=== PATIENT | female | born 1955 | race Caucasian/White ===

== ENCOUNTER 2016-09-20 09:33 | Outpatient (CLI) | payer BC ==
[2016-09-20] VITALS (12 sets, daily range): BP systolic 97–124; BP diastolic 57–74
[~2016-09-20] VITALS: Ht 162.6 cm; Wt 57.2 kg
[~2016-09-20 09:33] MED LIST: ALBU2.5V5 NEB; CAPE500T PO; FLUT1DIS3 IH; HYDR-2666 PO; LORA10TA3 PO; OMEP40CA5 PO; PROAIR HFA8.5 GM INH
[2016-09-20] MEDS ORDERED: FLUT1DIS3 IH (09:52)
[2016-09-20] MEDS ORDERED: ALBU2.5V5 NEB (09:55)
[2016-09-20] MEDS ORDERED: PROVENTIL HFA6.7 GM IH (09:55)
[2016-09-20 10:17] LABS: BASO # 0.1 x10^3/uL (0.0-0.2); BASO % 3 % (0-3); EOS % 5 % (0-3); HEMATOCRIT 39.2 % (36.0-47.0); HEMOGLOBIN 13.3 g/dL (12.0-15.5); LYMPH # 1.3 x10^3/uL (1.0-4.8); LYMPH % 24 % (24-48); MEAN CORPUSCULAR HEMOGLOBIN 32 pg (25-35); MEAN CORPUSCULAR HGB CONC 34 g/dL (31-37); MEAN CORPUSCULAR VOLUME 95 fL (79-100); MONO % 8 % (0-9); NEUT % 61 % (31-73); PLATELET COUNT 233 x10^3/uL (140-400); RED BLOOD COUNT 4.14 x10^6/uL (3.50-5.40); RED CELL DISTRIBUTION WIDTH 15.5 % (11.5-14.5); WHITE BLOOD COUNT 5.4 x10^3/uL (4.0-11.0)
[2016-09-20 10:28] LABS: PROTHROMBIN TIME PATIENT 12.7 SEC (11.7-14.0)
[2016-09-20] MEDS ORDERED: NALOXONE 0.4 MG/ML VIAL. ONE (11:04)
[2016-09-20] MEDS ORDERED: FENTANYL PF 100 MCG/2 ML VIAL. ONE (11:04)
[2016-09-20] MEDS ORDERED: FLUMAZENIL 0.5 MG/5 ML VIAL. IV ONE (11:04)
[2016-09-20] MEDS ORDERED: MIDAZOLAM HCL 2 MG/2 ML VIAL. ONE (11:04)
--- NOTE | 2016-09-20 11:26 | PDOC ---
MODERATE SEDATION ASSESSMENT RISKS/ALTERNATIVES Risks/Alternatives Risks and alternatives of this type of sedation and procedure discussed with: RISK/ALTERNATIVES: Patient H & P ON CHART H & P H & P on chart and reviewed for co-morbid conditions and appropriate labs. H&P ON CHART: Yes STATUS PREG STATUS ASSESSED: N/A MEDS/ALLERGIES REVIEWED Meds/Allergies Reviewed Medications and Allergies including time and route of recently administered narcotics and sedatives. MEDS/ALLERGIES REVIEWED: Yes ASA RATING ASA RATING: III AIRWAY ASSESSMENT Airway Assessment Airway patency, oral function limitations, presence of caps, crowns, dentures, partials, and ability to extend neck assessed. AIRWAY ASSESSMENT: Yes MALLAMPATI SCORE MALLAMPATI SCORE: II PRE-SEDATION ASSESSMENT PRE-SEDATION ASSESSMENT: Yes HALEY YEN MD Sep 20, 2016 11:26
--- NOTE | 2016-09-20 11:29 | PDOC1 ---
History and Physical Date of Procedure Date of Admission 09/20/16 Procedure Procedure Image guided Tx paracentesis Indication Indication 60 YO female with peritoneal carcinoma and with recurrent ascites Past Medical History Past Medical History See Nursing Pre Procedure PMH Past Surgical History Past Surgical History See Nursing Pre procedure PSH Current Medications Current Medications Current Medications Naloxone HCl (Narcan) 0.4 mg STK-MED ONCE .ROUTE ; Start 09/20/16 at 11:04; Stop 09/20/16 at 11:05; Status DC Flumazenil (Romazicon) 0.5 mg STK-MED ONCE IV ; Start 09/20/16 at 11:04; Stop at 11:05; Status DC Fentanyl Citrate (Fentanyl 2ml Vial) 100 mcg STK-MED ONCE .ROUTE ; Start at 11:04; Stop 09/20/16 at 11:05; Status DC Midazolam HCl (Versed) 2 mg STK-MED ONCE .ROUTE ; Start 09/20/16 at 11:04; Stop 09/20/16 at 11:05; Status DC Lidocaine/Sodium Bicarbonate (Buffered Lidocaine 1%) 7 ml 1X ONCE IJ ; Start at 11:30; Stop 09/20/16 at 11:31 Midazolam HCl (Versed) 1 mg 1X ONCE IV ; Start 09/20/16 at 11:30; Stop at 11:31 Fentanyl Citrate (Fentanyl 2ml Vial) 50 mcg 1X ONCE IV ; Start 09/20/16 at 11: 30; Stop 09/20/16 at 11:31 Active Scripts Active Reported Albuterol Sulfate Neb Soln (Albuterol Sulfate) 2.5 Mg/3 Ml Vial.neb 0.5 Vial NEB PRN Q4HRS PRN Proventil Hfa Inhaler (Albuterol Sulfate) 6.7 Gm Hfa.aer.ad 1-2 Puff IH PRN Q4HRS PRN Advair 250-50 Diskus (Fluticasone/Salmeterol) 1 Each Disk.w.dev 1 Puff IH BID Xeloda (Capecitabine) 500 Mg Tablet 500 Mg PO BID take it for 1 week then off 1 week. Allergies Allergies: Coded Allergies: meperidine (Verified Adverse Reaction, Intermediate, Nausea and Vomiting, 03/27/16) Physical Exam Vital Signs Vital Signs Date Time Temp Pulse Resp B/P Pulse Ox O2 Delivery O2 Flow Rate FiO2 09/20/16 11:24 83 15 95 Nasal Cannula 2.0 09/20/16 10:33 98.9 100/63 98.9 Lungs: Clear to auscultation Heart: Regular rate Psych/Mental Status: Mental status NL Other Mod abdominal distension Assessment Assessment 60 YO female with peritoneal carcinoma and with recurrent ascites Problems: Plan Plan Image guided Tx paracentesis requested by Oncology. HALEY YEN MD Sep 20, 2016 11:29
[2016-09-20] MEDS ORDERED: LIDOCAINE 1% / SOD BICARB 8.4% 20 ML VIAL. IJ ONE (11:30)
[2016-09-20] MEDS ORDERED: FENTANYL PF 100 MCG/2 ML VIAL. IV ONE (11:30)
[2016-09-20] MEDS ORDERED: MIDAZOLAM HCL 2 MG/2 ML VIAL. IV ONE (11:30)
--- NOTE | 2016-09-20 11:32 | PDOC ---
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 No apparent complication. Disposition Disposition Home from [facility] post recovery, if no problems. F/u with Dr Arvizu. Full report to follow. HALEY YEN MD Sep 20, 2016 11:32
--- NOTE | 2016-09-21 07:09 | RAD ---
CT-guided therapeutic paracentesis Indication: 60-year-old female with peritoneal carcinoma and with recurrent, symptomatic ascites. Image guided paracentesis has been requested by oncology. Anesthesia: 21 minutes moderate sedation was provided utilizing a total of 1 mg Versed and 50 mcg fentanyl, IV. The patient was appropriately monitored by a qualified independent observer throughout the time of moderate sedation. Procedure: Informed consent was obtained from the patient. She was placed supine on the CT scanner. Preliminary noncontrast CT images were obtained through abdomen and pelvis. These images confirmed the presence of a moderately large volume of abdominal and pelvic ascites. A right abdominal skin site suitable for CT-guided paracentesis was selected and marked. The area was prepped and draped in usual sterile fashion. Conscious sedation was provided with IV Versed and fentanyl. Using aseptic technique, local anesthesia, and CT guidance, a micropuncture sheath was successfully introduced into right lateral peritoneal cavity. The sheath was then exchanged over a guidewire for a 6 Frisian drainage catheter. Approximately 2060 cc of straw-clear ascites was then easily removed, and was discarded. Completion CT images revealed near complete resolution of ascites. The drainage catheter was removed and a sterile dressing was applied. Patient tolerated the procedure well without apparent complication. Impression: Successful, uneventful CT-guided therapeutic paracentesis, as described. PQRS compliance statement: One or more of the following individualized dose reduction techniques was utilized for this CT procedure: 1. Automated exposure control. 2. Adjustment of MA and/or KV according to patient size. 3. Iterative reconstruction technique.
== END 2016-09-20 13:00 | disposition home or self-care (01) ==
LOC: INTRAD 09:33
PROVIDERS: ATTEND Internal Medicine Hematology & Oncology
DX: R18.8 Other ascites (principal); J45.909 Unspecified asthma, uncomplicated; Z90.710 Acquired absence of both cervix and uterus; Z90.721 Acquired absence of ovaries, unilateral; Z51.11 Encounter for antineoplastic chemotherapy; D49.3 Neoplasm of unspecified behavior of breast; Z51.0 Encounter for antineoplastic radiation therapy
CPT/HCPCS: 36415; 49083; 85027; 85610; A4215; C1729; C1892; C1894; J2250; J3010

== ENCOUNTER 2016-10-01 07:25 | Observation (INO) | payer BC ==
[~2016-10-01] VITALS: Ht 160 cm; Wt 58.1 kg
[~2016-10-01 07:25] MED LIST changes: +PROVENTIL HFA6.7 GM IH
--- NOTE | 2016-10-01 07:35 | PHYS DOC ---
Past Medical History Past Medical History: Asthma, Cancer Past Surgical History: Hysterectomy, Other Additional Past Surgical Histo: RT MASTECTOMY Alcohol Use: None Drug Use: None Adult General Chief Complaint Chief Complaint: ABDOMINAL PAIN HPI HPI Patient is a 60 year old female who presents with abdominal pain. Patient has a history of ovarian cancer with peritoneal carcinoma and is followed by Dr. Arvizu. She was admitted the hospital recently and on September 20 had 2 L of fluid taken off of her abdomen secondary to ascites. She follow with Dr. Arvizu on and then night started having abdominal pain. She states the pain is gotten worse and is in the suprapubic area around her abdomen. She states this is a pain she had last time she needed fluid taken off. She denies any fevers chills nausea or vomiting. She states she's been taking Tylenol for her discomfort and now is not able to suppress her abdominal pain. Review of Systems Review of Systems Constitutional: Denies fever or chills [] Eyes: Denies change in visual acuity, redness, or eye pain [] HENT: Denies nasal congestion or sore throat [] Respiratory: Denies cough or shortness of breath [] Cardiovascular: No additional information not addressed in HPI [] GI: Denies nausea, vomiting, bloody stools or diarrhea positive for abdominal pain and abdominal swelling [] : Denies dysuria or hematuria [] Musculoskeletal: Denies back pain or joint pain [] Integument: Denies rash or skin lesions [] Neurologic: Denies headache, focal weakness or sensory changes [] Endocrine: Denies polyuria or polydipsia [] Current Medications Current Medications Allergies Allergies Allergies Coded Allergies Type Severity Reaction Last Updated Verified meperidine Adverse Reaction Intermediate Nausea and Vomiting 03/27/16 Yes Physical Exam Physical Exam Constitutional: Well developed, well nourished, no acute distress, non-toxic appearance. [] HENT: Normocephalic, atraumatic, bilateral external ears normal, oropharynx moist, no oral exudates, nose normal. [] Eyes: PERRLA, EOMI, conjunctiva normal, no discharge. [] Neck: Normal range of motion, no tenderness, supple, no stridor. [] Cardiovascular:Heart rate regular rhythm, no murmur [] Lungs & Thorax: Bilateral breath sounds clear to auscultation [] Abdomen: Bowel sounds normal, soft, mild distention with diffuse mild abdominal pain, no masses, no pulsatile masses. [] Skin: Warm, dry, no erythema, no rash. [] Back: No tenderness, no CVA tenderness. [] Extremities: No tenderness, no cyanosis, no clubbing, ROM intact, no edema. [] Neurologic: Alert and oriented X 3, normal motor function, normal sensory function, no focal deficits noted. [] Psychologic: Affect normal, judgement normal, mood normal. [] Current Patient Data Vital Signs Vital Signs Date Time Temp Pulse Resp B/P Pulse Ox O2 Delivery O2 Flow Rate FiO2 10/01/16 07:34 98.1 100 18 119/81 97 Room Air 98.1 Lab Values Laboratory Tests Test 10/01/16 08:17 White Blood Count 6.1x10^3/uL (4.0-11.0) Red Blood Count 4.68x10^6/uL (3.50-5.40) Hemoglobin 15.2g/dL (12.0-15.5) Hematocrit 45.4% (36.0-47.0) Mean Corpuscular Volume 97fL (79-100) Mean Corpuscular Hemoglobin 33pg (25-35) Mean Corpuscular Hemoglobin Concent 34g/dL (31-37) Red Cell Distribution Width 15.3% (11.5-14.5) H Platelet Count 213x10^3/uL (140-400) Neutrophils (%) (Auto) 67% (31-73) Lymphocytes (%) (Auto) 14% (24-48) L Monocytes (%) (Auto) 7% (0-9) Eosinophils (%) (Auto) 12% (0-3) H Basophils (%) (Auto) 1% (0-3) Neutrophils # (Auto) 4.1x10^3uL (1.8-7.7) Lymphocytes # (Auto) 0.8x10^3/uL (1.0-4.8) L Monocytes # (Auto) 0.4x10^3/uL (0.0-1.1) Eosinophils # (Auto) 0.7x10^3/uL (0.0-0.7) Basophils # (Auto) 0.0x10^3/uL (0.0-0.2) Prothrombin Time 12.9SEC (11.7-14.0) Prothrombin Time INR 1.0 (0.8-1.1) PTT 26SEC (24-38) Urine Collection Type Unknown Urine Color Crystal Urine Clarity Clear Urine pH 5.5 Urine Specific [place] >=1.030 Urine Protein Negativemg/dL (NEG-TRACE) Urine Glucose (UA) Negativemg/dL (NEG) Urine Ketones (Stick) Negativemg/dL (NEG) Urine Blood Negative (NEG) Urine Nitrite Negative (NEG) Urine Bilirubin Small (NEG) Urine Urobilinogen Dipstick 1.0mg/dL (0.2 mg/dL) Urine Leukocyte Esterase Negative (NEG) Urine RBC 0/HPF (0-2) Urine WBC 1-4/HPF (0-4) Urine Squamous Epithelial Cells Few/LPF Urine Bacteria Few/HPF (0-FEW) Sodium Level 144mmol/L (136-145) Potassium Level 3.4mmol/L (3.5-5.1) L Chloride Level 105mmol/L (98-107) Carbon Dioxide Level 31mmol/L (21-32) Anion Gap 8 (6-14) Blood Urea Nitrogen 24mg/dL (7-20) H Creatinine 0.6mg/dL (0.6-1.0) Estimated GFR (Cockcroft-Gault) 102.7 BUN/Creatinine Ratio 40 (6-20) H Glucose Level 111mg/dL (70-99) H Calcium Level 8.4mg/dL (8.5-10.1) L Total Bilirubin 0.7mg/dL (0.2-1.0) Aspartate Amino Transferase (AST) 23U/L (15-37) Alanine Aminotransferase (ALT) 22U/L (14-59) Alkaline Phosphatase 65U/L (46-116) Total Protein 6.6g/dL (6.4-8.2) Albumin 3.1g/dL (3.4-5.0) L Albumin/Globulin Ratio 0.9 (1.0-1.7) L Lipase 107U/L (73-393) Laboratory Tests 10/01/16 08:17 Laboratory Tests 10/01/16 08:17 EKG EKG [] Radiology/Procedures Radiology/Procedures [facility] [address] [place] [address] IMAGING REPORT Signed PATIENT: MANDY SANCHEZ ACCOUNT: [id number] : 1955 LOCATION: 5 SOUTH AGE: 60 SEX: F EXAM STATUS: ADM IN ORD. PHYSICIAN: SUKH ESCALANTE MD REASON: abd pain PROCEDURE: ABD PELV W/ IV CONTRAST ONLY CT of the abdomen and pelvis with contrast, 10/01/2016: History: Abdominal pain, recent paracentesis Multidetector CT imaging was performed following an IV bolus injection of iodinated contrast material. No oral contrast material was administered for this exam. Comparison is made to images obtained during a paracentesis on 09/20/2016, as well as an exam from 08/10/2015. There is a large volume of ascites. It has increased since the 09/20/2016 exam. A probable peritoneal tumor implant seen in the left side of the pelvis on the 08/10/2015 study is no longer visible. A tiny well-defined low-density lesion in the left lobe of liver is too small to definitively characterize but is probably a cyst. No other hepatic abnormality is seen. The gallbladder is at the upper limits of normal in size without evidence of radiopaque gallstones. The pancreas is unremarkable. The spleen is of normal size. No renal abnormality is detected. No abdominal or pelvic adenopathy is seen. The bowel loops are not dilated. There appear to be multiple sigmoid diverticula. No free air is evident in the abdomen. There are mild degenerative changes in the spine. There are multiple tiny sclerotic foci in the bones, best delineated in the spine. IMPRESSION: 1. Large volume of ascites which has increased since 09/20/2016. 2. Sigmoid diverticulosis. 3. Tiny scattered sclerotic bony foci suggesting blastic osseous metastatic disease. DICTATED and SIGNED BY: SENTHIL CIFUENTES MD DATE: 10/01/16 1025 CC: SUKH ESCALANTE MD; MARILYN GOMEZ MD ~ Impressions: Abdominal pain Course & Med Decision Making Course & Med Decision Making Pertinent Labs and Imaging studies reviewed. (See chart for details) Abdominal pain is likely secondary due to her ascites. CT abdomen and pelvis is pending at this time. We'll admit to the hospitalist and the patient will likely need IR to do a paracentesis with cell counts to rule out SBP. Patient is in stable condition this time. Late entry: At this time CT scan is back doesn't show any acute other than her ascites. Dragon Disclaimer Dragon Disclaimer This electronic medical record was generated, in whole or in part, using a voice recognition dictation system. Departure Departure Impression: Primary Impression: Abdominal pain Disposition: ADMITTED INPATIENT Admitting Physician: Mitch Green Condition: STABLE Referrals: MARILYN GOMEZ MD (PCP) SUKH ESCALANTE MD Oct 01, 2016 07:35
[2016-10-01 08:32] LABS: BASO % 1 % (0-3); EOS % 12 % (0-3); HEMATOCRIT 45.4 % (36.0-47.0); HEMOGLOBIN 15.2 g/dL (12.0-15.5); LYMPH # 0.8 x10^3/uL (1.0-4.8); LYMPH % 14 % (24-48); MEAN CORPUSCULAR HEMOGLOBIN 33 pg (25-35); MEAN CORPUSCULAR HGB CONC 34 g/dL (31-37); MEAN CORPUSCULAR VOLUME 97 fL (79-100); MONO % 7 % (0-9); NEUT % 67 % (31-73); PLATELET COUNT 213 x10^3/uL (140-400); RED BLOOD COUNT 4.68 x10^6/uL (3.50-5.40); RED CELL DISTRIBUTION WIDTH 15.3 % (11.5-14.5); WHITE BLOOD COUNT 6.1 x10^3/uL (4.0-11.0)
[2016-10-01 08:34] LABS: BILIRUBIN,URINE SMALL (NEG); GLUCOSE,URINE NEGATIVE (NEG); NITRITE,URINE NEGATIVE (NEG); PH,URINE 5.5; PROTEIN,URINE NEGATIVE (NEG-TRACE)
[2016-10-01 08:38] LABS: PROTHROMBIN TIME PATIENT 12.9 SEC (11.7-14.0)
[2016-10-01 08:43] LABS: CALCIUM 8.4 mg/dL (8.5-10.1); CREATININE 0.6 mg/dL (0.6-1.0); GFR 102.7; POTASSIUM 3.4 mmol/L (3.5-5.1)
[2016-10-01 08:44] LABS: ALBUMIN 3.1 g/dL (3.4-5.0); ALBUMIN/GLOBULIN RATIO 0.9 (1.0-1.7); TOTAL BILIRUBIN 0.7 mg/dL (0.2-1.0); TOTAL PROTEIN 6.6 g/dL (6.4-8.2)
[2016-10-01 08:49] LABS: BACTERIA,URINE FEW /HPF (0-FEW); RBC,URINE 0 /HPF (0-2); SQUAMOUS EPITHELIAL CELL,UR FEW /LPF
[2016-10-01] MEDS ORDERED: IOHEXOL 300 MG/ML 75 ML VIAL IV ONE (09:30)
[2016-10-01] MEDS ORDERED: ONDANSETRON PF 4 MG/2 ML VIAL. IV PRN ×2 (10:00→12:45)
--- NOTE | 2016-10-01 10:16 | ACF ---
Admission Forms Criteria ABDOMINAL PAIN Clinical Indications for Admission to Inpatient Care (Place 'X' for any and all applicable criteria): Admission is indicated for ANY ONE of the following(1)(2)(3)(4)(5): [X]I. Inpatient admission required rather than observation care (Also use Abdominal Pain: Observation Care, as appropriate) because of ANY ONE of the following: [X]a) Severe pain requiring acute inpatient management [X]b) Identification of etiology/finding that requires inpatient care (eg, aortic dissection, free air) [ ]c) Absent bowel sounds with complete ileus(6) [ ]d) Suspected toxic megacolon [ ]e) Severe electrolyte abnormalities requiring inpatient care [ ]f) High fever or infection requiring inpatient admission as indicated by ANY ONE of following(7)(8): [ ] i) Appropriate outpatient or observational care antimicrobial treatment unavailable, not effective, or not feasible [ ] ii) Documented bacteremia [ ] iii) Temperature > 104.9 degrees F (oral) [ ] iv) T >103.1 F (oral) or < 96.8 F(rectal) that does not respond to all emergency treatment measures [ ]g) Signs of intestinal obstruction [B] [ ]h) Hemodynamic instability [ ]i) IV fluid to replace significant ongoing losses (greater than 3 L/m2 per day) (12)(13) [ ]j) Percutaneous or open drainage (eg, abscess, biliary tract ) procedures [ ]k) Parenteral nutrition regimen that must be implemented on inpatient basis [ ]l) Other condition,treatment or monitoring requiring inpatient admission. [ ]II. Peritoneal signs present [ ]III. Surgery needed that cannot be performed on an ambulatory basis. [ ]IV. Evaluation requires patient to not eat or drink for extended period ( eg, more than 24 hours). [ ]V. Contraindications and/or Inappropriate clinical situations for Observational Care in patients with abdominal pain, when ANY ONE of the following is required: [ ]a) Thorough evaluation is required to prevent catastrophic events due to delays in diagnosing (e.g.Mesenteric ischemia) 1,3 [ ]b) Patient with severe pathology or with chronic symptoms unlikely to improve in the ED stay (3) [ ]. General contraindications and/or Inappropriate clinical situations for Observational Care in patients with abdominal pain, when ANY ONE of the following is required: [ ]a) Prediction of prolongation of LOS based on ANY ONE of the following may be considered as a contraindication for observational care 2, 3, 4, 5, 6, 7, 8, 9, 10, 11 [ ]i) Age > 65 yrs. [ ]ii) Patient arriving by ambulance [ ]iii) Patient with high acuity [ ]iv) Patient requiring vital sign monitoring [ ]v) Patient on IV medication [ ]b) Systolic blood pressures 180mmHg 3,12 [ ]c) Patient with altered mental status including delirium and other alteration of consciousness, (3) [ ]d) Patient whose discharge disposition will be to a halfway home or rehabilitation home should not be managed in Emergency Department Observation Unit. CMS rule requires 3 days hospital stay before such placement.3,13 [ ]e) Patient with failure to thrive due to broad array of etiologies 3,16,17 [ ]f) Inability to ambulate 3,14 Extended stay beyond goal length of stay may be needed for(2)(3): [ ]a) Persistent abdominal pain with suspected intra-abdominal process [ ]b) Diagnosed condition requiring continued stay (e.g., pancreatitis, complicated diverticulitis) [ ]c) Surgery (e.g., colectomy) The original [email or web address] content created by [employer] has been revised. The portions of the content which have been revised are identified through the use of italic text or in bold, and [facility] has neither reviewed nor approved the modified material.All other unmodified content is copyright [email or web address]. Please see references footnoted in the original [email or web address] edition 2016 Admission Criteria Met?: Yes CLARITA SRIVASTAVA Oct 01, 2016 10:16
[2016-10-01 10:38] VITALS: BP 126/75
--- NOTE | 2016-10-01 10:42 | RAD ---
CT of the abdomen and pelvis with contrast, 10/01/2016: History: Abdominal pain, recent paracentesis Multidetector CT imaging was performed following an IV bolus injection of iodinated contrast material. No oral contrast material was administered for this exam. Comparison is made to images obtained during a paracentesis on 09/20/2016, as well as an exam from 08/10/2015. There is a large volume of ascites. It has increased since the 09/20/2016 exam. A probable peritoneal tumor implant seen in the left side of the pelvis on the 08/10/2015 study is no longer visible. A tiny well-defined low-density lesion in the left lobe of liver is too small to definitively characterize but is probably a cyst. No other hepatic abnormality is seen. The gallbladder is at the upper limits of normal in size without evidence of radiopaque gallstones. The pancreas is unremarkable. The spleen is of normal size. No renal abnormality is detected. No abdominal or pelvic adenopathy is seen. The bowel loops are not dilated. There appear to be multiple sigmoid diverticula. No free air is evident in the abdomen. There are mild degenerative changes in the spine. There are multiple tiny sclerotic foci in the bones, best delineated in the spine. IMPRESSION: 1. Large volume of ascites which has increased since 09/20/2016. 2. Sigmoid diverticulosis. 3. Tiny scattered sclerotic bony foci suggesting blastic osseous metastatic disease.
[2016-10-01] MEDS: MORPHINE SULFATE 2 MG/ML DISP.SYRIN. IV PRN ×2 (11:02→15:48)
[2016-10-01] MEDS ORDERED: HYDROCODONE/APAP 5/325MG TABLET. PO PRN (12:45)
[2016-10-01] MEDS ORDERED: ACETAMINOPHEN 325 MG TABLET. PO PRN (12:45)
[2016-10-01] MEDS ORDERED: hydrALAZINE 20 MG/ML VIAL. IVP PRN (12:45)
[2016-10-01] MEDS ORDERED: ALBUTEROL SULFATE 2.5 MG/3 ML NEBU. NEB PRN (12:45)
--- NOTE | 2016-10-01 15:01 | PDOC1 ---
History and Physical Past Medical History Past Medical History Ovarian and breast cancer Cardiovascular: No pertinent hx Pulmonary: Asthma GI: No pertinent hx Heme/Onc: Cancer Psych: No pertinent hx Rheumatologic: No pertinent hx Past Surgical History Past Surgical History: Hysterectomy Family History Family History: Cancer Social History ALCOHOL: none Drugs: None Current Problem List Problem List Problems Medical Problems: (1) Abdominal pain Status: Acute (2) Ascites Status: Acute Current Medications Current Medications Current Medications Medications (Trade) Dose Ordered Sig/Iggy Start Time Stop Time Status Last Admin Dose Admin Acetaminophen (Tylenol) 325 mg PRN Q6HRS PRN 10/01/16 12:45 Acetaminophen/ Hydrocodone Bitart (Lortab 5/325) 1 tab PRN Q6HRS PRN 10/01/16 12:45 Albuterol Sulfate (Ventolin Neb Soln) 2.5 mg PRN Q4HRS PRN 10/01/16 12:45 10/01/16 12:43 2.5 MG Hydralazine HCl (Apresoline) 10 mg PRN Q4HRS PRN 10/01/16 12:45 Iohexol (Omnipaque 300 Mg/ml) 75 ml 1X ONCE 10/01/16 09:30 10/01/16 09:31 DC 10/01/16 09:43 75 ML Morphine Sulfate 2 mg PRN Q2HR PRN 10/01/16 10:00 10/02/16 09:59 10/01/16 11:02 2 MG Ondansetron HCl (Zofran) 4 mg PRN Q8HRS PRN 10/01/16 12:45 Allergies Allergies Allergies Coded Allergies Type Severity Reaction Last Updated Verified meperidine Adverse Reaction Intermediate Nausea and Vomiting 03/27/16 Yes ROS Review of System CONSTITUTIONAL: No fever or chills EYES: No recent changes SKIN: No rash or itching CARDIOVASCULAR: No chest pain, syncope, palpitations, or edema RESPIRATORY: No SOB or cough GASTROINTESTINAL: No nausea, vomiting or but abdominal pain NEUROLOGICAL: No headaches or weakness ENDOCRINE: No cold or heat intolerance GENITOURINARY: No urgency or frequency of urination MUSCULOSKELETAL: No back pain or joint pain LYMPHATICS: No enlarged lymph nodes PSYCHIATRIC: No anxiety or depression Physical Exam Physical Exam GEN.: No apparent distress. Alert and oriented. HEENT: Head is normocephalic, atraumatic NECK: Supple. no jvd LUNGS: Clear to auscultation.normal airflow HEART: RRR, S1, S2 present. Peripheral pulses intact ABDOMEN: Soft, nontender. Positive bowel sounds. distended. EXTREMITIES: Without any cyanosis. NEUROLOGIC: Normal speech, normal tone PSYCHIATRIC: Normal affect, normal mood. SKIN: No visible ulcerations Vitals Vitals Vital Signs Date Time Temp Pulse Resp B/P Pulse Ox O2 Delivery O2 Flow Rate FiO2 10/01/16 12:17 94 Room Air 10/01/16 10:38 97.6 86 17 126/75 97.6 Labs Labs Laboratory Tests Test 10/01/16 08:17 White Blood Count 6.1x10^3/uL (4.0-11.0) Red Blood Count 4.68x10^6/uL (3.50-5.40) Hemoglobin 15.2g/dL (12.0-15.5) Hematocrit 45.4% (36.0-47.0) Mean Corpuscular Volume 97fL (79-100) Mean Corpuscular Hemoglobin 33pg (25-35) Mean Corpuscular Hemoglobin Concent 34g/dL (31-37) Red Cell Distribution Width 15.3% (11.5-14.5) Platelet Count 213x10^3/uL (140-400) Neutrophils (%) (Auto) 67% (31-73) Lymphocytes (%) (Auto) 14% (24-48) Monocytes (%) (Auto) 7% (0-9) Eosinophils (%) (Auto) 12% (0-3) Basophils (%) (Auto) 1% (0-3) Neutrophils # (Auto) 4.1x10^3uL (1.8-7.7) Lymphocytes # (Auto) 0.8x10^3/uL (1.0-4.8) Monocytes # (Auto) 0.4x10^3/uL (0.0-1.1) Eosinophils # (Auto) 0.7x10^3/uL (0.0-0.7) Basophils # (Auto) 0.0x10^3/uL (0.0-0.2) Prothrombin Time 12.9SEC (11.7-14.0) Prothromb Time International Ratio 1.0 (0.8-1.1) Activated Partial Thromboplast Time 26SEC (24-38) Urine Collection Type Unknown Urine Color Crystal Urine Clarity Clear Urine pH 5.5 Urine Specific [place] >=1.030 Urine Protein Negativemg/dL (NEG-TRACE) Urine Glucose (UA) Negativemg/dL (NEG) Urine Ketones (Stick) Negativemg/dL (NEG) Urine Blood Negative (NEG) Urine Nitrite Negative (NEG) Urine Bilirubin Small (NEG) Urine Urobilinogen Dipstick 1.0mg/dL (0.2 mg/dL) Urine Leukocyte Esterase Negative (NEG) Urine RBC 0/HPF (0-2) Urine WBC 1-4/HPF (0-4) Urine Squamous Epithelial Cells Few/LPF Urine Bacteria Few/HPF (0-FEW) Sodium Level 144mmol/L (136-145) Potassium Level 3.4mmol/L (3.5-5.1) Chloride Level 105mmol/L (98-107) Carbon Dioxide Level 31mmol/L (21-32) Anion Gap 8 (6-14) Blood Urea Nitrogen 24mg/dL (7-20) Creatinine 0.6mg/dL (0.6-1.0) Estimated GFR (Cockcroft-Gault) 102.7 BUN/Creatinine Ratio 40 (6-20) Glucose Level 111mg/dL (70-99) Calcium Level 8.4mg/dL (8.5-10.1) Total Bilirubin 0.7mg/dL (0.2-1.0) Aspartate Amino Transf (AST/SGOT) 23U/L (15-37) Alanine Aminotransferase (ALT/SGPT) 22U/L (14-59) Alkaline Phosphatase 65U/L (46-116) Total Protein 6.6g/dL (6.4-8.2) Albumin 3.1g/dL (3.4-5.0) Albumin/Globulin Ratio 0.9 (1.0-1.7) Lipase 107U/L (73-393) Laboratory Tests Test 10/01/16 08:17 White Blood Count 6.1x10^3/uL (4.0-11.0) Red Blood Count 4.68x10^6/uL (3.50-5.40) Hemoglobin 15.2g/dL (12.0-15.5) Hematocrit 45.4% (36.0-47.0) Mean Corpuscular Volume 97fL (79-100) Mean Corpuscular Hemoglobin 33pg (25-35) Mean Corpuscular Hemoglobin Concent 34g/dL (31-37) Red Cell Distribution Width 15.3% (11.5-14.5) Platelet Count 213x10^3/uL (140-400) Neutrophils (%) (Auto) 67% (31-73) Lymphocytes (%) (Auto) 14% (24-48) Monocytes (%) (Auto) 7% (0-9) Eosinophils (%) (Auto) 12% (0-3) Basophils (%) (Auto) 1% (0-3) Neutrophils # (Auto) 4.1x10^3uL (1.8-7.7) Lymphocytes # (Auto) 0.8x10^3/uL (1.0-4.8) Monocytes # (Auto) 0.4x10^3/uL (0.0-1.1) Eosinophils # (Auto) 0.7x10^3/uL (0.0-0.7) Basophils # (Auto) 0.0x10^3/uL (0.0-0.2) Prothrombin Time 12.9SEC (11.7-14.0) Prothromb Time International Ratio 1.0 (0.8-1.1) Activated Partial Thromboplast Time 26SEC (24-38) Urine Collection Type Unknown Urine Color Crystal Urine Clarity Clear Urine pH 5.5 Urine Specific [place] >=1.030 Urine Protein Negativemg/dL (NEG-TRACE) Urine Glucose (UA) Negativemg/dL (NEG) Urine Ketones (Stick) Negativemg/dL (NEG) Urine Blood Negative (NEG) Urine Nitrite Negative (NEG) Urine Bilirubin Small (NEG) Urine Urobilinogen Dipstick 1.0mg/dL (0.2 mg/dL) Urine Leukocyte Esterase Negative (NEG) Urine RBC 0/HPF (0-2) Urine WBC 1-4/HPF (0-4) Urine Squamous Epithelial Cells Few/LPF Urine Bacteria Few/HPF (0-FEW) Sodium Level 144mmol/L (136-145) Potassium Level 3.4mmol/L (3.5-5.1) Chloride Level 105mmol/L (98-107) Carbon Dioxide Level 31mmol/L (21-32) Anion Gap 8 (6-14) Blood Urea Nitrogen 24mg/dL (7-20) Creatinine 0.6mg/dL (0.6-1.0) Estimated GFR (Cockcroft-Gault) 102.7 BUN/Creatinine Ratio 40 (6-20) Glucose Level 111mg/dL (70-99) Calcium Level 8.4mg/dL (8.5-10.1) Total Bilirubin 0.7mg/dL (0.2-1.0) Aspartate Amino Transf (AST/SGOT) 23U/L (15-37) Alanine Aminotransferase (ALT/SGPT) 22U/L (14-59) Alkaline Phosphatase 65U/L (46-116) Total Protein 6.6g/dL (6.4-8.2) Albumin 3.1g/dL (3.4-5.0) Albumin/Globulin Ratio 0.9 (1.0-1.7) Lipase 107U/L (73-393) VTE Prophylaxis Ordered VTE Prophylaxis Devices: Yes VTE Pharmacological Prophylaxi: Yes NAY ABDI MD Oct 01, 2016 15:01
[2016-10-01 15:13] VITALS: BP 104/74
[2016-10-01] MEDS ORDERED: NON FORMULARY ITEM (Albuterol Sulfate (Proventil Hfa Inhaler) 2 PUFF) IH PRN (15:15)
[2016-10-01] MEDS: HEPARIN PF for SUB-Q USE 5,000 UNIT/0.5 ML VIAL. SQ SCH ×2 (15:54→21:36)
--- NOTE | 2016-10-01 16:07 | HP ---
ADMIT DATE: 10/01/2016 CHIEF COMPLAINT: Abdominal pain. HISTORY OF PRESENT ILLNESS: A 60-year-old female with prior history of ovarian cancer, currently undergoing chemotherapy and about to get a port and following with Dr. Arvizu, presented to the ER with complaints of abdominal distension and pain. She had paracentesis recently, may be 1 or 2 weeks ago. At that time, she had 2 liters of fluid taken off and she has been following with oncologist. However, the pain is intractable in nature. She has suprapubic abdominal pain and also pain all over the abdomen, which is coming and going. She denies any fever, chills, nausea, vomiting, and at this time, she is unable to tolerate diet and the patient needs another paracentesis. PAST MEDICAL HISTORY, REVIEW OF SYSTEMS, AND PHYSICAL EXAMINATION: Please see my electronic H and P. LABORATORY DATA: WBC 6000, hemoglobin is 15.2, MCV is 97, platelets 213. Chemistry: Sodium is 144, potassium 3.4, chloride is 105, anion gap is 8, BUN is 24, creatinine 0.6, albumin is 3.1. Urine is specific gravity more than 1.030, pH is 5.5, bilirubin small, and leuk esterase negative. IMAGING STUDIES: Today, abdomen and pelvis CT showed large volume of ascites, which has increased compared to 09/20/2016, sigmoid diverticulosis. ASSESSMENT: 1. Ascites with intractable abdominal pain, likely due to malignancy related. 2. Ovarian cancer. 3. Breast cancer with metastasis. PLAN: 1. Pain control with IV morphine and oral [place]. Morphine IV 2 mg every 2 hours. 2. IR has been consulted for paracentesis. 3. Home medications reviewed and reconciled. 4. No Oncology consultation at this time. 5. DVT prophylaxis. 6. P.r.n. Zofran. 7. Supportive care. NAY ABDI MD DR: INA/jong JOB#: [id number] / [id number]
[2016-10-01] MEDS: ALBUTEROL SULFATE 2.5 MG/3 ML NEBU. NEB SCH ×2 (16:19→19:57)
[2016-10-01 19:00] VITALS: BP 121/76
[2016-10-01] MEDS: BUDESONIDE 0.5 MG/2 ML NEBU NEB SCH (19:57)
[2016-10-01] MEDS: CAPECITABINE 500 MG PO SCH (21:33)
[2016-10-01 23:09] VITALS: BP 106/75
[2016-10-02] VITALS (13 sets, daily range): BP systolic 104–135; BP diastolic 49–92
[2016-10-02] MEDS: ALBUTEROL SULFATE 2.5 MG/3 ML NEBU. NEB SCH ×4 (01:35→15:51)
[2016-10-02 06:03] LABS: BASO # 0.1 x10^3/uL (0.0-0.2); BASO % 2 % (0-3); EOS % 19 % (0-3); HEMATOCRIT 40.2 % (36.0-47.0); HEMOGLOBIN 13.3 g/dL (12.0-15.5); LYMPH # 1.1 x10^3/uL (1.0-4.8); LYMPH % 20 % (24-48); MEAN CORPUSCULAR HEMOGLOBIN 32 pg (25-35); MEAN CORPUSCULAR HGB CONC 33 g/dL (31-37); MEAN CORPUSCULAR VOLUME 97 fL (79-100); MONO % 8 % (0-9); NEUT % 51 % (31-73); PLATELET COUNT 182 x10^3/uL (140-400); RED BLOOD COUNT 4.16 x10^6/uL (3.50-5.40); RED CELL DISTRIBUTION WIDTH 15.2 % (11.5-14.5); WHITE BLOOD COUNT 5.6 x10^3/uL (4.0-11.0)
[2016-10-02] MEDS: HEPARIN PF for SUB-Q USE 5,000 UNIT/0.5 ML VIAL. SQ SCH (06:19)
[2016-10-02 06:25] LABS: CALCIUM 8.1 mg/dL (8.5-10.1); CREATININE 0.6 mg/dL (0.6-1.0); GFR 102.7; POTASSIUM 3.6 mmol/L (3.5-5.1)
[2016-10-02] MEDS: BUDESONIDE 0.5 MG/2 ML NEBU NEB SCH (06:33)
[2016-10-02 08:13] LABS: % EOS 13 % (0-5); PLT ESTIMATE ADEQUATE (ADEQUATE)
[2016-10-02] MEDS: CAPECITABINE 500 MG PO SCH (09:00)
--- NOTE | 2016-10-02 11:47 | PDOC ---
PROGRESS NOTES Chief Complaint Chief Complaint A/P 1. Ascites with intractable abdominal pain, likely due to malignancy related. 2. Ovarian cancer. 3. Breast cancer with metastasis. 4. Chronic respiratory failure Plan paracentesis today Plan for DC after 1hr after the paracentesis labs reviewed oncology follow up as out pt. Vitals Vitals Vital Signs Date Time Temp Pulse Resp B/P Pulse Ox O2 Delivery O2 Flow Rate FiO2 10/02/16 11:07 Nasal Cannula 3.0 10/02/16 10:36 96.3 92 20 114/71 93 96.3 Physical Exam General: Alert, Oriented X3 Heart: Normal S1, Normal S2 Lungs: Clear Abdomen: Normal bowel sounds, Soft Labs LABS Laboratory Tests Test 10/02/16 05:45 White Blood Count 5.6x10^3/uL (4.0-11.0) Red Blood Count 4.16x10^6/uL (3.50-5.40) Hemoglobin 13.3g/dL (12.0-15.5) Hematocrit 40.2% (36.0-47.0) Mean Corpuscular Volume 97fL (79-100) Mean Corpuscular Hemoglobin 32pg (25-35) Mean Corpuscular Hemoglobin Concent 33g/dL (31-37) Red Cell Distribution Width 15.2% (11.5-14.5) Platelet Count 182x10^3/uL (140-400) Neutrophils (%) (Auto) 51% (31-73) Lymphocytes (%) (Auto) 20% (24-48) Monocytes (%) (Auto) 8% (0-9) Eosinophils (%) (Auto) 19% (0-3) Basophils (%) (Auto) 2% (0-3) Neutrophils # (Auto) 2.8x10^3uL (1.8-7.7) Lymphocytes # (Auto) 1.1x10^3/uL (1.0-4.8) Monocytes # (Auto) 0.5x10^3/uL (0.0-1.1) Eosinophils # (Auto) 1.1x10^3/uL (0.0-0.7) Basophils # (Auto) 0.1x10^3/uL (0.0-0.2) Segmented Neutrophils % 55% (35-66) Band Neutrophils % 3% (0-9) Lymphocytes % 24% (24-48) Monocytes % 5% (0-10) Eosinophils % 13% (0-5) Platelet Estimate Adequate (ADEQUATE) Sodium Level 143mmol/L (136-145) Potassium Level 3.6mmol/L (3.5-5.1) Chloride Level 108mmol/L (98-107) Carbon Dioxide Level 27mmol/L (21-32) Anion Gap 8 (6-14) Blood Urea Nitrogen 21mg/dL (7-20) Creatinine 0.6mg/dL (0.6-1.0) Estimated GFR (Cockcroft-Gault) 102.7 Glucose Level 99mg/dL (70-99) Calcium Level 8.1mg/dL (8.5-10.1) Assessment and Plan Assessmemt and Plan Problems Medical Problems: (1) Abdominal pain Status: Acute (2) Ascites Status: Acute Problems: Comment Review of Relevant I have reviewed the following items nba (where applicable) has been applied. Labs Laboratory Tests Test 10/01/16 08:17 10/02/16 05:45 White Blood Count 6.1x10^3/uL (4.0-11.0) 5.6x10^3/uL (4.0-11.0) Red Blood Count 4.68x10^6/uL (3.50-5.40) 4.16x10^6/uL (3.50-5.40) Hemoglobin 15.2g/dL (12.0-15.5) 13.3g/dL (12.0-15.5) Hematocrit 45.4% (36.0-47.0) 40.2% (36.0-47.0) Mean Corpuscular Volume 97fL (79-100) 97fL (79-100) Mean Corpuscular Hemoglobin 33pg (25-35) 32pg (25-35) Mean Corpuscular Hemoglobin Concent 34g/dL (31-37) 33g/dL (31-37) Red Cell Distribution Width 15.3% (11.5-14.5) 15.2% (11.5-14.5) Platelet Count 213x10^3/uL (140-400) 182x10^3/uL (140-400) Neutrophils (%) (Auto) 67% (31-73) 51% (31-73) Lymphocytes (%) (Auto) 14% (24-48) 20% (24-48) Monocytes (%) (Auto) 7% (0-9) 8% (0-9) Eosinophils (%) (Auto) 12% (0-3) 19% (0-3) Basophils (%) (Auto) 1% (0-3) 2% (0-3) Neutrophils # (Auto) 4.1x10^3uL (1.8-7.7) 2.8x10^3uL (1.8-7.7) Lymphocytes # (Auto) 0.8x10^3/uL (1.0-4.8) 1.1x10^3/uL (1.0-4.8) Monocytes # (Auto) 0.4x10^3/uL (0.0-1.1) 0.5x10^3/uL (0.0-1.1) Eosinophils # (Auto) 0.7x10^3/uL (0.0-0.7) 1.1x10^3/uL (0.0-0.7) Basophils # (Auto) 0.0x10^3/uL (0.0-0.2) 0.1x10^3/uL (0.0-0.2) Prothrombin Time 12.9SEC (11.7-14.0) Prothromb Time International Ratio 1.0 (0.8-1.1) Activated Partial Thromboplast Time 26SEC (24-38) Urine Collection Type Unknown Urine Color Crystal Urine Clarity Clear Urine pH 5.5 Urine Specific [place] >=1.030 Urine Protein Negativemg/dL (NEG-TRACE) Urine Glucose (UA) Negativemg/dL (NEG) Urine Ketones (Stick) Negativemg/dL (NEG) Urine Blood Negative (NEG) Urine Nitrite Negative (NEG) Urine Bilirubin Small (NEG) Urine Urobilinogen Dipstick 1.0mg/dL (0.2 mg/dL) Urine Leukocyte Esterase Negative (NEG) Urine RBC 0/HPF (0-2) Urine WBC 1-4/HPF (0-4) Urine Squamous Epithelial Cells Few/LPF Urine Bacteria Few/HPF (0-FEW) Sodium Level 144mmol/L (136-145) 143mmol/L (136-145) Potassium Level 3.4mmol/L (3.5-5.1) 3.6mmol/L (3.5-5.1) Chloride Level 105mmol/L (98-107) 108mmol/L (98-107) Carbon Dioxide Level 31mmol/L (21-32) 27mmol/L (21-32) Anion Gap 8 (6-14) 8 (6-14) Blood Urea Nitrogen 24mg/dL (7-20) 21mg/dL (7-20) Creatinine 0.6mg/dL (0.6-1.0) 0.6mg/dL (0.6-1.0) Estimated GFR (Cockcroft-Gault) 102.7 102.7 BUN/Creatinine Ratio 40 (6-20) Glucose Level 111mg/dL (70-99) 99mg/dL (70-99) Calcium Level 8.4mg/dL (8.5-10.1) 8.1mg/dL (8.5-10.1) Total Bilirubin 0.7mg/dL (0.2-1.0) Aspartate Amino Transf (AST/SGOT) 23U/L (15-37) Alanine Aminotransferase (ALT/SGPT) 22U/L (14-59) Alkaline Phosphatase 65U/L (46-116) Total Protein 6.6g/dL (6.4-8.2) Albumin 3.1g/dL (3.4-5.0) Albumin/Globulin Ratio 0.9 (1.0-1.7) Lipase 107U/L (73-393) Segmented Neutrophils % 55% (35-66) Band Neutrophils % 3% (0-9) Lymphocytes % 24% (24-48) Monocytes % 5% (0-10) Eosinophils % 13% (0-5) Platelet Estimate Adequate (ADEQUATE) Laboratory Tests Test 10/02/16 05:45 White Blood Count 5.6x10^3/uL (4.0-11.0) Red Blood Count 4.16x10^6/uL (3.50-5.40) Hemoglobin 13.3g/dL (12.0-15.5) Hematocrit 40.2% (36.0-47.0) Mean Corpuscular Volume 97fL (79-100) Mean Corpuscular Hemoglobin 32pg (25-35) Mean Corpuscular Hemoglobin Concent 33g/dL (31-37) Red Cell Distribution Width 15.2% (11.5-14.5) Platelet Count 182x10^3/uL (140-400) Neutrophils (%) (Auto) 51% (31-73) Lymphocytes (%) (Auto) 20% (24-48) Monocytes (%) (Auto) 8% (0-9) Eosinophils (%) (Auto) 19% (0-3) Basophils (%) (Auto) 2% (0-3) Neutrophils # (Auto) 2.8x10^3uL (1.8-7.7) Lymphocytes # (Auto) 1.1x10^3/uL (1.0-4.8) Monocytes # (Auto) 0.5x10^3/uL (0.0-1.1) Eosinophils # (Auto) 1.1x10^3/uL (0.0-0.7) Basophils # (Auto) 0.1x10^3/uL (0.0-0.2) Segmented Neutrophils % 55% (35-66) Band Neutrophils % 3% (0-9) Lymphocytes % 24% (24-48) Monocytes % 5% (0-10) Eosinophils % 13% (0-5) Platelet Estimate Adequate (ADEQUATE) Sodium Level 143mmol/L (136-145) Potassium Level 3.6mmol/L (3.5-5.1) Chloride Level 108mmol/L (98-107) Carbon Dioxide Level 27mmol/L (21-32) Anion Gap 8 (6-14) Blood Urea Nitrogen 21mg/dL (7-20) Creatinine 0.6mg/dL (0.6-1.0) Estimated GFR (Cockcroft-Gault) 102.7 Glucose Level 99mg/dL (70-99) Calcium Level 8.1mg/dL (8.5-10.1) Medications Current Medications Iohexol (Omnipaque 300 Mg/ml) 75 ml 1X ONCE IV Last administered on 10/01/16t 09:43; Start 10/01/16 at 09:30; Stop 10/01/16 at 09:31; Status DC Ondansetron HCl (Zofran) 4 mg PRN Q8HRS PRN IV NAUSEA/VOMITING; Start 10/01/16 at 10:00; Stop 10/01/16 at 15:09; Status DC Morphine Sulfate 2 mg PRN Q2HR PRN IV PAIN Last administered on 10/01/16 15:48 ; Start 10/01/16 at 10:00; Stop 10/02/16 at 09:59; Status DC Acetaminophen (Tylenol) 325 mg PRN Q6HRS PRN PO MILD PAIN / TEMP; Start at 12:45 Acetaminophen/ Hydrocodone Bitart (Lortab 5/325) 1 tab PRN Q6HRS PRN PO MODERATE TO SEVERE PAIN; Start 10/01/16 at 12:45 Hydralazine HCl (Apresoline) 10 mg PRN Q4HRS PRN IVP ELEVATED BP, SEE COMMENTS ; Start 10/01/16 at 12:45 Ondansetron HCl (Zofran) 4 mg PRN Q8HRS PRN IV NAUSEA/VOMITING; Start 10/01/16 at 12:45 Albuterol Sulfate (Ventolin Neb Soln) 2.5 mg PRN Q4HRS PRN NEB SHORTNESS OF BREATH Last administered on 10/01/16 12:43; Start 10/01/16 at 12:45 Heparin Sodium (Porcine) 5,000 unit Q8HRS SQ Last administered on 10/02/16 06: 19; Start 10/01/16 at 16:00 Non-Formulary Medication 2 puff PRN Q4HRS PRN IH SHORTNESS OF BREATH; Start at 15:15; Status UNV Non-Formulary Medication 500 mg BID PO ; Start 10/01/16 at 21:00; Status UNV Albuterol Sulfate (Ventolin Neb Soln) 2.5 mg RTQID NEB Last administered on 11:07; Start 10/01/16 at 16:00 Budesonide (Pulmicort) 0.5 mg RTBID NEB Last administered on 10/02/16 06:33; Start 10/01/16 at 20:00 Active Scripts Active Reported Albuterol Sulfate Neb Soln (Albuterol Sulfate) 2.5 Mg/3 Ml Vial.neb 0.5 Vial NEB PRN Q4HRS PRN Proventil Hfa Inhaler (Albuterol Sulfate) 6.7 Gm Hfa.aer.ad 1-2 Puff IH PRN Q4HRS PRN Advair 250-50 Diskus (Fluticasone/Salmeterol) 1 Each Disk.w.dev 1 Puff IH BID Xeloda (Capecitabine) 500 Mg Tablet 500 Mg PO BID take it for 1 week then off 1 week. Vitals/I & O Vital Sign - Last 24 Hours 10/01/16 10/01/16 10/01/16 10/01/16 12:17 15:13 16:22 19:00 Temp 98.6 98.0 98.6 98.0 Pulse 103 93 Resp 17 20 B/P 104/74 121/76 Pulse Ox 94 91 93 91 O2 Delivery Room Air Room Air Room Air Nasal Cannula O2 Flow Rate 2.0 10/01/16 10/01/16 10/01/16 10/02/16 19:55 20:03 23:09 01:35 Temp 98.0 98.0 Pulse 92 Resp 20 B/P 106/75 Pulse Ox 93 91 O2 Delivery Nasal Cannula Nasal Cannula Nasal Cannula Nasal Cannula O2 Flow Rate 3.0 3.0 1.0 3.0 10/02/16 10/02/16 10/02/16 10/02/16 03:00 06:35 07:00 10:36 Temp 97.8 97.8 96.3 97.8 97.8 96.3 Pulse 97 101 92 Resp 20 18 20 B/P 105/ 104/64 114/71 Pulse Ox 94 94 98 93 O2 Delivery Nasal Cannula Nasal Cannula Room Air Room Air O2 Flow Rate 1.0 3.0 10/02/16 11:07 O2 Delivery Nasal Cannula O2 Flow Rate 3.0 Intake and Output 10/01/16 10/01/16 10/02/16 15:00 23:00 07:00 Intake Total 360 ml 480 ml 390 ml Balance 360 ml 480 ml 390 ml NAY ABDI MD Oct 02, 2016 11:47
[2016-10-02] MEDS ORDERED: FENTANYL PF 100 MCG/2 ML VIAL. ONE (12:56)
[2016-10-02] MEDS ORDERED: MIDAZOLAM HCL 2 MG/2 ML VIAL. ONE (12:56)
[2016-10-02] MEDS ORDERED: LIDOCAINE 1% / SOD BICARB 8.4% 20 ML VIAL. IJ ONE (13:30)
[2016-10-02] MEDS ORDERED: MIDAZOLAM HCL 2 MG/2 ML VIAL. IV ONE (13:30)
[2016-10-02] MEDS ORDERED: FENTANYL PF 100 MCG/2 ML VIAL. IV ONE (13:30)
[2016-10-02] MEDS ORDERED: ALBUMIN HUMAN 25% 100 ML IV ONE ×2 (13:44→13:55)
--- NOTE | 2016-10-02 13:55 | PDOC ---
MODERATE SEDATION ASSESSMENT RISKS/ALTERNATIVES Risks/Alternatives Risks and alternatives of this type of sedation and procedure discussed with: RISK/ALTERNATIVES: Patient H & P ON CHART H & P H & P on chart and reviewed for co-morbid conditions and appropriate labs. H&P ON CHART: Yes STATUS PREG STATUS ASSESSED: N/A MEDS/ALLERGIES REVIEWED Meds/Allergies Reviewed Medications and Allergies including time and route of recently administered narcotics and sedatives. MEDS/ALLERGIES REVIEWED: Yes ASA RATING ASA RATING: III AIRWAY ASSESSMENT Airway Assessment Airway patency, oral function limitations, presence of caps, crowns, dentures, partials, and ability to extend neck assessed. AIRWAY ASSESSMENT: Yes MALLAMPATI SCORE MALLAMPATI SCORE: II PRE-SEDATION ASSESSMENT PRE-SEDATION ASSESSMENT: Yes HALEY YEN MD Oct 02, 2016 13:55
--- NOTE | 2016-10-02 13:59 | PDOC ---
Exam Moving Consultant Moving Consultant Bharat Service Supervisor Service Supervisor B Nora Pre-Procedure Diagnosis Pre-Procedure Diagnosis 60 YO female with beast ca, ovarian ca, and recurrent, presumably malignant large volume ascites. Post-Procedure Diagnosis Post-Procedure Diagnosis Same Procedure Performed Procedure Performed CT guided Tx paracentesis Type of Anesthesia Type of Anesthesia Local + Mod sedation Estimated Blood Loss EBL: Trace Specimens Specimans 3900 cc straw-hazy ascites removed and discarded Condition of Patient Condition of Patient Stable. No apparent complication. Infusion of 25 grams 25% albumin was initiated during the paracentesis procedure. Disposition Disposition From IR./CT return to 567. F/u with [facility] and Dr Arvizu. Full report to follow. HALEY YEN MD Oct 02, 2016 13:59
--- NOTE | 2016-10-03 07:26 | RAD ---
CT-guided therapeutic paracentesis Indication: 60-year-old female with history of ovarian and breast cancer. She has large volume recurrent presumably malignant ascites. Image guided therapeutic paracentesis has been requested. Anesthesia: 25 minutes moderate sedation was provided utilizing a total of 1 mg Versed and 50 mcg fentanyl, IV. The patient was appropriately monitored by a qualified independent observer throughout the time of moderate sedation. Procedure: Informed consent was obtained from the patient. She was placed supine on the CT scanner. Preliminary noncontrast CT images were obtained through abdomen and pelvis. These images confirmed the presence of a large volume of abdominal and pelvic ascites. A right abdominal skin site suitable for CT-guided paracentesis was selected and marked. The area was prepped and draped in usual sterile fashion. Conscious sedation was provided with IV Versed and fentanyl. Using aseptic technique, local anesthesia, and CT guidance, a micropuncture sheath was successfully introduced into right lateral peritoneal cavity. The sheath was then exchanged over a guidewire for a 6 Scottish drainage catheter. Approximately 3900 cc of straw-hazy ascites was then easily removed and was discarded. Completion CT images revealed essentially significant reduction in volume of ascites. The drainage catheter was removed and a sterile dressing was applied. Patient tolerated the procedure well without apparent complication. 25 g 25% albumin was given IV during the paracentesis procedure. Impression: Successful, uneventful CT-guided diagnostic and therapeutic paracentesis, as described. PQRS compliance statement: One or more of the following individualized dose reduction techniques was utilized for this CT procedure: 1. Automated exposure control. 2. Adjustment of MA and/or KV according to patient size. 3. Iterative reconstruction technique.
[2016-10-04] MEDS ORDERED: HYDR-971 PO (14:21)
== END 2016-10-02 17:00 | disposition home or self-care (01) ==
LOC: ER 07:25 → 5 SOUTH 09:05
PROVIDERS: ADMIT Internal Medicine; ATTEND Internal Medicine
DX: R18.8 Other ascites (principal); R10.2 Pelvic and perineal pain; K57.30 Diverticulosis of large intestine without perforation or abscess without bleeding; G95.89 Other specified diseases of spinal cord; C56.9 Malignant neoplasm of unspecified ovary; C50.919 Malignant neoplasm of unspecified site of unspecified female breast
CPT/HCPCS: 36415; 49083; 74177; 80048; 80053; 81001; 83690; 85007; 85027; 85610; 85730; 94250; 94640; 94760; 96365; 96372; 96375; 96376; 99285; A4215; C1729; C1892; C1894; G0378; J2250; J2270; J3010; P9046; Q9967; G0379

== ENCOUNTER → 2016-10-04 | Day surgery (SDC) | payer BC ==
[~2016-10-04] VITALS: Ht 165.1 cm; Wt 54.9 kg
[~2016-10-04] MED LIST changes: +APIX5TAB PO; +BENZ100C2 PO; +BUPIVAC MPF-EPI 0.5%-1:200000 30 ML VIAL. ONE; +CEFAZOLIN 2GM PREMIX 50 ML IV PRN; +HEPARIN S0DIUM 5,000 UNIT in IV NORMAL SALINE 500ML BAG 500 ML IRR ONE; +HEPARIN for IV BOLUS 10,000 UNIT/10 ML VIAL. ONE; +HYDR-971 PO; +HYDROCODONE/APAP 5/325MG TABLET. PO PRN; +HYDROMORPHONE 2 MG/ML VIAL. IV PRN; +IV RINGERS,LACTATED 1000ML 1,000 ML IV SCH; +LEVO500T38 PO; +LIDOCAINE 1% 1 ML SYRINGE. ID PRN; +LIDOCAINE 2% 100 MG/5 ML DISP.SYRIN. ONE; +MIDAZOLAM HCL 2 MG/2 ML VIAL. ONE; +MORPHINE SULFATE 2 MG/ML DISP.SYRIN. IV PRN; +ONDA8TAB9 PO; +ONDANSETRON PF 4 MG/2 ML VIAL. IV PRN; +PRED-220 PO; +PROCHLORPERAZINE 10 MG/2 ML VIAL. IV PRN; +PROPOFOL 20 ML IV ONE
--- NOTE | 2016-10-04 14:22 | PDOC ---
BRIEF OPERATIVE NOTE Pre-Op Diagnosis metastatic breast cancer lJ port a cath placement with u/s and flouro k sangeetha iv sedation/local ebl 5 ivf 200 augusto well to rr stable. ALMAS SOUZA MD Oct 04, 2016 14:22
--- NOTE | 2016-10-04 15:04 | RAD ---
Portable chest, 10/04/2016: History: Follow-up catheter placement Comparison is made to a study from 07/17/2016. A left Port-A-Cath has been inserted extending into the inferior aspect of the superior vena cava. The heart size and pulmonary vascularity are normal. There are minimal unchanged right upper lobe opacities which may be due to scarring. No acute infiltrates are seen. There is no evidence of pleural fluid or pneumothorax. IMPRESSION: 1. Interval insertion of a left Port-A-Cath in satisfactory position. 2. No other significant interval change.
[2016-10-04 15:35] VITALS: BP 110/54
--- NOTE | 2016-10-04 22:56 | OP ---
DATE OF SURGERY: 10/04/2016 PREOPERATIVE DIAGNOSIS: Metastatic breast cancer. POSTOPERATIVE DIAGNOSIS: Metastatic breast cancer. PROCEDURE: 1. Placement of left internal jugular Port-A-Cath. 2. Ultrasound guided venous access. 3. Intraoperative use of fluoroscopy. SURGEON: Dr. Almas Souza. ANESTHESIA: IV sedation with local anesthetic. ESTIMATED BLOOD LOSS: 5 mL. IV FLUIDS: 200 mL. INDICATIONS: The patient is a 60-year-old female with metastatic breast cancer. She is to begin IV chemotherapy and she is here for Port-A-Cath. DESCRIPTION OF PROCEDURE: After informed consent was obtained, the patient was taken to the operating room and placed in supine position. After adequate induction of IV sedation, she was prepped and draped in usual sterile fashion. The patient was placed in Trendelenburg and Sonosite was then used to visualize left internal jugular vein. The overlying skin was then anesthetized with local anesthetic and the right chest and the track from the right chest, the right neck were injected with local anesthetic. Under direct ultrasound-guidance, IJ was accessed on the first attempt. Venous blood aspirated easily into the syringe. The syringe removed and the Guidewire advanced through the Cook needle. Fluoroscopy was then used to confirm that the Guidewire advanced on the right side of the heart. Cook needle was removed and then the Guidewire clamped to the drape with a hemostat. Skin incision was made over the Guidewire and skin incision was made on left chest. Pocket was then created in the subcutaneous space with cautery for the port. The catheter was tunneled from the right neck to the right chest. The catheter was then allowed to lie on sterile blue towel but did not touch the skin. Dilator and sheath were passed over the wire under fluoroscopic vision. Dilator and sheath passed easily and guidewire slid back and forth easily throughout passing the dilator and sheath. The dilator and guidewire were removed leaving the sheath in place. The catheter was inserted into the sheath, the sheath was removed, the catheter was located in the distal SVC. She was taken out of Trendelenburg and the catheter was in adequate position. The catheter was then cut at the chest and the port was attached to the catheter. The collar was then slid down over the port catheter junction. The port was placed in the subcutaneous pocket and then it was sutured to the chest wall with 2-0 Prolene sutures x 2. The port was aspirated with a Gregg needle, venous blood aspirated easily. It was then flushed with 10 units of heparin per mL of saline. There was no extravasation from the port catheter junction. The port was then flushed with a final flush of 1000 units of heparin per mL, total of 2 mL instilled. The wound was then closed with a 3-0 Vicryl for the deep layer. Skin was closed with 4-0 Monocryl in subcuticular fashion. The neck incision was closed with 4-0 Monocryl in subcuticular fashion. Sterile dressings were placed, which consisted of the equivalent of Dermabond followed by Steri-Strips. She tolerated the procedure well. There were no apparent complications. She was transferred in stable to recovery room where a post op chest xray was ordered. ALMAS SOUZA MD DR: DOMINICK/jong JOB#: [id number] / [id number] MINNA Rivas MD, STEPHEN MD MTDD
== END | disposition home or self-care (01) ==
LOC: SURG 11:17
PROVIDERS: ATTEND Surgery
DX: C50.919 Malignant neoplasm of unspecified site of unspecified female breast (principal); J45.909 Unspecified asthma, uncomplicated; Z90.11 Acquired absence of right breast and nipple; Z90.710 Acquired absence of both cervix and uterus
CPT/HCPCS: 36561; 71010; C1769; J0690; J2250; J2704; J3490; J7040; 36556

== ENCOUNTER 2016-10-07 09:04 | Emergency (ER) | payer BC ==
[~2016-10-07] VITALS: Ht 160 cm; Wt 54.4 kg
[~2016-10-07 09:04] MED LIST changes: -APIX5TAB PO; -BENZ100C2 PO; -BUPIVAC MPF-EPI 0.5%-1:200000 30 ML VIAL. ONE; -CEFAZOLIN 2GM PREMIX 50 ML IV PRN; -HEPARIN S0DIUM 5,000 UNIT in IV NORMAL SALINE 500ML BAG 500 ML IRR ONE; -HEPARIN for IV BOLUS 10,000 UNIT/10 ML VIAL. ONE; -HYDROCODONE/APAP 5/325MG TABLET. PO PRN; -HYDROMORPHONE 2 MG/ML VIAL. IV PRN; -IV RINGERS,LACTATED 1000ML 1,000 ML IV SCH; -LEVO500T38 PO; -LIDOCAINE 1% 1 ML SYRINGE. ID PRN; -LIDOCAINE 2% 100 MG/5 ML DISP.SYRIN. ONE; -MIDAZOLAM HCL 2 MG/2 ML VIAL. ONE; -MORPHINE SULFATE 2 MG/ML DISP.SYRIN. IV PRN; -ONDA8TAB9 PO; -ONDANSETRON PF 4 MG/2 ML VIAL. IV PRN; -PRED-220 PO; -PROCHLORPERAZINE 10 MG/2 ML VIAL. IV PRN; -PROPOFOL 20 ML IV ONE
[2016-10-07] MEDS ORDERED: ASPIRIN 81 MG TAB.CHEW PO ONE (09:30)
--- NOTE | 2016-10-07 09:42 | RAD ---
EXAM: Chest, single view. HISTORY: Chest pain. COMPARISON: 10/04/2016. FINDINGS: A frontal view of the chest is obtained. There is no infiltrate, effusion or pneumothorax. There is biapical pleural parenchymal scarring. There is a right upper lobe calcified granuloma. The heart is normal in size. There is a left chest wall port catheter with the tip in the superior vena cava. IMPRESSION: No acute pulmonary finding.
[2016-10-07] MEDS ORDERED: PREDNISONE 20 MG TABLET PO ONE (09:45)
[2016-10-07] MEDS ORDERED: IPRATRPIUM/ALBUTEROL 0.5/2.5MG 3 ML NEBU. NEB ONE (09:45)
--- NOTE | 2016-10-07 10:00 | PHYS DOC ---
Past Medical History Past Medical History: Asthma, Cancer Past Surgical History: Hysterectomy, Other Additional Past Surgical Histo: RT MASTECTOMY, PARACENTESIS, Port L chest Alcohol Use: None Drug Use: None Adult General Chief Complaint Chief Complaint: ASTHMA HPI HPI 60-year-old female presenting the emergency Department wheezing and worsening shortness of breath for the past 12-14 hours. She is been trying her breathing treatments at home with mild relief. She complains of chest pressure that has been present for greater than 6 hours. She denies fevers chills. She has a history of asthma. She denies a cough. Review of Systems Review of Systems ROS negative for fevers chills nausea vomiting. All other review of systems is negative unless otherwise noted in history of present illness. Current Medications Current Medications Current Medications Medications (Trade) Dose Ordered Sig/Iggy Start Time Stop Time Status Last Admin Dose Admin Albuterol/ Ipratropium (Duoneb) 3 ml 1X ONCE 10/07/16 09:45 10/07/16 09:46 DC 10/07/16 09:32 3 ML Aspirin (Children'S Aspirin) 324 mg 1X ONCE 10/07/16 09:30 10/07/16 09:31 DC 10/07/16 09:55 324 MG Info (Do NOT chart on this entry -- for MONITORING) 1 each PRN DAILY PRN 10/07/16 12:00 10/09/16 11:59 Iohexol (Omnipaque 300 Mg/ml) 75 ml 1X ONCE 10/07/16 12:00 10/07/16 12:01 DC 10/07/16 12:06 75 ML Prednisone (Prednisone) 50 mg 1X ONCE 10/07/16 09:45 10/07/16 09:46 DC 10/07/16 09:54 50 MG Allergies Allergies Allergies Coded Allergies Type Severity Reaction Last Updated Verified meperidine Adverse Reaction Intermediate Nausea and Vomiting 10/04/16 Yes Physical Exam Physical Exam Constitutional: Well developed, well nourished, no acute distress, non-toxic appearance. HENT: Normocephalic, atraumatic, bilateral external ears normal, oropharynx moist, no oral exudates, nose normal. [] Eyes: PERRLA, EOMI, conjunctiva normal, no discharge. [] Neck: Normal range of motion, no tenderness, supple, no stridor. Cardiovascular:Heart rate regular rhythm, no murmur [] Lungs & Thorax: She has diffuse wheezing bilaterally with inspiration and expiration. Prolonged expiratory phase present. Abdomen: Bowel sounds normal, soft, no tenderness, no masses, no pulsatile masses. Skin: Warm, dry, no erythema, no rash. [] Back: No tenderness, no CVA tenderness. Extremities: No tenderness, no cyanosis, no clubbing, ROM intact, no edema. [] Neurologic: Alert and oriented X 3, normal motor function, normal sensory function, no focal deficits noted. Psychologic: Affect normal, judgement normal, mood normal. [] Current Patient Data Vital Signs Vital Signs Date Time Temp Pulse Resp B/P Pulse Ox O2 Delivery O2 Flow Rate FiO2 10/07/16 09:53 108 24 124/78 94 Room Air 10/07/16 09:20 98.0 98.0 Lab Values Laboratory Tests Test 10/07/16 09:55 10/07/16 10:25 White Blood Count 3.4x10^3/uL (4.0-11.0) L Red Blood Count 4.55x10^6/uL (3.50-5.40) Hemoglobin 14.5g/dL (12.0-15.5) Hematocrit 42.8% (36.0-47.0) Mean Corpuscular Volume 94fL (79-100) Mean Corpuscular Hemoglobin 32pg (25-35) Mean Corpuscular Hemoglobin Concent 34g/dL (31-37) Red Cell Distribution Width 14.5% (11.5-14.5) Platelet Count 139x10^3/uL (140-400) L Neutrophils (%) (Auto) 55% (31-73) Lymphocytes (%) (Auto) 22% (24-48) L Monocytes (%) (Auto) 7% (0-9) Eosinophils (%) (Auto) 15% (0-3) H Basophils (%) (Auto) 1% (0-3) Neutrophils # (Auto) 1.9x10^3uL (1.8-7.7) Lymphocytes # (Auto) 0.8x10^3/uL (1.0-4.8) L Monocytes # (Auto) 0.2x10^3/uL (0.0-1.1) Eosinophils # (Auto) 0.5x10^3/uL (0.0-0.7) Basophils # (Auto) 0.0x10^3/uL (0.0-0.2) Sodium Level 144mmol/L (136-145) Potassium Level 3.6mmol/L (3.5-5.1) Chloride Level 109mmol/L (98-107) H Carbon Dioxide Level 24mmol/L (21-32) Anion Gap 11 (6-14) Blood Urea Nitrogen 15mg/dL (7-20) Creatinine 0.6mg/dL (0.6-1.0) Estimated GFR (Cockcroft-Gault) 102.7 Glucose Level 112mg/dL (70-99) H Calcium Level 8.5mg/dL (8.5-10.1) Total Bilirubin 0.6mg/dL (0.2-1.0) Direct Bilirubin 0.1mg/dL (0.0-0.2) Aspartate Amino Transferase (AST) 35U/L (15-37) Alanine Aminotransferase (ALT) 31U/L (14-59) Alkaline Phosphatase 77U/L (46-116) Troponin I Quantitative < 0.017ng/mL (0.000-0.055) PU-Flb-E-Type Natriuretic Peptide 88pg/mL (0-124) Total Protein 6.0g/dL (6.4-8.2) L Albumin 2.9g/dL (3.4-5.0) L Lipase 97U/L (73-393) D-Dimer (Isabel) 2.03ug/mlFEU (0.00-0.50) H Laboratory Tests 10/07/16 09:55 Laboratory Tests 10/07/16 09:55 EKG EKG EKG shows sinus rhythm with a tachycardic rate. [place] is normal. Intervals within normal limits. ST segments congruent. [] Radiology/Procedures Radiology/Procedures Chest x-ray negative. [] Course & Med Decision Making Course & Med Decision Making Pertinent Labs and Imaging studies reviewed. (See chart for details) [] 52-year-old female presenting the emergency department with worsening wheezing and tightness of the chest. Vital signs showed tachycardia with mild increased respiratory rate. Physical exam showed wheezing in the lungs bilaterally consistent with asthma. EKG showed sinus tachycardia. Chest x-ray unremarkable. Blood work obtained which was neg. CTA of the chest negative for pulmonary embolism. On reevaluation her breathing had improved significantly. She was then subsequent discharged home with albuterol and prednisone to follow- up with PCP over the next 2-3 days. Dragon Disclaimer Dragon Disclaimer This electronic medical record was generated, in whole or in part, using a voice recognition dictation system. Departure Departure Impression: Primary Impression: Wheezing Additional Impression: Chest pain Disposition: HOME, SELF-CARE Condition: STABLE Referrals: MARILYN GOMEZ MD (PCP) Patient Instructions: Asthma, Adult, [id number], Chest Pain (Nonspecific) Additional Instructions: Thank you for allowing us to participate in your care today. Followup with your primary care physician in 3 days if your symptoms do not improve. If you do not have a primary care provider you can ask for a list of our primary care providers. Return to the emergency department you have any new or concerning findings. This should be evaluated by the primary care physician and any necessary consulting services for continued management within a few days after discharge. Return to emergency room if you have any new or concerning symptoms including but not limited to fever, chills, nausea, vomiting, intractable pain, any new rashes, chest pain, shortness of air, uncontrolled bleeding, difficulty breathing, and/or vision loss. Scripts Albuterol Sulfate (Proair Hfa Inhaler)8.5 Gm Hfa.aer.ad1 Puff INH PRN Q6HRS PRN SHORTNESS OF BREATH #1 INHALER Prov:JOHN HOOD MD 10/07/16 Problem Qualifiers JOHN HOOD MD Oct 07, 2016 10:00
[2016-10-07 10:22] LABS: BASO % 1 % (0-3); EOS % 15 % (0-3); HEMATOCRIT 42.8 % (36.0-47.0); HEMOGLOBIN 14.5 g/dL (12.0-15.5); LYMPH # 0.8 x10^3/uL (1.0-4.8); LYMPH % 22 % (24-48); MEAN CORPUSCULAR HEMOGLOBIN 32 pg (25-35); MEAN CORPUSCULAR HGB CONC 34 g/dL (31-37); MEAN CORPUSCULAR VOLUME 94 fL (79-100); MONO % 7 % (0-9); NEUT % 55 % (31-73); PLATELET COUNT 139 x10^3/uL (140-400); RED BLOOD COUNT 4.55 x10^6/uL (3.50-5.40); RED CELL DISTRIBUTION WIDTH 14.5 % (11.5-14.5); WHITE BLOOD COUNT 3.4 x10^3/uL (4.0-11.0)
[2016-10-07 10:31] LABS: CALCIUM 8.5 mg/dL (8.5-10.1); CREATININE 0.6 mg/dL (0.6-1.0); GFR 102.7; POTASSIUM 3.6 mmol/L (3.5-5.1)
[2016-10-07 10:45] LABS: ALBUMIN 2.9 g/dL (3.4-5.0); DIRECT BILIRUBIN 0.1 mg/dL (0.0-0.2); TOTAL BILIRUBIN 0.6 mg/dL (0.2-1.0)
[2016-10-07] MEDS ORDERED: CONTRAST GIVEN MC PRN (12:00)
[2016-10-07] MEDS ORDERED: IOHEXOL 300 MG/ML 75 ML VIAL IV ONE (12:00)
--- NOTE | 2016-10-07 12:26 | RAD ---
EXAM: CT angiogram of the chest with intravenous contrast. HISTORY: Elevated d-dimer. Shortness of breath. TECHNIQUE: Computed tomographic images of the chest were obtained following the administration of 75 cc Omnipaque 300 intravenous contrast. Three-dimensional maximum intensity projection images were obtained. COMPARISON: 08/11/2015. FINDINGS: There is no evidence of pulmonary embolism. There is central predominant lateral bronchial wall thickening likely due to chronic bronchitis. There is stable groundglass opacity with septal line thickening within the right lung apex with scattered nodular opacities within the right upper and middle lobes, similar compared to the prior study and likely postinfectious in etiology. There is no effusion or pneumothorax. There is right greater than left hilar lymphadenopathy. There is a left chest wall port catheter with the tip in expected position. The heart is normal in size. There are findings consistent with right mastectomy. There is no aortic aneurysm or dissection. There is a tiny hiatal hernia. There is a calcified granuloma within the right upper lobe. There is a moderate amount of abdominal ascites, partially included on the [id number]. There are diffuse sclerotic osseous metastases. IMPRESSION: 1. No evidence of pulmonary embolism. 2. Stable to minimally increased groundglass and nodular opacities within the right upper and middle lobes, possibly post infectious or post inflammatory. The possibility of neoplasm is not excluded. 3. Bilateral bronchial wall thickening likely due to bronchitis, new compared to the prior study. 4. Bilateral hilar lymphadenopathy, increased compared to the prior study and possibly reactive or neoplastic in etiology. 5. Diffuse osseous metastatic disease, increased compared to the prior study. 6. Moderate abdominal ascites. One or more of the following individualized dose reduction techniques were utilized for this examination: 1. Automated exposure control. 2. Adjustment of the mA and/or kV according to patient size. 3. Use of iterative reconstruction technique.
[2016-10-07] MEDS ORDERED: PROAIR HFA8.5 GM INH (12:46)
[2016-10-07 13:18] VITALS: BP 123/73
--- NOTE | 2016-10-08 08:18 | EKG ---
[facility] [address] [place] [address] Test Date: 2016-10-07 Test Time: 09:18:34 Pat Name: MANDY SANCHEZ Department: Room: Gender: F Principal Mechanical Engineer: : 1955 Requested By: JOHN HOOD Order Number: [id number] Reading MD: Sarthak Jeffries Measurements Intervals [place] Rate: P: FL: QRS: QRSD: T: QT: QTc: Interpretive Statements SR POSSIBLE SEPTAL INFARCT - OLD Electronically Signed On 10-08-2016 10:40:00 DISABILITY AIDE by Sarthak Jeffries
== END 2016-10-07 13:20 | disposition home or self-care (01) ==
LOC: ER 09:04
DX: R06.2 Wheezing (principal); R07.89 Other chest pain; J45.909 Unspecified asthma, uncomplicated; Z90.710 Acquired absence of both cervix and uterus; Z88.6 Allergy status to analgesic agent
CPT/HCPCS: 36415; 71010; 71275; 80048; 80076; 83690; 83880; 84484; 85027; 85379; 93005; 94250; 94640; 99285; J7512; J7620; Q9967

== ENCOUNTER 2016-10-15 19:45 | Inpatient (IN) | payer BC ==
[~2016-10-15] VITALS: Ht 160 cm; Wt 54.9 kg
[2016-10-15 21:36] LABS: BASO # 0.1 x10^3/uL (0.0-0.2); BASO % 2 % (0-3); EOS % 5 % (0-3); HEMATOCRIT 40.3 % (36.0-47.0); HEMOGLOBIN 13.6 g/dL (12.0-15.5); LYMPH # 0.5 x10^3/uL (1.0-4.8); LYMPH % 8 % (24-48); MEAN CORPUSCULAR HEMOGLOBIN 32 pg (25-35); MEAN CORPUSCULAR HGB CONC 34 g/dL (31-37); MEAN CORPUSCULAR VOLUME 95 fL (79-100); MONO % 2 % (0-9); NEUT % 83 % (31-73); PLATELET COUNT 294 x10^3/uL (140-400); RED BLOOD COUNT 4.25 x10^6/uL (3.50-5.40); RED CELL DISTRIBUTION WIDTH 14.5 % (11.5-14.5); WHITE BLOOD COUNT 6.2 x10^3/uL (4.0-11.0)
[2016-10-15 21:44] LABS: CALCIUM 9.3 mg/dL (8.5-10.1); CREATININE 0.5 mg/dL (0.6-1.0); GFR 126.7; POTASSIUM 3.5 mmol/L (3.5-5.1)
--- NOTE | 2016-10-15 21:46 | PHYS DOC ---
Past Medical History Past Medical History: Asthma, Cancer Additional Past Medical Histor: stage 4 breast ca Past Surgical History: Hysterectomy, Other Additional Past Surgical Histo: RT MASTECTOMY, PARACENTESIS, Port L chest Alcohol Use: None Drug Use: None Adult General Chief Complaint Chief Complaint: SHORTNESS OF BREATH HPI HPI Patient is a 60 year old female who presents with shortness of breath and cough. Patient reports since Saturday morning she has had a cough. Last night she started becoming short of breath. She denies any chest pain. No fever. She has tried breathing treatments at home with insufficient relief. Review of Systems Review of Systems Constitutional: Denies fever or chills Eyes: Denies change in visual acuity or eye pain HENT: Denies nasal congestion or sore throat Respiratory: Cough, shortness of breath, wheezing Cardiovascular: Denies chest pain GI: Denies abdominal pain, nausea, vomiting, bloody stools or diarrhea : Denies dysuria or hematuria Musculoskeletal: Denies back pain or joint pain Integument: Denies rash or skin lesions Neurologic: Denies headache, focal weakness or sensory changes Current Medications Current Medications Current Medications Medications (Trade) Dose Ordered Sig/Iggy Start Time Stop Time Status Last Admin Dose Admin Albuterol/ Ipratropium (Duoneb) 6 ml 1X ONCE 10/15/16 22:00 10/15/16 22:01 DC 10/15/16 22:30 6 ML Prednisone (Prednisone) 60 mg 1X ONCE 10/15/16 22:00 10/15/16 22:01 DC 10/15/16 21:50 60 MG Sodium Chloride (Iv Sodium Chloride 0.9% 1000ml Bag) 1,000 ml @ 1,000 mls/hr Q1H 10/15/16 22:00 10/15/16 22:59 DC 10/15/16 21:50 1,000 MLS/HR Allergies Allergies Allergies Coded Allergies Type Severity Reaction Last Updated Verified meperidine Adverse Reaction Intermediate Nausea and Vomiting 10/04/16 Yes Physical Exam Physical Exam Constitutional: Well developed, well nourished, no acute distress, non-toxic appearance HENT: Normocephalic, atraumatic, bilateral external ears normal Eyes: EOMI, conjunctiva normal, no discharge Neck: Normal range of motion, no stridor Cardiovascular: Tachycardic, regular rhythm, no murmur Lungs & Thorax: Coarse breath sounds b/l, diffuse wheezing Abdomen: Bowel sounds normal, soft, non-distended, no TTP Skin: Warm, dry, no erythema, no rash Extremities: No obvious deformity, no edema Neurologic: Alert and oriented X 3, no gross deficits noted Current Patient Data Vital Signs Vital Signs Date Time Temp Pulse Resp B/P Pulse Ox O2 Delivery O2 Flow Rate FiO2 10/15/16 22:33 96 Nasal Cannula 2.0 10/15/16 21:57 104 22 173/99 10/15/16 19:52 97.8 97.8 Lab Values Laboratory Tests Test 10/15/16 21:05 10/15/16 22:10 White Blood Count 6.2x10^3/uL (4.0-11.0) Red Blood Count 4.25x10^6/uL (3.50-5.40) Hemoglobin 13.6g/dL (12.0-15.5) Hematocrit 40.3% (36.0-47.0) Mean Corpuscular Volume 95fL (79-100) Mean Corpuscular Hemoglobin 32pg (25-35) Mean Corpuscular Hemoglobin Concent 34g/dL (31-37) Red Cell Distribution Width 14.5% (11.5-14.5) Platelet Count 294x10^3/uL (140-400) # Neutrophils (%) (Auto) 83% (31-73) H Lymphocytes (%) (Auto) 8% (24-48) L Monocytes (%) (Auto) 2% (0-9) Eosinophils (%) (Auto) 5% (0-3) H Basophils (%) (Auto) 2% (0-3) Neutrophils # (Auto) 5.2x10^3uL (1.8-7.7) Lymphocytes # (Auto) 0.5x10^3/uL (1.0-4.8) L Monocytes # (Auto) 0.1x10^3/uL (0.0-1.1) Eosinophils # (Auto) 0.3x10^3/uL (0.0-0.7) Basophils # (Auto) 0.1x10^3/uL (0.0-0.2) Sodium Level 146mmol/L (136-145) H Potassium Level 3.5mmol/L (3.5-5.1) Chloride Level 108mmol/L (98-107) H Carbon Dioxide Level 27mmol/L (21-32) Anion Gap 11 (6-14) Blood Urea Nitrogen 14mg/dL (7-20) Creatinine 0.5mg/dL (0.6-1.0) L Estimated GFR (Cockcroft-Gault) 126.7 Glucose Level 123mg/dL (70-99) H Calcium Level 9.3mg/dL (8.5-10.1) Troponin I Quantitative < 0.017ng/mL (0.000-0.055) Influenza Type A Antigen Negative (NEGATIVE) Influenza Type B Antigen Negative (NEGATIVE) Laboratory Tests 10/15/16 21:05 Laboratory Tests 10/15/16 21:05 EKG EKG EKG (my read): sinus rhythm, rate 101, normal axis, intervals wnl, no acute ischemic changes Radiology/Procedures Radiology/Procedures CTA chest: IMPRESSION 1. Basilar right lower lobe pulmonary emboli. 2. Upper abdominal ascites is stable. 3. Sclerotic bone lesions presumably osteoblastic metastases are stable. 4. Opacities and nodules with volume loss of the right upper lobe stable to the prior exam given right mastectomy could be sequela of radiation pneumonitis and evolving fibrosis. New 1 centimeter ground-glass nodule left upper lobe. Continued follow-up will be of benefit as an infectious process or neoplastic process cannot be excluded. CXR (my read): No significant change from prior Course & Med Decision Making Course & Med Decision Making Pertinent Labs and Imaging studies reviewed. (See chart for details) Patient is 60-year-old female who presents with shortness of breath and cough. Apparent asthma exacerbation. Also concern for possibility of PE given hypoxia, tachycardia, and history cancer. Breathing treatment and steroids ordered. Given IV fluid bolus. Labs largely unremarkable. Imaging results as above. Dose of Lovenox ordered. Discussed results with patient and visitors. Discussed with Dr. Hernandez, will admit under his care for further evaluation and treatment. Dragon Disclaimer Dragon Disclaimer This electronic medical record was generated, in whole or in part, using a voice recognition dictation system. Departure Departure Impression: Primary Impression: Asthma exacerbation Additional Impressions: Hypoxia Pulmonary emboli Disposition: ADMITTED INPATIENT Admitting Physician: Ana M Hernandez Condition: GUARDED Referrals: MARILYN GOMEZ MD (PCP) Problem Qualifiers RASHAWN BAKER MD Oct 15, 2016 21:46
[2016-10-15] MEDS ORDERED: PREDNISONE 20 MG TABLET PO ONE (22:00)
[2016-10-15] MEDS ORDERED: IV NORMAL SALINE 1000ML BAG 1,000 ML IV SCH (22:00)
[2016-10-15] MEDS ORDERED: IPRATRPIUM/ALBUTEROL 0.5/2.5MG 3 ML NEBU. NEB ONE (22:00)
[2016-10-15 22:36] LABS: OBC FLU VALID
[2016-10-15] MEDS ORDERED: CONTRAST GIVEN MC PRN (23:00)
[2016-10-15] MEDS ORDERED: MORPHINE SULFATE 4 MG/ML DISP.SYRIN. IV PRN (23:00)
[2016-10-15] MEDS ORDERED: ONDANSETRON PF 4 MG/2 ML VIAL. IV PRN (23:00)
[2016-10-15] MEDS ORDERED: ACETAMINOPHEN 325 MG TABLET. PO PRN (23:00)
[2016-10-15] MEDS ORDERED: IOHEXOL 300 MG/ML 75 ML VIAL IV ONE (23:15)
--- NOTE | 2016-10-15 23:26 | RAD ---
PROCEDURE CT angiography chest with contrast HISTORY Shortness of breath and cough for 1 week, history of right breast cancer TECHNIQUE Exposure: One or more of the following individualized dose reduction techniques were utilized for this exam: 1. Automated exposure control. 2. Adjustment of the mA and/or kV according to patient size. 3. Use of iterative reconstruction technique. Helical CT imaging of the chest with multiplanar 3D MIP reconstructions of the pulmonary arteries to assess for emboli with 75 milliliters Omnipaque [address] chest October 07, 2016 FINDINGS There are right lower lobe posterior basilar segmental pulmonary artery emboli. No large central pulmonary artery emboli. Upper abdominal fluid again demonstrated. Thoracic aorta unremarkable. Heart size normal. No adenopathy in the chest. Right mastectomy. Numerous sclerotic bone lesions throughout the thorax presumably osteoblastic metastatic disease. Right upper lobe volume loss with nodular opacity at the apex is stable. There are separate areas of subpleural nodularity and a posterior segment 15 millimeter nodule right upper lobe which are also stable. No pleural effusions. Areas of mucous plugging at the basilar left lower lobe. 1 centimeter ground-glass nodule left upper lobe anterior segment is new. IMPRESSION 1. Basilar right lower lobe pulmonary emboli. 2. Upper abdominal ascites is stable. 3. Sclerotic bone lesions presumably osteoblastic metastases are stable. 4. Opacities and nodules with volume loss of the right upper lobe stable to the prior exam given right mastectomy could be sequela of radiation pneumonitis and evolving fibrosis. New 1 centimeter ground-glass nodule left upper lobe. Continued follow-up will be of benefit as an infectious process or neoplastic process cannot be excluded. 5. Critical results called to Dr. Leone 11:24 p.m. October 15, 2016. Electronically signed by: Kwasi Wu MD (Oct 15, 2016 23:25:26)
[2016-10-16] VITALS (7 sets, daily range): BP systolic 102–131; BP diastolic 57–82
[2016-10-16] MEDS ORDERED: ENOXAPARIN ** NOTE DOSE ** SYRINGE SQ ONE ×2
[2016-10-16] MEDS ORDERED: ONDA8TAB9 PO (01:54)
[2016-10-16] MEDS ORDERED: BENZ100C2 PO (01:54)
[2016-10-16] MEDS ORDERED: LEVO500T38 PO (01:54)
[2016-10-16] MEDS ORDERED: PNEUMOCOCCAL VAX SCREEN BY RX. MC PRN (02:30)
--- NOTE | 2016-10-16 06:43 | EKG ---
[facility] [address] [place] [address] Test Date: 2016-10-15 Test Time: 21:45:44 Pat Name: MANDY SANCHEZ Department: Room: 442 1 Gender: F Chemical Operator: : 1955 Requested By: RASHAWN BAKER Order Number: [id number] Reading MD: Mali Hartmann Measurements Intervals [place] Rate: 101 P: 22 TX: 138 QRS: 72 QRSD: 76 T: 56 QT: 340 QTc: 442 Interpretive Statements SINUS TACHYCARDIA OTHERWISE NORMAL ECG Electronically Signed On 10-21-2016 14:31:57 METAL FRAMER by Mali Hartmann
[2016-10-16] MEDS ORDERED: IPRATRPIUM/ALBUTEROL 0.5/2.5MG 3 ML NEBU. NEB ONE (07:00)
[2016-10-16] MEDS: IPRATRPIUM/ALBUTEROL 0.5/2.5MG 3 ML NEBU. NEB SCH ×4 (07:10→19:11)
--- NOTE | 2016-10-16 08:16 | RAD ---
Indication shortness of breath. PA and lateral views of the chest were obtained and are compared to an examination October 07, 2016. The heart and pulmonary vessels appear normal. The lungs are clear of acute infiltrates. Mild pectus deformity is seen. Left Port-A-Cath is noted. There is a calcified nodule in the right upper lobe. IMPRESSION: No acute finding apparent in the chest.
[2016-10-16 08:43] LABS: BASO % 1 % (0-3); EOS % 0 % (0-3); HEMATOCRIT 40.2 % (36.0-47.0); HEMOGLOBIN 13.1 g/dL (12.0-15.5); LYMPH # 0.8 x10^3/uL (1.0-4.8); LYMPH % 20 % (24-48); MEAN CORPUSCULAR HEMOGLOBIN 31 pg (25-35); MEAN CORPUSCULAR HGB CONC 33 g/dL (31-37); MEAN CORPUSCULAR VOLUME 95 fL (79-100); MONO % 2 % (0-9); NEUT % 77 % (31-73); PLATELET COUNT 306 x10^3/uL (140-400); RED BLOOD COUNT 4.22 x10^6/uL (3.50-5.40); RED CELL DISTRIBUTION WIDTH 14.8 % (11.5-14.5); WHITE BLOOD COUNT 3.9 x10^3/uL (4.0-11.0)
[2016-10-16 08:54] LABS: CALCIUM 8.6 mg/dL (8.5-10.1); CREATININE 0.5 mg/dL (0.6-1.0); GFR 126.7; POTASSIUM 3.7 mmol/L (3.5-5.1)
[2016-10-16] MEDS ORDERED: HYDROCODONE/APAP 5/325MG TABLET. PO PRN (09:00)
[2016-10-16] MEDS ORDERED: ALBUTEROL SULFATE 2.5 MG/3 ML NEBU. NEB PRN (09:00)
[2016-10-16] MEDS ORDERED: NON FORMULARY ITEM (Albuterol Sulfate (Proair Hfa Inhaler) 1 PUFF) INH PRN (09:00)
[2016-10-16] MEDS ORDERED: NON FORMULARY ITEM (Fluticasone/Salmeterol (Advair 250-50 Diskus) 1 PUFF) IH SCH (09:00)
--- NOTE | 2016-10-16 09:00 | PDOC1 ---
History and Physical Date of Admission Date of Admission DATE: 10/16/16 TIME: 08:54 Identification/Chief Complaint Chief Complaint cough, dyspnea, wheeze Source Source: Chart review, Patient History of Present Illness History of Present Illness cough and dyspnea and productive of clear sputum for over 4 days. She had worse dyspnea and was taking neb breathing treatments at home every hour, with minimal benefit. She feels much better since treatmetns started in ER< in breathing easier She works in a school as a head school custodian, has been exposed to sick kids only, no travel, no tobacco use follows asthma with Dr. Mcdaniel wearing 02 Nc now, usually only wears at night Past Medical History Cardiovascular: No pertinent hx Pulmonary: Asthma GI: No pertinent hx Heme/Onc: Cancer Psych: No pertinent hx Musculoskeletal: low back pain Rheumatologic: No pertinent hx Past Surgical History Past Surgical History: Hysterectomy Family History Family History: Cancer Social History Smoke: No ALCOHOL: none Drugs: None Current Problem List Problem List Problems Medical Problems: (1) Asthma exacerbation Status: Acute (2) Hypoxia Status: Acute (3) Pulmonary emboli Status: Acute Problems: Current Medications Current Medications Current Medications Sodium Chloride (Iv Sodium Chloride 0.9% 1000ml Bag) 1,000 ml @ 1,000 mls/hr Q1H IV Last administered on 10/15/16 21:50; Start 10/15/16 at 22:00; Stop at 22:59; Status DC Albuterol/ Ipratropium (Duoneb) 6 ml 1X ONCE NEB Last administered on 22:30; Start 10/15/16 at 22:00; Stop 10/15/16 at 22:01; Status DC Prednisone (Prednisone) 60 mg 1X ONCE PO Last administered on 10/15/16 21:50; Start 10/15/16 at 22:00; Stop 10/15/16 at 22:01; Status DC Iohexol (Omnipaque 300 Mg/ml) 75 ml 1X ONCE IV Last administered on 10/15/16 22:58; Start 10/15/16 at 23:15; Stop 10/15/16 at 23:16; Status DC Ondansetron HCl (Zofran) 4 mg PRN Q8HRS PRN IV NAUSEA/VOMITING; Start 10/15/16 at 23:00; Stop 10/16/16 at 22:59 Morphine Sulfate 4 mg PRN Q2HR PRN IV SEVERE PAIN; Start 10/15/16 at 23:00; Stop 10/16/16 at 22:59 Acetaminophen (Tylenol) 650 mg PRN Q4HRS PRN PO FEVER; Start 10/15/16 at 23:00; Stop 10/16/16 at 22:59 Albuterol/ Ipratropium (Duoneb) 3 ml RTQID NEB Last administered on 10/16/16 07 :10; Start 10/16/16 at 08:00; Stop 10/17/16 at 07:59 Info (Do NOT chart on this entry -- for MONITORING) 1 each PRN DAILY PRN MC SEE COMMENTS; Start 10/15/16 at 23:00; Stop 10/17/16 at 22:59 Enoxaparin Sodium (Lovenox 60mg Syringe) 55 mg 1X ONCE SQ ; Start 10/16/16 at 00 :00; Stop 10/16/16 at 00:00; Status DC Enoxaparin Sodium (Lovenox 60mg Syringe) 60 mg 1X ONCE SQ Last administered on 10/16/16 01:27; Start 10/16/16 at 00:00; Stop 10/16/16 at 00:01; Status DC Pneumococcal Polyvalent Vaccine (Do NOT chart on this placeholder) 1 each PRN DAILY PRN MC VERIFY STATUS; Start 10/16/16 at 02:30 Albuterol/ Ipratropium (Duoneb) 3 ml 1X ONCE NEB Last administered on 07:10; Start 10/16/16 at 07:00; Stop 10/16/16 at 07:01; Status DC Active Scripts Active Proair Hfa Inhaler (Albuterol Sulfate) 8.5 Gm Hfa.aer.ad 1 Puff INH PRN Q6HRS PRN [place] 5-325 Tablet (Acetaminophen/Hydrocodone Bitart) 1 Each Tablet 1-2 Tab PO Q4-6HRS Reported Zofran (Ondansetron Hcl) 8 Mg Tablet 8 Mg PO Q6HRS PRN Benzonatate 100 Mg Capsule 100 Mg PO Q8HRS PRN Levaquin (Levofloxacin) 500 Mg Tablet 1 Tab PO DAILY Albuterol Sulfate Neb Soln (Albuterol Sulfate) 2.5 Mg/3 Ml Vial.neb 0.5 Vial NEB PRN Q4HRS PRN Proventil Hfa Inhaler (Albuterol Sulfate) 6.7 Gm Hfa.aer.ad 1-2 Puff IH PRN Q4HRS PRN Advair 250-50 Diskus (Fluticasone/Salmeterol) 1 Each Disk.w.dev 1 Puff IH BID Allergies Allergies: Coded Allergies: meperidine (Verified Adverse Reaction, Intermediate, Nausea and Vomiting, 10/04/16) ROS General: YES: Fatigue, No: Appetite, Chills, Malaise, Night Sweats, Other PSYCHOLOGICAL ROS: No: Anxiety, Behavioral Disorder, Concentration difficultie , Decreased libido, Depression, Disorientation, Hallucinations, Hostility, Irritablity, Memory difficulties, Mood Swings, Obsessive thoughts, Other, Physical abuse, Sexual abuse, Sleep disturbances, Suicidal ideation Eyes: No Blurry vision, No Decreased vision, No Double vision, No Dry eyes, No Excessive tearing, No Eye Pain, No Itchy Eyes, No Loss of vision, No Other, No Photophobia, No Scotomata, No Uses contacts, No Uses glasses HEENT: YES: Heacaches, No: Epistaxis, Hearing change, Nasal congestion, Nasal discharge, Oral lesions, Other, Sinus pain, Sneezing, Snoring, Sore Throat, Tinnitus, Vertigo, Visual Changes, Vocal changes Respiratory: YES: Cough, SOB with excertion, Sputum Changes, No: Hemoptysis, Orthopnea, Other, Pleuritic Pain, Shortness of breath, Stridor, Tachypnea, Wheezing Cardiovascular: No Chest Pain, No Edema, No Lt Headedness, No Orthopnea, No Other, No Palpitations, No Paroxysmal Noc. Dyspnea Gastrointestinal: No Abdominal Pain, No Constipation, No Diarrhea, No Hematochezia, No Melena, No Nausea, No Other, No Vomiting Genitourinary: No , No , No , No , No , No , No , No Discharge, No Dysuria, No Flank Pain, No Frequency, No Hematuria, No Incontinence, No Other, No Pain, No Retention, No Urgency Musculoskeletal: No Gait Disturbance, No Joint Pain, No Joint Stiffness, No Joint Swelling, No Muscle Pain, No Muscular Weakness, No Other, No Pain In:, No Swelling In: Neurological: No Behavorial Changes, No Bowel/Bladder ControlChng, No Confusion , No Dizziness, No Gait Disturbance, No Headaches, No Impaired Coord/balance, No Memory Loss, No Numbness/Tingling, No Other, No Seizures, No Speech Problems , No Tremors, No Visual Changes, No Weakness Skin: Yes Dry Skin, No Acne, No Eczema, No Hair Changes, No Lumps, No Mole Changes, No Mottling, No Nail Changes, No Other, No Pruritus, No Rash, No Skin Lesion Changes Physical Exam General: Alert, Oriented X3, Cooperative, mild distress HEENT: Atraumatic, PERRLA, EOMI Lungs: Clear to auscultation, Normal air movement Abdomen: Normal bowel sounds, Soft Rectal Exam: not examined Extremities: No clubbing, No cyanosis, No edema, Normal pulses Neuro: Normal speech, Sensation intact, Cranial nerves 3-12 NL Psych/Mental Status: Mood NL Vitals Vitals Vital Signs Date Time Temp Pulse Resp B/P Pulse Ox O2 Delivery O2 Flow Rate FiO2 10/16/16 07:00 98.1 113 16 131/75 93 Nasal Cannula 3.0 98.1 Labs Labs Laboratory Tests Test 10/15/16 21:05 10/15/16 22:10 10/16/16 08:10 White Blood Count 6.2x10^3/uL (4.0-11.0) 3.9x10^3/uL (4.0-11.0) Red Blood Count 4.25x10^6/uL (3.50-5.40) 4.22x10^6/uL (3.50-5.40) Hemoglobin 13.6g/dL (12.0-15.5) 13.1g/dL (12.0-15.5) Hematocrit 40.3% (36.0-47.0) 40.2% (36.0-47.0) Mean Corpuscular Volume 95fL (79-100) 95fL (79-100) Mean Corpuscular Hemoglobin 32pg (25-35) 31pg (25-35) Mean Corpuscular Hemoglobin Concent 34g/dL (31-37) 33g/dL (31-37) Red Cell Distribution Width 14.5% (11.5-14.5) 14.8% (11.5-14.5) Platelet Count 294x10^3/uL (140-400) 306x10^3/uL (140-400) Neutrophils (%) (Auto) 83% (31-73) 77% (31-73) Lymphocytes (%) (Auto) 8% (24-48) 20% (24-48) Monocytes (%) (Auto) 2% (0-9) 2% (0-9) Eosinophils (%) (Auto) 5% (0-3) 0% (0-3) Basophils (%) (Auto) 2% (0-3) 1% (0-3) Neutrophils # (Auto) 5.2x10^3uL (1.8-7.7) 3.0x10^3uL (1.8-7.7) Lymphocytes # (Auto) 0.5x10^3/uL (1.0-4.8) 0.8x10^3/uL (1.0-4.8) Monocytes # (Auto) 0.1x10^3/uL (0.0-1.1) 0.1x10^3/uL (0.0-1.1) Eosinophils # (Auto) 0.3x10^3/uL (0.0-0.7) 0.0x10^3/uL (0.0-0.7) Basophils # (Auto) 0.1x10^3/uL (0.0-0.2) 0.0x10^3/uL (0.0-0.2) Sodium Level 146mmol/L (136-145) Potassium Level 3.5mmol/L (3.5-5.1) Chloride Level 108mmol/L (98-107) Carbon Dioxide Level 27mmol/L (21-32) Anion Gap 11 (6-14) Blood Urea Nitrogen 14mg/dL (7-20) Creatinine 0.5mg/dL (0.6-1.0) Estimated GFR (Cockcroft-Gault) 126.7 Glucose Level 123mg/dL (70-99) Calcium Level 9.3mg/dL (8.5-10.1) Troponin I Quantitative < 0.017ng/mL (0.000-0.055) Influenza Type A Antigen Negative (NEGATIVE) Influenza Type B Antigen Negative (NEGATIVE) Laboratory Tests Test 10/15/16 21:05 10/15/16 22:10 10/16/16 08:10 White Blood Count 6.2x10^3/uL (4.0-11.0) 3.9x10^3/uL (4.0-11.0) Red Blood Count 4.25x10^6/uL (3.50-5.40) 4.22x10^6/uL (3.50-5.40) Hemoglobin 13.6g/dL (12.0-15.5) 13.1g/dL (12.0-15.5) Hematocrit 40.3% (36.0-47.0) 40.2% (36.0-47.0) Mean Corpuscular Volume 95fL (79-100) 95fL (79-100) Mean Corpuscular Hemoglobin 32pg (25-35) 31pg (25-35) Mean Corpuscular Hemoglobin Concent 34g/dL (31-37) 33g/dL (31-37) Red Cell Distribution Width 14.5% (11.5-14.5) 14.8% (11.5-14.5) Platelet Count 294x10^3/uL (140-400) 306x10^3/uL (140-400) Neutrophils (%) (Auto) 83% (31-73) 77% (31-73) Lymphocytes (%) (Auto) 8% (24-48) 20% (24-48) Monocytes (%) (Auto) 2% (0-9) 2% (0-9) Eosinophils (%) (Auto) 5% (0-3) 0% (0-3) Basophils (%) (Auto) 2% (0-3) 1% (0-3) Neutrophils # (Auto) 5.2x10^3uL (1.8-7.7) 3.0x10^3uL (1.8-7.7) Lymphocytes # (Auto) 0.5x10^3/uL (1.0-4.8) 0.8x10^3/uL (1.0-4.8) Monocytes # (Auto) 0.1x10^3/uL (0.0-1.1) 0.1x10^3/uL (0.0-1.1) Eosinophils # (Auto) 0.3x10^3/uL (0.0-0.7) 0.0x10^3/uL (0.0-0.7) Basophils # (Auto) 0.1x10^3/uL (0.0-0.2) 0.0x10^3/uL (0.0-0.2) Sodium Level 146mmol/L (136-145) Potassium Level 3.5mmol/L (3.5-5.1) Chloride Level 108mmol/L (98-107) Carbon Dioxide Level 27mmol/L (21-32) Anion Gap 11 (6-14) Blood Urea Nitrogen 14mg/dL (7-20) Creatinine 0.5mg/dL (0.6-1.0) Estimated GFR (Cockcroft-Gault) 126.7 Glucose Level 123mg/dL (70-99) Calcium Level 9.3mg/dL (8.5-10.1) Troponin I Quantitative < 0.017ng/mL (0.000-0.055) Influenza Type A Antigen Negative (NEGATIVE) Influenza Type B Antigen Negative (NEGATIVE) VTE Prophylaxis Ordered VTE Prophylaxis Devices: Yes VTE Pharmacological Prophylaxi: Yes Assessment/Plan Assessment/Plan Tachycardia and tachypnnea, acute asthma exacerbation, w./ respiratory distress, no hypoxia documented SIRS flu negative PULM consult, admit KARINE MENDOZA MD Oct 16, 2016 09:00
[2016-10-16] MEDS ORDERED: ONDANSETRON ODT 4 MG TAB.RAPDIS PO PRN (09:30)
--- NOTE | 2016-10-16 13:16 | PDOC ---
Provider Note Provider Note dictated small PE lovenox Elliquis if approved by Ins KEENAN Marx MD Oct 16, 2016 13:16
[2016-10-16] MEDS ORDERED: PNEUMOC CONJ VACC 23-VALENT 0.5 ML VIAL. VAX IM ONE (15:00)
--- NOTE | 2016-10-16 15:25 | CONS ---
DATE OF CONSULTATION: 10/16/2016 ATTENDING PHYSICIAN: Dr. Hernandez. REASON FOR CONSULTATION: Dyspnea, abnormal CT chest. HISTORY OF PRESENT ILLNESS: The patient is a 60-year-old female with history of stage IV breast cancer with bone metastasis. The patient is currently on chemo. She has no significant history of tobacco use. She sees my partner, Dr. Mcdaniel, for asthma. She was brought into the hospital with complaint of shortness of breath and wheezing. She did not have any significant chest pain. No cough, no fever, no chills. She underwent CT angiogram which was reviewed by me and compared with the previous one. There was a small right lower lobe pulmonary emboli. There was upper abdominal ascites. There were bony lesions on metastatic bases. There were some opacities and nodules and volume loss in the right upper lobe which is stable compared to prior CT. There was a 1-cm ground glass nodule in the left upper lobe which was a new finding. Consultation requested for further evaluation and management. PAST MEDICAL HISTORY: History of stage IV breast cancer with bony metastases, status post right mastectomy. No significant history of tobacco use. She has history of acute onset asthma. PAST SURGICAL HISTORY: Right mastectomy and hysterectomy. ALLERGIES: MEPERIDINE. MEDICATIONS: Reviewed as listed in the MRAD including DuoNebs and budesonide inhaler. REVIEW OF SYSTEMS: A 12-point system obtained. Pertinent positives discussed in history of present illness, otherwise noncontributory. All systems that were negative were reviewed as well. FAMILY HISTORY: Noncontributory . No hypercoagulable state. PHYSICAL EXAMINATION: VITAL SIGNS: Blood pressure is 115/68, pulse ox 95% on 3 liters, afebrile. HEENT: Sclerae nonicteric. NECK: Supple. LUNGS: Bilateral expiratory wheezes posteriorly. CARDIOVASCULAR: Regular rate and rhythm. ABDOMEN: Soft. EXTREMITIES: With no pitting edema. LABORATORY DATA: Reviewed. White cell count was 3.9, hemoglobin 13.1 and platelets are 306. Influenza screen is negative. IMPRESSION: 1. Dyspnea secondary to acute exacerbation of asthma. 2. Small right lower lobe pulmonary emboli. I doubt that this has contributed to the patient's symptoms, but since she has history of stage IV breast cancer, she would need to be treated lifelong due to hypercoagulable state. 3. History of breast cancer status post mastectomy. She has bony metastasis. Currently, on chemo. 4. New left upper lobe ground glass 1-cm nodule. This needs to be followed up. RECOMMENDATIONS: 1. Discussed with Dr. Arvizu, will need lifelong anticoagulation. We will prefer Eliquis if it is approved by her insurance. In the meantime, I will initiate Lovenox. 2. Continue with DuoNeb. 3. Continue with Pulmicort. 4. If bronchospasm does not resolve, then we will add IV steroids. 5. We will follow along with you. KEENAN NOLAN MD DR: CLOTILDE/jong JOB#: [id number] / [id number]
--- NOTE | 2016-10-16 17:17 | PDOC ---
Provider Note Provider Note Med-Onc consult See dictation [id number] A/P 1. 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 2. Bone mets - Bone scan 08/17/15 is negative for mets, but CT reveals bone mets. 3. Ascites, status post paracentesis. s/p repeat therapeutic paracentesis , 1800 ml removed at [facility]. f/u paracentesis on 09/20/16 for recurrence, 2060 cc removed. 4.PE - agree with lifelong anticoagulation. MINNA THORPE MD Oct 16, 2016 17:17
[2016-10-16] MEDS: BUDESONIDE 0.5 MG/2 ML NEBU NEB SCH (19:11)
[2016-10-16] MEDS: ENOXAPARIN ** NOTE DOSE ** SYRINGE SQ SCH (22:03)
--- NOTE | 2016-10-16 23:30 | ACF ---
Admission Forms Criteria ASTHMA Clinical Indications for Admission to Inpatient Care (Place 'X' for any and all applicable criteria): Admission is indicated for ANY ONE of the following (1)(2)(3)(4)(5): [ ]I. Absent or markedly diminished breath sounds (silent chest) [ ]II. Oxygen saturation < 92% [ ]III. PaCO2 = / > 42 mm Hg (5.6 kPa) [ ]IV. Peak expiratory flow rate < 40% of predicted or personal best after treatment. [ ]V. Peak expiratory flow rate < 33% of predicted or personal before after treatment [ ]. Change in mental status [ ]VII. Ventilatory support required [ ]VIII. PaO2 < 60 mm Hg (8.0 kPa) [ ]IX. Cyanosis [X]X. Cardiac dysrhythmia (e.g., bradycardia) [ ]XI. Hemodynamic instability [ ]XII. Radiographic evidence of complication requiring inpatient treatment (e.g., pneumonia, pneumothorax) [ ]XIII. Inpatient admission required rather than observation care (also use Asthma: Observation Care guideline as appropriate) because of ANY ONE of the following: [ ]a) Respiratory finding that is severe or persistent (eg, dyspnea, tachypnea, accessory muscle use) [ ]b) Airflow measurements less than 60% of predicted or personal best that persist (e.g., over 24 hours) or worsen despite treatments [ ]c) Supplemental oxygen or respiratory treatments for over 24 hours that are performable only in acute inpatient setting [ ]d) Other condition, treatment or monitoring requiring inpatient admission. Extended stay beyond goal length of stay may be needed for (26)(27)(28): [ ]a) Severe respiratory failure (23) (29) (30) [ ]b) Secondary causes and complications (25) [ ]c) Status asthmaticus [ ]d) Chronic obstructive asthma [ ]e) Older patients (29) [ ]f) Slow resolution [ ]g) Clinically significant exacerbation of comorbidities (eg, art. heart failure, atrial fibrillation) The original [place] content created by [employer], has been revised. The portions of the content which have been revised are identified through the use of italic text or in bold, and [facility] [employer], has neither reviewed nor approved the modified material. All other unmodified content is copyright [facility] Please see references footnoted in the original [facility] edition 2016 Admission Criteria Met?: Yes MARVEL SELLERS Oct 16, 2016 23:30
[2016-10-17 03:00] VITALS: BP 105/71
[2016-10-17 07:00] VITALS: BP 108/77
[2016-10-17] MEDS: BUDESONIDE 0.5 MG/2 ML NEBU NEB SCH ×2 (07:40→20:31)
[2016-10-17] MEDS: IPRATRPIUM/ALBUTEROL 0.5/2.5MG 3 ML NEBU. NEB SCH ×4 (07:40→23:21)
--- NOTE | 2016-10-17 08:47 | RAD ---
Right leg venous Doppler study: Clinical indications: Right leg swelling and pain. Pulmonary embolism. Findings: Duplex sonography (including agrawal scale evaluation and color flow and waveform spectral analysis) of the proximal aspect of the greater saphenous vein and proximal aspect of the profunda femoral vein and the entire length of the common femoral and superficial femoral and popliteal veins and the tibioperoneal trunk and the proximal aspect of the posterior tibial and peroneal veins of the right leg was performed. Normal compressibility, augmentation of color Doppler flow after calf compression, and respiratory variation of Doppler flow is seen. Thus, there are no sonographic findings of deep venous thrombosis within these veins. Impression: There are no sonographic findings of deep venous thrombosis within the veins discussed above of the right lower extremity. Left leg venous Doppler study: Clinical indications: Left leg swelling and pain. Pulmonary embolism. Findings: Duplex sonography (including agrawal scale evaluation and color flow and waveform spectral analysis) of the proximal aspect of the greater saphenous vein and the proximal aspect of the profunda femoral vein and the entire length of the common femoral and superficial femoral and popliteal veins and the tibioperoneal trunk and the proximal aspect of the posterior tibial and peroneal veins of the left leg was performed. Normal compressibility, augmentation of color Doppler flow after calf compression, and respiratory variation of Doppler flow is seen. Thus, there are no sonographic findings of deep venous thrombosis within these veins. Impression: There are no sonographic findings of deep venous thrombosis within the veins discussed above of the left lower extremity.
[2016-10-17] MEDS: ENOXAPARIN ** NOTE DOSE ** SYRINGE SQ SCH ×2 (08:48→21:48)
[2016-10-17 10:40] VITALS: BP 108/70
[2016-10-17] MEDS ORDERED: IPRATRPIUM/ALBUTEROL 0.5/2.5MG 3 ML NEBU. NEB SCH (12:00)
[2016-10-17] MEDS ORDERED: ALBUTEROL SULFATE 2.5 MG/3 ML NEBU. NEB PRN (13:00)
--- NOTE | 2016-10-17 13:01 | PDOC ---
PULMONARY PROGRESS NOTES Subjective still wheezing Vitals Vital Signs Date Time Temp Pulse Resp B/P Pulse Ox O2 Delivery O2 Flow Rate FiO2 10/17/16 11:35 94 Nasal Cannula 2.0 10/17/16 10:40 97.9 96 18 108/70 97.9 General: Alert, No acute distress Lungs: Wheezing (bilateral) Cardiovascular: S1 Abdomen: Soft Neuro Exam: Alert Extremities: No Edema Skin: Warm Labs Laboratory Tests Test 10/15/16 21:05 10/15/16 22:10 10/16/16 08:10 White Blood Count 6.2x10^3/uL (4.0-11.0) 3.9x10^3/uL (4.0-11.0) Red Blood Count 4.25x10^6/uL (3.50-5.40) 4.22x10^6/uL (3.50-5.40) Hemoglobin 13.6g/dL (12.0-15.5) 13.1g/dL (12.0-15.5) Hematocrit 40.3% (36.0-47.0) 40.2% (36.0-47.0) Mean Corpuscular Volume 95fL (79-100) 95fL (79-100) Mean Corpuscular Hemoglobin 32pg (25-35) 31pg (25-35) Mean Corpuscular Hemoglobin Concent 34g/dL (31-37) 33g/dL (31-37) Red Cell Distribution Width 14.5% (11.5-14.5) 14.8% (11.5-14.5) Platelet Count 294x10^3/uL (140-400) 306x10^3/uL (140-400) Neutrophils (%) (Auto) 83% (31-73) 77% (31-73) Lymphocytes (%) (Auto) 8% (24-48) 20% (24-48) Monocytes (%) (Auto) 2% (0-9) 2% (0-9) Eosinophils (%) (Auto) 5% (0-3) 0% (0-3) Basophils (%) (Auto) 2% (0-3) 1% (0-3) Neutrophils # (Auto) 5.2x10^3uL (1.8-7.7) 3.0x10^3uL (1.8-7.7) Lymphocytes # (Auto) 0.5x10^3/uL (1.0-4.8) 0.8x10^3/uL (1.0-4.8) Monocytes # (Auto) 0.1x10^3/uL (0.0-1.1) 0.1x10^3/uL (0.0-1.1) Eosinophils # (Auto) 0.3x10^3/uL (0.0-0.7) 0.0x10^3/uL (0.0-0.7) Basophils # (Auto) 0.1x10^3/uL (0.0-0.2) 0.0x10^3/uL (0.0-0.2) Sodium Level 146mmol/L (136-145) 143mmol/L (136-145) Potassium Level 3.5mmol/L (3.5-5.1) 3.7mmol/L (3.5-5.1) Chloride Level 108mmol/L (98-107) 109mmol/L (98-107) Carbon Dioxide Level 27mmol/L (21-32) 25mmol/L (21-32) Anion Gap 11 (6-14) 9 (6-14) Blood Urea Nitrogen 14mg/dL (7-20) 10mg/dL (7-20) Creatinine 0.5mg/dL (0.6-1.0) 0.5mg/dL (0.6-1.0) Estimated GFR (Cockcroft-Gault) 126.7 126.7 Glucose Level 123mg/dL (70-99) 182mg/dL (70-99) Calcium Level 9.3mg/dL (8.5-10.1) 8.6mg/dL (8.5-10.1) Troponin I Quantitative < 0.017ng/mL (0.000-0.055) Influenza Type A Antigen Negative (NEGATIVE) Influenza Type B Antigen Negative (NEGATIVE) Medications Active Scripts Medications Dose Route/Sig Days Date Category Zofran (Ondansetron Hcl) 8 Mg Tablet 8 Mg PO Q6HRS PRN 10/16/16 Reported Benzonatate 100 Mg Capsule 100 Mg PO Q8HRS PRN 10/16/16 Reported Levaquin (Levofloxacin) 500 Mg Tablet 1 Tab PO DAILY 10/16/16 Reported Proair Hfa Inhaler (Albuterol Sulfate) 8.5 Gm Hfa.aer.ad 1 Puff INH PRN Q6HRS PRN 10/07/16 Rx [place] 5-325 Tablet (Acetaminophen/Hydrocodone Bitart) 1 Each Tablet 1-2 Tab PO Q4-6HRS 10/04/16 Rx Albuterol Sulfate Neb Soln (Albuterol Sulfate) 2.5 Mg/3 Ml Vial.neb 0.5 Vial NEB PRN Q4HRS PRN 09/20/16 Reported Proventil Hfa Inhaler (Albuterol Sulfate) 6.7 Gm Hfa.aer.ad 1-2 Puff IH PRN Q4HRS PRN 09/20/16 Reported Advair 250-50 Diskus (Fluticasone/Salmeterol) 1 Each Disk.w.dev 1 Puff IH BID 09/20/16 Reported Impression . 1. Dyspnea secondary to acute exacerbation of asthma. 2. Small right lower lobe pulmonary emboli. I doubt that this has contributed to the patient's symptoms, but since she has history of stage IV breast cancer, she would need to be treated lifelong due to hypercoagulable state. 3. History of breast cancer status post mastectomy. She has bony metastasis. Currently, on chemo. 4. New left upper lobe ground glass 1-cm nodule. This needs to be followed up. Plan . 1. Discussed with Dr. Arvizu, will need lifelong anticoagulation. We will prefer Eliquis if it is approved by her insurance. In the meantime, I will continue Lovenox. 2. Continue with DuoNeb. increase q 4 hr 3. Continue with Pulmicort. 4. add IV steroids. 5. May have to hold chemo until wheezing resolved. KEENAN NOLAN MD Oct 17, 2016 13:00
[2016-10-17] MEDS: methylPREDNISolone SOD SUCC PF 125 MG/2 ML VIAL. IV SCH ×2 (14:11→21:49)
[2016-10-17] MEDS: BENZONATATE 100 MG CAPSULE. PO PRN (14:16)
[2016-10-17 15:38] VITALS: BP 104/63
--- NOTE | 2016-10-17 18:06 | CONS ---
DATE OF CONSULTATION: 10/16/2016 CONSULTATION REQUESTED BY: Dr. Daniel Valdes REASON FOR CONSULTATION: Breast cancer, on chemotherapy, now admitted for pulmonary embolism. HISTORY OF PRESENT ILLNESS: The patient is a 60-year-old female who has a history of breast cancer diagnosed in 2004, status post right mastectomy stage 2B, ER positive, HER-2/lakeisha negative. She received adjuvant chemotherapy followed by Arimidex. In 2014, she had evidence of ascites and paracentesis was performed on 08/10/2015. CT scan at that time revealed ascites and small peritoneal soft tissue density in the pelvis raising the possibility of peritoneal implant. She underwent diagnostic laparoscopy on 08/31/2015 that revealed metastatic mammary carcinoma involving the fallopian tube and ovary. She was started on Xeloda chemotherapy on 10/06/2015. She developed worsening paracentesis on 09/20/2016 and hence Xeloda was discontinued. She underwent paracentesis and Abraxane was initiated on 10/05/2016. She is tolerating it well. She has had persistent cough for several days and wheezing. She was given antibiotics with no response. She was admitted to [facility] on 10/15/2016 for exacerbation of bronchial asthma. She underwent a CT scan of the chest on 10/15/2016, which revealed bibasilar right lower lobe pulmonary emboli and evidence of sclerotic bone lesions. She was evaluated by Dr. Daniel Valdes and Eliquis was recommended. She is currently on Lovenox and she will start the Eliquis as outpatient if it is approved. PAST MEDICAL HISTORY: Breast cancer, bone mets, spine bifida, bronchial asthma, history of mild cerebral palsy. PAST SURGICAL HISTORY: Hysterectomy, right oophorectomy, 2 sections, right modified radical mastectomy. She has also had left salpingo-oophorectomy in 2014. SOCIAL HISTORY: Never smoker. FAMILY HISTORY: Both parents had lung cancer. REVIEW OF SYSTEMS: A 14-point review of systems was performed. Pertinent positives are mentioned in the history of present illness. Rest of the system review is negative. PHYSICAL EXAMINATION: GENERAL APPEARANCE: The patient is a 60-year-old female who is in no acute cardiorespiratory distress. VITAL SIGNS: Blood pressure 102/57, temperature 98.5. HEENT: Atraumatic, normocephalic. Eyes: No icterus. NECK: Supple. CHEST: Bilaterally symmetrical. HEART: S1, S2 normal. ABDOMEN: Soft, nontender. No hepatosplenomegaly. CENTRAL NERVOUS SYSTEM: No focal deficits. LYMPHATICS: No lymphadenopathy. SKIN: No rashes. PSYCHOLOGIC: Mood and affect are appropriate. MUSCULOSKELETAL: No joint effusions. LABORATORY DATA: WBC 3.9, hemoglobin 13.1, platelet count 306, creatinine 0.5. IMPRESSION AND PLAN: 1. 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 She was started on second line chemotherapy with Abraxane on 10/05/2016. I will continue to monitor for toxicities. I have advised her to return for followup upon discharge to resume chemotherapy. 2. Pulmonary embolism, new, diagnosed on 10/15/2016. I discussed with Dr. Daneil Valdes. The patient has been started on Lovenox. If the insurance approves, then she would be switched to Eliquis. In view of stage 4 malignancy, she would need lifelong anticoagulation. 3. Bone metastasis. I will continue to follow up as outpatient. 4. Ascites, improved after paracentesis on 09/20/2016 and initiation of chemotherapy. Continue to monitor. MINNA THORPE MD DR: ROXIE/jong JOB#: [id number] / [id number] DIANE
[2016-10-17 19:27] VITALS: BP 121/70
--- NOTE | 2016-10-17 21:26 | PDOC ---
PROGRESS NOTES Chief Complaint Chief Complaint Tachycardia and tachypnnea, acute asthma exacerbation, w./ respiratory distress, SIRS Small right lower lobe pulmonary emboli. stage IV breast cancer, hypercoagulable state.. History of Present Illness History of Present Illness still wheezing some resp distress, but improved Vitals Vitals Vital Signs Date Time Temp Pulse Resp B/P Pulse Ox O2 Delivery O2 Flow Rate FiO2 10/17/16 20:32 96 Nasal Cannula 2.0 10/17/16 19:27 97.8 93 18 121/70 97.8 Physical Exam General: Alert, Oriented X3, Cooperative, mild distress Lungs: Wheezing (bilateral) Abdomen: Normal bowel sounds, Soft Extremities: No clubbing, No cyanosis, No edema, Normal pulses Review of Systems Review of Systems no n.v.d Assessment and Plan Assessmemt and Plan cont pulm therapy Onc following chemo planned for late this week Problems Medical Problems: (1) Asthma exacerbation Status: Acute (2) Hypoxia Status: Acute (3) Pulmonary emboli Status: Acute Problems: Comment Review of Relevant I have reviewed the following items nba (where applicable) has been applied. Labs Laboratory Tests Test 10/15/16 22:10 10/16/16 08:10 Influenza Type A Antigen Negative (NEGATIVE) Influenza Type B Antigen Negative (NEGATIVE) White Blood Count 3.9x10^3/uL (4.0-11.0) Red Blood Count 4.22x10^6/uL (3.50-5.40) Hemoglobin 13.1g/dL (12.0-15.5) Hematocrit 40.2% (36.0-47.0) Mean Corpuscular Volume 95fL (79-100) Mean Corpuscular Hemoglobin 31pg (25-35) Mean Corpuscular Hemoglobin Concent 33g/dL (31-37) Red Cell Distribution Width 14.8% (11.5-14.5) Platelet Count 306x10^3/uL (140-400) Neutrophils (%) (Auto) 77% (31-73) Lymphocytes (%) (Auto) 20% (24-48) Monocytes (%) (Auto) 2% (0-9) Eosinophils (%) (Auto) 0% (0-3) Basophils (%) (Auto) 1% (0-3) Neutrophils # (Auto) 3.0x10^3uL (1.8-7.7) Lymphocytes # (Auto) 0.8x10^3/uL (1.0-4.8) Monocytes # (Auto) 0.1x10^3/uL (0.0-1.1) Eosinophils # (Auto) 0.0x10^3/uL (0.0-0.7) Basophils # (Auto) 0.0x10^3/uL (0.0-0.2) Sodium Level 143mmol/L (136-145) Potassium Level 3.7mmol/L (3.5-5.1) Chloride Level 109mmol/L (98-107) Carbon Dioxide Level 25mmol/L (21-32) Anion Gap 9 (6-14) Blood Urea Nitrogen 10mg/dL (7-20) Creatinine 0.5mg/dL (0.6-1.0) Estimated GFR (Cockcroft-Gault) 126.7 Glucose Level 182mg/dL (70-99) Calcium Level 8.6mg/dL (8.5-10.1) Medications Current Medications Sodium Chloride (Iv Sodium Chloride 0.9% 1000ml Bag) 1,000 ml @ 1,000 mls/hr Q1H IV Last administered on 10/15/16 21:50; Start 10/15/16 at 22:00; Stop at 22:59; Status DC Albuterol/ Ipratropium (Duoneb) 6 ml 1X ONCE NEB Last administered on 22:30; Start 10/15/16 at 22:00; Stop 10/15/16 at 22:01; Status DC Prednisone (Prednisone) 60 mg 1X ONCE PO Last administered on 10/15/16 21:50; Start 10/15/16 at 22:00; Stop 10/15/16 at 22:01; Status DC Iohexol (Omnipaque 300 Mg/ml) 75 ml 1X ONCE IV Last administered on 10/15/16 22:58; Start 10/15/16 at 23:15; Stop 10/15/16 at 23:16; Status DC Ondansetron HCl (Zofran) 4 mg PRN Q8HRS PRN IV NAUSEA/VOMITING; Start 10/15/16 at 23:00; Stop 10/16/16 at 22:59; Status DC Morphine Sulfate 4 mg PRN Q2HR PRN IV SEVERE PAIN; Start 10/15/16 at 23:00; Stop 10/16/16 at 22:59; Status DC Acetaminophen (Tylenol) 650 mg PRN Q4HRS PRN PO FEVER; Start 10/15/16 at 23:00; Stop 10/16/16 at 22:59; Status DC Albuterol/ Ipratropium (Duoneb) 3 ml RTQID NEB Last administered on 10/16/16 11 :30; Start 10/16/16 at 08:00; Stop 10/17/16 at 07:59; Status DC Info (Do NOT chart on this entry -- for MONITORING) 1 each PRN DAILY PRN MC SEE COMMENTS; Start 10/15/16 at 23:00; Stop 10/17/16 at 22:59 Enoxaparin Sodium (Lovenox 60mg Syringe) 55 mg 1X ONCE SQ ; Start 10/16/16 at 00 :00; Stop 10/16/16 at 00:00; Status DC Enoxaparin Sodium (Lovenox 60mg Syringe) 60 mg 1X ONCE SQ Last administered on 10/16/16 01:27; Start 10/16/16 at 00:00; Stop 10/16/16 at 00:01; Status DC Pneumococcal Polyvalent Vaccine (Do NOT chart on this placeholder) 1 each PRN DAILY PRN MC VERIFY STATUS; Start 10/16/16 at 02:30; Status Cancel Albuterol/ Ipratropium (Duoneb) 3 ml 1X ONCE NEB Last administered on 07:10; Start 10/16/16 at 07:00; Stop 10/16/16 at 07:01; Status DC Albuterol Sulfate (Ventolin Neb Soln) 2.5 mg PRN Q4HRS PRN NEB SHORTNESS OF BREATH Last administered on 10/16/16 23:05; Start 10/16/16 at 09:00; Stop at 12:56; Status DC Benzonatate (Tessalon Perle) 100 mg PRN Q8HRS PRN PO COUGH Last administered on 10/17/16 14:16; Start 10/16/16 at 09:00 Acetaminophen/ Hydrocodone Bitart (Lortab 5/325) 1 tab PRN Q4HRS PRN PO pain; Start 10/16/16 at 09:00 Non-Formulary Medication 1 puff PRN Q6HRS PRN INH SHORTNESS OF BREATH; Start at 09:00; Status UNV Non-Formulary Medication 1 puff BID IH ; Start 10/16/16 at 09:00; Stop 10/16/16 at 09:00; Status DC Ondansetron HCl (Zofran Odt) 8 mg PRN Q6HRS PRN PO NAUSEA/VOMITING; Start at 09:30 Budesonide (Pulmicort) 0.5 mg RTBID NEB Last administered on 10/17/16 20:31; Start 10/16/16 at 20:00 Enoxaparin Sodium (Lovenox Per Pharmacy Treatment Dosing) 1 each PRN DAILY PRN MC SEE COMMENTS; Start 10/16/16 at 13:15 Enoxaparin Sodium (Lovenox 60mg Syringe) 50 mg Q12HR SQ Last administered on 08:48; Start 10/16/16 at 21:00 Pneumococcal Polyvalent Vaccine (Pneumovax 23) 0.5 ml ONCE ONCE VAX IM ; Start 10/16/16 at 15:00; Stop 10/16/16 at 15:01; Status DC Albuterol/ Ipratropium (Duoneb) 3 ml RTQID NEB Last administered on 10/17/16 11 :35; Start 10/17/16 at 12:00; Stop 10/17/16 at 12:56; Status DC Albuterol Sulfate (Ventolin Neb Soln) 2.5 mg PRN Q2HRS PRN NEB DYSPNEA; Start 10/17/16 at 13:00 Albuterol/ Ipratropium (Duoneb) 3 ml Q4HRS NEB Last administered on 10/17/16 20 :31; Start 10/17/16 at 16:00 Methylprednisolone Sodium Succinate (Solu-Medrol 125mg Vial) 80 mg Q8HRS IV Last administered on 10/17/16 14:11; Start 10/17/16 at 14:00 Active Scripts Active Proair Hfa Inhaler (Albuterol Sulfate) 8.5 Gm Hfa.aer.ad 1 Puff INH PRN Q6HRS PRN [place] 5-325 Tablet (Acetaminophen/Hydrocodone Bitart) 1 Each Tablet 1-2 Tab PO Q4-6HRS Reported Zofran (Ondansetron Hcl) 8 Mg Tablet 8 Mg PO Q6HRS PRN Benzonatate 100 Mg Capsule 100 Mg PO Q8HRS PRN Levaquin (Levofloxacin) 500 Mg Tablet 1 Tab PO DAILY Albuterol Sulfate Neb Soln (Albuterol Sulfate) 2.5 Mg/3 Ml Vial.neb 0.5 Vial NEB PRN Q4HRS PRN Proventil Hfa Inhaler (Albuterol Sulfate) 6.7 Gm Hfa.aer.ad 1-2 Puff IH PRN Q4HRS PRN Advair 250-50 Diskus (Fluticasone/Salmeterol) 1 Each Disk.w.dev 1 Puff IH BID Vitals/I & O Vital Sign - Last 24 Hours 10/16/16 10/16/16 10/17/16 10/17/16 23:00 23:05 03:00 07:00 Temp 97.7 97.5 97.5 97.7 97.5 97.5 Pulse 103 83 97 Resp 16 16 20 B/P 128/74 105/71 108/77 Pulse Ox 93 96 97 94 O2 Delivery Room Air Nasal Cannula Room Air Nasal Cannula O2 Flow Rate 3.0 2.0 3.0 2.0 10/17/16 10/17/16 10/17/16 10/17/16 07:42 07:50 10:40 11:35 Temp 97.9 97.9 Pulse 96 Resp 18 B/P 108/70 Pulse Ox 98 95 94 O2 Delivery Nasal Cannula Nasal Cannula Nasal Cannula Nasal Cannula O2 Flow Rate 2.0 2.0 2.0 2.0 10/17/16 10/17/16 10/17/16 10/17/16 15:29 15:38 19:27 20:32 Temp 98.0 97.8 98.0 97.8 Pulse 95 93 Resp 20 18 B/P 104/63 121/70 Pulse Ox 96 93 96 O2 Delivery Nasal Cannula Nasal Cannula Nasal Cannula Nasal Cannula O2 Flow Rate 2.0 2.0 2.0 2.0 Intake and Output 10/16/16 10/16/16 10/17/16 15:00 23:00 07:00 Intake Total 0 ml 1300 ml Balance 0 ml 1300 ml KARINE MENDOZA MD Oct 17, 2016 21:26
[2016-10-17 23:30] VITALS: BP 122/70
[2016-10-18 03:25] VITALS: BP 114/74
[2016-10-18] MEDS: IPRATRPIUM/ALBUTEROL 0.5/2.5MG 3 ML NEBU. NEB SCH ×6 (03:38→23:19)
[2016-10-18] MEDS: methylPREDNISolone SOD SUCC PF 125 MG/2 ML VIAL. IV SCH ×3 (05:47→20:48)
[2016-10-18] MEDS: BUDESONIDE 0.5 MG/2 ML NEBU NEB SCH ×2 (06:01→19:51)
[2016-10-18 07:00] VITALS: BP 114/63
[2016-10-18] MEDS: ENOXAPARIN ** NOTE DOSE ** SYRINGE SQ SCH ×2 (09:00→20:49)
--- NOTE | 2016-10-18 09:19 | PDOC ---
Provider Note Provider Note DATE OF f/u: 10/18/2016 c/c: Breast cancer, on chemotherapy, now admitted for pulmonary embolism. HISTORY OF PRESENT ILLNESS: The patient is a 60-year-old female who has a history of breast cancer diagnosed in 2004, status post right mastectomy stage 2B, ER positive, HER-2/lakeisha negative. She received adjuvant chemotherapy followed by Arimidex. In 2014, she had evidence of ascites and paracentesis was performed on 08/10/2015. CT scan at that time revealed ascites and small peritoneal soft tissue density in the pelvis raising the possibility of peritoneal implant. She underwent diagnostic laparoscopy on 08/31/2015 that revealed metastatic mammary carcinoma involving the fallopian tube and ovary. She was started on Xeloda chemotherapy on 10/06/2015. She developed worsening paracentesis on 09/20/2016 and hence Xeloda was discontinued. She underwent paracentesis and Abraxane was initiated on 10/05/2016. She is tolerating it well. She has had persistent cough for several days and wheezing. She was given antibiotics with no response. She was admitted to [facility] on 10/15/2016 for exacerbation of bronchial asthma. She underwent a CT scan of the chest on 10/15/2016, which revealed bibasilar right lower lobe pulmonary emboli and evidence of sclerotic bone lesions. She was evaluated by Dr. Daniel Valdes and Eliquis was recommended. She is currently on Lovenox and she will start the Eliquis as outpatient if it is approved. PAST MEDICAL HISTORY: Breast cancer, bone mets, spine bifida, bronchial asthma, history of mild cerebral palsy. REVIEW OF SYSTEMS: dyspnea better PHYSICAL EXAMINATION: GENERAL APPEARANCE: The patient is a 60-year-old female who is in no acute cardiorespiratory distress. CHEST: Bilaterally symmetrical. HEART: S1, S2 normal. ABDOMEN: Soft, nontender. No hepatosplenomegaly. CENTRAL NERVOUS SYSTEM: No focal deficits. IMPRESSION AND PLAN: 1. 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 She was started on second line chemotherapy with Abraxane on 10/05/2016. I will continue to monitor for toxicities. I have advised her to return for followup upon discharge to resume chemotherapy. Defer chemo by 1 week. 2. Pulmonary embolism, new, diagnosed on 10/15/2016. I discussed with Dr. Daniel Valdes. The patient has been started on Lovenox. If the insurance approves, then she would be switched to Eliquis. In view of stage 4 malignancy, she would need lifelong anticoagulation. 3. Bone metastasis. I will continue to follow up as outpatient. 4. Ascites, improved after paracentesis on 09/20/2016 and initiation of chemotherapy. Continue to monitor. 5. Asthma exacerbation. MINNA THORPE MD Oct 18, 2016 09:19
[2016-10-18 11:07] VITALS: BP 102/57
--- NOTE | 2016-10-18 12:46 | PDOC ---
PULMONARY PROGRESS NOTES Subjective IMPROVING wheezing Vitals Vital Signs Date Time Temp Pulse Resp B/P Pulse Ox O2 Delivery O2 Flow Rate FiO2 10/18/16 11:58 96 Nasal Cannula 2.0 10/18/16 11:07 98.1 112 16 102/57 98.1 General: Alert, No acute distress Lungs: Wheezing (improving) Cardiovascular: S1 Abdomen: Soft Neuro Exam: Alert Extremities: No Edema Skin: Warm Medications Active Scripts Medications Dose Route/Sig Days Date Category Zofran (Ondansetron Hcl) 8 Mg Tablet 8 Mg PO Q6HRS PRN 10/16/16 Reported Benzonatate 100 Mg Capsule 100 Mg PO Q8HRS PRN 10/16/16 Reported Levaquin (Levofloxacin) 500 Mg Tablet 1 Tab PO DAILY 10/16/16 Reported Proair Hfa Inhaler (Albuterol Sulfate) 8.5 Gm Hfa.aer.ad 1 Puff INH PRN Q6HRS PRN 10/07/16 Rx [place] 5-325 Tablet (Acetaminophen/Hydrocodone Bitart) 1 Each Tablet 1-2 Tab PO Q4-6HRS 10/04/16 Rx Albuterol Sulfate Neb Soln (Albuterol Sulfate) 2.5 Mg/3 Ml Vial.neb 0.5 Vial NEB PRN Q4HRS PRN 09/20/16 Reported Proventil Hfa Inhaler (Albuterol Sulfate) 6.7 Gm Hfa.aer.ad 1-2 Puff IH PRN Q4HRS PRN 09/20/16 Reported Advair 250-50 Diskus (Fluticasone/Salmeterol) 1 Each Disk.w.dev 1 Puff IH BID 09/20/16 Reported Impression . 1. Dyspnea secondary to acute exacerbation of asthma. 2. Small right lower lobe pulmonary emboli. I doubt that this has contributed to the patient's symptoms, but since she has history of stage IV breast cancer, she would need to be treated lifelong due to hypercoagulable state. 3. History of breast cancer status post mastectomy. She has bony metastasis. Currently, on chemo. 4. New left upper lobe ground glass 1-cm nodule. This needs to be followed up. Plan . 1. Discussed with Dr. Arvizu, will need lifelong anticoagulation. We will prefer Eliquis if it is approved by her insurance. In the meantime, I will continue Lovenox. 2. Continue with DuoNeb. q 4 hr 3. Continue with Pulmicort. 4. IV steroids. 5. May have to hold chemo until wheezing resolved. KEENAN NOLAN MD Oct 18, 2016 12:45
--- NOTE | 2016-10-18 13:35 | PDOC ---
PROGRESS NOTES Chief Complaint Chief Complaint Tachycardia and tachypnnea, acute asthma exacerbation, w./ respiratory distress, SIRS Small right lower lobe pulmonary emboli. stage IV breast cancer, hypercoagulable state.. History of Present Illness History of Present Illness still wheezing - but much improved, better airflow some resp distress, but improved Vitals Vitals Vital Signs Date Time Temp Pulse Resp B/P Pulse Ox O2 Delivery O2 Flow Rate FiO2 10/18/16 11:58 96 Nasal Cannula 2.0 10/18/16 11:07 98.1 112 16 102/57 98.1 Physical Exam General: Alert, Oriented X3, Cooperative, No acute distress Heart: Regular rate, No murmurs Lungs: Wheezing (improving), Other (better vol) Abdomen: Normal bowel sounds, Soft Extremities: No clubbing, No cyanosis, No edema, Normal pulses Skin: No rashes, No breakdown Review of Systems Review of Systems no n.v.d + weakness Assessment and Plan Assessmemt and Plan Pt and OT eval todahy consider home health or outpatient PT if needed Eliquis planned for DC, cont lovenox now may DC tomorrow Problems Medical Problems: (1) Asthma exacerbation Status: Acute (2) Hypoxia Status: Acute (3) Pulmonary emboli Status: Acute Problems: Comment Review of Relevant I have reviewed the following items nba (where applicable) has been applied. Medications Current Medications Sodium Chloride (Iv Sodium Chloride 0.9% 1000ml Bag) 1,000 ml @ 1,000 mls/hr Q1H IV Last administered on 10/15/16 21:50; Start 10/15/16 at 22:00; Stop at 22:59; Status DC Albuterol/ Ipratropium (Duoneb) 6 ml 1X ONCE NEB Last administered on 22:30; Start 10/15/16 at 22:00; Stop 10/15/16 at 22:01; Status DC Prednisone (Prednisone) 60 mg 1X ONCE PO Last administered on 10/15/16 21:50; Start 10/15/16 at 22:00; Stop 10/15/16 at 22:01; Status DC Iohexol (Omnipaque 300 Mg/ml) 75 ml 1X ONCE IV Last administered on 10/15/16 22:58; Start 10/15/16 at 23:15; Stop 10/15/16 at 23:16; Status DC Ondansetron HCl (Zofran) 4 mg PRN Q8HRS PRN IV NAUSEA/VOMITING; Start 10/15/16 at 23:00; Stop 10/16/16 at 22:59; Status DC Morphine Sulfate 4 mg PRN Q2HR PRN IV SEVERE PAIN; Start 10/15/16 at 23:00; Stop 10/16/16 at 22:59; Status DC Acetaminophen (Tylenol) 650 mg PRN Q4HRS PRN PO FEVER; Start 10/15/16 at 23:00; Stop 10/16/16 at 22:59; Status DC Albuterol/ Ipratropium (Duoneb) 3 ml RTQID NEB Last administered on 10/16/16 11 :30; Start 10/16/16 at 08:00; Stop 10/17/16 at 07:59; Status DC Info (Do NOT chart on this entry -- for MONITORING) 1 each PRN DAILY PRN MC SEE COMMENTS; Start 10/15/16 at 23:00; Stop 10/17/16 at 22:59; Status DC Enoxaparin Sodium (Lovenox 60mg Syringe) 55 mg 1X ONCE SQ ; Start 10/16/16 at 00 :00; Stop 10/16/16 at 00:00; Status DC Enoxaparin Sodium (Lovenox 60mg Syringe) 60 mg 1X ONCE SQ Last administered on 10/16/16 01:27; Start 10/16/16 at 00:00; Stop 10/16/16 at 00:01; Status DC Pneumococcal Polyvalent Vaccine (Do NOT chart on this placeholder) 1 each PRN DAILY PRN MC VERIFY STATUS; Start 10/16/16 at 02:30; Status Cancel Albuterol/ Ipratropium (Duoneb) 3 ml 1X ONCE NEB Last administered on 07:10; Start 10/16/16 at 07:00; Stop 10/16/16 at 07:01; Status DC Albuterol Sulfate (Ventolin Neb Soln) 2.5 mg PRN Q4HRS PRN NEB SHORTNESS OF BREATH Last administered on 10/16/16 23:05; Start 10/16/16 at 09:00; Stop at 12:56; Status DC Benzonatate (Tessalon Perle) 100 mg PRN Q8HRS PRN PO COUGH Last administered on 10/17/16 14:16; Start 10/16/16 at 09:00 Acetaminophen/ Hydrocodone Bitart (Lortab 5/325) 1 tab PRN Q4HRS PRN PO pain; Start 10/16/16 at 09:00 Non-Formulary Medication 1 puff PRN Q6HRS PRN INH SHORTNESS OF BREATH; Start at 09:00; Status UNV Non-Formulary Medication 1 puff BID IH ; Start 10/16/16 at 09:00; Stop 10/16/16 at 09:00; Status DC Ondansetron HCl (Zofran Odt) 8 mg PRN Q6HRS PRN PO NAUSEA/VOMITING; Start at 09:30 Budesonide (Pulmicort) 0.5 mg RTBID NEB Last administered on 10/18/16 06:01; Start 10/16/16 at 20:00 Enoxaparin Sodium (Lovenox Per Pharmacy Treatment Dosing) 1 each PRN DAILY PRN MC SEE COMMENTS; Start 10/16/16 at 13:15 Enoxaparin Sodium (Lovenox 60mg Syringe) 50 mg Q12HR SQ Last administered on 09:00; Start 10/16/16 at 21:00 Pneumococcal Polyvalent Vaccine (Pneumovax 23) 0.5 ml ONCE ONCE VAX IM Last administered on 10/18/16 10:20; Start 10/16/16 at 15:00; Stop 10/16/16 at 15:01; Status DC Albuterol/ Ipratropium (Duoneb) 3 ml RTQID NEB Last administered on 10/17/16 11 :35; Start 10/17/16 at 12:00; Stop 10/17/16 at 12:56; Status DC Albuterol Sulfate (Ventolin Neb Soln) 2.5 mg PRN Q2HRS PRN NEB DYSPNEA; Start 10/17/16 at 13:00 Albuterol/ Ipratropium (Duoneb) 3 ml Q4HRS NEB Last administered on 10/18/16 11 :58; Start 10/17/16 at 16:00 Methylprednisolone Sodium Succinate (Solu-Medrol 125mg Vial) 80 mg Q8HRS IV Last administered on 10/18/16t 05:47; Start 10/17/16 at 14:00 Active Scripts Active Proair Hfa Inhaler (Albuterol Sulfate) 8.5 Gm Hfa.aer.ad 1 Puff INH PRN Q6HRS PRN [place] 5-325 Tablet (Acetaminophen/Hydrocodone Bitart) 1 Each Tablet 1-2 Tab PO Q4-6HRS Reported Zofran (Ondansetron Hcl) 8 Mg Tablet 8 Mg PO Q6HRS PRN Benzonatate 100 Mg Capsule 100 Mg PO Q8HRS PRN Levaquin (Levofloxacin) 500 Mg Tablet 1 Tab PO DAILY Albuterol Sulfate Neb Soln (Albuterol Sulfate) 2.5 Mg/3 Ml Vial.neb 0.5 Vial NEB PRN Q4HRS PRN Proventil Hfa Inhaler (Albuterol Sulfate) 6.7 Gm Hfa.aer.ad 1-2 Puff IH PRN Q4HRS PRN Advair 250-50 Diskus (Fluticasone/Salmeterol) 1 Each Disk.w.dev 1 Puff IH BID Vitals/I & O Vital Sign - Last 24 Hours 10/17/16 10/17/16 10/17/16 10/17/16 15:29 15:38 19:27 20:00 Temp 98.0 97.8 98.0 97.8 Pulse 95 93 Resp 20 18 B/P 104/63 121/70 Pulse Ox 96 93 O2 Delivery Nasal Cannula Nasal Cannula Nasal Cannula Nasal Cannula O2 Flow Rate 2.0 2.0 2.0 2.0 10/17/16 10/17/16 10/17/16 10/18/16 20:32 23:21 23:30 03:25 Temp 97.9 98.0 97.9 98.0 Pulse 101 98 Resp 18 18 B/P 122/70 114/74 Pulse Ox 96 94 94 O2 Delivery Nasal Cannula Nasal Cannula Room Air Room Air O2 Flow Rate 2.0 2.0 10/18/16 10/18/16 10/18/16 10/18/16 03:39 06:02 06:03 07:00 Temp 97.8 97.8 Pulse 116 Resp 16 B/P 114/63 Pulse Ox 95 95 95 96 O2 Delivery Nasal Cannula Nasal Cannula Nasal Cannula Nasal Cannula O2 Flow Rate 2.0 2.0 2.0 2.0 10/18/16 10/18/16 11:07 11:58 Temp 98.1 98.1 Pulse 112 Resp 16 B/P 102/57 Pulse Ox 95 96 O2 Delivery Nasal Cannula Nasal Cannula O2 Flow Rate 2.0 2.0 Intake and Output 10/17/16 10/17/16 10/18/16 15:00 23:00 07:00 Intake Total 120 ml 200 ml Balance 120 ml 200 ml KARINE MENDOZA MD Oct 18, 2016 13:35
[2016-10-18 15:04] VITALS: BP 113/62
[2016-10-18 19:38] VITALS: BP 117/55
[2016-10-18 23:18] VITALS: BP 127/70
[2016-10-19] MEDS: BENZONATATE 100 MG CAPSULE. PO PRN ×2 (02:07→10:17)
[2016-10-19] MEDS: IPRATRPIUM/ALBUTEROL 0.5/2.5MG 3 ML NEBU. NEB SCH ×3 (03:02→12:15)
[2016-10-19 03:19] VITALS: BP 133/73
[2016-10-19] MEDS: methylPREDNISolone SOD SUCC PF 125 MG/2 ML VIAL. IV SCH ×2 (06:22→13:39)
[2016-10-19 07:00] VITALS: BP 129/72
[2016-10-19] MEDS: BUDESONIDE 0.5 MG/2 ML NEBU NEB SCH (07:00)
[2016-10-19] MEDS: ENOXAPARIN ** NOTE DOSE ** SYRINGE SQ SCH (08:51)
--- NOTE | 2016-10-19 08:59 | PDOC ---
Provider Note Provider Note DATE OF f/u: 10/19/2016 c/c: Breast cancer, on chemotherapy, now admitted for pulmonary embolism. HISTORY OF PRESENT ILLNESS: The patient is a 60-year-old female who has a history of breast cancer diagnosed in 2004, status post right mastectomy stage 2B, ER positive, HER-2/lakeisha negative. She received adjuvant chemotherapy followed by Arimidex. In 2014, she had evidence of ascites and paracentesis was performed on 08/10/2015. CT scan at that time revealed ascites and small peritoneal soft tissue density in the pelvis raising the possibility of peritoneal implant. She underwent diagnostic laparoscopy on 08/31/2015 that revealed metastatic mammary carcinoma involving the fallopian tube and ovary. She was started on Xeloda chemotherapy on 10/06/2015. She developed worsening paracentesis on 09/20/2016 and hence Xeloda was discontinued. She underwent paracentesis and Abraxane was initiated on 10/05/2016. She is tolerating it well. She has had persistent cough for several days and wheezing. She was given antibiotics with no response. She was admitted to [facility] on 10/15/2016 for exacerbation of bronchial asthma. She underwent a CT scan of the chest on 10/15/2016, which revealed bibasilar right lower lobe pulmonary emboli and evidence of sclerotic bone lesions. She was evaluated by Dr. Daniel Valdes and Eliquis was recommended. She is currently on Lovenox and she will start the Eliquis as outpatient if it is approved. PAST MEDICAL HISTORY: Breast cancer, bone mets, spine bifida, bronchial asthma, history of mild cerebral palsy. REVIEW OF SYSTEMS: had wheezing last night. dyspnea better, no CP, no fever PHYSICAL EXAMINATION: GENERAL APPEARANCE: The patient is a 60-year-old female who is in no acute cardiorespiratory distress. CHEST: Bilaterally symmetrical. HEART: S1, S2 normal. ABDOMEN: Soft, nontender. No hepatosplenomegaly. CENTRAL NERVOUS SYSTEM: No focal deficits. IMPRESSION AND PLAN: 1. 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 She was started on second line chemotherapy with Abraxane on 10/05/2016. I will continue to monitor for toxicities. I have advised her to return for followup upon discharge to resume chemotherapy. Defer chemo by 1 week. f/u with me next week for chemo. 2. Pulmonary embolism, new, diagnosed on 10/15/2016. I discussed with Dr. Daniel Valdes. The patient has been started on Lovenox. If the insurance approves, then she would be switched to Eliquis. In view of stage 4 malignancy, she would need lifelong anticoagulation. 3. Bone metastasis. I will continue to follow up as outpatient. 4. Ascites, improved after paracentesis on 09/20/2016 and initiation of chemotherapy. Continue to monitor. 5. Asthma exacerbation. MINNA THORPE MD Oct 19, 2016 08:59
[2016-10-19 11:00] VITALS: BP 137/75
--- NOTE | 2016-10-19 11:35 | PDOC ---
PULMONARY PROGRESS NOTES Subjective resolved wheezing Vitals Vital Signs Date Time Temp Pulse Resp B/P Pulse Ox O2 Delivery O2 Flow Rate FiO2 10/19/16 11:00 97.8 104 18 137/75 96 Room Air 97.8 10/19/16 08:10 2.0 General: Alert, No acute distress Lungs: Wheezing (resolved), Other (better vol) Cardiovascular: S1 Abdomen: Soft Neuro Exam: Alert Extremities: No Edema Skin: Warm Medications Active Scripts Medications Dose Route/Sig Days Date Category Zofran (Ondansetron Hcl) 8 Mg Tablet 8 Mg PO Q6HRS PRN 10/16/16 Reported Benzonatate 100 Mg Capsule 100 Mg PO Q8HRS PRN 10/16/16 Reported Levaquin (Levofloxacin) 500 Mg Tablet 1 Tab PO DAILY 10/16/16 Reported Proair Hfa Inhaler (Albuterol Sulfate) 8.5 Gm Hfa.aer.ad 1 Puff INH PRN Q6HRS PRN 10/07/16 Rx [place] 5-325 Tablet (Acetaminophen/Hydrocodone Bitart) 1 Each Tablet 1-2 Tab PO Q4-6HRS 10/04/16 Rx Albuterol Sulfate Neb Soln (Albuterol Sulfate) 2.5 Mg/3 Ml Vial.neb 0.5 Vial NEB PRN Q4HRS PRN 09/20/16 Reported Proventil Hfa Inhaler (Albuterol Sulfate) 6.7 Gm Hfa.aer.ad 1-2 Puff IH PRN Q4HRS PRN 09/20/16 Reported Advair 250-50 Diskus (Fluticasone/Salmeterol) 1 Each Disk.w.dev 1 Puff IH BID 09/20/16 Reported Impression . 1. Dyspnea secondary to acute exacerbation of asthma. 2. Small right lower lobe pulmonary emboli. I doubt that this has contributed to the patient's symptoms, but since she has history of stage IV breast cancer, she would need to be treated lifelong due to hypercoagulable state. 3. History of breast cancer status post mastectomy. She has bony metastasis. Currently, on chemo. 4. New left upper lobe ground glass 1-cm nodule. This needs to be followed up. Plan . 1. Discussed with Dr. Arvizu, will need lifelong anticoagulation. We will prefer Eliquis if it is approved by her insurance. In the meantime, I will continue Lovenox. 2. Continue with DuoNeb. 3. Continue with Pulmicort. 4. change to PO steroids 5. can go home today on Po STEROID/ po Eliquis f/u in one month with me KEENAN NOLAN MD Oct 19, 2016 11:35
[2016-10-19] MEDS ORDERED: PRED-220 PO (12:36)
[2016-10-19] MEDS ORDERED: APIX5TAB PO (12:37)
== END 2016-10-19 14:30 | disposition home or self-care (01) | DRG 176 ==
LOC: ER 19:45 → 4 NORTH 22:44
PROVIDERS: ADMIT Internal Medicine; ATTEND Internal Medicine
DX: I26.99 Other pulmonary embolism without acute cor pulmonale (principal); J45.901 Unspecified asthma with (acute) exacerbation; R65.10 Systemic inflammatory response syndrome (SIRS) of non-infectious origin without acute organ dysfunction; C79.51 Secondary malignant neoplasm of bone; C78.6 Secondary malignant neoplasm of retroperitoneum and peritoneum; R18.0 Malignant ascites; R18.8 Other ascites; D68.59 Other primary thrombophilia; C50.919 Malignant neoplasm of unspecified site of unspecified female breast; Z85.3 Personal history of malignant neoplasm of breast; Z90.11 Acquired absence of right breast and nipple; Z79.01 Long term (current) use of anticoagulants; Z80.1 Family history of malignant neoplasm of trachea, bronchus and lung; C57.00 Malignant neoplasm of unspecified fallopian tube; Z90.710 Acquired absence of both cervix and uterus; Z88.8 Allergy status to other drugs, medicaments and biological substances; Z90.721 Acquired absence of ovaries, unilateral; Z79.899 Other long term (current) drug therapy; R09.02 Hypoxemia
CPT/HCPCS: 36415; 71020; 71275; 80048; 84484; 85027; 87804; 90732; 93005; 93970; 94250; 94640; 94760; J1650; J2930; J7030; J7512; J7620; Q9967; 99285-25

== ENCOUNTER → 2016-11-08 | Outpatient (CLI) | payer BC ==
[2016-10-19 11:00] VITALS: BP 137/75
[~2016-11-08] MED LIST changes: +APIX5TAB PO; +BENZ100C2 PO; +LEVO500T38 PO; +ONDA8TAB9 PO; +PRED-220 PO
--- NOTE | 2016-11-08 10:35 | RAD ---
Bilateral lower extremity venous ultrasound, 11/08/2016: History: Leg swelling, previous pulmonary emboli Duplex evaluation of the deep veins in the lower extremities was performed including grayscale, color-flow and spectral Doppler analysis. The femoral and popliteal veins demonstrate normal compressibility and normal responses to distal augmentation maneuvers. Color imaging of those vessels shows no evidence of intraluminal clot. The visualized deep veins in both calves are patent. IMPRESSION: There is no sonographic evidence of deep vein thrombosis in either lower extremity.
== END | disposition home or self-care (01) ==
LOC: US 09:17
PROVIDERS: ATTEND Internal Medicine Critical Care Medicine
DX: M79.89 Other specified soft tissue disorders (principal); Z86.718 Personal history of other venous thrombosis and embolism
CPT/HCPCS: 93970

== ENCOUNTER 2017-01-10 06:53 | Day surgery (SDC) | payer BC ==
[~2017-01-10] VITALS: Ht 160 cm; Wt 62.6 kg
[~2017-01-10 06:53] MED LIST changes: +HEPARIN SODIUM 5,000 UNIT in IV NORMAL SALINE 500ML BAG 500 ML IRR ONE
[2017-01-10] MEDS ORDERED: LIDOCAINE 1% 1 ML SYRINGE. ID PRN (07:00)
[2017-01-10] MEDS ORDERED: PROCHLORPERAZINE 10 MG/2 ML VIAL. IV PRN (07:00)
[2017-01-10] MEDS ORDERED: ONDANSETRON PF 4 MG/2 ML VIAL. IV PRN (07:00)
[2017-01-10] MEDS ORDERED: HYDROmorphone 2 MG/ML VIAL IV PRN (07:00)
[2017-01-10] MEDS ORDERED: IV RINGERS,LACTATED 1000ML 1,000 ML IV SCH (07:00)
[2017-01-10] MEDS ORDERED: MORPHINE SULFATE 2 MG/ML DISP.SYRIN. IV PRN (07:00)
[2017-01-10] MEDS ORDERED: HEPARIN for IV BOLUS 10,000 UNIT/10 ML VIAL. ONE (07:05)
[2017-01-10] MEDS ORDERED: BUPIVAC MPF-EPI 0.5%-1:200000 30 ML VIAL. ONE (07:05)
[2017-01-10] MEDS ORDERED: NEOSTIGMINE METHYLSULFATE 5 MG/5 ML SYRINGE. ONE (08:09)
[2017-01-10] MEDS ORDERED: fentaNYL PF VIAL 100 MCG/2 ML VIAL ONE (08:09)
[2017-01-10] MEDS ORDERED: DESFLURANE 61 TO 120 MINUTES IH ONE (08:09)
[2017-01-10] MEDS ORDERED: MIDAZOLAM HCL/PF 2 MG/2 ML VIAL. ONE (08:09)
[2017-01-10] MEDS ORDERED: GLYCOPYRROLATE 1 MG/5 ML VIAL. ONE (08:09)
[2017-01-10] MEDS ORDERED: ROCURONIUM 100 MG/10 ML VIAL. ONE (08:09)
[2017-01-10] MEDS ORDERED: ONDANSETRON PF 4 MG/2 ML VIAL. ONE (08:10)
[2017-01-10] MEDS ORDERED: LIDOCAINE 2% 100 MG/5 ML SYRINGE. ONE (08:10)
[2017-01-10] MEDS ORDERED: PROPOFOL 20 ML IV ONE (08:10)
[2017-01-10] MEDS ORDERED: DEXAMETHASONE SOD PHOS 20 MG/5 ML VIAL. ONE (08:10)
[2017-01-10] MEDS ORDERED: HYDR-971 PO (10:49)
[2017-01-10] MEDS ORDERED: HYDROcodone/APAP 5/325MG 1 TAB TABLET PO PRN (11:00)
[2017-01-10 11:30] VITALS: BP 118/70
--- NOTE | 2017-01-10 12:52 | PDOC ---
BRIEF OPERATIVE NOTE Pre-Op Diagnosis malfunctioning port cath replacement of port k sangeetha holliday ebl <5 ivf 1000 augusto well to rr stable. ALMAS SOUZA MD January 10, 2017 12:52
--- NOTE | 2017-01-10 19:20 | OP ---
DATE OF SURGERY: 01/10/2017 PREOPERATIVE DIAGNOSIS: Malfunctioning Port-A-Cath. POSTOPERATIVE DIAGNOSIS: Malfunctioning Port-A-Cath. PROCEDURES: 1. Replacement of Port-A-Cath. 2. Intraoperative use of fluoroscopy. SURGEON: Dr. Almas Souza. ANESTHESIA: General. ESTIMATED BLOOD LOSS: Less than 5 mL. IV FLUIDS: 1000 mL. INDICATIONS: The patient is a 61-year-old female who was being treated for metastatic breast cancer. At the completion of her last chemotherapy, there was noted to be some fluid leaking out of her puncture site from her accessed Port-A-Cath, and there was some concern that the port may have a defect or maybe leakage. She was sent to my office for evaluation, and at that time it was noted that the port was very superficial and beginning to erode through the skin. The skin was intact, and so the port was not exposed to the surface of the skin and was not locally infected, but given how thin the skin was, then we made the decision to recommend replacement of this port. She is here today for that procedure. FINDINGS: The port was replaced by using a separate incision cephalad to the initial incision and creating a new pocket for new port. It was attached to the existing catheter tubing. Then after that incision was closed, her original port was removed and then this was tested, and there was no leakage from the port catheter junction or from the membrane on the port itself. I could not demonstrate any defect or leaking on the original port. PROCEDURE IN DETAIL: After informed consent was obtained, the patient was taken to the operating room and placed in supine position. After adequate induction of general anesthesia, she was prepped and draped in usual sterile fashion. The skin on the left chest between the clavicle and her original incision was injected with local anesthetic. Skin incision was made, and the cautery was used to dissect through the subcutaneous tissue. The catheter in the subcutaneous tissue was identified, and the capsule overlying the catheter was scored with cautery and then dissected sharply. This was done in an area near enough to her original port at this part of the catheter that was being free would be removed. At this portion of the catheter that had not been subjected to direct dissection was chosen, and this area was cut. A new port was then attached to the existing catheter and then the connecting device was slid over the port catheter junction. A pocket had been created with cautery for placement of the port. The port was placed on a dry sterile blue towel. The port was accessed, venous blood aspirated easily, was then flushed with dilute heparinized saline. There was no extravasation from the port catheter junction, and when the Gregg needle was removed, the membrane of the port was intact as well. The port was then placed in a new pocket that had been created on the chest wall. She is a thin lady and knowing that her original port had begun to erode through the skin, I did create this pocket directly on the pectoralis muscle. So there will be a maximal amount of subcutaneous fat between the port and the skin. The port was then sutured to the chest wall with 2-0 Prolene sutures x2. The fluoroscopy was then used to confirm that the port was in the appropriate position as was the catheter. The deep fatty layer overlying the port was approximated with 3-0 Vicryl in a running fashion. Skin was then closed with 4-0 Monocryl in running subcuticular fashion. Dermabond followed by Steri-Strips were placed as the dressing. At this point after having fully closed this incision, her original incision was injected with local anesthetic. The previous incision was opened sharply to expose the capsule of the port. This was opened with cautery. The port itself was able to be removed by cutting the 2 Prolene sutures holding it to the chest. At this point, the part of the Port-A-Cath that was removed was the original port and then the very beginning part of the catheter. This part of the catheter was clamped with a hemostat and placed on a drape, and the original port was accessed with the Gregg needle and flushed. There was no extravasation from the port catheter junction and no extravasation from the membrane. We could not demonstrate any defect in the original Port-A-Cath. The area was hemostatic, was then closed with a 3-0 Vicryl in a running fashion followed by 4-0 Monocryl in subcuticular fashion. Sterile dressings were placed. She tolerated the procedure well. There were no apparent complications. She was transferred in stable condition to the recovery room. ALMAS SOUZA MD DR: DOMINICK/jong JOB#: [id number] / [id number] MINNA Rivas MD, STEPHEN MD
--- NOTE | 2017-01-11 18:10 | PATHOLOGY ---
PATHOLOGY REPORT * * * * * * * * FINAL DIAGNOSIS: Port (Gross only): REPORT ELECTRONICALLY SIGNED BY: Allen Dunn M.D. DATE/TIME: 01/11/2017 18:09 * * * * * * * * GROSS PATHOLOGY: The specimen is received fresh, labeled "monica Morales". Received is a triangular purple metallic port measuring 2.8 x 2.4 x 1.5 cm in greatest dimension. The back of the port is labelled "BARD", "CT", and "[id number]". A gross photograph is taken. (CAA; 01/11/2017) INITIAL CPT CODE(S): A; 38253 Professional services performed by [email or web address] [address] Technical services performed by [email or web address] at [address] [place] [address], [facility] [address] [place] [address]. SPECIMEN(S) RECEIVED: A.Port CLINICAL HISTORY: Breast ca/port replacement PATIENT: MANDY SANCHEZ /AGE: 3 1955 (Age: 61) PATIENT #: [id number] ALT CASE #: SPECIMEN COLLECTION DATE: 01/10/2017 SPECIMEN RECEIVED DATE: 01/10/2017 [facility] - [address] [place] [address] - PHONE: [phone] * * * END OF REPORT * * *
== END 2017-01-10 11:39 | disposition home or self-care (01) ==
LOC: SURG 06:53
PROVIDERS: ATTEND Surgery
DX: T82.598A Other mechanical complication of other cardiac and vascular devices and implants, initial encounter (principal); Y83.8 Other surgical procedures as the cause of abnormal reaction of the patient, or of later complication, without mention of misadventure at the time of the procedure; J45.909 Unspecified asthma, uncomplicated; Z90.710 Acquired absence of both cervix and uterus
CPT/HCPCS: 36582; 88300; C1769; J0690; J1100; J2250; J2405; J2704; J3010; J3490; J7040; 36556; J2710

== ENCOUNTER → 2017-04-02 | Outpatient (CLI) | payer BC ==
[~2017-04-02] MED LIST changes: +BENZ100C15 PO; -BENZ100C2 PO; -HEPARIN SODIUM 5,000 UNIT in IV NORMAL SALINE 500ML BAG 500 ML IRR ONE; -HYDR-2666 PO; +HYDR-2758 PO; -LEVO500T38 PO; +LEVO500T59 PO
--- NOTE | 2017-04-02 14:27 | RAD ---
Right upper extremity venous Doppler ultrasound History: USVENURT/SWELLING R UPPER EXT POSS DVT Comparison: None. Procedure: Color flow, spectral Doppler analysis, and 2D images are obtained with and without compression in the right jugular vein, subclavian vein, axillary vein, brachial vein, radial vein, ulnar vein, and basilic and cephalic veins as well as the left subclavian vein. Findings: There is normal color flow and compressibility of all visualized vein segments. No evidence of deep venous thrombus is present. Spectral waveform analysis is normal, all vein segments augment normally. IMPRESSION: No evidence of right upper extremity deep venous thrombosis.
== END | disposition home or self-care (01) ==
LOC: US 08:59
PROVIDERS: ATTEND Internal Medicine Hematology & Oncology
DX: M79.89 Other specified soft tissue disorders (principal)
CPT/HCPCS: 93971

== ENCOUNTER → 2017-06-06 | Outpatient (CLI) | payer BC ==
--- NOTE | 2017-06-06 12:51 | RAD ---
EXAM: Chest 2 views. HISTORY: Shortness of breath, breast cancer. COMPARISON: 10/15/2016. FINDINGS: Frontal and lateral views of the chest are obtained. A left-sided port catheter has its tip in the superior cavoatrial junction. A nodular opacity projects over the right anterior 2nd rib and is not clearly changed. A calcified granuloma is also noted in the right upper lobe. Hyperinflation is consistent with chronic obstructive pulmonary disease. There is no pneumothorax or pleural effusion. The heart is not enlarged. IMPRESSION: 1. A nodular opacity in the right upper lobe is not clearly changed. Refer to prior CT for more detail. 2. Chronic obstructive pulmonary disease.
== END | disposition home or self-care (01) ==
LOC: RAD 12:15
PROVIDERS: ATTEND Internal Medicine Pulmonary Disease
DX: C50.919 Malignant neoplasm of unspecified site of unspecified female breast (principal); J44.9 Chronic obstructive pulmonary disease, unspecified
CPT/HCPCS: 71020

== ENCOUNTER → 2017-07-12 | Day surgery (SDC) | payer BC ==
[~2017-07-12] MED LIST changes: +ALBUTEROL SULFATE 2.5 MG/3 ML NEBU. NEB ONE; +HYDROmorphone 2 MG/ML VIAL IV PRN; +IPRATRPIUM/ALBUTEROL 0.5/2.5MG 3 ML NEBU. NEB ONE; +IPRATRPIUM/ALBUTEROL 0.5/2.5MG 3 ML NEBU. ONE; +IV RINGERS,LACTATED 1000ML 1,000 ML IV SCH; +LIDOCAINE 1% PF 2 ML VIAL. ID PRN; +MORPHINE SULFATE 2 MG/ML DISP.SYRIN. IV PRN; +ONDANSETRON PF 4 MG/2 ML VIAL. IV PRN; +PROCHLORPERAZINE 10 MG/2 ML VIAL. IV PRN; +PROPOFOL 20 ML IV ONE
[2017-07-12 12:55] LABS: BASO # 0.1 x10^3/uL (0.0-0.2); BASO % 3 % (0-3); EOS % 9 % (0-3); HEMATOCRIT 39.3 % (36.0-47.0); HEMOGLOBIN 12.9 g/dL (12.0-15.5); LYMPH # 0.9 x10^3/uL (1.0-4.8); LYMPH % 22 % (24-48); MEAN CORPUSCULAR HEMOGLOBIN 30 pg (25-35); MEAN CORPUSCULAR HGB CONC 33 g/dL (31-37); MEAN CORPUSCULAR VOLUME 90 fL (79-100); MONO % 4 % (0-9); NEUT % 62 % (31-73); PLATELET COUNT 188 x10^3/uL (140-400); RED BLOOD COUNT 4.35 x10^6/uL (3.50-5.40); RED CELL DISTRIBUTION WIDTH 15.4 % (11.5-14.5); WHITE BLOOD COUNT 4.2 x10^3/uL (4.0-11.0)
[2017-07-12 13:08] LABS: PROTHROMBIN TIME PATIENT 12.5 SEC (11.7-14.0)
[2017-07-12 14:15] VITALS: BP 141/60
--- NOTE | 2017-07-12 16:07 | OP ---
DATE OF SURGERY: 07/12/2017 DATE OF SERVICE: 07/12/2017 PROCEDURE: Bronchoscopy. INDICATIONS: Persistent cough, on chemo and lung infiltrates. DESCRIPTION OF PROCEDURE: Informed consent was obtained from the patient. All risks, and benefits were explained and she agreed to proceed with the procedure. Sedation was accomplished with propofol by anesthesia. Bronch was introduced with the oral route as the nostrils were tight. Bronch was passed through the upper airway and vocal cords were reached. They moved equally with respiration. The trachea was entered. No tracheal lesions seen and no secretions seen. Norma was sharp. Right lung was examined. All subsegments of right upper, right middle and right lower lobe were examined. There were no significant secretions and no endobronchial lesions seen. Bronchoalveolar lavage performed from right upper lobe and right lower lobe. Bronch was introduced into the left lung. All subsegments of left upper lobe, lingula and left lower lobe were examined. No mucosal abnormality seen. No purulent secretions seen and no endobronchial lesions seen. The patient tolerated the procedure well. IMPRESSION: 1. No endobronchial lesions seen. 2. No purulent secretions seen. 3. Normal appearing mucosa. 4. Bronchoalveolar lavage performed from right upper lobe and right lower lobe and sent for appropriate studies. 5. The patient to follow with Dr. Mcdaniel and discuss results of the bronch cultures. KEENAN NOLAN MD DR: CLOTILDE/jong JOB#: [id number] / [id number] DIANE
--- NOTE | 2017-07-16 17:06 | PATHOLOGY ---
CYTOPATHOLOGY REPORT CLINICAL HISTORY: Mucous plug/ Hilar mass SPECIMEN(S) RECEIVED: A.Bronchoalveolar lavage, RUL B.Bronchoalveolar lavage, RLL FINAL DIAGNOSIS: A. Right upper lobe bronchoalveolar lavage, Thinprep: - No malignant cells identified. - Focally reactive bronchial epithelial cells and few squamous epithelial cells and pulmonary macrophages identified. B. Right lower lobe bronchoalveolar lavage, ThinPrep: - No malignant cells identified. - Focally reactive bronchial epithelial cells and few squamous epithelial cells and pulmonary macrophages identified. (JPM:mgr; 07/16/2017) PATHOLOGIST: Allen Dunn M.D. REPORT ELECTRONICALLY SIGNED BY: Allen Dunn M.D. DATE/TIME: 07/16/2017 17:05 GROSS PATHOLOGY: A. Bronchoalveolar lavage, RUL: The specimen is submitted unfixed, labeled "Mandy Sanchez". Received by the Cytology Department is five mL of clear colorless fluid. One ThinPrep slide was prepared. B. Bronchoalveolar lavage, RLL: The specimen is submitted unfixed, labeled "Filemon Mandy". Received by the Cytology Department is three mL of clear colorless fluid. One ThinPrep slide was prepared. (mm 07.15.2017) CLINICAL TRIALS SPECIALIST(S): TRU Dugan([facility]) INITIAL CPT CODE(S): A; 44671 B; 01840 Professional services performed [place] [facility] [place] [address] Technical services performed by [facility] at [address] [place] [address], [address], [place] [address]. PATIENT: MANDY SANCHEZ /AGE: 3 1955 (Age: 61) SEX: F PATIENT #: [id number] ALT CASE #: SPECIMEN COLLECTION DATE: 07/12/2017 SPECIMEN RECEIVED DATE: 07/15/[address] [facility] [address] [place] [address], [address] [place] [address] PHONE: [phone] DIRECTOR: Alexandre Kaiser M.D. * * * END OF REPORT * * *
== END | disposition home or self-care (01) ==
LOC: SURG 12:17
PROVIDERS: ATTEND Internal Medicine Critical Care Medicine
DX: T17.890A Other foreign object in other parts of respiratory tract causing asphyxiation, initial encounter (principal); X58.XXXA Exposure to other specified factors, initial encounter; Y93.89 Activity, other specified; Y92.89 Other specified places as the place of occurrence of the external cause; Y99.8 Other external cause status; K21.9 Gastro-esophageal reflux disease without esophagitis; J45.909 Unspecified asthma, uncomplicated; Z90.710 Acquired absence of both cervix and uterus; Z98.890 Other specified postprocedural states; Z88.8 Allergy status to other drugs, medicaments and biological substances
CPT/HCPCS: 31624; 36415; 85025; 85610; 87070; 87102; 87116; 87205; 88112; J2704; J7613; J7620

== ENCOUNTER 2017-07-19 13:47 | Emergency (ER) | payer BC ==
[~2017-07-19] VITALS: Ht 160 cm; Wt 59.4 kg
[~2017-07-19 13:47] MED LIST changes: -ALBUTEROL SULFATE 2.5 MG/3 ML NEBU. NEB ONE; -HYDROmorphone 2 MG/ML VIAL IV PRN; -IPRATRPIUM/ALBUTEROL 0.5/2.5MG 3 ML NEBU. NEB ONE; -IPRATRPIUM/ALBUTEROL 0.5/2.5MG 3 ML NEBU. ONE; -IV RINGERS,LACTATED 1000ML 1,000 ML IV SCH; -LIDOCAINE 1% PF 2 ML VIAL. ID PRN; -MORPHINE SULFATE 2 MG/ML DISP.SYRIN. IV PRN; -ONDANSETRON PF 4 MG/2 ML VIAL. IV PRN; -PROCHLORPERAZINE 10 MG/2 ML VIAL. IV PRN; -PROPOFOL 20 ML IV ONE
[2017-07-19 13:54] VITALS: BP 163/76
--- NOTE | 2017-07-19 14:04 | PHYS DOC ---
Past Medical History Past Medical History: Asthma, Cancer Additional Past Medical Histor: stage 4 breast ca Past Surgical History: Hysterectomy, Other Additional Past Surgical Histo: RT MASTECTOMY, PARACENTESIS, Port L chest Alcohol Use: None Drug Use: None Adult General Chief Complaint Chief Complaint: FOOT INJURY PAIN [facility] HPI Patient is a 61 year old female presents the ED complaining of left foot pain times one day. Patient can't remember injuring her foot. Patient states she is on chemotherapy currently for her breast cancer. Denies any symptoms related to her cancer. States she feels well. Went to her doctor yesterday but they did not do an Xray. Denies chest pain, calf pain, shortness of breath, fever, nausea /vomiting, abdominal pain, dizziness, weakness or syncope. Review of Systems Review of Systems Constitutional: Denies fever or chills [] Eyes: Denies change in visual acuity, redness, or eye pain [] HENT: Denies nasal congestion or sore throat [] Respiratory: Denies cough or shortness of breath [] Cardiovascular: No additional information not addressed in HPI [] GI: Denies abdominal pain, nausea, vomiting, bloody stools or diarrhea [] : Denies dysuria or hematuria [] Musculoskeletal: Denies back pain. Complains of foot pain. [] Integument: Denies rash or skin lesions [] Neurologic: Denies headache, focal weakness or sensory changes [] Endocrine: Denies polyuria or polydipsia [] All other systems were reviewed and found to be within normal limits, except as documented in this note. Allergies Allergies Allergies Coded Allergies Type Severity Reaction Last Updated Verified meperidine Adverse Reaction Intermediate Nausea and Vomiting 07/12/17 Yes Physical Exam Physical Exam Constitutional: Well developed, well nourished, no acute distress, non-toxic appearance. [] HENT: Normocephalic, atraumatic, bilateral external ears normal, oropharynx moist, no oral exudates, nose normal. [] Eyes: PERRLA, EOMI, conjunctiva normal, no discharge. [] Neck: Normal range of motion, no tenderness, supple, no stridor. [] Cardiovascular:Heart rate regular rhythm, no murmur [] Lungs & Thorax: Bilateral breath sounds clear to auscultation [] Abdomen: Bowel sounds normal, soft, no tenderness, no masses, no pulsatile masses. [] Skin: Warm, dry, no erythema, no rash. [] Back: No tenderness, no CVA tenderness. [] Extremities: MILD LEFT DORSAL FOOT TENDERNESS. NO SWELLING, LACERATION OR SKIN CHANGES. no cyanosis, no clubbing, ROM intact, no edema.NEGATIVE HOMANS. [] Neurologic: Alert and oriented X 3, normal motor function, normal sensory function, no focal deficits noted. [] Psychologic: Affect normal, judgement normal, mood normal. [] Current Patient Data Vital Signs Vital Signs Date Time Temp Pulse Resp B/P (MAP) Pulse Ox O2 Delivery O2 Flow Rate FiO2 07/19/17 13:54 98.2 94 18 98 Room Air 98.2 EKG EKG [] Radiology/Procedures Radiology/Procedures PROCEDURE: FOOT LEFT 3V Three-view left foot study History: Nontraumatic left foot pain for 3 days. Bump at the base of the first metatarsal. Findings: No acute fracture or dislocation is seen. Small plantar spur of the calcaneus is seen. Small bunion of the distal first metatarsal bone is seen. IMPRESSION: No acute fracture. [] Course & Med Decision Making Course & Med Decision Making Pertinent Labs and Imaging studies reviewed. (See chart for details) [XR negative for acute injury. Patient's pain improved. Ortho shoe placed. NV intact post placement. Patient able to ambulate without pain and has a steady gait. No systemic symptoms or recent travel. Patient requesting analgesics. States she has taken norco in the past without complications. Lives next to her son. Discussed follow-up with orthopedics if pain continues. Discussed reasons to return to the ED. Patient understands and agrees with plan. Dragon Disclaimer Dragon Disclaimer This electronic medical record was generated, in whole or in part, using a voice recognition dictation system. Departure Departure Impression: Primary Impression: Foot sprain Disposition: 01 HOME, SELF-CARE Condition: STABLE Referrals: MARILYN GOMEZ MD (PCP) JULIET PATTERSON II, MD Patient Instructions: Foot Sprain Scripts Hydrocodone/Apap 5-325 (NORCO 5-325 TABLET) 1 Each Tablet 1 TAB PO TID, #8 TAB Prov: VANNA CABALLERO 07/19/17 VANNA CABALLERO Jul 19, 2017 14:04
--- NOTE | 2017-07-19 14:46 | RAD ---
Three-view left foot study History: Nontraumatic left foot pain for 3 days. Bump at the base of the first metatarsal. Findings: No acute fracture or dislocation is seen. Small plantar spur of the calcaneus is seen. Small bunion of the distal first metatarsal bone is seen. IMPRESSION: No acute fracture.
[2017-07-19] MEDS ORDERED: HYDR-971 PO (14:53)
== END 2017-07-19 14:58 | disposition home or self-care (01) ==
LOC: ER 13:47
DX: S93.602A Unspecified sprain of left foot, initial encounter (principal); J45.909 Unspecified asthma, uncomplicated; Z90.11 Acquired absence of right breast and nipple; Z85.3 Personal history of malignant neoplasm of breast; X58.XXXA Exposure to other specified factors, initial encounter; Y93.89 Activity, other specified; Y92.89 Other specified places as the place of occurrence of the external cause; Y99.8 Other external cause status
CPT/HCPCS: 73630; 99284

== ENCOUNTER 2017-08-09 18:55 | Inpatient (IN) | payer BC ==
[~2017-08-09] VITALS: Ht 160 cm; Wt 60.1 kg
[~2017-08-09 18:55] MED LIST changes: +BENZ-8 PO; -BENZ100C15 PO
--- NOTE | 2017-08-09 19:05 | PHYS DOC ---
Past Medical History Past Medical History: Asthma, Cancer Additional Past Medical Histor: stage 4 breast ca Past Surgical History: Hysterectomy, Other Additional Past Surgical Histo: RT MASTECTOMY, PARACENTESIS, Port L chest Alcohol Use: None Drug Use: None Adult General Chief Complaint Chief Complaint: CHEST PAIN HPI HPI Patient is a 61 year old female who presents with was of breath. She states she has a history of breast cancer with radiation to her chest wall, she also states she has COPD/asthma, in addition to a PE who is currently on eliquist since 2016. 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 She states her O2 sat which usually 94-95% is 92% now. She did a breathing treatment and didn't feel any relief. She comes in with the same exact symptoms as stated above. Review of Systems Review of Systems Constitutional: Denies fever or chills [] Eyes: Denies change in visual acuity, redness, or eye pain [] HENT: Denies nasal congestion or sore throat [] Respiratory: Denies cough, positive for shortness of breath [] Cardiovascular: No additional information not addressed in HPI [] GI: Denies abdominal pain, nausea, vomiting, bloody stools or diarrhea [] : Denies dysuria or hematuria [] Musculoskeletal: Denies back pain or joint pain [] Integument: Denies rash or skin lesions [] Neurologic: Denies headache, focal weakness or sensory changes [] Endocrine: Denies polyuria or polydipsia [] All other systems were reviewed and found to be within normal limits, except as documented in this note. Current Medications Current Medications Current Medications Medications (Trade) Dose Ordered Sig/Iggy Start Time Stop Time Status Last Admin Dose Admin Albuterol Sulfate (Ventolin Neb Soln) 2.5 mg PRN Q4HRS PRN 08/09/17 21:30 Albuterol/ Ipratropium (Duoneb) 3 ml 1X ONCE 08/09/17 19:30 08/09/17 19:32 DC 08/09/17 19:51 3 ML Azithromycin 250 ml @ 250 mls/hr 1X ONCE 08/09/17 21:30 08/09/17 22:29 08/09/17 21:43 250 MLS/HR Methylprednisolone Sodium Succinate (SOLU-Medrol 125MG VIAL) 125 mg 1X ONCE 08/09/17 21:30 08/09/17 21:32 DC 08/09/17 21:38 125 MG Ondansetron HCl (Zofran) 4 mg PRN Q8HRS PRN 08/09/17 21:30 08/10/17 21:29 Allergies Allergies Allergies Coded Allergies Type Severity Reaction Last Updated Verified meperidine Adverse Reaction Intermediate Nausea and Vomiting 07/12/17 Yes Physical Exam Physical Exam Constitutional: Well developed, well nourished, no acute distress, non-toxic appearance. [] HENT: Normocephalic, atraumatic, bilateral external ears normal, oropharynx moist, no oral exudates, nose normal. [] Eyes: PERRLA, EOMI, conjunctiva normal, no discharge. [] Neck: Normal range of motion, no tenderness, supple, no stridor. [] Cardiovascular:Heart rate regular rhythm, no murmur [] Lungs & Thorax: Bilateral breath sounds clear to auscultation [] Abdomen: Bowel sounds normal, soft, no tenderness, no masses, no pulsatile masses. [] Skin: Warm, dry, no erythema, no rash. [] Back: No tenderness, no CVA tenderness. [] Extremities: No tenderness, no cyanosis, no clubbing, ROM intact, no edema. [] Neurologic: Alert and oriented X 3, normal motor function, normal sensory function, no focal deficits noted. [] Psychologic: Affect normal, judgement normal, mood normal. [] Current Patient Data Vital Signs Vital Signs Date Time Temp Pulse Resp B/P (MAP) Pulse Ox O2 Delivery O2 Flow Rate FiO2 08/09/17 21:30 104 25 120/81 (94) 99 Nasal Cannula 2.0 08/09/17 19:00 98.4 98.4 Lab Values Laboratory Tests Test 08/09/17 19:30 08/09/17 19:45 White Blood Count 10.0 x10^3/uL (4.0-11.0) Red Blood Count 4.85 x10^6/uL (3.50-5.40) Hemoglobin 14.2 g/dL (12.0-15.5) Hematocrit 43.1 % (36.0-47.0) Mean Corpuscular Volume 89 fL (79-100) Mean Corpuscular Hemoglobin 29 pg (25-35) Mean Corpuscular Hemoglobin Concent 33 g/dL (31-37) Red Cell Distribution Width 15.3 % (11.5-14.5) H Platelet Count 204 x10^3/uL (140-400) Neutrophils (%) (Auto) 78 % (31-73) H Lymphocytes (%) (Auto) 10 % (24-48) L Monocytes (%) (Auto) 4 % (0-9) Eosinophils (%) (Auto) 9 % (0-3) H Basophils (%) (Auto) 0 % (0-3) Neutrophils # (Auto) 7.7 x10^3uL (1.8-7.7) Lymphocytes # (Auto) 1.0 x10^3/uL (1.0-4.8) Monocytes # (Auto) 0.4 x10^3/uL (0.0-1.1) Eosinophils # (Auto) 0.9 x10^3/uL (0.0-0.7) H Basophils # (Auto) 0.0 x10^3/uL (0.0-0.2) Prothrombin Time 13.3 SEC (11.7-14.0) Prothrombin Time INR 1.1 (0.8-1.1) D-Dimer (Isabel) < 0.27 ug/mlFEU Sodium Level 143 mmol/L (136-145) Potassium Level 3.6 mmol/L (3.5-5.1) Chloride Level 105 mmol/L (98-107) Carbon Dioxide Level 29 mmol/L (21-32) Anion Gap 9 (6-14) Blood Urea Nitrogen 22 mg/dL (7-20) H Creatinine 0.6 mg/dL (0.6-1.0) Estimated GFR (Cockcroft-Gault) 102.3 Glucose Level 116 mg/dL (70-99) H Calcium Level 9.4 mg/dL (8.5-10.1) Magnesium Level 1.8 mg/dL (1.8-2.4) Total Bilirubin 0.5 mg/dL (0.2-1.0) Direct Bilirubin 0.1 mg/dL (0.0-0.2) Aspartate Amino Transferase (AST) 22 U/L (15-37) Alanine Aminotransferase (ALT) 26 U/L (14-59) Alkaline Phosphatase 54 U/L (46-116) Creatine Kinase 77 U/L (26-192) Creatine Kinase MB (Mass) 1.7 ng/mL (0.0-3.6) Creatine Kinase MB Relative Index 2.2 % (0-4) Troponin I Quantitative < 0.017 ng/mL (0.000-0.055) NY-Oml-Y-Type Natriuretic Peptide 140 pg/mL (0-124) H Total Protein 6.8 g/dL (6.4-8.2) Albumin 3.8 g/dL (3.4-5.0) Lipase 98 U/L (73-393) Thyroid Stimulating Hormone (TSH) 0.603 uIU/mL (0.358-3.74) Urine Opiates Screen Neg (NEG) Urine Methadone Screen Neg (NEG) Urine Barbiturates Neg (NEG) Urine Phencyclidine Screen Neg (NEG) Urine Amphetamine/Methamphetamine Neg (NEG) Urine Benzodiazepines Screen Neg (NEG) Urine Cocaine Screen Neg (NEG) Urine Cannabinoids Screen Neg (NEG) Urine Ethyl Alcohol Neg (NEG) Laboratory Tests 08/09/17 19:30 Laboratory Tests 08/09/17 19:30 EKG EKG EKG shows sinus tachycardia with rate of 111 beats minute without any ST elevations or concerning T-wave inversions, normal axis, QTC 425 ms, as interpreted by me. Radiology/Procedures Radiology/Procedures View chest x-ray did not show any focal salt elevations, bony abnormality's, pneumothorax, as interpreted by me. Impressions: Tachycardia COPD exacerbation Metastatic breast cancer Course & Med Decision Making Course & Med Decision Making Pertinent Labs and Imaging studies reviewed. (See chart for details) Received a DuoNeb, segmental, azithromycin and her heart rate now in the 80s and she is resting comfortably. She's being admitted for COPD exacerbation. Her d-dimer is negative and she is on a blood thinner already. Spoke with Dr. Valdes regarding consultation and the hospitalist. Dragon Disclaimer Dragon Disclaimer This electronic medical record was generated, in whole or in part, using a voice recognition dictation system. Departure Departure Impression: Primary Impression: COPD exacerbation Disposition: ADMITTED INPATIENT Admitting Physician: Other Condition: STABLE Referrals: MARILYN GOMEZ MD (PCP) SUKH ESCALANTE MD Aug 09, 2017 19:05
[2017-08-09] MEDS ORDERED: IPRATRPIUM/ALBUTEROL 0.5/2.5MG 3 ML NEBU. NEB ONE (19:30)
[2017-08-09 19:40] LABS: BASO % 0 % (0-3); EOS % 9 % (0-3); HEMATOCRIT 43.1 % (36.0-47.0); HEMOGLOBIN 14.2 g/dL (12.0-15.5); LYMPH % 10 % (24-48); MEAN CORPUSCULAR HEMOGLOBIN 29 pg (25-35); MEAN CORPUSCULAR HGB CONC 33 g/dL (31-37); MEAN CORPUSCULAR VOLUME 89 fL (79-100); MONO % 4 % (0-9); NEUT % 78 % (31-73); PLATELET COUNT 204 x10^3/uL (140-400); RED BLOOD COUNT 4.85 x10^6/uL (3.50-5.40); RED CELL DISTRIBUTION WIDTH 15.3 % (11.5-14.5)
[2017-08-09 19:50] LABS: INR 1.1 (0.8-1.1); PROTHROMBIN TIME PATIENT 13.3 SEC (11.7-14.0)
[2017-08-09 19:57] LABS: CALCIUM 9.4 mg/dL (8.5-10.1); CREATININE 0.6 mg/dL (0.6-1.0); GFR 102.3; POTASSIUM 3.6 mmol/L (3.5-5.1)
[2017-08-09 19:57] LABS: BARBITURATES NEG (NEG); BENZODIAZEPINES NEG (NEG); CANNABINOIDS NEG (NEG); COCAINE NEG (NEG); METHADONE NEG (NEG); OPIATES NEG (NEG); PHENCYCLIDINE NEG (NEG)
[2017-08-09 20:04] LABS: ALBUMIN 3.8 g/dL (3.4-5.0); DIRECT BILIRUBIN 0.1 mg/dL (0.0-0.2); MAGNESIUM 1.8 mg/dL (1.8-2.4); TOTAL BILIRUBIN 0.5 mg/dL (0.2-1.0); TOTAL PROTEIN 6.8 g/dL (6.4-8.2)
[2017-08-09 20:13] LABS: CKMB MASS 1.7 ng/mL (0.0-3.6)
[2017-08-09] MEDS ORDERED: methylPREDNISolone SOD SUCC PF 125 MG/2 ML VIAL. IV ONE (21:30)
[2017-08-09] MEDS ORDERED: ONDANSETRON PF 4 MG/2 ML VIAL. IV PRN (21:30)
[2017-08-09] MEDS ORDERED: AZITHRMYCN 500MG IVPB FOR OMNI 250 ML IV ONE (21:30)
[2017-08-09] MEDS ORDERED: ALBUTEROL SULFATE 2.5 MG/3 ML NEBU. NEB PRN (21:30)
[2017-08-09] MEDS ORDERED: APIX5TAB PO (22:53)
[2017-08-09 23:07] VITALS: BP 112/73
[2017-08-10 03:20] VITALS: BP 120/72
[2017-08-10 05:19] LABS: BASO % 1 % (0-3); EOS % 0 % (0-3); HEMATOCRIT 41.1 % (36.0-47.0); HEMOGLOBIN 13.8 g/dL (12.0-15.5); LYMPH # 0.2 x10^3/uL (1.0-4.8); LYMPH % 4 % (24-48); MEAN CORPUSCULAR HEMOGLOBIN 30 pg (25-35); MEAN CORPUSCULAR HGB CONC 34 g/dL (31-37); MEAN CORPUSCULAR VOLUME 89 fL (79-100); MONO % 1 % (0-9); NEUT % 94 % (31-73); PLATELET COUNT 194 x10^3/uL (140-400); RED BLOOD COUNT 4.62 x10^6/uL (3.50-5.40); RED CELL DISTRIBUTION WIDTH 15.2 % (11.5-14.5); WHITE BLOOD COUNT 5.7 x10^3/uL (4.0-11.0)
[2017-08-10 06:21] LABS: CALCIUM 9.1 mg/dL (8.5-10.1); CREATININE 0.6 mg/dL (0.6-1.0); GFR 102.3; POTASSIUM 4.4 mmol/L (3.5-5.1)
[2017-08-10 07:00] VITALS: BP 116/70
[2017-08-10] MEDS ORDERED: ANTI-COAG MONITOR BY PHARMACY. MC PRN (08:30)
[2017-08-10] MEDS ORDERED: BENZONATATE 100 MG CAPSULE. PO PRN (08:30)
[2017-08-10] MEDS ORDERED: DEXTROSE 50% 25 GM / 50ML DISP.SYRIN. IV PRN (08:30)
[2017-08-10] MEDS ORDERED: ALBUTEROL SULFATE 2.5 MG/3 ML NEBU. NEB PRN (08:30)
--- NOTE | 2017-08-10 08:32 | PDOC1 ---
History and Physical Date of Admission Date of Admission DATE: 08/10/17 TIME: 08:26 History of Present Illness History of Present Illness Ms. Colbert, is a 61 year old female admit with acute dyspnea and weakness. Chronic cough, but much worse yesterday " I was hugging the wall at work" She states she has a history of breast cancer with radiation to her chest wall, 2006 Longstanding asthma, now COPD dx, but usually stable, on home 02, but last night, weak, dyspneic, worse cough, but not productive, larger 02 req. she has PRN 02 at home no chest pain, no weight change, Past Medical History Cardiovascular: No pertinent hx Pulmonary: Asthma GI: No pertinent hx Heme/Onc: Cancer Psych: No pertinent hx Musculoskeletal: low back pain Rheumatologic: No pertinent hx Past Surgical History Past Surgical History: Hysterectomy Family History Family History: Cancer Social History Smoke: No (Never) ALCOHOL: none Drugs: None Current Problem List Problem List Problems Medical Problems: (1) COPD exacerbation Status: Acute Problems: Current Medications Current Medications Current Medications Albuterol/ Ipratropium (Duoneb) 3 ml 1X ONCE NEB Last administered on 19:51; Start 08/09/17 at 19:30; Stop 08/09/17 at 19:32; Status DC Methylprednisolone Sodium Succinate (SOLU-Medrol 125MG VIAL) 125 mg 1X ONCE IV Last administered on 08/09/17 21:38; Start 08/09/17 at 21:30; Stop 08/09/17 at 21:32; Status DC Azithromycin 250 ml @ 250 mls/hr 1X ONCE IV Last administered on 08/09/17 21 :43; Start 08/09/17 at 21:30; Stop 08/09/17 at 22:29; Status DC Ondansetron HCl (Zofran) 4 mg PRN Q8HRS PRN IV NAUSEA/VOMITING; Start 08/09/17 at 21:30; Stop 08/10/17 at 21:29 Albuterol Sulfate (Ventolin Neb Soln) 2.5 mg PRN Q4HRS PRN NEB SOA WHILE AWAKE ; Start 08/09/17 at 21:30 Albuterol/ Ipratropium (Duoneb) 3 ml Q4HRS W/A NEB ; Start 08/10/17 at 09:00 Budesonide (Pulmicort) 0.5 mg RTBID NEB ; Start 08/10/17 at 09:00 Azithromycin (Zithromax) 250 mg DAILY PO ; Start 08/10/17 at 09:00 Prednisone (Prednisone) 40 mg DAILY PO ; Start 08/10/17 at 09:00 Insulin Aspart (NovoLOG) 0-5 UNITS TIDWMEALS SQ ; Start 08/10/17 at 09:00 Dextrose (Dextrose 50%-Water Syringe) 12.5 gm PRN Q15MIN PRN IV SEE COMMENTS; Start 08/10/17 at 08:30 Albuterol Sulfate (Ventolin Neb Soln) 2.5 mg PRN Q4HRS PRN NEB SHORTNESS OF BREATH; Start 08/10/17 at 08:30 Apixaban (Eliquis) 5 mg BID PO ; Start 08/10/17 at 09:00 Benzonatate (Tessalon Perle) 100 mg PRN Q8HRS PRN PO COUGH; Start 08/10/17 at 08:30 Pantoprazole Sodium (Protonix) 40 mg DAILYAC PO ; Start 08/10/17 at 09:00 Info (Anti-Coagulation Monitoring By Pharmacy) 1 each PRN DAILY PRN MC SEE COMMENTS; Start 08/10/17 at 08:30 Active Scripts Active Proair Hfa Inhaler (Albuterol Sulfate) 8.5 Gm Hfa.aer.ad 1 Puff INH PRN Q6HRS PRN Reported Eliquis (Apixaban) 5 Mg Tablet 5 Mg PO DAILY Omeprazole 40 Mg Capsule.dr 1 Cap PO DAILY Benzonatate 100 Mg Capsule 100 Mg PO Q8HRS PRN Albuterol Sulfate Neb Soln (Albuterol Sulfate) 2.5 Mg/3 Ml Vial.neb 0.5 Vial NEB PRN Q4HRS PRN Proventil Hfa Inhaler (Albuterol Sulfate) 6.7 Gm Hfa.aer.ad 1-2 Puff IH PRN Q4HRS PRN Advair 250-50 Diskus (Fluticasone/Salmeterol) 1 Each Disk.w.dev 1 Puff IH BID Allergies Allergies: Coded Allergies: No Known Medication Allergies (Verified Allergy, Unknown, 08/10/17) meperidine (Verified Adverse Reaction, Intermediate, Nausea and Vomiting, 07/12/17) ROS General: YES: Fatigue, Malaise, No: Chills, Night Sweats, Appetite, Other PSYCHOLOGICAL ROS: YES: Sleep disturbances, No: Anxiety, Behavioral Disorder, Concentration difficultie, Decreased libido , Depression, Disorientation, Hallucinations, Hostility, Irritablity, Memory difficulties, Mood Swings, Obsessive thoughts, Other Eyes: No Blurry vision, No Decreased vision, No Double vision, No Dry eyes, No Excessive tearing, No Eye Pain, No Itchy Eyes, No Loss of vision, No Photophobia , No Scotomata, No Uses contacts, No Uses glasses, No Other HEENT: No: Heacaches, Visual Changes, Hearing change, Nasal congestion, Nasal discharge, Oral lesions, Sinus pain, Sore Throat, Epistaxis, Sneezing, Snoring, Tinnitus, Vertigo, Vocal changes, Other Respiratory: YES: Cough, Shortness of breath, SOB with excertion, Tachypnea, Wheezing, No: Hemoptysis, Orthopnea, Pleuritic Pain, Stridor, Other Cardiovascular: No Chest Pain, No Palpitations, No Orthopnea, No Paroxysmal Noc. Dyspnea, No Edema, No Lt Headedness, No Other Gastrointestinal: No Nausea, No Vomiting, No Abdominal Pain, No Diarrhea, No Constipation, No Melena, No Hematochezia, No Other Genitourinary: No Dysuria, No Frequency, No Incontinence, No Hematuria, No Retention, No Discharge, No Urgency, No Pain, No Flank Pain, No Other, No , No , No , No , No , No , No Musculoskeletal: Yes Joint Stiffness, No Gait Disturbance, No Joint Pain, No Joint Swelling, No Muscle Pain, No Muscular Weakness, No Pain In:, No Swelling In:, No Other Neurological: No Behavorial Changes, No Bowel/Bladder ControlChng, No Confusion , No Dizziness, No Gait Disturbance, No Headaches, No Impaired Coord/balance, No Memory Loss, No Numbness/Tingling, No Seizures, No Speech Problems, No Tremors, No Visual Changes, No Weakness, No Other Skin: No Dry Skin, No Eczema, No Hair Changes, No Lumps, No Mole Changes, No Mottling, No Nail Changes, No Pruritus, No Rash, No Skin Lesion Changes, No Other, No Acne Physical Exam General: Oriented X3, No acute distress HEENT: Atraumatic, PERRLA, EOMI Lungs: Clear to auscultation, Normal air movement Heart: RRR, no murmurs Abdomen: Normal bowel sounds, Soft Extremities: No cyanosis, No edema Skin: No breakdown, No significant lesion, Other (about 10 petechiae to right forearm) Neuro: Normal gait, Normal tone Psych/Mental Status: Mental status NL, Mood NL Vitals Vitals Vital Signs Date Time Temp Pulse Resp B/P (MAP) Pulse Ox O2 Delivery O2 Flow Rate FiO2 08/10/17 03:20 97.5 90 18 120/72 (88) 95 Nasal Cannula 2.0 97.5 Labs Labs Laboratory Tests Test 08/09/17 19:30 08/09/17 19:45 08/10/17 03:35 White Blood Count 10.0 x10^3/uL (4.0-11.0) 5.7 x10^3/uL (4.0-11.0) Red Blood Count 4.85 x10^6/uL (3.50-5.40) 4.62 x10^6/uL (3.50-5.40) Hemoglobin 14.2 g/dL (12.0-15.5) 13.8 g/dL (12.0-15.5) Hematocrit 43.1 % (36.0-47.0) 41.1 % (36.0-47.0) Mean Corpuscular Volume 89 fL (79-100) 89 fL (79-100) Mean Corpuscular Hemoglobin 29 pg (25-35) 30 pg (25-35) Mean Corpuscular Hemoglobin Concent 33 g/dL (31-37) 34 g/dL (31-37) Red Cell Distribution Width 15.3 % (11.5-14.5) 15.2 % (11.5-14.5) Platelet Count 204 x10^3/uL (140-400) 194 x10^3/uL (140-400) Neutrophils (%) (Auto) 78 % (31-73) 94 % (31-73) Lymphocytes (%) (Auto) 10 % (24-48) 4 % (24-48) Monocytes (%) (Auto) 4 % (0-9) 1 % (0-9) Eosinophils (%) (Auto) 9 % (0-3) 0 % (0-3) Basophils (%) (Auto) 0 % (0-3) 1 % (0-3) Neutrophils # (Auto) 7.7 x10^3uL (1.8-7.7) 5.4 x10^3uL (1.8-7.7) Lymphocytes # (Auto) 1.0 x10^3/uL (1.0-4.8) 0.2 x10^3/uL (1.0-4.8) Monocytes # (Auto) 0.4 x10^3/uL (0.0-1.1) 0.0 x10^3/uL (0.0-1.1) Eosinophils # (Auto) 0.9 x10^3/uL (0.0-0.7) 0.0 x10^3/uL (0.0-0.7) Basophils # (Auto) 0.0 x10^3/uL (0.0-0.2) 0.0 x10^3/uL (0.0-0.2) Prothrombin Time 13.3 SEC (11.7-14.0) Prothromb Time International Ratio 1.1 (0.8-1.1) D-Dimer (Isabel) < 0.27 ug/mlFEU Sodium Level 143 mmol/L (136-145) 143 mmol/L (136-145) Potassium Level 3.6 mmol/L (3.5-5.1) 4.4 mmol/L (3.5-5.1) Chloride Level 105 mmol/L (98-107) 107 mmol/L (98-107) Carbon Dioxide Level 29 mmol/L (21-32) 27 mmol/L (21-32) Anion Gap 9 (6-14) 9 (6-14) Blood Urea Nitrogen 22 mg/dL (7-20) 19 mg/dL (7-20) Creatinine 0.6 mg/dL (0.6-1.0) 0.6 mg/dL (0.6-1.0) Estimated GFR (Cockcroft-Gault) 102.3 102.3 Glucose Level 116 mg/dL (70-99) 181 mg/dL (70-99) Calcium Level 9.4 mg/dL (8.5-10.1) 9.1 mg/dL (8.5-10.1) Magnesium Level 1.8 mg/dL (1.8-2.4) Total Bilirubin 0.5 mg/dL (0.2-1.0) Direct Bilirubin 0.1 mg/dL (0.0-0.2) Aspartate Amino Transf (AST/SGOT) 22 U/L (15-37) Alanine Aminotransferase (ALT/SGPT) 26 U/L (14-59) Alkaline Phosphatase 54 U/L (46-116) Creatine Kinase 77 U/L (26-192) Creatine Kinase MB (Mass) 1.7 ng/mL (0.0-3.6) Creatine Kinase MB Relative Index 2.2 % (0-4) Troponin I Quantitative < 0.017 ng/mL (0.000-0.055) < 0.017 ng/mL (0.000-0.055) EH-Ipo-I-Type Natriuretic Peptide 140 pg/mL (0-124) Total Protein 6.8 g/dL (6.4-8.2) Albumin 3.8 g/dL (3.4-5.0) Lipase 98 U/L (73-393) Thyroid Stimulating Hormone (TSH) 0.603 uIU/mL (0.358-3.74) Urine Opiates Screen Neg (NEG) Urine Methadone Screen Neg (NEG) Urine Barbiturates Neg (NEG) Urine Phencyclidine Screen Neg (NEG) Urine Amphetamine/Methamphetamine Neg (NEG) Urine Benzodiazepines Screen Neg (NEG) Urine Cocaine Screen Neg (NEG) Urine Cannabinoids Screen Neg (NEG) Urine Ethyl Alcohol Neg (NEG) Laboratory Tests Test 08/09/17 19:30 08/09/17 19:45 08/10/17 03:35 White Blood Count 10.0 x10^3/uL (4.0-11.0) 5.7 x10^3/uL (4.0-11.0) Red Blood Count 4.85 x10^6/uL (3.50-5.40) 4.62 x10^6/uL (3.50-5.40) Hemoglobin 14.2 g/dL (12.0-15.5) 13.8 g/dL (12.0-15.5) Hematocrit 43.1 % (36.0-47.0) 41.1 % (36.0-47.0) Mean Corpuscular Volume 89 fL (79-100) 89 fL (79-100) Mean Corpuscular Hemoglobin 29 pg (25-35) 30 pg (25-35) Mean Corpuscular Hemoglobin Concent 33 g/dL (31-37) 34 g/dL (31-37) Red Cell Distribution Width 15.3 % (11.5-14.5) 15.2 % (11.5-14.5) Platelet Count 204 x10^3/uL (140-400) 194 x10^3/uL (140-400) Neutrophils (%) (Auto) 78 % (31-73) 94 % (31-73) Lymphocytes (%) (Auto) 10 % (24-48) 4 % (24-48) Monocytes (%) (Auto) 4 % (0-9) 1 % (0-9) Eosinophils (%) (Auto) 9 % (0-3) 0 % (0-3) Basophils (%) (Auto) 0 % (0-3) 1 % (0-3) Neutrophils # (Auto) 7.7 x10^3uL (1.8-7.7) 5.4 x10^3uL (1.8-7.7) Lymphocytes # (Auto) 1.0 x10^3/uL (1.0-4.8) 0.2 x10^3/uL (1.0-4.8) Monocytes # (Auto) 0.4 x10^3/uL (0.0-1.1) 0.0 x10^3/uL (0.0-1.1) Eosinophils # (Auto) 0.9 x10^3/uL (0.0-0.7) 0.0 x10^3/uL (0.0-0.7) Basophils # (Auto) 0.0 x10^3/uL (0.0-0.2) 0.0 x10^3/uL (0.0-0.2) Prothrombin Time 13.3 SEC (11.7-14.0) Prothromb Time International Ratio 1.1 (0.8-1.1) D-Dimer (Isabel) < 0.27 ug/mlFEU Sodium Level 143 mmol/L (136-145) 143 mmol/L (136-145) Potassium Level 3.6 mmol/L (3.5-5.1) 4.4 mmol/L (3.5-5.1) Chloride Level 105 mmol/L (98-107) 107 mmol/L (98-107) Carbon Dioxide Level 29 mmol/L (21-32) 27 mmol/L (21-32) Anion Gap 9 (6-14) 9 (6-14) Blood Urea Nitrogen 22 mg/dL (7-20) 19 mg/dL (7-20) Creatinine 0.6 mg/dL (0.6-1.0) 0.6 mg/dL (0.6-1.0) Estimated GFR (Cockcroft-Gault) 102.3 102.3 Glucose Level 116 mg/dL (70-99) 181 mg/dL (70-99) Calcium Level 9.4 mg/dL (8.5-10.1) 9.1 mg/dL (8.5-10.1) Magnesium Level 1.8 mg/dL (1.8-2.4) Total Bilirubin 0.5 mg/dL (0.2-1.0) Direct Bilirubin 0.1 mg/dL (0.0-0.2) Aspartate Amino Transf (AST/SGOT) 22 U/L (15-37) Alanine Aminotransferase (ALT/SGPT) 26 U/L (14-59) Alkaline Phosphatase 54 U/L (46-116) Creatine Kinase 77 U/L (26-192) Creatine Kinase MB (Mass) 1.7 ng/mL (0.0-3.6) Creatine Kinase MB Relative Index 2.2 % (0-4) Troponin I Quantitative < 0.017 ng/mL (0.000-0.055) < 0.017 ng/mL (0.000-0.055) ZR-Bjp-F-Type Natriuretic Peptide 140 pg/mL (0-124) Total Protein 6.8 g/dL (6.4-8.2) Albumin 3.8 g/dL (3.4-5.0) Lipase 98 U/L (73-393) Thyroid Stimulating Hormone (TSH) 0.603 uIU/mL (0.358-3.74) Urine Opiates Screen Neg (NEG) Urine Methadone Screen Neg (NEG) Urine Barbiturates Neg (NEG) Urine Phencyclidine Screen Neg (NEG) Urine Amphetamine/Methamphetamine Neg (NEG) Urine Benzodiazepines Screen Neg (NEG) Urine Cocaine Screen Neg (NEG) Urine Cannabinoids Screen Neg (NEG) Urine Ethyl Alcohol Neg (NEG) VTE Prophylaxis Ordered VTE Prophylaxis Devices: No VTE Pharmacological Prophylaxi: Yes Assessment/Plan Assessment/Plan ACute on chronic hypoxic respiratory failure Asthma with acute exacerbation, COPD AE, never smoker, chronic change from asthma Azitrho given, will continue, nebs, and steroids, Breast cancer, metastatic, on chronic maintainence chemo for the past 11 mos. Chest radiation was 11 years ago, limited change of pneumonitis Hx of DVT, on eliquis, has been compliant, consutl pulm and Onc weakness, debility, PT KARINE Nam MD Aug 10, 2017 08:32
--- NOTE | 2017-08-10 08:33 | RAD ---
PORTABLE CHEST 1V Clinical Indication: Cough and shortness of breath for 4 hours, history of asthma. Comparison: June 06, 2017 Technique: Portable upright AP view of the chest is obtained. Findings: No focal consolidation, pleural effusion or pneumothorax is seen. Probable pulmonary nodule in the right upper lobe appears similar to previous exam. A subcentimeter nodular opacity is seen overlying the left lower lung, not seen on the previous exam. Cardiomediastinal silhouette remains within normal limits of size. Visualized osseous structures and overlying soft tissues demonstrate no acute interval change. IMPRESSION: 1. No focal consolidation or acute radiographic finding. 2. A subcentimeter nodular opacity overlies the left lower lung, may represent an intraparenchymal finding such as a nodule versus overlying artifact. Recommend follow-up radiograph to determine stability.
[2017-08-10] MEDS: INSULIN ASPART 300 UNITS/3 ML INSULN.PEN SQ SCH ×3 (09:00→17:00)
[2017-08-10] MEDS: BUDESONIDE 0.5 MG/2 ML NEBU. NEB SCH ×2 (09:00→19:32)
[2017-08-10] MEDS: IPRATRPIUM/ALBUTEROL 0.5/2.5MG 3 ML NEBU. NEB SCH ×4 (09:03→19:32)
--- NOTE | 2017-08-10 09:09 | EKG ---
[facility] [address] [place] [address] Test Date: 2017-08-09 Test Time: 19:05:04 Pat Name: MANDY SANCHEZ Department: Room: 514 1 Gender: F [employer] Agent: : 1955 Requested By: SUKH ESCALANTE Order Number: [id number] Reading MD: Sarthak Jeffries MD Measurements Intervals Baker Rate: 111 P: 58 IL: 120 QRS: 44 QRSD: 86 T: 34 QT: 310 QTc: 425 Interpretive Statements SINUS TACHYCARDIA NON-SPECIFIC ST/T CHANGES Electronically Signed On 08-14-2017 16:47:40 [employer] by Sarthak Jeffries MD
[2017-08-10 09:22] LABS: PLT ESTIMATE ADEQUATE (ADEQUATE)
[2017-08-10] MEDS ORDERED: CONTRAST GIVEN MC PRN (09:30)
[2017-08-10] MEDS ORDERED: IOHEXOL 300 MG/ML 100ML VIAL. IV ONE (09:30)
--- NOTE | 2017-08-10 09:31 | CONS ---
DATE OF CONSULTATION: ATTENDING PHYSICIAN: Dr. Sanchez. REASON FOR CONSULTATION: Dyspnea, chest tightness. HISTORY OF PRESENT ILLNESS: The patient is a 61-year-old female who has history of stage IV breast cancer with bony metastasis, status post right mastectomy. She is on chemo/hormonal treatment. She also has history of small pulmonary embolism back in October of 2016 involving the right lower lobe and has been on Eliquis since then. She also had a left upper lobe ground glass nodule [address] at that time. The patient presented to the hospital after she was doing some vacuuming and started to have some tightness in her chest. She started to have shortness of breath and the breathing treatment did not help. She was seen in the ER and a chest x-ray was reviewed and it shows no focal consolidation. There was a faint nodular opacity in the left lower lung. The patient is still wheezing diffusely. She has a mild dry cough, no fever, no chills, no syncopal episode, no lower extremity swelling. No focal weakness. PAST MEDICAL HISTORY: Significant for history of stage IV breast cancer with bony metastasis, status post right mastectomy. No history of tobacco use, but does have history of asthma. She does have history of small PE in the right lower lobe. Has been on lifelong Eliquis. PAST SURGICAL HISTORY: Right mastectomy and hysterectomy. ALLERGIES: MEPERIDINE. CURRENT MEDICATIONS: Reviewed as listed in the MRAD including antibiotics, oral prednisone and Eliquis. REVIEW OF SYSTEMS: Twelve-point system obtained. Pertinent positives discussed in my history of present illness, otherwise noncontributory. All systems that were negative were reviewed as well. SOCIAL HISTORY: Nonsmoker. PHYSICAL EXAMINATION: VITAL SIGNS: Reviewed, afebrile, pulse ox 94% on 2 liters. NECK: Supple. LUNGS: Diffuse inspiratory and expiratory wheezes. CARDIOVASCULAR: Regular rate and rhythm. ABDOMEN: Soft, nontender. EXTREMITIES: With no pitting edema. LABORATORY DATA: Reviewed. White cell count 10.0 on admission, platelets are 204. BUN and creatinine normal. Urine drug screen normal. INR 1.1. D-dimer is less than 0.27. IMPRESSION: 1. Dyspnea with chest tightness secondary to acute exacerbation of asthma. 2. No significant history of tobacco use. 3. History of pulmonary embolism in right lower lobe which was small in October of 2016, has been on lifelong anticoagulation. Clinically, I do not think that she has any recurrent thromboembolic episode as her D-dimer is normal. However, I would follow up CT angiogram to make sure the previously seen emboli have resolved and the previously seen nodule is no longer showing any increase in size. 4. History of stage IV breast cancer with bony metastasis. RECOMMENDATIONS: 1. Continue with present oxygen. She normally does not use oxygen at home. 2. Continue with Eliquis. 3. Continue DuoNeb q.4 hours. 4. Add Pulmicort nebulizer. 5. Continue empiric antibiotic. Clinical suspicion for any infection is low. 6. Continue oral prednisone. 7. Further recommendations to follow. KEENAN NOLAN MD DR: CLOTILDE/jong JOB#: [id number] / [id number] DIANE
[2017-08-10 10:57] VITALS: BP 109/72
--- NOTE | 2017-08-10 11:31 | RAD ---
CT CHEST WITH CONTRAST, PULMONARY ANGIOGRAM History: H/O PE AND LUNG NODULE Comparison: October 15, 2016 Technique: Helical CT of the chest was performed after the administration of 75 cc of Omnipaque 300 intravenous contrast according to PE protocol. 3-D MIP coronal reconstruction was performed to better evaluate the pulmonary arteries. One or more of the following individualized dose reduction techniques were utilized for this examination: 1. Automated exposure control 2. Adjustment of the mA and/or kV according to patient size 3. Use of iterative reconstruction technique Findings: Pulmonary arteries are adequately opacified. There is no evidence of pulmonary embolism. Previously seen right basilar pulmonary embolus has resolved. Thoracic aorta remains normal in caliber. Heart is normal in size without pericardial effusion. No significant mediastinal or hilar lymphadenopathy is seen. There is similar appearing right upper lobe volume loss with associated non mass-like opacification, appearing similar to the previous exam from earlier this year. Nodular opacities are redemonstrated within the right upper lobe, also grossly similar to the previous exam. Areas of subpleural opacity and nodularity are redemonstrated within the right upper lobe. Previously seen groundglass nodule within the left upper lobe anteriorly has since resolved. No definite new pulmonary nodules are seen. No interval consolidation, pleural effusion or pneumothorax is present. Mucous plugging within the lower lobes is redemonstrated. Overlying soft tissues redemonstrate prior right mastectomy. A left chest [id number] remains present, with distal tip appearing to terminate in the distal SVC. Visualized osseous structures demonstrate no acute interval change. Numerous sclerotic foci are redemonstrated throughout the spine, similar to the previous exam. IMPRESSION: 1. No CT evidence of pulmonary embolus or other acute cardiopulmonary process. 2. Similar appearing opacification and volume loss within the right upper lobe, may be related to radiation changes given overlying right mastectomy. Interval resolution of previously seen left upper lobe nodule.
[2017-08-10] MEDS: APIXABAN 5 MG TABLET. PO SCH ×2 (13:08→20:35)
[2017-08-10] MEDS: predniSONE 20 MG TABLET PO SCH (13:08)
[2017-08-10] MEDS: AZITHROMYCIN 250 MG TABLET. PO SCH (13:08)
[2017-08-10] MEDS: PANTOPRAZOLE 40 MG TABLET.DR. PO SCH (13:08)
[2017-08-10 15:10] VITALS: BP 97/60
--- NOTE | 2017-08-10 16:14 | PDOC2 ---
CONSULT Date of Consult Date of Consult DATE: 08/10/17 TIME: 16:08 Past Medical History Cardiovascular: No pertinent hx Pulmonary: Asthma GI: No pertinent hx Heme/Onc: Cancer Psych: No pertinent hx Musculoskeletal: low back pain Rheumatologic: No pertinent hx Past Surgical History Past Surgical History: Hysterectomy Family History Family History: Cancer Social History No (Never) ALCOHOL: none Drugs: None Lives: with Family Current Problem List Problem List Problems Medical Problems: (1) COPD exacerbation Status: Acute Current Medications Current Medications Current Medications Albuterol/ Ipratropium (Duoneb) 3 ml 1X ONCE NEB Last administered on 19:51; Start 08/09/17 at 19:30; Stop 08/09/17 at 19:32; Status DC Methylprednisolone Sodium Succinate (SOLU-Medrol 125MG VIAL) 125 mg 1X ONCE IV Last administered on 08/09/17 21:38; Start 08/09/17 at 21:30; Stop 08/09/17 at 21:32; Status DC Azithromycin 250 ml @ 250 mls/hr 1X ONCE IV Last administered on 08/09/17 21 :43; Start 08/09/17 at 21:30; Stop 08/09/17 at 22:29; Status DC Ondansetron HCl (Zofran) 4 mg PRN Q8HRS PRN IV NAUSEA/VOMITING; Start 08/09/17 at 21:30; Stop 08/10/17 at 21:29 Albuterol Sulfate (Ventolin Neb Soln) 2.5 mg PRN Q4HRS PRN NEB SOA WHILE AWAKE ; Start 08/09/17 at 21:30 Albuterol/ Ipratropium (Duoneb) 3 ml Q4HRS W/A NEB Last administered on 09:03; Start 08/10/17 at 09:00 Budesonide (Pulmicort) 0.5 mg RTBID NEB ; Start 08/10/17 at 09:00 Azithromycin (Zithromax) 250 mg DAILY PO Last administered on 08/10/17 13:08; Start 08/10/17 at 09:00 Prednisone (Prednisone) 40 mg DAILY PO Last administered on 08/10/17 13:08; Start 08/10/17 at 09:00 Insulin Aspart (NovoLOG) 0-5 UNITS TIDWMEALS SQ ; Start 08/10/17 at 09:00 Dextrose (Dextrose 50%-Water Syringe) 12.5 gm PRN Q15MIN PRN IV SEE COMMENTS; Start 08/10/17 at 08:30 Albuterol Sulfate (Ventolin Neb Soln) 2.5 mg PRN Q4HRS PRN NEB SHORTNESS OF BREATH; Start 08/10/17 at 08:30 Apixaban (Eliquis) 5 mg BID PO Last administered on 08/10/17 13:08; Start 08/10/17 at 09:00 Benzonatate (Tessalon Perle) 100 mg PRN Q8HRS PRN PO COUGH; Start 08/10/17 at 08:30 Pantoprazole Sodium (Protonix) 40 mg DAILYAC PO Last administered on 08/10/17 13:08; Start 08/10/17 at 09:00 Info (Anti-Coagulation Monitoring By Pharmacy) 1 each PRN DAILY PRN MC SEE COMMENTS; Start 08/10/17 at 08:30 Iohexol (Omnipaque 300 Mg/ml) 75 ml 1X ONCE IV Last administered on 08/10/17 10:18; Start 08/10/17 at 09:30; Stop 08/10/17 at 09:31; Status DC Info (Do NOT chart on this entry -- for MONITORING) 1 each PRN DAILY PRN MC SEE COMMENTS; Start 08/10/17 at 09:30; Stop 08/12/17 at 09:29 Lactobacillus Rhamnosus (Culturelle) 1 cap BID PO ; Start 08/10/17 at 21:00 Active Scripts Active Proair Hfa Inhaler (Albuterol Sulfate) 8.5 Gm Hfa.aer.ad 1 Puff INH PRN Q6HRS PRN Reported Eliquis (Apixaban) 5 Mg Tablet 5 Mg PO DAILY Omeprazole 40 Mg Capsule.dr 1 Cap PO DAILY Benzonatate 100 Mg Capsule 100 Mg PO Q8HRS PRN Albuterol Sulfate Neb Soln (Albuterol Sulfate) 2.5 Mg/3 Ml Vial.neb 0.5 Vial NEB PRN Q4HRS PRN Proventil Hfa Inhaler (Albuterol Sulfate) 6.7 Gm Hfa.aer.ad 1-2 Puff IH PRN Q4HRS PRN Advair 250-50 Diskus (Fluticasone/Salmeterol) 1 Each Disk.w.dev 1 Puff IH BID Allergies Allergies: Coded Allergies: No Known Medication Allergies (Verified Allergy, Unknown, 08/10/17) meperidine (Verified Adverse Reaction, Intermediate, Nausea and Vomiting, 07/12/17) Vitals VITALS Vital Signs Date Time Temp Pulse Resp B/P (MAP) Pulse Ox O2 Delivery O2 Flow Rate FiO2 08/10/17 15:10 97.9 93 18 97/60 (72) 94 Nasal Cannula 2.0 97.9 Labs Labs Laboratory Tests Test 08/09/17 19:30 08/09/17 19:45 08/10/17 03:35 08/10/17 09:15 White Blood Count 10.0 x10^3/uL (4.0-11.0) 5.7 x10^3/uL (4.0-11.0) Red Blood Count 4.85 x10^6/uL (3.50-5.40) 4.62 x10^6/uL (3.50-5.40) Hemoglobin 14.2 g/dL (12.0-15.5) 13.8 g/dL (12.0-15.5) Hematocrit 43.1 % (36.0-47.0) 41.1 % (36.0-47.0) Mean Corpuscular Volume 89 fL (79-100) 89 fL (79-100) Mean Corpuscular Hemoglobin 29 pg (25-35) 30 pg (25-35) Mean Corpuscular Hemoglobin Concent 33 g/dL (31-37) 34 g/dL (31-37) Red Cell Distribution Width 15.3 % (11.5-14.5) 15.2 % (11.5-14.5) Platelet Count 204 x10^3/uL (140-400) 194 x10^3/uL (140-400) Neutrophils (%) (Auto) 78 % (31-73) 94 % (31-73) Lymphocytes (%) (Auto) 10 % (24-48) 4 % (24-48) Monocytes (%) (Auto) 4 % (0-9) 1 % (0-9) Eosinophils (%) (Auto) 9 % (0-3) 0 % (0-3) Basophils (%) (Auto) 0 % (0-3) 1 % (0-3) Neutrophils # (Auto) 7.7 x10^3uL (1.8-7.7) 5.4 x10^3uL (1.8-7.7) Lymphocytes # (Auto) 1.0 x10^3/uL (1.0-4.8) 0.2 x10^3/uL (1.0-4.8) Monocytes # (Auto) 0.4 x10^3/uL (0.0-1.1) 0.0 x10^3/uL (0.0-1.1) Eosinophils # (Auto) 0.9 x10^3/uL (0.0-0.7) 0.0 x10^3/uL (0.0-0.7) Basophils # (Auto) 0.0 x10^3/uL (0.0-0.2) 0.0 x10^3/uL (0.0-0.2) Prothrombin Time 13.3 SEC (11.7-14.0) Prothromb Time International Ratio 1.1 (0.8-1.1) D-Dimer (Isabel) < 0.27 ug/mlFEU Sodium Level 143 mmol/L (136-145) 143 mmol/L (136-145) Potassium Level 3.6 mmol/L (3.5-5.1) 4.4 mmol/L (3.5-5.1) Chloride Level 105 mmol/L (98-107) 107 mmol/L (98-107) Carbon Dioxide Level 29 mmol/L (21-32) 27 mmol/L (21-32) Anion Gap 9 (6-14) 9 (6-14) Blood Urea Nitrogen 22 mg/dL (7-20) 19 mg/dL (7-20) Creatinine 0.6 mg/dL (0.6-1.0) 0.6 mg/dL (0.6-1.0) Estimated GFR (Cockcroft-Gault) 102.3 102.3 Glucose Level 116 mg/dL (70-99) 181 mg/dL (70-99) Calcium Level 9.4 mg/dL (8.5-10.1) 9.1 mg/dL (8.5-10.1) Magnesium Level 1.8 mg/dL (1.8-2.4) Total Bilirubin 0.5 mg/dL (0.2-1.0) Direct Bilirubin 0.1 mg/dL (0.0-0.2) Aspartate Amino Transf (AST/SGOT) 22 U/L (15-37) Alanine Aminotransferase (ALT/SGPT) 26 U/L (14-59) Alkaline Phosphatase 54 U/L (46-116) Creatine Kinase 77 U/L (26-192) Creatine Kinase MB (Mass) 1.7 ng/mL (0.0-3.6) Creatine Kinase MB Relative Index 2.2 % (0-4) Troponin I Quantitative < 0.017 ng/mL (0.000-0.055) < 0.017 ng/mL (0.000-0.055) < 0.017 ng/mL (0.000-0.055) IP-Zoh-K-Type Natriuretic Peptide 140 pg/mL (0-124) Total Protein 6.8 g/dL (6.4-8.2) Albumin 3.8 g/dL (3.4-5.0) Lipase 98 U/L (73-393) Thyroid Stimulating Hormone (TSH) 0.603 uIU/mL (0.358-3.74) Urine Opiates Screen Neg (NEG) Urine Methadone Screen Neg (NEG) Urine Barbiturates Neg (NEG) Urine Phencyclidine Screen Neg (NEG) Urine Amphetamine/Methamphetamine Neg (NEG) Urine Benzodiazepines Screen Neg (NEG) Urine Cocaine Screen Neg (NEG) Urine Cannabinoids Screen Neg (NEG) Urine Ethyl Alcohol Neg (NEG) Segmented Neutrophils % 93 % (35-66) Lymphocytes % 5 % (24-48) Monocytes % 2 % (0-10) Platelet Estimate Adequate (ADEQUATE) Test 08/10/17 11:29 Glucose (Fingerstick) 141 mg/dL (70-99) Laboratory Tests Test 08/09/17 19:30 08/09/17 19:45 08/10/17 03:35 08/10/17 09:15 White Blood Count 10.0 x10^3/uL (4.0-11.0) 5.7 x10^3/uL (4.0-11.0) Red Blood Count 4.85 x10^6/uL (3.50-5.40) 4.62 x10^6/uL (3.50-5.40) Hemoglobin 14.2 g/dL (12.0-15.5) 13.8 g/dL (12.0-15.5) Hematocrit 43.1 % (36.0-47.0) 41.1 % (36.0-47.0) Mean Corpuscular Volume 89 fL (79-100) 89 fL (79-100) Mean Corpuscular Hemoglobin 29 pg (25-35) 30 pg (25-35) Mean Corpuscular Hemoglobin Concent 33 g/dL (31-37) 34 g/dL (31-37) Red Cell Distribution Width 15.3 % (11.5-14.5) 15.2 % (11.5-14.5) Platelet Count 204 x10^3/uL (140-400) 194 x10^3/uL (140-400) Neutrophils (%) (Auto) 78 % (31-73) 94 % (31-73) Lymphocytes (%) (Auto) 10 % (24-48) 4 % (24-48) Monocytes (%) (Auto) 4 % (0-9) 1 % (0-9) Eosinophils (%) (Auto) 9 % (0-3) 0 % (0-3) Basophils (%) (Auto) 0 % (0-3) 1 % (0-3) Neutrophils # (Auto) 7.7 x10^3uL (1.8-7.7) 5.4 x10^3uL (1.8-7.7) Lymphocytes # (Auto) 1.0 x10^3/uL (1.0-4.8) 0.2 x10^3/uL (1.0-4.8) Monocytes # (Auto) 0.4 x10^3/uL (0.0-1.1) 0.0 x10^3/uL (0.0-1.1) Eosinophils # (Auto) 0.9 x10^3/uL (0.0-0.7) 0.0 x10^3/uL (0.0-0.7) Basophils # (Auto) 0.0 x10^3/uL (0.0-0.2) 0.0 x10^3/uL (0.0-0.2) Prothrombin Time 13.3 SEC (11.7-14.0) Prothromb Time International Ratio 1.1 (0.8-1.1) D-Dimer (Isabel) < 0.27 ug/mlFEU Sodium Level 143 mmol/L (136-145) 143 mmol/L (136-145) Potassium Level 3.6 mmol/L (3.5-5.1) 4.4 mmol/L (3.5-5.1) Chloride Level 105 mmol/L (98-107) 107 mmol/L (98-107) Carbon Dioxide Level 29 mmol/L (21-32) 27 mmol/L (21-32) Anion Gap 9 (6-14) 9 (6-14) Blood Urea Nitrogen 22 mg/dL (7-20) 19 mg/dL (7-20) Creatinine 0.6 mg/dL (0.6-1.0) 0.6 mg/dL (0.6-1.0) Estimated GFR (Cockcroft-Gault) 102.3 102.3 Glucose Level 116 mg/dL (70-99) 181 mg/dL (70-99) Calcium Level 9.4 mg/dL (8.5-10.1) 9.1 mg/dL (8.5-10.1) Magnesium Level 1.8 mg/dL (1.8-2.4) Total Bilirubin 0.5 mg/dL (0.2-1.0) Direct Bilirubin 0.1 mg/dL (0.0-0.2) Aspartate Amino Transf (AST/SGOT) 22 U/L (15-37) Alanine Aminotransferase (ALT/SGPT) 26 U/L (14-59) Alkaline Phosphatase 54 U/L (46-116) Creatine Kinase 77 U/L (26-192) Creatine Kinase MB (Mass) 1.7 ng/mL (0.0-3.6) Creatine Kinase MB Relative Index 2.2 % (0-4) Troponin I Quantitative < 0.017 ng/mL (0.000-0.055) < 0.017 ng/mL (0.000-0.055) < 0.017 ng/mL (0.000-0.055) MO-Cbh-R-Type Natriuretic Peptide 140 pg/mL (0-124) Total Protein 6.8 g/dL (6.4-8.2) Albumin 3.8 g/dL (3.4-5.0) Lipase 98 U/L (73-393) Thyroid Stimulating Hormone (TSH) 0.603 uIU/mL (0.358-3.74) Urine Opiates Screen Neg (NEG) Urine Methadone Screen Neg (NEG) Urine Barbiturates Neg (NEG) Urine Phencyclidine Screen Neg (NEG) Urine Amphetamine/Methamphetamine Neg (NEG) Urine Benzodiazepines Screen Neg (NEG) Urine Cocaine Screen Neg (NEG) Urine Cannabinoids Screen Neg (NEG) Urine Ethyl Alcohol Neg (NEG) Segmented Neutrophils % 93 % (35-66) Lymphocytes % 5 % (24-48) Monocytes % 2 % (0-10) Platelet Estimate Adequate (ADEQUATE) Test 08/10/17 11:29 Glucose (Fingerstick) 141 mg/dL (70-99) Assessment/Plan Assessment/Plan DATE OF CONSULTATION: 08/10/2017 CONSULTATION REQUESTED BY: Dr. Sanchez REASON FOR CONSULTATION: Breast cancer, on chemotherapy, now admitted for acute exacerbation of asthma. HISTORY OF PRESENT ILLNESS: The patient is a 61-year-old female who has a history of breast cancer diagnosed in 2004, status post right mastectomy stage 2B, ER positive, HER-2/lakeisha negative. She received adjuvant chemotherapy followed by Arimidex. In 2014, she had evidence of ascites and paracentesis was performed on 08/10/2015. CT scan at that time revealed ascites and small peritoneal soft tissue density in the pelvis raising the possibility of peritoneal implant. She underwent diagnostic laparoscopy on 08/31/2015 that revealed metastatic mammary carcinoma involving the fallopian tube and ovary. She was started on Xeloda chemotherapy on 10/06/2015. She developed worsening paracentesis on 09/20/2016 and hence Xeloda was discontinued. She underwent paracentesis and Abraxane was initiated on 10/05/2016. She is tolerating it well and responding well. The patient presented to the hospital 08/09/17 after she was doing some vacuuming and started to have tightness in her chest. She started to have shortness of breath and the breathing treatment did not help. She was seen in the ER and a chest x-ray was reviewed and it shows no focal consolidation. There was a faint nodular opacity in the left lower lung. She has a mild dry cough, no fever, no chills, no syncopal episode, no lower extremity swelling. No focal weakness. She was admitted 08/09/17 for acute exacerbation of asthma. PAST MEDICAL HISTORY: Breast cancer, bone mets, spine bifida, bronchial asthma, history of mild cerebral palsy. PAST SURGICAL HISTORY: Hysterectomy, right oophorectomy, 2 sections, right modified radical mastectomy. She has also had left salpingo-oophorectomy in 2015. SOCIAL HISTORY: Never smoker. FAMILY HISTORY: Both parents had lung cancer. REVIEW OF SYSTEMS: A 14-point review of systems was performed. Pertinent positives are mentioned in the history of present illness. Rest of the system review is negative. PHYSICAL EXAMINATION: GENERAL APPEARANCE: The patient is a 60-year-old female who is in no acute cardiorespiratory distress. VITAL SIGNS: reviewed HEENT: Atraumatic, normocephalic. Eyes: No icterus. NECK: Supple. CHEST: Bilaterally symmetrical. HEART: S1, S2 normal. ABDOMEN: Soft, nontender. No hepatosplenomegaly. CENTRAL NERVOUS SYSTEM: No focal deficits. LYMPHATICS: No lymphadenopathy. SKIN: No rashes. PSYCHOLOGIC: Mood and affect are appropriate. MUSCULOSKELETAL: No joint effusions. LABORATORY DATA: WBC 5.7, hemoglobin 13.8, platelet count 194. IMPRESSION AND PLAN: 1. 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 She was started on second line chemotherapy with Abraxane on 10/05/2016. I will continue to monitor for toxicities. She is responding well. I have advised her to return for followup upon discharge to resume chemotherapy. 2. Pulmonary embolism, diagnosed on 10/15/2016. CTA 08/10/17 reveals resolution of PE. Continue Eliquis. In view of stage 4 malignancy, she would need lifelong anticoagulation. 3. Bone metastasis. I will continue to follow up as outpatient. 4. Dyspnea with chest tightness secondary to acute exacerbation of asthma. Appreciate pulm management. MINNA THORPE MD Aug 10, 2017 16:14
[2017-08-10 19:00] VITALS: BP 120/63
[2017-08-10] MEDS: LACTOBACILLUS RHAMNOSUS GG 1 CAPSULE. PO SCH (20:35)
[2017-08-10 23:00] VITALS: BP 103/54
[2017-08-11 03:00] VITALS: BP 100/68
[2017-08-11] MEDS: IPRATRPIUM/ALBUTEROL 0.5/2.5MG 3 ML NEBU. NEB SCH ×5 (06:00→19:20)
[2017-08-11 07:00] VITALS: BP 105/68
[2017-08-11] MEDS: BUDESONIDE 0.5 MG/2 ML NEBU. NEB SCH ×2 (07:26→19:20)
[2017-08-11] MEDS: INSULIN ASPART 300 UNITS/3 ML INSULN.PEN SQ SCH ×3 (08:00→18:09)
[2017-08-11] MEDS: LACTOBACILLUS RHAMNOSUS GG 1 CAPSULE. PO SCH ×2 (08:01→20:18)
[2017-08-11] MEDS: APIXABAN 5 MG TABLET. PO SCH ×2 (08:01→20:18)
[2017-08-11] MEDS: PANTOPRAZOLE 40 MG TABLET.DR. PO SCH (08:01)
[2017-08-11] MEDS: AZITHROMYCIN 250 MG TABLET. PO SCH (08:01)
[2017-08-11] MEDS: predniSONE 20 MG TABLET PO SCH (08:02)
[2017-08-11 11:02] VITALS: BP 111/67
--- NOTE | 2017-08-11 12:38 | PDOC ---
PROGRESS NOTES Chief Complaint Chief Complaint Acute on chronic hypoxic respiratory failure ASSESSMENT AND PLAN: 1. Asthma/COPD exacerbation: steroids, nebs, suppl O2, azithro 2. Breast CA with perit carcinomatosis: on weekly abraxane. : 3. Hx DVT: on eliquis 4. Debility: OT/PT eval History of Present Illness History of Present Illness feels better today. no CP, no signif sputum prod. Vitals Vitals Vital Signs Date Time Temp Pulse Resp B/P (MAP) Pulse Ox O2 Delivery O2 Flow Rate FiO2 08/11/17 11:37 Nasal Cannula 2.0 08/11/17 11:02 97.5 98 18 111/67 (82) 94 97.5 Physical Exam General: Alert, Oriented X3, Cooperative, No acute distress Heart: Regular rate Lungs: Clear, Other (poor air movement) Abdomen: Normal bowel sounds, Soft Extremities: No cyanosis, No edema Skin: Other (about 10 petechiae to right forearm) Labs LABS Laboratory Tests Test 08/10/17 16:15 08/10/17 20:46 08/11/17 07:30 08/11/17 10:37 Glucose (Fingerstick) 134 mg/dL (70-99) 179 mg/dL (70-99) 97 mg/dL (70-99) 140 mg/dL (70-99) SHARLA COLBERT MD Aug 11, 2017 12:38
--- NOTE | 2017-08-11 13:04 | PDOC ---
PULMONARY PROGRESS NOTES Subjective feels better Vitals Vital Signs Date Time Temp Pulse Resp B/P (MAP) Pulse Ox O2 Delivery O2 Flow Rate FiO2 08/11/17 11:37 Nasal Cannula 2.0 08/11/17 11:02 97.5 98 18 111/67 (82) 94 97.5 General: Alert, No acute distress Lungs: Clear Cardiovascular: S1 Abdomen: Soft Neuro Exam: Alert Extremities: No Edema Skin: Warm Labs Laboratory Tests Test 08/09/17 19:30 08/09/17 19:45 08/10/17 03:35 08/10/17 09:15 White Blood Count 10.0 x10^3/uL (4.0-11.0) 5.7 x10^3/uL (4.0-11.0) Red Blood Count 4.85 x10^6/uL (3.50-5.40) 4.62 x10^6/uL (3.50-5.40) Hemoglobin 14.2 g/dL (12.0-15.5) 13.8 g/dL (12.0-15.5) Hematocrit 43.1 % (36.0-47.0) 41.1 % (36.0-47.0) Mean Corpuscular Volume 89 fL (79-100) 89 fL (79-100) Mean Corpuscular Hemoglobin 29 pg (25-35) 30 pg (25-35) Mean Corpuscular Hemoglobin Concent 33 g/dL (31-37) 34 g/dL (31-37) Red Cell Distribution Width 15.3 % (11.5-14.5) 15.2 % (11.5-14.5) Platelet Count 204 x10^3/uL (140-400) 194 x10^3/uL (140-400) Neutrophils (%) (Auto) 78 % (31-73) 94 % (31-73) Lymphocytes (%) (Auto) 10 % (24-48) 4 % (24-48) Monocytes (%) (Auto) 4 % (0-9) 1 % (0-9) Eosinophils (%) (Auto) 9 % (0-3) 0 % (0-3) Basophils (%) (Auto) 0 % (0-3) 1 % (0-3) Neutrophils # (Auto) 7.7 x10^3uL (1.8-7.7) 5.4 x10^3uL (1.8-7.7) Lymphocytes # (Auto) 1.0 x10^3/uL (1.0-4.8) 0.2 x10^3/uL (1.0-4.8) Monocytes # (Auto) 0.4 x10^3/uL (0.0-1.1) 0.0 x10^3/uL (0.0-1.1) Eosinophils # (Auto) 0.9 x10^3/uL (0.0-0.7) 0.0 x10^3/uL (0.0-0.7) Basophils # (Auto) 0.0 x10^3/uL (0.0-0.2) 0.0 x10^3/uL (0.0-0.2) Prothrombin Time 13.3 SEC (11.7-14.0) Prothromb Time International Ratio 1.1 (0.8-1.1) D-Dimer (Isabel) < 0.27 ug/mlFEU Sodium Level 143 mmol/L (136-145) 143 mmol/L (136-145) Potassium Level 3.6 mmol/L (3.5-5.1) 4.4 mmol/L (3.5-5.1) Chloride Level 105 mmol/L (98-107) 107 mmol/L (98-107) Carbon Dioxide Level 29 mmol/L (21-32) 27 mmol/L (21-32) Anion Gap 9 (6-14) 9 (6-14) Blood Urea Nitrogen 22 mg/dL (7-20) 19 mg/dL (7-20) Creatinine 0.6 mg/dL (0.6-1.0) 0.6 mg/dL (0.6-1.0) Estimated GFR (Cockcroft-Gault) 102.3 102.3 Glucose Level 116 mg/dL (70-99) 181 mg/dL (70-99) Calcium Level 9.4 mg/dL (8.5-10.1) 9.1 mg/dL (8.5-10.1) Magnesium Level 1.8 mg/dL (1.8-2.4) Total Bilirubin 0.5 mg/dL (0.2-1.0) Direct Bilirubin 0.1 mg/dL (0.0-0.2) Aspartate Amino Transf (AST/SGOT) 22 U/L (15-37) Alanine Aminotransferase (ALT/SGPT) 26 U/L (14-59) Alkaline Phosphatase 54 U/L (46-116) Creatine Kinase 77 U/L (26-192) Creatine Kinase MB (Mass) 1.7 ng/mL (0.0-3.6) Creatine Kinase MB Relative Index 2.2 % (0-4) Troponin I Quantitative < 0.017 ng/mL (0.000-0.055) < 0.017 ng/mL (0.000-0.055) < 0.017 ng/mL (0.000-0.055) VP-Ats-Z-Type Natriuretic Peptide 140 pg/mL (0-124) Total Protein 6.8 g/dL (6.4-8.2) Albumin 3.8 g/dL (3.4-5.0) Lipase 98 U/L (73-393) Thyroid Stimulating Hormone (TSH) 0.603 uIU/mL (0.358-3.74) Urine Opiates Screen Neg (NEG) Urine Methadone Screen Neg (NEG) Urine Barbiturates Neg (NEG) Urine Phencyclidine Screen Neg (NEG) Urine Amphetamine/Methamphetamine Neg (NEG) Urine Benzodiazepines Screen Neg (NEG) Urine Cocaine Screen Neg (NEG) Urine Cannabinoids Screen Neg (NEG) Urine Ethyl Alcohol Neg (NEG) Segmented Neutrophils % 93 % (35-66) Lymphocytes % 5 % (24-48) Monocytes % 2 % (0-10) Platelet Estimate Adequate (ADEQUATE) Test 08/10/17 11:29 08/10/17 16:15 08/10/17 20:46 08/11/17 07:30 Glucose (Fingerstick) 141 mg/dL (70-99) 134 mg/dL (70-99) 179 mg/dL (70-99) 97 mg/dL (70-99) Test 08/11/17 10:37 Glucose (Fingerstick) 140 mg/dL (70-99) Laboratory Tests Test 08/10/17 16:15 08/10/17 20:46 08/11/17 07:30 08/11/17 10:37 Glucose (Fingerstick) 134 mg/dL (70-99) 179 mg/dL (70-99) 97 mg/dL (70-99) 140 mg/dL (70-99) Medications Active Scripts Medications Dose Route/Sig Max Daily Dose Days Date Category Eliquis (Apixaban) 5 Mg Tablet 5 Mg PO DAILY 08/09/17 Reported Omeprazole 40 Mg Capsule.dr 1 Cap PO DAILY 07/12/17 Reported Benzonatate 100 Mg Capsule 100 Mg PO Q8HRS PRN 10/16/16 Reported Proair Hfa Inhaler (Albuterol Sulfate) 8.5 Gm Hfa.aer.ad 1 Puff INH PRN Q6HRS PRN 10/07/16 Rx Albuterol Sulfate Neb Soln (Albuterol Sulfate) 2.5 Mg/3 Ml Vial.neb 0.5 Vial NEB PRN Q4HRS PRN 09/20/16 Reported Proventil Hfa Inhaler (Albuterol Sulfate) 6.7 Gm Hfa.aer.ad 1-2 Puff IH PRN Q4HRS PRN 09/20/16 Reported Advair 250-50 Diskus (Fluticasone/Salmeterol) 1 Each Disk.w.dev 1 Puff IH BID 09/20/16 Reported Impression . 1. Dyspnea with chest tightness secondary to acute exacerbation of asthma. 2. No significant history of tobacco use. 3. History of pulmonary embolism in right lower lobe which was small in October of 2016, has been on lifelong anticoagulation. Clinically, I do not think that she has any recurrent thromboembolic episode as her D-dimer is normal. repeat CT angiogram with resolved PE and previously seen nodule is no longer there. 4. History of stage IV breast cancer with bony metastasis. Plan . 1. Continue with present oxygen. 2. Continue with Eliquis. 3. Continue DuoNeb 4. Pulmicort nebulizer. 5. Continue empiric antibiotic. Clinical suspicion for any infection is low. 6. Continue oral prednisone. 7. PE and nodule resolved KEENAN NOLAN MD Aug 11, 2017 13:04
--- NOTE | 2017-08-11 14:52 | PDOC ---
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 She was started on second line chemotherapy with Abraxane on 10/05/2016. I will continue to monitor for toxicities. She is responding well. I have advised her to return for followup upon discharge to resume chemotherapy. 2. Pulmonary embolism, diagnosed on 10/15/2016. CTA 08/10/17 reveals resolution of PE. Continue Eliquis. In view of stage 4 malignancy, she would need lifelong anticoagulation. 3. Bone metastasis. I will continue to follow up as outpatient. 4. Dyspnea with chest tightness secondary to acute exacerbation of asthma. Appreciate pulm management. Improving. I d/w Dr Fuentes Comment Review of Relevant I have reviewed the following items nba (where applicable) has been applied. Labs Laboratory Tests Test 08/09/17 19:30 08/09/17 19:45 08/10/17 03:35 08/10/17 09:15 White Blood Count 10.0 x10^3/uL (4.0-11.0) 5.7 x10^3/uL (4.0-11.0) Red Blood Count 4.85 x10^6/uL (3.50-5.40) 4.62 x10^6/uL (3.50-5.40) Hemoglobin 14.2 g/dL (12.0-15.5) 13.8 g/dL (12.0-15.5) Hematocrit 43.1 % (36.0-47.0) 41.1 % (36.0-47.0) Mean Corpuscular Volume 89 fL (79-100) 89 fL (79-100) Mean Corpuscular Hemoglobin 29 pg (25-35) 30 pg (25-35) Mean Corpuscular Hemoglobin Concent 33 g/dL (31-37) 34 g/dL (31-37) Red Cell Distribution Width 15.3 % (11.5-14.5) 15.2 % (11.5-14.5) Platelet Count 204 x10^3/uL (140-400) 194 x10^3/uL (140-400) Neutrophils (%) (Auto) 78 % (31-73) 94 % (31-73) Lymphocytes (%) (Auto) 10 % (24-48) 4 % (24-48) Monocytes (%) (Auto) 4 % (0-9) 1 % (0-9) Eosinophils (%) (Auto) 9 % (0-3) 0 % (0-3) Basophils (%) (Auto) 0 % (0-3) 1 % (0-3) Neutrophils # (Auto) 7.7 x10^3uL (1.8-7.7) 5.4 x10^3uL (1.8-7.7) Lymphocytes # (Auto) 1.0 x10^3/uL (1.0-4.8) 0.2 x10^3/uL (1.0-4.8) Monocytes # (Auto) 0.4 x10^3/uL (0.0-1.1) 0.0 x10^3/uL (0.0-1.1) Eosinophils # (Auto) 0.9 x10^3/uL (0.0-0.7) 0.0 x10^3/uL (0.0-0.7) Basophils # (Auto) 0.0 x10^3/uL (0.0-0.2) 0.0 x10^3/uL (0.0-0.2) Prothrombin Time 13.3 SEC (11.7-14.0) Prothromb Time International Ratio 1.1 (0.8-1.1) D-Dimer (Isabel) < 0.27 ug/mlFEU Sodium Level 143 mmol/L (136-145) 143 mmol/L (136-145) Potassium Level 3.6 mmol/L (3.5-5.1) 4.4 mmol/L (3.5-5.1) Chloride Level 105 mmol/L (98-107) 107 mmol/L (98-107) Carbon Dioxide Level 29 mmol/L (21-32) 27 mmol/L (21-32) Anion Gap 9 (6-14) 9 (6-14) Blood Urea Nitrogen 22 mg/dL (7-20) 19 mg/dL (7-20) Creatinine 0.6 mg/dL (0.6-1.0) 0.6 mg/dL (0.6-1.0) Estimated GFR (Cockcroft-Gault) 102.3 102.3 Glucose Level 116 mg/dL (70-99) 181 mg/dL (70-99) Calcium Level 9.4 mg/dL (8.5-10.1) 9.1 mg/dL (8.5-10.1) Magnesium Level 1.8 mg/dL (1.8-2.4) Total Bilirubin 0.5 mg/dL (0.2-1.0) Direct Bilirubin 0.1 mg/dL (0.0-0.2) Aspartate Amino Transf (AST/SGOT) 22 U/L (15-37) Alanine Aminotransferase (ALT/SGPT) 26 U/L (14-59) Alkaline Phosphatase 54 U/L (46-116) Creatine Kinase 77 U/L (26-192) Creatine Kinase MB (Mass) 1.7 ng/mL (0.0-3.6) Creatine Kinase MB Relative Index 2.2 % (0-4) Troponin I Quantitative < 0.017 ng/mL (0.000-0.055) < 0.017 ng/mL (0.000-0.055) < 0.017 ng/mL (0.000-0.055) CN-Egq-W-Type Natriuretic Peptide 140 pg/mL (0-124) Total Protein 6.8 g/dL (6.4-8.2) Albumin 3.8 g/dL (3.4-5.0) Lipase 98 U/L (73-393) Thyroid Stimulating Hormone (TSH) 0.603 uIU/mL (0.358-3.74) Urine Opiates Screen Neg (NEG) Urine Methadone Screen Neg (NEG) Urine Barbiturates Neg (NEG) Urine Phencyclidine Screen Neg (NEG) Urine Amphetamine/Methamphetamine Neg (NEG) Urine Benzodiazepines Screen Neg (NEG) Urine Cocaine Screen Neg (NEG) Urine Cannabinoids Screen Neg (NEG) Urine Ethyl Alcohol Neg (NEG) Segmented Neutrophils % 93 % (35-66) Lymphocytes % 5 % (24-48) Monocytes % 2 % (0-10) Platelet Estimate Adequate (ADEQUATE) Test 08/10/17 11:29 08/10/17 16:15 08/10/17 20:46 08/11/17 07:30 Glucose (Fingerstick) 141 mg/dL (70-99) 134 mg/dL (70-99) 179 mg/dL (70-99) 97 mg/dL (70-99) Test 08/11/17 10:37 Glucose (Fingerstick) 140 mg/dL (70-99) Laboratory Tests Test 08/10/17 16:15 08/10/17 20:46 08/11/17 07:30 08/11/17 10:37 Glucose (Fingerstick) 134 mg/dL (70-99) 179 mg/dL (70-99) 97 mg/dL (70-99) 140 mg/dL (70-99) Medications Current Medications Albuterol/ Ipratropium (Duoneb) 3 ml 1X ONCE NEB Last administered on 19:51; Start 08/09/17 at 19:30; Stop 08/09/17 at 19:32; Status DC Methylprednisolone Sodium Succinate (SOLU-Medrol 125MG VIAL) 125 mg 1X ONCE IV Last administered on 08/09/17 21:38; Start 08/09/17 at 21:30; Stop 08/09/17 at 21:32; Status DC Azithromycin 250 ml @ 250 mls/hr 1X ONCE IV Last administered on 08/09/17 21 :43; Start 08/09/17 at 21:30; Stop 08/09/17 at 22:29; Status DC Ondansetron HCl (Zofran) 4 mg PRN Q8HRS PRN IV NAUSEA/VOMITING; Start 08/09/17 at 21:30; Stop 08/10/17 at 21:29; Status DC Albuterol Sulfate (Ventolin Neb Soln) 2.5 mg PRN Q4HRS PRN NEB SOA WHILE AWAKE Last administered on 08/11/17 03:35; Start 08/09/17 at 21:30 Albuterol/ Ipratropium (Duoneb) 3 ml Q4HRS W/A NEB Last administered on 11:37; Start 08/10/17 at 09:00 Budesonide (Pulmicort) 0.5 mg RTBID NEB Last administered on 08/11/17 07:26; Start 08/10/17 at 09:00 Azithromycin (Zithromax) 250 mg DAILY PO Last administered on 08/11/17 08:01; Start 08/10/17 at 09:00 Prednisone (Prednisone) 40 mg DAILY PO Last administered on 08/11/17 08:02; Start 08/10/17 at 09:00 Insulin Aspart (NovoLOG) 0-5 UNITS TIDWMEALS SQ ; Start 08/10/17 at 09:00 Dextrose (Dextrose 50%-Water Syringe) 12.5 gm PRN Q15MIN PRN IV SEE COMMENTS; Start 08/10/17 at 08:30 Albuterol Sulfate (Ventolin Neb Soln) 2.5 mg PRN Q4HRS PRN NEB SHORTNESS OF BREATH; Start 08/10/17 at 08:30 Apixaban (Eliquis) 5 mg BID PO Last administered on 08/11/17 08:01; Start 08/10/17 at 09:00 Benzonatate (Tessalon Perle) 100 mg PRN Q8HRS PRN PO COUGH; Start 08/10/17 at 08:30 Pantoprazole Sodium (Protonix) 40 mg DAILYAC PO Last administered on 08/11/17 08:01; Start 08/10/17 at 09:00 Info (Anti-Coagulation Monitoring By Pharmacy) 1 each PRN DAILY PRN MC SEE COMMENTS; Start 08/10/17 at 08:30 Iohexol (Omnipaque 300 Mg/ml) 75 ml 1X ONCE IV Last administered on 08/10/17 10:18; Start 08/10/17 at 09:30; Stop 08/10/17 at 09:31; Status DC Info (Do NOT chart on this entry -- for MONITORING) 1 each PRN DAILY PRN MC SEE COMMENTS; Start 08/10/17 at 09:30; Stop 08/12/17 at 09:29 Lactobacillus Rhamnosus (Culturelle) 1 cap BID PO Last administered on t 08:01; Start 08/10/17 at 21:00 Active Scripts Active Proair Hfa Inhaler (Albuterol Sulfate) 8.5 Gm Hfa.aer.ad 1 Puff INH PRN Q6HRS PRN Reported Eliquis (Apixaban) 5 Mg Tablet 5 Mg PO DAILY Omeprazole 40 Mg Capsule.dr 1 Cap PO DAILY Benzonatate 100 Mg Capsule 100 Mg PO Q8HRS PRN Albuterol Sulfate Neb Soln (Albuterol Sulfate) 2.5 Mg/3 Ml Vial.neb 0.5 Vial NEB PRN Q4HRS PRN Proventil Hfa Inhaler (Albuterol Sulfate) 6.7 Gm Hfa.aer.ad 1-2 Puff IH PRN Q4HRS PRN Advair 250-50 Diskus (Fluticasone/Salmeterol) 1 Each Disk.w.dev 1 Puff IH BID Vitals/I & O Vital Sign - Last 24 Hours 08/10/17 08/10/17 08/10/17 08/10/17 15:10 16:43 19:00 19:35 Temp 97.9 98.1 97.9 98.1 Pulse 93 99 Resp 18 18 B/P (MAP) 97/60 (72) 120/63 (82) Pulse Ox 94 93 91 O2 Delivery Nasal Cannula Nasal Cannula Nasal Cannula Room Air O2 Flow Rate 2.0 2.0 2.0 08/10/17 08/10/17 08/10/17 08/11/17 19:38 19:49 23:00 03:00 Temp 97.5 97.7 97.5 97.7 Pulse 93 98 Resp 18 18 B/P (MAP) 103/54 (70) 100/68 (79) Pulse Ox 91 95 95 O2 Delivery Room Air Nasal Cannula Nasal Cannula Nasal Cannula O2 Flow Rate 2.0 2.0 2.0 08/11/17 08/11/17 08/11/17 08/11/17 03:36 07:00 07:28 07:31 Temp 97.5 97.5 Pulse 87 Resp 18 B/P (MAP) 105/68 (80) Pulse Ox 100 95 95 O2 Delivery Nasal Cannula Nasal Cannula Nasal Cannula Nasal Cannula O2 Flow Rate 2.0 2.0 2.0 2.0 08/11/17 08/11/17 08/11/17 08:00 11:02 11:37 Temp 97.5 97.5 Pulse 98 Resp 18 B/P (MAP) 111/67 (82) Pulse Ox 94 O2 Delivery Room Air Nasal Cannula Nasal Cannula O2 Flow Rate 2.0 2.0 Intake and Output 08/10/17 08/10/17 08/11/17 15:00 23:00 07:00 Intake Total 340 ml 120 ml Balance 340 ml 120 ml MINNA THORPE MD Aug 11, 2017 14:52
[2017-08-11 15:16] VITALS: BP 104/61
[2017-08-11 19:00] VITALS: BP 97/56
[2017-08-11 22:49] VITALS: BP 106/61
[2017-08-12 03:00] VITALS: BP 105/59
[2017-08-12] MEDS: IPRATRPIUM/ALBUTEROL 0.5/2.5MG 3 ML NEBU. NEB SCH ×3 (06:00→11:29)
[2017-08-12 07:00] VITALS: BP 120/79
[2017-08-12] MEDS: BUDESONIDE 0.5 MG/2 ML NEBU. NEB SCH (07:42)
[2017-08-12] MEDS: INSULIN ASPART 300 UNITS/3 ML INSULN.PEN SQ SCH ×2 (08:00→12:00)
[2017-08-12] MEDS: APIXABAN 5 MG TABLET. PO SCH (08:47)
[2017-08-12] MEDS: predniSONE 20 MG TABLET PO SCH (08:47)
[2017-08-12] MEDS: AZITHROMYCIN 250 MG TABLET. PO SCH (08:47)
[2017-08-12] MEDS: PANTOPRAZOLE 40 MG TABLET.DR. PO SCH (08:47)
[2017-08-12] MEDS: LACTOBACILLUS RHAMNOSUS GG 1 CAPSULE. PO SCH (08:47)
--- NOTE | 2017-08-12 08:56 | PDOC ---
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 ROS - She had an episode of acute dyspnea this am. Objective Objective Vital Signs Date Time Temp Pulse Resp B/P (MAP) Pulse Ox O2 Delivery O2 Flow Rate FiO2 08/12/17 07:44 97 Nasal Cannula 2.0 08/12/17 07:00 97.7 111 18 120/79 (93) 97.7 Intake and Output 08/12/17 07:00 Intake Total 1120 ml Balance 1120 ml Intake Oral 1120 ml # Voids 3 Physical Exam Heart: Normal S1, Normal S2 General: Alert, Oriented X3 Lungs: Normal air movement Neck: Supple Neuro: Normal speech Psych/Mental Status: Mental status NL Assessment Assessment Problems Medical Problems: (1) COPD exacerbation Status: Acute IMPRESSION AND PLAN: 1. 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 She was started on second line chemotherapy with Abraxane on 10/05/2016. I will continue to monitor for toxicities. She is responding well. I have advised her to return for followup upon discharge to resume chemotherapy. 2. Pulmonary embolism, diagnosed on 10/15/2016. CTA 08/10/17 reveals resolution of PE. Continue Eliquis. In view of stage 4 malignancy, she would need lifelong anticoagulation. 3. Bone metastasis. I will continue to follow up as outpatient. 4. Dyspnea with chest tightness secondary to acute exacerbation of asthma. Appreciate pulm management. She had an episode of acute dyspnea this am. f/u per pulm. Comment Review of Relevant I have reviewed the following items nba (where applicable) has been applied. Labs Laboratory Tests Test 08/10/17 09:15 08/10/17 11:29 08/10/17 16:15 08/10/17 20:46 Troponin I Quantitative < 0.017 ng/mL (0.000-0.055) Glucose (Fingerstick) 141 mg/dL (70-99) 134 mg/dL (70-99) 179 mg/dL (70-99) Test 08/11/17 07:30 08/11/17 10:37 08/11/17 16:24 08/11/17 20:32 Glucose (Fingerstick) 97 mg/dL (70-99) 140 mg/dL (70-99) 191 mg/dL (70-99) 223 mg/dL (70-99) Test 08/12/17 08:07 Glucose (Fingerstick) 103 mg/dL (70-99) Laboratory Tests Test 08/11/17 10:37 08/11/17 16:24 08/11/17 20:32 08/12/17 08:07 Glucose (Fingerstick) 140 mg/dL (70-99) 191 mg/dL (70-99) 223 mg/dL (70-99) 103 mg/dL (70-99) Medications Current Medications Albuterol/ Ipratropium (Duoneb) 3 ml 1X ONCE NEB Last administered on 19:51; Start 08/09/17 at 19:30; Stop 08/09/17 at 19:32; Status DC Methylprednisolone Sodium Succinate (SOLU-Medrol 125MG VIAL) 125 mg 1X ONCE IV Last administered on 08/09/17 21:38; Start 08/09/17 at 21:30; Stop 08/09/17 at 21:32; Status DC Azithromycin 250 ml @ 250 mls/hr 1X ONCE IV Last administered on 08/09/17 21 :43; Start 08/09/17 at 21:30; Stop 08/09/17 at 22:29; Status DC Ondansetron HCl (Zofran) 4 mg PRN Q8HRS PRN IV NAUSEA/VOMITING; Start 08/09/17 at 21:30; Stop 08/10/17 at 21:29; Status DC Albuterol Sulfate (Ventolin Neb Soln) 2.5 mg PRN Q4HRS PRN NEB SOA WHILE AWAKE Last administered on 08/11/17 03:35; Start 08/09/17 at 21:30; Stop 08/11/17 at 16:14; Status DC Albuterol/ Ipratropium (Duoneb) 3 ml Q4HRS W/A NEB Last administered on 07:42; Start 08/10/17 at 09:00 Budesonide (Pulmicort) 0.5 mg RTBID NEB Last administered on 08/12/17 07:42; Start 08/10/17 at 09:00 Azithromycin (Zithromax) 250 mg DAILY PO Last administered on 08/12/17 08:47; Start 08/10/17 at 09:00 Prednisone (Prednisone) 40 mg DAILY PO Last administered on 08/12/17 08:47; Start 08/10/17 at 09:00 Insulin Aspart (NovoLOG) 0-5 UNITS TIDWMEALS SQ Last administered on 08/11/17 18:09; Start 08/10/17 at 09:00 Dextrose (Dextrose 50%-Water Syringe) 12.5 gm PRN Q15MIN PRN IV SEE COMMENTS; Start 08/10/17 at 08:30 Albuterol Sulfate (Ventolin Neb Soln) 2.5 mg PRN Q4HRS PRN NEB SHORTNESS OF BREATH; Start 08/10/17 at 08:30 Apixaban (Eliquis) 5 mg BID PO Last administered on 08/12/17 08:47; Start 08/10/17 at 09:00 Benzonatate (Tessalon Perle) 100 mg PRN Q8HRS PRN PO COUGH; Start 08/10/17 at 08:30 Pantoprazole Sodium (Protonix) 40 mg DAILYAC PO Last administered on 08/12/17 08:47; Start 08/10/17 at 09:00 Info (Anti-Coagulation Monitoring By Pharmacy) 1 each PRN DAILY PRN MC SEE COMMENTS; Start 08/10/17 at 08:30 Iohexol (Omnipaque 300 Mg/ml) 75 ml 1X ONCE IV Last administered on 08/10/17 10:18; Start 08/10/17 at 09:30; Stop 08/10/17 at 09:31; Status DC Info (Do NOT chart on this entry -- for MONITORING) 1 each PRN DAILY PRN MC SEE COMMENTS; Start 08/10/17 at 09:30; Stop 08/12/17 at 09:29 Lactobacillus Rhamnosus (Culturelle) 1 cap BID PO Last administered on 08:47; Start 08/10/17 at 21:00 Active Scripts Active Proair Hfa Inhaler (Albuterol Sulfate) 8.5 Gm Hfa.aer.ad 1 Puff INH PRN Q6HRS PRN Reported Eliquis (Apixaban) 5 Mg Tablet 5 Mg PO DAILY Omeprazole 40 Mg Capsule.dr 1 Cap PO DAILY Benzonatate 100 Mg Capsule 100 Mg PO Q8HRS PRN Albuterol Sulfate Neb Soln (Albuterol Sulfate) 2.5 Mg/3 Ml Vial.neb 0.5 Vial NEB PRN Q4HRS PRN Proventil Hfa Inhaler (Albuterol Sulfate) 6.7 Gm Hfa.aer.ad 1-2 Puff IH PRN Q4HRS PRN Advair 250-50 Diskus (Fluticasone/Salmeterol) 1 Each Disk.w.dev 1 Puff IH BID Vitals/I & O Vital Sign - Last 24 Hours 08/11/17 08/11/17 08/11/17 08/11/17 11:02 11:37 15:16 15:35 Temp 97.5 98.1 97.5 98.1 Pulse 98 85 Resp 18 18 B/P (MAP) 111/67 (82) 104/61 (75) Pulse Ox 94 95 O2 Delivery Nasal Cannula Nasal Cannula Nasal Cannula Nasal Cannula O2 Flow Rate 2.0 2.0 2.0 2.0 08/11/17 08/11/17 08/11/17 08/11/17 19:00 19:21 19:22 19:33 Temp 97.7 97.7 Pulse 90 Resp 18 B/P (MAP) 97/56 (70) Pulse Ox 94 O2 Delivery Nasal Cannula Nasal Cannula Nasal Cannula Nasal Cannula O2 Flow Rate 2.0 2.0 2.0 2.0 08/11/17 08/12/17 08/12/17 08/12/17 22:49 03:00 07:00 07:42 Temp 96.8 97.7 97.7 96.8 97.7 97.7 Pulse 88 83 111 Resp 18 18 18 B/P (MAP) 106/61 (76) 105/59 (74) 120/79 (93) Pulse Ox 96 96 94 97 O2 Delivery Nasal Cannula Nasal Cannula Nasal Cannula Nasal Cannula O2 Flow Rate 2.0 2.0 2.0 08/12/17 07:44 Pulse Ox 97 O2 Delivery Nasal Cannula O2 Flow Rate 2.0 Intake and Output 08/11/17 08/11/17 08/12/17 15:00 23:00 07:00 Intake Total 480 ml 400 ml 240 ml Balance 480 ml 400 ml 240 ml MINNA THORPE MD Aug 12, 2017 08:56
[2017-08-12] MEDS ORDERED: AZIT250T6 PO (10:46)
--- NOTE | 2017-08-12 10:49 | PDOC3 ---
Discharge Summary Visit Information Date of Admission: Aug 09, 2017 Date of Discharge: Aug 12, 2017 Admitting Diagnosis Comment: 1. Asthma/COPD exacerbation: steroids, nebs, suppl O2, azithro 2. Breast CA with perit carcinomatosis: on weekly abraxane. : 3. Hx DVT: on eliquis 4. Debility: OT/PT eval Final Diagnosis Problems Medical Problems: (1) COPD exacerbation Status: Acute Brief Hospital Course Allergies Allergies Coded Allergies Type Severity Reaction Last Updated Verified No Known Medication Allergies Allergy Unknown 08/10/17 Yes meperidine Adverse Reaction Intermediate Nausea and Vomiting 07/12/17 Yes Vital Signs Vital Signs Date Time Temp Pulse Resp B/P (MAP) Pulse Ox O2 Delivery O2 Flow Rate FiO2 08/12/17 08:00 Nasal Cannula 2.0 08/12/17 07:44 97 08/12/17 07:00 97.7 111 18 120/79 (93) 97.7 Lab Results Laboratory Tests Test 08/10/17 11:29 08/10/17 16:15 08/10/17 20:46 08/11/17 07:30 Glucose (Fingerstick) 141 mg/dL (70-99) 134 mg/dL (70-99) 179 mg/dL (70-99) 97 mg/dL (70-99) Test 08/11/17 10:37 08/11/17 16:24 08/11/17 20:32 08/12/17 08:07 Glucose (Fingerstick) 140 mg/dL (70-99) 191 mg/dL (70-99) 223 mg/dL (70-99) 103 mg/dL (70-99) Laboratory Tests Test 08/11/17 16:24 08/11/17 20:32 08/12/17 08:07 Glucose (Fingerstick) 191 mg/dL (70-99) 223 mg/dL (70-99) 103 mg/dL (70-99) Brief Hospital Course Ms. Colbert is a 61 old [sex] who presented with [ ]fevers, treated for URI symptoms with azithromycin. Also with by mouth steroids. Comanage with hematology oncology. Vertically better. Ready for home. No PT needs. Seen and examined I will Rx is advised for 2 more days has gotten 3 doses here. We'll also Rx some by mouth prednisone tapering. Is on 40 by mouth has gotten 3 doses here. Rx transmitted to her pharmacy. Time 31 minutes. Follow-up instructions follow-up with Dr. Arvizu for continuation of outpatient chemotherapy. Discharge Information Condition at Discharge: Improved, Stable Follow Up: Weeks (Luh for cont opf chemo) Disposition/Orders: D/C to Home Scheduled Apixaban (Eliquis), 5 MG PO DAILY, (Reported) Fluticasone/Salmeterol (Advair 250-50 Diskus), 1 PUFF IH BID, (Reported) Omeprazole (Omeprazole), 1 CAP PO DAILY, (Reported) Scheduled PRN Albuterol Sulfate (Proventil Hfa Inhaler), 1-2 PUFF IH PRN Q4HRS PRN for SHORTNESS OF BREATH, (Reported) Albuterol Sulfate (Albuterol Sulfate Neb Soln), 0.5 VIAL NEB PRN Q4HRS PRN for SHORTNESS OF BREATH, (Reported) Albuterol Sulfate (Proair Hfa Inhaler), 1 PUFF INH PRN Q6HRS PRN for SHORTNESS OF BREATH Benzonatate (Benzonatate), 100 MG PO Q8HRS PRN for COUGH, (Reported) LACI KEARNEY MD Aug 12, 2017 10:49
[2017-08-12 11:00] VITALS: BP 106/60
--- NOTE | 2017-08-12 15:20 | PDOC ---
PULMONARY PROGRESS NOTES Subjective feels better Vitals Vital Signs Date Time Temp Pulse Resp B/P (MAP) Pulse Ox O2 Delivery O2 Flow Rate FiO2 08/12/17 11:29 93 Nasal Cannula 2.0 08/12/17 11:00 97.9 84 19 106/60 (75) 97.9 General: Alert, No acute distress Lungs: Clear, Other Cardiovascular: S1 Abdomen: Soft Neuro Exam: Alert Extremities: No Edema Skin: Warm Labs Laboratory Tests Test 08/10/17 16:15 08/10/17 20:46 08/11/17 07:30 08/11/17 10:37 Glucose (Fingerstick) 134 mg/dL (70-99) 179 mg/dL (70-99) 97 mg/dL (70-99) 140 mg/dL (70-99) Test 08/11/17 16:24 08/11/17 20:32 08/12/17 08:07 08/12/17 11:46 Glucose (Fingerstick) 191 mg/dL (70-99) 223 mg/dL (70-99) 103 mg/dL (70-99) 118 mg/dL (70-99) Laboratory Tests Test 08/11/17 16:24 08/11/17 20:32 08/12/17 08:07 08/12/17 11:46 Glucose (Fingerstick) 191 mg/dL (70-99) 223 mg/dL (70-99) 103 mg/dL (70-99) 118 mg/dL (70-99) Medications Active Scripts Medications Dose Route/Sig Max Daily Dose Days Date Category Eliquis (Apixaban) 5 Mg Tablet 5 Mg PO DAILY 08/09/17 Reported Omeprazole 40 Mg Capsule.dr 1 Cap PO DAILY 07/12/17 Reported Benzonatate 100 Mg Capsule 100 Mg PO Q8HRS PRN 10/16/16 Reported Proair Hfa Inhaler (Albuterol Sulfate) 8.5 Gm Hfa.aer.ad 1 Puff INH PRN Q6HRS PRN 10/07/16 Rx Albuterol Sulfate Neb Soln (Albuterol Sulfate) 2.5 Mg/3 Ml Vial.neb 0.5 Vial NEB PRN Q4HRS PRN 09/20/16 Reported Proventil Hfa Inhaler (Albuterol Sulfate) 6.7 Gm Hfa.aer.ad 1-2 Puff IH PRN Q4HRS PRN 09/20/16 Reported Advair 250-50 Diskus (Fluticasone/Salmeterol) 1 Each Disk.w.dev 1 Puff IH BID 09/20/16 Reported Impression . 1. Dyspnea with chest tightness secondary to acute exacerbation of asthma. 2. No significant history of tobacco use. 3. History of pulmonary embolism in right lower lobe which was small in October of 2016, has been on lifelong anticoagulation. Clinically, I do not think that she has any recurrent thromboembolic episode as her D-dimer is normal. repeat CT angiogram with resolved PE and previously seen nodule is no longer there. 4. History of stage IV breast cancer with bony metastasis. Plan . OK TO D/C HOME FOLLOW UP IN OFFICE 1. Continue with present oxygen. 2. Continue with Eliquis. 3. Continue DuoNeb 4. Pulmicort nebulizer. 5. ORAL ANTIBX 6. Continue oral prednisone. 7. PE and nodule resolved MIGUEL GUZMAN MD Aug 12, 2017 15:20
== END 2017-08-12 14:10 | disposition home or self-care (01) | DRG 189 ==
LOC: ER 18:55 → 5 NORTH 21:20
PROVIDERS: ADMIT Internal Medicine Hematology & Oncology; ATTEND Internal Medicine Hematology & Oncology
DX: J96.21 Acute and chronic respiratory failure with hypoxia (principal); C78.6 Secondary malignant neoplasm of retroperitoneum and peritoneum; C79.51 Secondary malignant neoplasm of bone; R18.8 Other ascites; C50.919 Malignant neoplasm of unspecified site of unspecified female breast; J44.0 Chronic obstructive pulmonary disease with (acute) lower respiratory infection; J45.901 Unspecified asthma with (acute) exacerbation; J44.1 Chronic obstructive pulmonary disease with (acute) exacerbation; G80.9 Cerebral palsy, unspecified; Z79.01 Long term (current) use of anticoagulants; Z80.1 Family history of malignant neoplasm of trachea, bronchus and lung; Z86.711 Personal history of pulmonary embolism; Z86.718 Personal history of other venous thrombosis and embolism; Z90.11 Acquired absence of right breast and nipple; Z90.710 Acquired absence of both cervix and uterus; Z88.8 Allergy status to other drugs, medicaments and biological substances; R53.81 Other malaise
CPT/HCPCS: 36415; 71010; 71275; 80048; 80076; 80307; 82553; 82962; 83690; 83735; 83880; 84443; 84484; 85007; 85025; 85379; 85610; 93005; 94250; 94640; 94760; J0456; J1815; J2930; J7512; J7613; J7620; J7626; Q0144; Q9967; G0479

== ENCOUNTER → 2017-09-30 | Outpatient (CLI) | payer BC ==
[~2017-09-30] MED LIST changes: -ALBU2.5V5 NEB; -APIX5TAB PO; -BENZ-8 PO; -CAPE500T PO; +CONTRAST GIVEN MC; -FLUT1DIS3 IH; -HYDR-2758 PO; -HYDR-971 PO; -LEVO500T59 PO; -LORA10TA3 PO; -OMEP40CA5 PO; -ONDA8TAB9 PO; -PRED-220 PO; -PROAIR HFA8.5 GM INH; -PROVENTIL HFA6.7 GM IH
[2017-09-30] MEDS: IOHEXOL 300 MG/ML 100ML VIAL. IV (08:40)
[2017-09-30] MEDS: IOHEXOL 240 MG/ML 50ML VIAL. PO (08:40)
[2017-09-30] MEDS: HEPARIN PF 500 UNIT/5 ML DISP.SYRIN. IV (08:47)
== END | disposition home or self-care (01) ==
LOC: CT 06:40
DX: C50.919 Malignant neoplasm of unspecified site of unspecified female breast (principal); C79.51 Secondary malignant neoplasm of bone; C80.1 Malignant (primary) neoplasm, unspecified; E04.1 Nontoxic single thyroid nodule; R18.8 Other ascites; J44.9 Chronic obstructive pulmonary disease, unspecified; Z17.0 Estrogen receptor positive status [ER+]; Z87.891 Personal history of nicotine dependence
CPT/HCPCS: 71260; 74177; Q9966; Q9967

== ENCOUNTER 2018-04-22 11:21 | Inpatient (IN) | payer BC ==
[~2018-04-22] VITALS: Ht 162.6 cm; Wt 62.2 kg
[~2018-04-22 11:21] MED LIST changes: +ALBU2.5V5 NEB; +APIX5TAB PO; +AZIT250T6 PO; +BENZ-8 PO; +CAPE500T PO; -CONTRAST GIVEN MC; +FLUT1DIS3 IH; +GABA300C8 PO; +HYDR-2758 PO; +HYDR-971 PO; +LEVO500T59 PO; +LIDO30CR; +LORA10TA3 PO; +OMEP40CA5 PO; +ONDA8TAB9 PO; +PANTOPRAZOLE; +PRED-220 PO; +PROAIR HFA8.5 GM INH; +PROVENTIL HFA6.7 GM IH; +TIOT4MIS2
[2018-04-22] MEDS ORDERED: IPRATRPIUM/ALBUTEROL 0.5/2.5MG 3 ML NEBU. NEB ONE (12:00)
--- NOTE | 2018-04-22 12:00 | EKG ---
[facility] [address] [place] [id number] Test Date: 2018-04-22 Test Time: 11:52:58 Pat Name: MANDY SANCHEZ Department: Room: Gender: F Hook Loader: : 1955 Requested By: VINCE CARTAGENA Order Number: [id number] Reading MD: Sarthak Jeffries MD Measurements Intervals [place] Rate: 94 P: 60 MI: 138 QRS: 68 QRSD: 72 T: 41 QT: 330 QTc: 417 Interpretive Statements SINUS RHYTHM Electronically Signed On 04-24-2018 15:19:50 CDT by Sarthak Jeffries MD
--- NOTE | 2018-04-22 12:00 | PHYS DOC ---
Past Medical History Past Medical History: Asthma, Cancer, COPD Additional Past Medical Histor: stage 4 breast ca Past Surgical History: Hysterectomy, Other Additional Past Surgical Histo: RT MASTECTOMY, PARACENTESIS, Port L chest Alcohol Use: None Drug Use: None Adult General Chief Complaint Chief Complaint: OTHER COMPLAINTS HPI HPI Patient is a 62-year-old female who presents to the emergency department for evaluation. She has a history of stage IV breast cancer with carcinomatosis. She states over the past 24 hours she developed some bloating in her abdomen, and called her oncologist office this morning and was sent to the emergency department for paracentesis. She states that she has had a paracentesis about a year ago, but does not get them regularly. She has been having normal bowel movements and has not had any vomiting, or fevers. She denies any definite abdominal pain per se, other than the fullness in her abdomen. She has not had any chest pain. She has had some shortness of breath and wheezing, and has a history of asthma. She also has a history of pulmonary embolism and takes Eliquis, including this morning. There are no alleviating or exacerbating factors to the patient's symptoms. Review of Systems Review of Systems Constitutional: Denies fever or chills [] Eyes: Denies change in visual acuity, redness, or eye pain [] HENT: Denies nasal congestion or sore throat [] Respiratory: Denies cough. Patient admits to wheezing and mild shortness of breath [] Cardiovascular: The patient denies any chest pain, palpitations, or orthopnea[] GI: Denies nausea, vomiting, bloody stools or diarrhea [] : Denies dysuria or hematuria [] Musculoskeletal: Denies back pain or joint pain [] Integument: Denies rash or skin lesions [] Neurologic: Denies headache, focal weakness or sensory changes [] Endocrine: Denies polyuria or polydipsia [] All other systems were reviewed and found to be within normal limits, except as documented in this note. Current Medications Current Medications Current Medications Medications (Trade) Dose Ordered Sig/Iggy Start Time Stop Time Status Last Admin Dose Admin Albuterol/ Ipratropium (Duoneb) 3 ml 1X ONCE 04/22/18 12:00 04/22/18 12:01 DC 04/22/18 11:57 3 ML Info (CONTRAST GIVEN -- Rx MONITORING) 1 each PRN DAILY PRN 04/22/18 12:45 04/24/18 12:44 Iohexol (Omnipaque 300 Mg/ml) 75 ml 1X ONCE 04/22/18 12:45 04/22/18 12:46 DC 04/22/18 13:19 75 ML Allergies Allergies Allergies Coded Allergies Type Severity Reaction Last Updated Verified meperidine Adverse Reaction Intermediate Nausea and Vomiting 07/12/17 Yes Physical Exam Physical Exam PHYSICAL EXAM: CONSTITUTIONAL: Well developed, well nourished HEAD: normocephalic, atraumatic EENT: PERRL, EOMI. Conjunctivae normal color, sclerae non-icteric; moist mucous membranes. NECK: Supple, non-tender; no meningismus. LUNGS: There are diffuse wheezes in all lung lau,breathing even and unlabored. Normal air movement. HEART: Regular rate and rhythm, no murmur CHEST: No deformity; non-tender ABDOMEN:Normal bowel sounds are present. There is questionable mild abdominal distention, with some diffuse firmness to the abdomen, without definite focal tenderness, rebound, or guarding. no masses or bruits. EXTREM: Normal ROM; no deformity, no calf tenderness. Normal pulses palpable in all extremities. There is no pedal edema. SKIN: No rash; no diaphoresis NEURO: Alert; normal speech and cognition; CN's grossly intact; strength grossly intact without focal deficit. BACK: No CVA TTP. Current Patient Data Vital Signs Vital Signs Date Time Temp Pulse Resp B/P (MAP) Pulse Ox O2 Delivery O2 Flow Rate FiO2 04/22/18 14:32 97 16 104/54 (71) 97 Room Air 04/22/18 11:40 98.2 98.2 Lab Values Laboratory Tests Test 04/22/18 12:25 04/22/18 13:20 White Blood Count 4.7 x10^3/uL (4.0-11.0) Red Blood Count 4.25 x10^6/uL (3.50-5.40) Hemoglobin 12.7 g/dL (12.0-15.5) Hematocrit 38.0 % (36.0-47.0) Mean Corpuscular Volume 90 fL (79-100) Mean Corpuscular Hemoglobin 30 pg (25-35) Mean Corpuscular Hemoglobin Concent 33 g/dL (31-37) Red Cell Distribution Width 15.0 % (11.5-14.5) H Platelet Count 134 x10^3/uL (140-400) L Neutrophils (%) (Auto) 67 % (31-73) Lymphocytes (%) (Auto) 25 % (24-48) Monocytes (%) (Auto) 4 % (0-9) Eosinophils (%) (Auto) 4 % (0-3) H Basophils (%) (Auto) 0 % (0-3) Neutrophils # (Auto) 3.1 x10^3uL (1.8-7.7) Lymphocytes # (Auto) 1.1 x10^3/uL (1.0-4.8) Monocytes # (Auto) 0.2 x10^3/uL (0.0-1.1) Eosinophils # (Auto) 0.2 x10^3/uL (0.0-0.7) Basophils # (Auto) 0.0 x10^3/uL (0.0-0.2) Prothrombin Time 14.7 SEC (11.7-14.0) H Prothrombin Time INR 1.2 (0.8-1.1) H PTT 37 SEC (24-38) Sodium Level 143 mmol/L (136-145) Potassium Level 4.1 mmol/L (3.5-5.1) Chloride Level 108 mmol/L (98-107) H Carbon Dioxide Level 28 mmol/L (21-32) Anion Gap 7 (6-14) Blood Urea Nitrogen 24 mg/dL (7-20) H Creatinine 0.6 mg/dL (0.6-1.0) Estimated GFR (Cockcroft-Gault) 102.0 BUN/Creatinine Ratio 40 (6-20) H Glucose Level 129 mg/dL (70-99) H Calcium Level 8.7 mg/dL (8.5-10.1) Magnesium Level 1.9 mg/dL (1.8-2.4) Total Bilirubin 0.7 mg/dL (0.2-1.0) Aspartate Amino Transferase (AST) 27 U/L (15-37) Alanine Aminotransferase (ALT) 40 U/L (14-59) Alkaline Phosphatase 78 U/L (46-116) Troponin I Quantitative < 0.017 ng/mL (0.000-0.055) YO-Pqm-H-Type Natriuretic Peptide 80 pg/mL (0-124) Total Protein 5.8 g/dL (6.4-8.2) L Albumin 3.4 g/dL (3.4-5.0) Albumin/Globulin Ratio 1.4 (1.0-1.7) Lipase 171 U/L (73-393) Urine Collection Type Unknown Urine Color Yellow Urine Clarity Cloudy Urine pH 6.0 Urine Specific Lewis 1.010 Urine Protein Negative mg/dL (NEG-TRACE) Urine Glucose (UA) Negative mg/dL (NEG) Urine Ketones (Stick) Negative mg/dL (NEG) Urine Blood Negative (NEG) Urine Nitrite Negative (NEG) Urine Bilirubin Negative (NEG) Urine Urobilinogen Dipstick 1.0 mg/dL (0.2 mg/dL) Urine Leukocyte Esterase Small (NEG) Urine RBC 0 /HPF (0-2) Urine WBC Occ /HPF (0-4) Urine Squamous Epithelial Cells Occ /LPF Urine Bacteria 0 /HPF (0-FEW) Laboratory Tests 04/22/18 12:25 Laboratory Tests 04/22/18 12:25 EKG EKG [Normal sinus rhythm a rate of 95 beats for minute, normal axis, normal intervals, there are no acute ischemic ST/T changes.] Radiology/Procedures Radiology/Procedures [PROCEDURE: CHEST AP ONLY EXAM: CHEST 1 VIEW History: Shortness of breath COMPARISON: 08/09/2017 TECHNIQUE: Single portable radiograph of the chest FINDINGS: The cardiac silhouette is unremarkable. Left sided Port-A-Cath. The costophrenic sulci are clear and well demarcated. Small calcified granuloma identified in the right upper lobe infiltrate IMPRESSION: No radiographic evidence of an acute cardiopulmonary process. ] PROCEDURE: CT ABD PELV W/ IV CONTRST ONLY CLINICAL HISTORY: abdominal fullness, h/o carcinomatosis. no previous
IV OMNI 300 75 MLS COMPARISON: 11/14/2017, 09/30/2017, 10/01/2016 TECHNIQUE: CT of the abdomen and pelvis following the administration of oral and 75 mL of Omnipaque 300 intravenous contrast material. Axial, coronal and sagittal reformatted images were generated. FINDINGS: Lung bases are clear. Small hiatal hernia. Hypodense left hepatic lobe lesion is too small to characterize. Small volume ascites is seen about the right hepatic lobe. Gallbladder is unremarkable. No intra or extrahepatic biliary ductal dilatation. Spleen and pancreas are unremarkable. Adrenal glands are normal. Symmetric nephrograms. No focal renal lesion. No hydronephrosis. No abnormal small or large bowel dilatation to suggest bowel obstruction. Moderate colonic stool content. The appendix is mildly thickened, peripherally enhancing with associated fascial thickening although the degree of fat infiltration about the appendix has decreased. No there is been a hysterectomy. Pelvic ascites. No definite mesenteric retroperitoneal or upper abdominal lymphadenopathy. No definite mesenteric or omental mass is convincingly identified. Bladder is unremarkable. No definite pelvic ascites. Diffusely decreased bone mineral density. Leftward curvature of the lumbar spine apex L2. Diffuse punctate calcification within the osseous structures may represent osteopoikilosis or treatment response to metastatic disease. However this is unchanged to at least 10/01/2016. IMPRESSION: 1. No abdominal or pelvic lymphadenopathy. 2. Trace ascites about the liver. 3. No evidence for bowel obstruction. 4. Thickening of the appendix is stable to 11/14/2017 although degree of associated inflammatory change has decreased. Course & Med Decision Making Course & Med Decision Making Pertinent Labs and Imaging studies reviewed. (See chart for details) [3:00 PM: I spoke with the patient's oncologist, Dr. Arvizu, who would like the patient admitted for further evaluation of her abdominal discomfort and the patient is agreeable.The patient's condition remains stable. I spoke with the hospitalist, who accepted the patient to the hospital for further evaluation and treatment.] It should be noted the patient was admitted to the hospital earlier this year for evaluation of possible appendicitis, but it appears that the surgeons did not feel the patient had appendicitis, and did not do surgery. The patient's CT scan from today should be interpreted in this context, prior notes from the last hospital stay have been reviewed. Dragon Disclaimer Dragon Disclaimer This electronic medical record was generated, in whole or in part, using a voice recognition dictation system. Departure Departure Impression: Primary Impression: Abdominal pain Additional Impression: Carcinomatosis Disposition: ADMITTED INPATIENT Admitting Physician: Ilia De Leon Condition: STABLE Referrals: MARILYN GOMEZ MD (PCP) Problem Qualifiers VINCE CARTAGENA MD Apr 22, 2018 12:00
--- NOTE | 2018-04-22 12:13 | RAD ---
EXAM: CHEST 1 VIEW History: Shortness of breath COMPARISON: 08/09/2017 TECHNIQUE: Single portable radiograph of the chest FINDINGS: The cardiac silhouette is unremarkable. Left sided Port-A-Cath. The costophrenic sulci are clear and well demarcated. Small calcified granuloma identified in the right upper lobe infiltrate IMPRESSION: No radiographic evidence of an acute cardiopulmonary process. Electronically signed by: Kennedy Kim MD (04/22/2018 12:09 PM) [id number]
[2018-04-22 12:37] LABS: BASO % 0 % (0-3); EOS # 0.2 x10^3/uL (0.0-0.7); EOS % 4 % (0-3); HEMOGLOBIN 12.7 g/dL (12.0-15.5); LYMPH # 1.1 x10^3/uL (1.0-4.8); LYMPH % 25 % (24-48); MEAN CORPUSCULAR HEMOGLOBIN 30 pg (25-35); MEAN CORPUSCULAR HGB CONC 33 g/dL (31-37); MEAN CORPUSCULAR VOLUME 90 fL (79-100); MONO # 0.2 x10^3/uL (0.0-1.1); MONO % 4 % (0-9); NEUT # 3.1 x10^3uL (1.8-7.7); NEUT % 67 % (31-73); PLATELET COUNT 134 x10^3/uL (140-400); RED BLOOD COUNT 4.25 x10^6/uL (3.50-5.40); WHITE BLOOD COUNT 4.7 x10^3/uL (4.0-11.0)
[2018-04-22] MEDS ORDERED: CONTRAST GIVEN. MC PRN (12:45)
[2018-04-22] MEDS ORDERED: IOHEXOL 300 MG/ML 100ML VIAL. IV ONE (12:45)
[2018-04-22 12:47] LABS: CALCIUM 8.7 mg/dL (8.5-10.1); CREATININE 0.6 mg/dL (0.6-1.0); POTASSIUM 4.1 mmol/L (3.5-5.1)
[2018-04-22 12:48] LABS: PROTHROMBIN TIME PATIENT 14.7 SEC (11.7-14.0)
[2018-04-22 12:53] LABS: ALBUMIN 3.4 g/dL (3.4-5.0); ALBUMIN/GLOBULIN RATIO 1.4 (1.0-1.7); MAGNESIUM 1.9 mg/dL (1.8-2.4); TOTAL BILIRUBIN 0.7 mg/dL (0.2-1.0); TOTAL PROTEIN 5.8 g/dL (6.4-8.2)
[2018-04-22 13:41] LABS: BILIRUBIN,URINE NEGATIVE (NEG); CLARITY,URINE CLOUDY; COLOR,URINE YELLOW; NITRITE,URINE NEGATIVE (NEG); PROTEIN,URINE NEGATIVE (NEG-TRACE)
[2018-04-22 13:46] LABS: BACTERIA,URINE 0 /HPF (0-FEW); RBC,URINE 0 /HPF (0-2); SQUAMOUS EPITHELIAL CELL,UR OCC /LPF; WBC,URINE OCC /HPF (0-4)
--- NOTE | 2018-04-22 15:04 | RAD ---
CLINICAL HISTORY: abdominal fullness, h/o carcinomatosis. no previous
IV OMNI 300 75 MLS COMPARISON: 11/14/2017, 09/30/2017, 10/01/2016 TECHNIQUE: CT of the abdomen and pelvis following the administration of oral and 75 mL of Omnipaque 300 intravenous contrast material. Axial, coronal and sagittal reformatted images were generated. FINDINGS: Lung bases are clear. Small hiatal hernia. Hypodense left hepatic lobe lesion is too small to characterize. Small volume ascites is seen about the right hepatic lobe. Gallbladder is unremarkable. No intra or extrahepatic biliary ductal dilatation. Spleen and pancreas are unremarkable. Adrenal glands are normal. Symmetric nephrograms. No focal renal lesion. No hydronephrosis. No abnormal small or large bowel dilatation to suggest bowel obstruction. Moderate colonic stool content. The appendix is mildly thickened, peripherally enhancing with associated fascial thickening although the degree of fat infiltration about the appendix has decreased. No there is been a hysterectomy. Pelvic ascites. No definite mesenteric retroperitoneal or upper abdominal lymphadenopathy. No definite mesenteric or omental mass is convincingly identified. Bladder is unremarkable. No definite pelvic ascites. Diffusely decreased bone mineral density. Leftward curvature of the lumbar spine apex L2. Diffuse punctate calcification within the osseous structures may represent osteopoikilosis or treatment response to metastatic disease. However this is unchanged to at least 10/01/2016. IMPRESSION: 1. No abdominal or pelvic lymphadenopathy. 2. Trace ascites about the liver. 3. No evidence for bowel obstruction. 4. Thickening of the appendix is stable to 11/14/2017 although degree of associated inflammatory change has decreased. Electronically signed by: Hector Garcia MD (04/22/2018 3:00 PM) [facility]
[2018-04-22] MEDS ORDERED: ONDANSETRON PF 4 MG/2 ML VIAL. IV PRN (15:15)
[2018-04-22 16:30] VITALS: BP 113/55
--- NOTE | 2018-04-22 17:16 | PDOC1 ---
History and Physical Date of Admission Date of Admission DATE: 04/22/18 TIME: 17:14 Identification/Chief Complaint Chief Complaint presentED to the emergency department for evaluation. history of stage IV breast cancer with carcinomatosis. over the past 24 hours she developed some bloating in her abdomen, and called her oncologist office this morning and was sent to the emergency department for paracentesis. Past Medical History Past Medical History Past Medical History Past Medical History: Asthma, Cancer, COPD Additional Past Medical Histor: stage 4 breast ca Past Surgical History: Hysterectomy, Other Additional Past Surgical Histo: RT MASTECTOMY, PARACENTESIS, Port L chest Alcohol Use: None Drug Use: None FAMILY HX COPD Cardiovascular: No pertinent hx Pulmonary: Asthma GI: No pertinent hx Heme/Onc: Cancer Psych: No pertinent hx Musculoskeletal: low back pain Rheumatologic: No pertinent hx ENT: No pertinent hx Renal/: No pertinent hx Endocrine: No pertinent hx Past Surgical History Past Surgical History: Mastectomy, Hysterectomy Family History Family History: Cancer Family History: Parent Social History Smoke: No ALCOHOL: none Drugs: None, Other Current Problem List Problem List Problems Medical Problems: (1) Abdominal pain Status: Acute (2) Carcinomatosis Status: Acute Current Medications Current Medications Current Medications Albuterol/ Ipratropium (Duoneb) 3 ml 1X ONCE NEB Last administered on at 11:57; Start 04/22/18 at 12:00; Stop 04/22/18 at 12:01; Status DC Iohexol (Omnipaque 300 Mg/ml) 75 ml 1X ONCE IV Last administered on 04/22/18at 13:19; Start 04/22/18 at 12:45; Stop 04/22/18 at 12:46; Status DC Info (CONTRAST GIVEN -- Rx MONITORING) 1 each PRN DAILY PRN MC SEE COMMENTS; Start 04/22/18 at 12:45; Stop 04/24/18 at 12:44 Ondansetron HCl (Zofran) 4 mg PRN Q8HRS PRN IV NAUSEA/VOMITING; Start 04/22/18 at 15:15; Stop 04/23/18 at 15:14 Active Scripts Active Reported Lidocaine-Prilocaine Cream (Lidocaine/Prilocaine) 30 Gm Cream..g. Gabapentin 300 Mg Capsule 300 Mg PO PRN DAILY PRN Prednisone (Prednisone) 10 Mg Tablet 10 Mg PO PRN DAILY PRN Eliquis (Apixaban) 5 Mg Tablet 5 Mg PO DAILY Omeprazole 40 Mg Capsule.dr 1 Cap PO DAILY Albuterol Sulfate Neb Soln (Albuterol Sulfate) 2.5 Mg/3 Ml Vial.neb 0.5 Vial NEB PRN Q4HRS PRN Proventil Hfa Inhaler (Albuterol Sulfate) 6.7 Gm Hfa.aer.ad 1-2 Puff IH PRN Q4HRS PRN Advair 250-50 Diskus (Fluticasone/Salmeterol) 1 Each Disk.w.dev 1 Puff IH BID Allergies Allergies: Coded Allergies: meperidine (Verified Adverse Reaction, Intermediate, Nausea and Vomiting, 07/12/17) ROS Review of System Review of Systems Review of Systems Constitutional: Denies fever or chills [] Eyes: Denies change in visual acuity, redness, or eye pain [] HENT: Denies nasal congestion or sore throat [] Respiratory: Denies cough. Patient admits to wheezing and mild shortness of breath [] Cardiovascular: The patient denies any chest pain, palpitations, or orthopnea[] GI: Denies nausea, vomiting, bloody stools or diarrhea [] : Denies dysuria or hematuria [] Musculoskeletal: Denies back pain or joint pain [] Integument: Denies rash or skin lesions [] Neurologic: Denies headache, focal weakness or sensory changes [] Endocrine: Denies polyuria or polydipsia [] 14 PT systems were reviewed and found to be within normal limits, except as documented . ALLERGY AND IMMUNOLOGY: No: Hives, Insect Bite Sensitivity, Itchy/Watery Eyes, Nasal Congestion, Post Nasal Drip, Seasonal Allergies, Other Gastrointestinal: Yes Abdominal Pain Physical Exam Physical Exam Physical Exam Physical Exam PHYSICAL EXAM: CONSTITUTIONAL: Well developed, well nourished HEAD: normocephalic, atraumatic EENT: PERRL, EOMI. Conjunctivae normal color, sclerae non-icteric; moist mucous membranes. NECK: Supple, non-tender; no meningismus. LUNGS: There are diffuse wheezes in all lung lau,breathing even and unlabored. Normal air movement. HEART: Regular rate and rhythm, no murmur CHEST: No deformity; non-tender ABDOMEN:Normal bowel sounds are present. There is questionable mild abdominal distention, with some diffuse firmness to the abdomen, without definite focal tenderness, rebound, or guarding. no masses or bruits. EXTREM: Normal ROM; no deformity, no calf tenderness. Normal pulses palpable in all extremities. There is no pedal edema. SKIN: No rash; no diaphoresis NEURO: Alert; normal speech and cognition; CN's grossly intact; strength grossly intact without focal deficit. BACK: No CVA TTP. Lungs: Normal air movement Heart: S1S2 Rectal Exam: not examined Neuro: Normal speech, Cranial nerves 3-12 NL Vitals Vitals Vital Signs Date Time Temp Pulse Resp B/P (MAP) Pulse Ox O2 Delivery O2 Flow Rate FiO2 04/22/18 14:32 97 16 104/54 (71) 97 Room Air 04/22/18 11:40 98.2 98.2 Labs Labs Laboratory Tests Test 04/22/18 12:25 04/22/18 13:20 White Blood Count 4.7 x10^3/uL (4.0-11.0) Red Blood Count 4.25 x10^6/uL (3.50-5.40) Hemoglobin 12.7 g/dL (12.0-15.5) Hematocrit 38.0 % (36.0-47.0) Mean Corpuscular Volume 90 fL (79-100) Mean Corpuscular Hemoglobin 30 pg (25-35) Mean Corpuscular Hemoglobin Concent 33 g/dL (31-37) Red Cell Distribution Width 15.0 % (11.5-14.5) Platelet Count 134 x10^3/uL (140-400) Neutrophils (%) (Auto) 67 % (31-73) Lymphocytes (%) (Auto) 25 % (24-48) Monocytes (%) (Auto) 4 % (0-9) Eosinophils (%) (Auto) 4 % (0-3) Basophils (%) (Auto) 0 % (0-3) Neutrophils # (Auto) 3.1 x10^3uL (1.8-7.7) Lymphocytes # (Auto) 1.1 x10^3/uL (1.0-4.8) Monocytes # (Auto) 0.2 x10^3/uL (0.0-1.1) Eosinophils # (Auto) 0.2 x10^3/uL (0.0-0.7) Basophils # (Auto) 0.0 x10^3/uL (0.0-0.2) Prothrombin Time 14.7 SEC (11.7-14.0) Prothromb Time International Ratio 1.2 (0.8-1.1) Activated Partial Thromboplast Time 37 SEC (24-38) Sodium Level 143 mmol/L (136-145) Potassium Level 4.1 mmol/L (3.5-5.1) Chloride Level 108 mmol/L (98-107) Carbon Dioxide Level 28 mmol/L (21-32) Anion Gap 7 (6-14) Blood Urea Nitrogen 24 mg/dL (7-20) Creatinine 0.6 mg/dL (0.6-1.0) Estimated GFR (Cockcroft-Gault) 102.0 BUN/Creatinine Ratio 40 (6-20) Glucose Level 129 mg/dL (70-99) Calcium Level 8.7 mg/dL (8.5-10.1) Magnesium Level 1.9 mg/dL (1.8-2.4) Total Bilirubin 0.7 mg/dL (0.2-1.0) Aspartate Amino Transf (AST/SGOT) 27 U/L (15-37) Alanine Aminotransferase (ALT/SGPT) 40 U/L (14-59) Alkaline Phosphatase 78 U/L (46-116) Troponin I Quantitative < 0.017 ng/mL (0.000-0.055) VP-Hth-S-Type Natriuretic Peptide 80 pg/mL (0-124) Total Protein 5.8 g/dL (6.4-8.2) Albumin 3.4 g/dL (3.4-5.0) Albumin/Globulin Ratio 1.4 (1.0-1.7) Lipase 171 U/L (73-393) Urine Collection Type Unknown Urine Color Yellow Urine Clarity Cloudy Urine pH 6.0 Urine Specific [place] 1.010 Urine Protein Negative mg/dL (NEG-TRACE) Urine Glucose (UA) Negative mg/dL (NEG) Urine Ketones (Stick) Negative mg/dL (NEG) Urine Blood Negative (NEG) Urine Nitrite Negative (NEG) Urine Bilirubin Negative (NEG) Urine Urobilinogen Dipstick 1.0 mg/dL (0.2 mg/dL) Urine Leukocyte Esterase Small (NEG) Urine RBC 0 /HPF (0-2) Urine WBC Occ /HPF (0-4) Urine Squamous Epithelial Cells Occ /LPF Urine Bacteria 0 /HPF (0-FEW) Laboratory Tests Test 04/22/18 12:25 04/22/18 13:20 White Blood Count 4.7 x10^3/uL (4.0-11.0) Red Blood Count 4.25 x10^6/uL (3.50-5.40) Hemoglobin 12.7 g/dL (12.0-15.5) Hematocrit 38.0 % (36.0-47.0) Mean Corpuscular Volume 90 fL (79-100) Mean Corpuscular Hemoglobin 30 pg (25-35) Mean Corpuscular Hemoglobin Concent 33 g/dL (31-37) Red Cell Distribution Width 15.0 % (11.5-14.5) Platelet Count 134 x10^3/uL (140-400) Neutrophils (%) (Auto) 67 % (31-73) Lymphocytes (%) (Auto) 25 % (24-48) Monocytes (%) (Auto) 4 % (0-9) Eosinophils (%) (Auto) 4 % (0-3) Basophils (%) (Auto) 0 % (0-3) Neutrophils # (Auto) 3.1 x10^3uL (1.8-7.7) Lymphocytes # (Auto) 1.1 x10^3/uL (1.0-4.8) Monocytes # (Auto) 0.2 x10^3/uL (0.0-1.1) Eosinophils # (Auto) 0.2 x10^3/uL (0.0-0.7) Basophils # (Auto) 0.0 x10^3/uL (0.0-0.2) Prothrombin Time 14.7 SEC (11.7-14.0) Prothromb Time International Ratio 1.2 (0.8-1.1) Activated Partial Thromboplast Time 37 SEC (24-38) Sodium Level 143 mmol/L (136-145) Potassium Level 4.1 mmol/L (3.5-5.1) Chloride Level 108 mmol/L (98-107) Carbon Dioxide Level 28 mmol/L (21-32) Anion Gap 7 (6-14) Blood Urea Nitrogen 24 mg/dL (7-20) Creatinine 0.6 mg/dL (0.6-1.0) Estimated GFR (Cockcroft-Gault) 102.0 BUN/Creatinine Ratio 40 (6-20) Glucose Level 129 mg/dL (70-99) Calcium Level 8.7 mg/dL (8.5-10.1) Magnesium Level 1.9 mg/dL (1.8-2.4) Total Bilirubin 0.7 mg/dL (0.2-1.0) Aspartate Amino Transf (AST/SGOT) 27 U/L (15-37) Alanine Aminotransferase (ALT/SGPT) 40 U/L (14-59) Alkaline Phosphatase 78 U/L (46-116) Troponin I Quantitative < 0.017 ng/mL (0.000-0.055) CU-Img-L-Type Natriuretic Peptide 80 pg/mL (0-124) Total Protein 5.8 g/dL (6.4-8.2) Albumin 3.4 g/dL (3.4-5.0) Albumin/Globulin Ratio 1.4 (1.0-1.7) Lipase 171 U/L (73-393) Urine Collection Type Unknown Urine Color Yellow Urine Clarity Cloudy Urine pH 6.0 Urine Specific [place] 1.010 Urine Protein Negative mg/dL (NEG-TRACE) Urine Glucose (UA) Negative mg/dL (NEG) Urine Ketones (Stick) Negative mg/dL (NEG) Urine Blood Negative (NEG) Urine Nitrite Negative (NEG) Urine Bilirubin Negative (NEG) Urine Urobilinogen Dipstick 1.0 mg/dL (0.2 mg/dL) Urine Leukocyte Esterase Small (NEG) Urine RBC 0 /HPF (0-2) Urine WBC Occ /HPF (0-4) Urine Squamous Epithelial Cells Occ /LPF Urine Bacteria 0 /HPF (0-FEW) Images Images CLINICAL HISTORY: abdominal fullness, h/o carcinomatosis. no previous
IV OMNI 300 75 MLS COMPARISON: 11/14/2017, 09/30/2017, 10/01/2016 TECHNIQUE: CT of the abdomen and pelvis following the administration of oral and 75 mL of Omnipaque 300 intravenous contrast material. Axial, coronal and sagittal reformatted images were generated. FINDINGS: Lung bases are clear. Small hiatal hernia. Hypodense left hepatic lobe lesion is too small to characterize. Small volume ascites is seen about the right hepatic lobe. Gallbladder is unremarkable. No intra or extrahepatic biliary ductal dilatation. Spleen and pancreas are unremarkable. Adrenal glands are normal. Symmetric nephrograms. No focal renal lesion. No hydronephrosis. No abnormal small or large bowel dilatation to suggest bowel obstruction. Moderate colonic stool content. The appendix is mildly thickened, peripherally enhancing with associated fascial thickening although the degree of fat infiltration about the appendix has decreased. No there is been a hysterectomy. Pelvic ascites. No definite mesenteric retroperitoneal or upper abdominal lymphadenopathy. No definite mesenteric or omental mass is convincingly identified. Bladder is unremarkable. No definite pelvic ascites. Diffusely decreased bone mineral density. Leftward curvature of the lumbar spine apex L2. Diffuse punctate calcification within the osseous structures may represent osteopoikilosis or treatment response to metastatic disease. However this is unchanged to at least 10/01/2016. IMPRESSION: 1. No abdominal or pelvic lymphadenopathy. 2. Trace ascites about the liver. 3. No evidence for bowel obstruction. 4. Thickening of the appendix is stable to 11/14/2017 although degree of associated inflammatory change has decreased. 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 . Abdominal pain. CONSULT GEN SURGERY . Bone metastasis. PLAN ADMITTED ONCOLOGY CONSULT SURG CONSULT SAPNA MARR MD Apr 22, 2018 17:15
[2018-04-22] MEDS ORDERED: predniSONE 10 MG TABLET PO PRN (17:30)
[2018-04-22] MEDS ORDERED: LIDOCAINE/PRILOCAINE TOPICAL CREAM 5GM TUBE. TP PRN (17:30)
[2018-04-22] MEDS ORDERED: ALBUTEROL SULFATE 2.5 MG/3 ML NEBU. NEB PRN (17:30)
[2018-04-22] MEDS ORDERED: ALBUTEROL SULFATE IH PRN (17:30)
[2018-04-22] MEDS: ALBUTEROL SULFATE 2.5 MG/3 ML NEBU. NEB SCH (17:59)
[2018-04-22] MEDS: BUDESONIDE 0.5 MG/2 ML NEBU. NEB SCH (17:59)
[2018-04-22 19:00] VITALS: BP 112/62
[2018-04-22] MEDS: APIXABAN 5 MG TABLET. PO SCH (20:48)
[2018-04-22] MEDS ORDERED: NON FORMULARY ITEM (Fluticasone/Salmeterol (Advair 250-50 Diskus) 1 PUFF) IH SCH (21:00)
[2018-04-22] MEDS ORDERED: GABAPENTIN 300 MG CAPSULE. PO PRN (21:00)
[2018-04-22 23:00] VITALS: BP 98/61
[2018-04-23 03:00] VITALS: BP 120/68
--- NOTE | 2018-04-23 04:58 | CONS ---
DATE OF CONSULTATION: 04/22/2018 MEDICAL ONCOLOGY CONSULTATION REQUESTING PHYSICIAN: Dr. Ilia Sue. REASON FOR CONSULTATION: Breast cancer, on chemotherapy, now admitted with abdominal pain. HISTORY OF PRESENT ILLNESS: The patient is a 62-year-old female who has a history of breast cancer diagnosed in 2004 when she underwent right mastectomy. It was staged as T2N1M0, stage IIB breast cancer that was ER positive, HER2/lakeisha negative. She received adjuvant chemotherapy with Adriamycin and Cytoxan followed by Taxol followed by Arimidex for 5 years. She noticed sudden onset of abdominal discomfort and abdominal distention on 08/07/2015. She underwent paracentesis on 08/10/2015 that revealed 5 liters of yellow fluid. CT scan on 08/10/2015 revealed large volume ascites and small peritoneal soft tissue density in the pelvis measuring 2.4 cm. She underwent diagnostic laparoscopy, salpingo-oophorectomy on the left side and cystoscopy on 08/31/2015, and the pathology revealed metastatic mammary carcinoma involving the fallopian tube and the ovary. Further staining that was done was consistent with invasive lobular carcinoma. She was initially treated with chemotherapy with Xeloda. She then developed worsening ascites and hence, Abraxane was initiated on 10/05/2016. She has responded well. Her most recent chemotherapy was on 04/17/2018. She was admitted to [facility] on 11/14/[address] scan revealed inflammatory changes in the appendiceal area; however, this was not thought to be due to appendicitis, but rather from peritoneal metastatic disease and hence, surgery was not recommended. The patient called on 04/21/2018 complaining of abdominal pain and abdominal distention. She did not have any nausea or vomiting. No fever or chills. She was sent to the Emergency Room on 04/22/[address] scan of the abdomen and pelvis was performed with oral and IV contrast. There was trace ascites above the liver. No bowel obstruction. Degree of inflammatory change around the appendix was stable when compared to the exam from 11/14/2017 and the inflammatory change has decreased. I was asked to see the patient for further management of breast cancer. PAST MEDICAL HISTORY: Back pain, breast cancer, bone metastasis, spina bifida, mild cerebral palsy. PAST SURGICAL HISTORY: Hysterectomy with right oophorectomy. SOCIAL HISTORY: Never smoker. FAMILY HISTORY: Both parents had lung cancer. REVIEW OF SYSTEMS: A 12-point review of system was performed. Pertinent positives are mentioned in the history of present illness. Rest of the system review is negative. PHYSICAL EXAMINATION: GENERAL APPEARANCE: The patient is a 62-year-old female who is in no acute cardiorespiratory distress. VITAL SIGNS: Blood pressure 104/54, temperature 98.2. HEENT: Head atraumatic, normocephalic. Eyes: No icterus. NECK: Supple. CHEST: Bilaterally symmetrical. HEART: S1, S2 normal. ABDOMEN: Soft, mild tenderness to deep palpation in the right upper quadrant and right lower quadrant. CENTRAL NERVOUS SYSTEM: No focal deficits. LYMPHATICS: No lymphadenopathy. SKIN: No rashes. PSYCHOLOGIC: Mood and affect are appropriate. MUSCULOSKELETAL: No joint effusions. LABORATORY DATA: WBC 4.7, hemoglobin 12.7, platelet count 134. Creatinine 0.6, calcium 8.7. IMPRESSION AND PLAN: 1. 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 She was diagnosed with stage IV malignancy on 08/31/2015. ER positive 100%, TN negative, HER2/lakeisha negative. She was previously treated with Xeloda from 10/06/2015 and subsequently changed to Abraxane on 10/05/2016 in view of disease progression. She is tolerating the Abraxane quite well and she has had a good response to treatment. Her most recent chemotherapy was on 04/17/2018. CT scan of the abdomen and pelvis on 04/22/2018 does not reveal any evidence of disease progression. Hence, I have advised her to return for followup next week for continuation of chemotherapy. I will cancel chemotherapy for this week in view of her current hospitalization and abdominal discomfort. 2. Bone metastasis. She is on Xgeva once a month. 3. Abdominal pain. No clear etiology noted per CT scan of the abdomen and pelvis on 04/22/2018. I will consult Gastroenterology for an opinion. 4. Ascites. She does not have any significant ascites at this time. She has trace ascites around the liver. She has responded well to chemotherapy. MINNA THORPE MD DR: ROXIE/jong JOB#: [id number] / [id number] MTDD
[2018-04-23] MEDS: BUDESONIDE 0.5 MG/2 ML NEBU. NEB SCH ×2 (06:21→20:10)
[2018-04-23] MEDS: ALBUTEROL SULFATE 2.5 MG/3 ML NEBU. NEB SCH ×4 (06:21→20:10)
[2018-04-23 07:00] VITALS: BP 109/71
[2018-04-23] MEDS: PANTOPRAZOLE 40 MG TABLET.DR. PO SCH (07:30)
[2018-04-23] MEDS ORDERED: ONDANSETRON PF 4 MG/2 ML VIAL. IV PRN (09:00)
[2018-04-23] MEDS ORDERED: oxyCODONE/APAP 5/325 1 TAB TABLET PO PRN (09:00)
[2018-04-23] MEDS: APIXABAN 5 MG TABLET. PO SCH ×2 (09:00→20:55)
[2018-04-23] MEDS ORDERED: SIMETHICONE 80 MG TAB.CHEW PO PRN (09:00)
[2018-04-23] MEDS ORDERED: MORPHINE SULFATE 2 MG/ML VIAL. IV PRN (09:00)
--- NOTE | 2018-04-23 09:29 | PDOC2 ---
GI CONSULT Reason For Consult: Abd pain HPI: HPI: 62 y/o female, unfortunately w/ stage IV breast cancer w/ peritoneal carcinomatosis, ascites, and bone mets on chemo (next treatment planned for tomorrow). In the past has had some LQ/pelvic pain thought to possibly related to peritoneal disease. On this occasion, has felt bloated w/ some RLQ discomfort since Saturday. Denies n/v, reflux/heartburn, dysphagia, constipation , diarrhea, hematochezia, melena, or change in appetite. Last BM was normal on Saturday. On Eliquis and prednisone, also omeprazole QD. Says normal colonoscopy ~10 years ago. Question on appendicitis in 11/2017 but ultimately thought related to peritoneal metastatic disease, no surgery recommended. PMH: PMH: , hysterectomy, BSO, right mastectomy, laparoscopy, paracentesis, bronchoscopy, Port-A-Cath FH: Family History: Cancer (breast, ovarian) Social History: Smoke: No ALCOHOL: none Drugs: None ROS: GEN: Denies fevers, chills, sweats HEENT: Denies blurred vision, sore throat CV: Denies chest pain RESP: +asthma GI: Per HPI : Denies hematuria, dysuria ENDO: +weight loss NEURO: Denies confusion, dizziness MSK: Denies weakness, joint pain/swelling SKIN: Denies jaundice, pruritus Vitals: Vitals: Vital Signs Date Time Temp Pulse Resp B/P (MAP) Pulse Ox O2 Delivery O2 Flow Rate FiO2 04/23/18 07:00 98.4 92 18 109/71 (84) 95 Room Air 98.4 Labs: Labs: Laboratory Tests Test 04/22/18 12:25 04/22/18 13:20 White Blood Count 4.7 x10^3/uL (4.0-11.0) Red Blood Count 4.25 x10^6/uL (3.50-5.40) Hemoglobin 12.7 g/dL (12.0-15.5) Hematocrit 38.0 % (36.0-47.0) Mean Corpuscular Volume 90 fL (79-100) Mean Corpuscular Hemoglobin 30 pg (25-35) Mean Corpuscular Hemoglobin Concent 33 g/dL (31-37) Red Cell Distribution Width 15.0 % (11.5-14.5) Platelet Count 134 x10^3/uL (140-400) Neutrophils (%) (Auto) 67 % (31-73) Lymphocytes (%) (Auto) 25 % (24-48) Monocytes (%) (Auto) 4 % (0-9) Eosinophils (%) (Auto) 4 % (0-3) Basophils (%) (Auto) 0 % (0-3) Neutrophils # (Auto) 3.1 x10^3uL (1.8-7.7) Lymphocytes # (Auto) 1.1 x10^3/uL (1.0-4.8) Monocytes # (Auto) 0.2 x10^3/uL (0.0-1.1) Eosinophils # (Auto) 0.2 x10^3/uL (0.0-0.7) Basophils # (Auto) 0.0 x10^3/uL (0.0-0.2) Prothrombin Time 14.7 SEC (11.7-14.0) Prothromb Time International Ratio 1.2 (0.8-1.1) Activated Partial Thromboplast Time 37 SEC (24-38) Sodium Level 143 mmol/L (136-145) Potassium Level 4.1 mmol/L (3.5-5.1) Chloride Level 108 mmol/L (98-107) Carbon Dioxide Level 28 mmol/L (21-32) Anion Gap 7 (6-14) Blood Urea Nitrogen 24 mg/dL (7-20) Creatinine 0.6 mg/dL (0.6-1.0) Estimated GFR (Cockcroft-Gault) 102.0 BUN/Creatinine Ratio 40 (6-20) Glucose Level 129 mg/dL (70-99) Calcium Level 8.7 mg/dL (8.5-10.1) Magnesium Level 1.9 mg/dL (1.8-2.4) Total Bilirubin 0.7 mg/dL (0.2-1.0) Aspartate Amino Transf (AST/SGOT) 27 U/L (15-37) Alanine Aminotransferase (ALT/SGPT) 40 U/L (14-59) Alkaline Phosphatase 78 U/L (46-116) Troponin I Quantitative < 0.017 ng/mL (0.000-0.055) NL-Ulm-C-Type Natriuretic Peptide 80 pg/mL (0-124) Total Protein 5.8 g/dL (6.4-8.2) Albumin 3.4 g/dL (3.4-5.0) Albumin/Globulin Ratio 1.4 (1.0-1.7) Lipase 171 U/L (73-393) Urine Collection Type Unknown Urine Color Yellow Urine Clarity Cloudy Urine pH 6.0 Urine Specific [place] 1.010 Urine Protein Negative mg/dL (NEG-TRACE) Urine Glucose (UA) Negative mg/dL (NEG) Urine Ketones (Stick) Negative mg/dL (NEG) Urine Blood Negative (NEG) Urine Nitrite Negative (NEG) Urine Bilirubin Negative (NEG) Urine Urobilinogen Dipstick 1.0 mg/dL (0.2 mg/dL) Urine Leukocyte Esterase Small (NEG) Urine RBC 0 /HPF (0-2) Urine WBC Occ /HPF (0-4) Urine Squamous Epithelial Cells Occ /LPF Urine Bacteria 0 /HPF (0-FEW) Allergies: Coded Allergies: meperidine (Verified Adverse Reaction, Intermediate, Nausea and Vomiting, 07/12/17) Medications: Current Medications Medications (Trade) Dose Ordered Sig/Iggy Route PRN Reason Start Time Stop Time Status Last Admin Dose Admin Albuterol/ Ipratropium (Duoneb) 3 ml 1X ONCE NEB 04/22/18 12:00 04/22/18 12:01 DC 04/22/18 11:57 Iohexol (Omnipaque 300 Mg/ml) 75 ml 1X ONCE IV 04/22/18 12:45 04/22/18 12:46 DC 04/22/18 13:19 Apixaban (Eliquis) 5 mg BID PO 04/22/18 21:00 04/22/18 20:48 Budesonide (Pulmicort) 0.5 mg RTBID NEB 04/22/18 20:00 04/23/18 06:21 Albuterol Sulfate (Ventolin Neb Soln) 2.5 mg RTQID NEB 04/22/18 20:00 04/23/18 06:21 Imaging: Imaging: CT A/P IMPRESSION: 1. No abdominal or pelvic lymphadenopathy. 2. Trace ascites about the liver. 3. No evidence for bowel obstruction. 4. Thickening of the appendix is stable to 11/14/2017 although degree of associated inflammatory change has decreased. CXR IMPRESSION: No radiographic evidence of an acute cardiopulmonary process. PE: GEN: NAD HEENT: Atraumatic, PERRL LUNGS: CTAB anteriorly - just had breathing treatment HEART: RRR, left port ABD: BS+, some distention, RLQ discomfort EXTREMITY: No edema SKIN: No rashes, no jaundice NEURO/PSYCH: A & O 3 A/P: A/P: Stage IV breast cancer w/ peritoneal carcinomatosis, ascites, bone mets - on chemo Abd bloating/distention, RLQ discomfort Abnormal CT - stable thickening of appendix, decreased inflammation CRC screen - normal ~10 years ago -- Bloating/discomfort likely related to peritoneal disease, no further GI evaluation planned. Supportive care, continue per oncology. Would she benefit from palliative care discussion? RAYSA GALVAN Apr 23, 2018 09:28
--- NOTE | 2018-04-23 10:40 | PDOC ---
PROGRESS NOTES Chief Complaint Chief Complaint 1. 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 She was diagnosed with stage IV malignancy on 08/31/2015. ER positive 100%, [place] negative, HER2/lakeisha negative. . CT scan of the abdomen and pelvis on 04/22/2018 does not reveal any evidence of disease progression. 2. Bone metastasis. She is on Xgeva once a month. 3. Abdominal pain. No clear etiology 4. Ascites. She does not have any significant ascites at this time. History of Present Illness History of Present Illness Comfortable, abdomen soft, no emesis, bowels are moving Very thorough and informative note of heme onc reviewed Has consulted GI So far etiology of abdominal pain is unclear currently Plan: Await GI Rounds Supportive meds Home meds have been reconciled Full code on chart AMbulate ad stephan with fall prec Vitals Vitals Vital Signs Date Time Temp Pulse Resp B/P (MAP) Pulse Ox O2 Delivery O2 Flow Rate FiO2 04/23/18 07:00 98.4 92 18 109/71 (84) 95 Room Air 98.4 Physical Exam General: Alert, Oriented X3, Cooperative, No acute distress Heart: Regular rate, No murmurs Lungs: Clear, Other Abdomen: Normal bowel sounds, Soft, No tenderness Extremities: No clubbing, No cyanosis, No edema, No tenderness/swelling Skin: No rashes, No breakdown, No significant lesion Labs LABS Laboratory Tests Test 04/22/18 12:25 04/22/18 13:20 White Blood Count 4.7 x10^3/uL (4.0-11.0) Red Blood Count 4.25 x10^6/uL (3.50-5.40) Hemoglobin 12.7 g/dL (12.0-15.5) Hematocrit 38.0 % (36.0-47.0) Mean Corpuscular Volume 90 fL (79-100) Mean Corpuscular Hemoglobin 30 pg (25-35) Mean Corpuscular Hemoglobin Concent 33 g/dL (31-37) Red Cell Distribution Width 15.0 % (11.5-14.5) Platelet Count 134 x10^3/uL (140-400) Neutrophils (%) (Auto) 67 % (31-73) Lymphocytes (%) (Auto) 25 % (24-48) Monocytes (%) (Auto) 4 % (0-9) Eosinophils (%) (Auto) 4 % (0-3) Basophils (%) (Auto) 0 % (0-3) Neutrophils # (Auto) 3.1 x10^3uL (1.8-7.7) Lymphocytes # (Auto) 1.1 x10^3/uL (1.0-4.8) Monocytes # (Auto) 0.2 x10^3/uL (0.0-1.1) Eosinophils # (Auto) 0.2 x10^3/uL (0.0-0.7) Basophils # (Auto) 0.0 x10^3/uL (0.0-0.2) Prothrombin Time 14.7 SEC (11.7-14.0) Prothromb Time International Ratio 1.2 (0.8-1.1) Activated Partial Thromboplast Time 37 SEC (24-38) Sodium Level 143 mmol/L (136-145) Potassium Level 4.1 mmol/L (3.5-5.1) Chloride Level 108 mmol/L (98-107) Carbon Dioxide Level 28 mmol/L (21-32) Anion Gap 7 (6-14) Blood Urea Nitrogen 24 mg/dL (7-20) Creatinine 0.6 mg/dL (0.6-1.0) Estimated GFR (Cockcroft-Gault) 102.0 BUN/Creatinine Ratio 40 (6-20) Glucose Level 129 mg/dL (70-99) Calcium Level 8.7 mg/dL (8.5-10.1) Magnesium Level 1.9 mg/dL (1.8-2.4) Total Bilirubin 0.7 mg/dL (0.2-1.0) Aspartate Amino Transf (AST/SGOT) 27 U/L (15-37) Alanine Aminotransferase (ALT/SGPT) 40 U/L (14-59) Alkaline Phosphatase 78 U/L (46-116) Troponin I Quantitative < 0.017 ng/mL (0.000-0.055) HO-Kae-R-Type Natriuretic Peptide 80 pg/mL (0-124) Total Protein 5.8 g/dL (6.4-8.2) Albumin 3.4 g/dL (3.4-5.0) Albumin/Globulin Ratio 1.4 (1.0-1.7) Lipase 171 U/L (73-393) Urine Collection Type Unknown Urine Color Yellow Urine Clarity Cloudy Urine pH 6.0 Urine Specific [place] 1.010 Urine Protein Negative mg/dL (NEG-TRACE) Urine Glucose (UA) Negative mg/dL (NEG) Urine Ketones (Stick) Negative mg/dL (NEG) Urine Blood Negative (NEG) Urine Nitrite Negative (NEG) Urine Bilirubin Negative (NEG) Urine Urobilinogen Dipstick 1.0 mg/dL (0.2 mg/dL) Urine Leukocyte Esterase Small (NEG) Urine RBC 0 /HPF (0-2) Urine WBC Occ /HPF (0-4) Urine Squamous Epithelial Cells Occ /LPF Urine Bacteria 0 /HPF (0-FEW) Review of Systems Review of Systems A 14 point ROS was completed with the following noted as positive: Other systems reviewed and negative. \CONSTITUTIONAL: No fever or chills EYES: No recent changes SKIN: No rash or itching CARDIOVASCULAR: No chest pain, syncope, palpitations, or edema RESPIRATORY: No SOB or cough GASTROINTESTINAL: No nausea, vomiting or abdominal pain NEUROLOGICAL: No headaches or weakness ENDOCRINE: No cold or heat intolerance GENITOURINARY: No urgency or frequency of urination MUSCULOSKELETAL: No back pain or joint pain LYMPHATICS: No enlarged lymph nodes PSYCHIATRIC: No anxiety or depression Assessment and Plan Assessmemt and Plan Problems Medical Problems: (1) Abdominal pain Status: Acute (2) Carcinomatosis Status: Acute Comment Review of Relevant I have reviewed the following items nba (where applicable) has been applied. Labs Laboratory Tests Test 04/22/18 12:25 04/22/18 13:20 White Blood Count 4.7 x10^3/uL (4.0-11.0) Red Blood Count 4.25 x10^6/uL (3.50-5.40) Hemoglobin 12.7 g/dL (12.0-15.5) Hematocrit 38.0 % (36.0-47.0) Mean Corpuscular Volume 90 fL (79-100) Mean Corpuscular Hemoglobin 30 pg (25-35) Mean Corpuscular Hemoglobin Concent 33 g/dL (31-37) Red Cell Distribution Width 15.0 % (11.5-14.5) Platelet Count 134 x10^3/uL (140-400) Neutrophils (%) (Auto) 67 % (31-73) Lymphocytes (%) (Auto) 25 % (24-48) Monocytes (%) (Auto) 4 % (0-9) Eosinophils (%) (Auto) 4 % (0-3) Basophils (%) (Auto) 0 % (0-3) Neutrophils # (Auto) 3.1 x10^3uL (1.8-7.7) Lymphocytes # (Auto) 1.1 x10^3/uL (1.0-4.8) Monocytes # (Auto) 0.2 x10^3/uL (0.0-1.1) Eosinophils # (Auto) 0.2 x10^3/uL (0.0-0.7) Basophils # (Auto) 0.0 x10^3/uL (0.0-0.2) Prothrombin Time 14.7 SEC (11.7-14.0) Prothromb Time International Ratio 1.2 (0.8-1.1) Activated Partial Thromboplast Time 37 SEC (24-38) Sodium Level 143 mmol/L (136-145) Potassium Level 4.1 mmol/L (3.5-5.1) Chloride Level 108 mmol/L (98-107) Carbon Dioxide Level 28 mmol/L (21-32) Anion Gap 7 (6-14) Blood Urea Nitrogen 24 mg/dL (7-20) Creatinine 0.6 mg/dL (0.6-1.0) Estimated GFR (Cockcroft-Gault) 102.0 BUN/Creatinine Ratio 40 (6-20) Glucose Level 129 mg/dL (70-99) Calcium Level 8.7 mg/dL (8.5-10.1) Magnesium Level 1.9 mg/dL (1.8-2.4) Total Bilirubin 0.7 mg/dL (0.2-1.0) Aspartate Amino Transf (AST/SGOT) 27 U/L (15-37) Alanine Aminotransferase (ALT/SGPT) 40 U/L (14-59) Alkaline Phosphatase 78 U/L (46-116) Troponin I Quantitative < 0.017 ng/mL (0.000-0.055) GP-Dmf-R-Type Natriuretic Peptide 80 pg/mL (0-124) Total Protein 5.8 g/dL (6.4-8.2) Albumin 3.4 g/dL (3.4-5.0) Albumin/Globulin Ratio 1.4 (1.0-1.7) Lipase 171 U/L (73-393) Urine Collection Type Unknown Urine Color Yellow Urine Clarity Cloudy Urine pH 6.0 Urine Specific [place] 1.010 Urine Protein Negative mg/dL (NEG-TRACE) Urine Glucose (UA) Negative mg/dL (NEG) Urine Ketones (Stick) Negative mg/dL (NEG) Urine Blood Negative (NEG) Urine Nitrite Negative (NEG) Urine Bilirubin Negative (NEG) Urine Urobilinogen Dipstick 1.0 mg/dL (0.2 mg/dL) Urine Leukocyte Esterase Small (NEG) Urine RBC 0 /HPF (0-2) Urine WBC Occ /HPF (0-4) Urine Squamous Epithelial Cells Occ /LPF Urine Bacteria 0 /HPF (0-FEW) Laboratory Tests Test 04/22/18 12:25 04/22/18 13:20 White Blood Count 4.7 x10^3/uL (4.0-11.0) Red Blood Count 4.25 x10^6/uL (3.50-5.40) Hemoglobin 12.7 g/dL (12.0-15.5) Hematocrit 38.0 % (36.0-47.0) Mean Corpuscular Volume 90 fL (79-100) Mean Corpuscular Hemoglobin 30 pg (25-35) Mean Corpuscular Hemoglobin Concent 33 g/dL (31-37) Red Cell Distribution Width 15.0 % (11.5-14.5) Platelet Count 134 x10^3/uL (140-400) Neutrophils (%) (Auto) 67 % (31-73) Lymphocytes (%) (Auto) 25 % (24-48) Monocytes (%) (Auto) 4 % (0-9) Eosinophils (%) (Auto) 4 % (0-3) Basophils (%) (Auto) 0 % (0-3) Neutrophils # (Auto) 3.1 x10^3uL (1.8-7.7) Lymphocytes # (Auto) 1.1 x10^3/uL (1.0-4.8) Monocytes # (Auto) 0.2 x10^3/uL (0.0-1.1) Eosinophils # (Auto) 0.2 x10^3/uL (0.0-0.7) Basophils # (Auto) 0.0 x10^3/uL (0.0-0.2) Prothrombin Time 14.7 SEC (11.7-14.0) Prothromb Time International Ratio 1.2 (0.8-1.1) Activated Partial Thromboplast Time 37 SEC (24-38) Sodium Level 143 mmol/L (136-145) Potassium Level 4.1 mmol/L (3.5-5.1) Chloride Level 108 mmol/L (98-107) Carbon Dioxide Level 28 mmol/L (21-32) Anion Gap 7 (6-14) Blood Urea Nitrogen 24 mg/dL (7-20) Creatinine 0.6 mg/dL (0.6-1.0) Estimated GFR (Cockcroft-Gault) 102.0 BUN/Creatinine Ratio 40 (6-20) Glucose Level 129 mg/dL (70-99) Calcium Level 8.7 mg/dL (8.5-10.1) Magnesium Level 1.9 mg/dL (1.8-2.4) Total Bilirubin 0.7 mg/dL (0.2-1.0) Aspartate Amino Transf (AST/SGOT) 27 U/L (15-37) Alanine Aminotransferase (ALT/SGPT) 40 U/L (14-59) Alkaline Phosphatase 78 U/L (46-116) Troponin I Quantitative < 0.017 ng/mL (0.000-0.055) TF-Ilf-N-Type Natriuretic Peptide 80 pg/mL (0-124) Total Protein 5.8 g/dL (6.4-8.2) Albumin 3.4 g/dL (3.4-5.0) Albumin/Globulin Ratio 1.4 (1.0-1.7) Lipase 171 U/L (73-393) Urine Collection Type Unknown Urine Color Yellow Urine Clarity Cloudy Urine pH 6.0 Urine Specific [place] 1.010 Urine Protein Negative mg/dL (NEG-TRACE) Urine Glucose (UA) Negative mg/dL (NEG) Urine Ketones (Stick) Negative mg/dL (NEG) Urine Blood Negative (NEG) Urine Nitrite Negative (NEG) Urine Bilirubin Negative (NEG) Urine Urobilinogen Dipstick 1.0 mg/dL (0.2 mg/dL) Urine Leukocyte Esterase Small (NEG) Urine RBC 0 /HPF (0-2) Urine WBC Occ /HPF (0-4) Urine Squamous Epithelial Cells Occ /LPF Urine Bacteria 0 /HPF (0-FEW) Medications Current Medications Albuterol/ Ipratropium (Duoneb) 3 ml 1X ONCE NEB Last administered on at 11:57; Start 04/22/18 at 12:00; Stop 04/22/18 at 12:01; Status DC Iohexol (Omnipaque 300 Mg/ml) 75 ml 1X ONCE IV Last administered on 04/22/18at 13:19; Start 04/22/18 at 12:45; Stop 04/22/18 at 12:46; Status DC Info (CONTRAST GIVEN -- Rx MONITORING) 1 each PRN DAILY PRN MC SEE COMMENTS; Start 04/22/18 at 12:45; Stop 04/24/18 at 12:44 Ondansetron HCl (Zofran) 4 mg PRN Q8HRS PRN IV NAUSEA/VOMITING; Start 04/22/18 at 15:15; Stop 04/23/18 at 08:59; Status DC Albuterol Sulfate (Ventolin Neb Soln) 2.5 mg PRN Q4HRS PRN NEB SHORTNESS OF BREATH; Start 04/22/18 at 17:30 Apixaban (Eliquis) 5 mg BID PO Last administered on 04/22/18at 20:48; Start at 21:00 Lidocaine/ Prilocaine (Emla) 1 taz PRN Q3HRS PRN TP PAIN; Start 04/22/18 at 17: 30 Prednisone (Prednisone) 10 mg PRN DAILY PRN PO wheezing; Start 04/22/18 at 17: 30 Non-Formulary Medication (Albuterol Sulfate (Proventil Hfa Inhaler)) 2 PUFFS Q 4 HRS PRN SOB PRN Q4HRS PRN IH SHORTNESS OF BREATH; Start 04/22/18 at 17:30; Status UNV Non-Formulary Medication (Fluticasone/ Salmeterol (Advair 250-50 Diskus)) 1 puff BID IH ; Start 04/22/18 at 21:00; Status UNV Gabapentin (Neurontin) 300 mg PRN DAILY PRN PO NEUROPATHY; Start 04/22/18 at 21 :00 Pantoprazole Sodium (Protonix) 40 mg DAILYAC PO ; Start 04/23/18 at 07:30 Budesonide (Pulmicort) 0.5 mg RTBID NEB Last administered on 04/23/18at 06:21; Start 04/22/18 at 20:00 Albuterol Sulfate (Ventolin Neb Soln) 2.5 mg RTQID NEB Last administered on at 06:21; Start 04/22/18 at 20:00 Info (Anti-Coagulation Monitoring By Pharmacy) 1 each PRN DAILY PRN MC SEE COMMENTS; Start 04/22/18 at 17:45 Ondansetron HCl (Zofran) 4 mg PRN Q6HRS PRN IV NAUSEA/VOMITING; Start 04/23/18 at 09:00 Oxycodone/ Acetaminophen (Percocet 5/325) 1 tab PRN Q4HRS PRN PO PAIN; Start at 09:00 Simethicone (Gas-X) 80 mg PRN AFTMEALHC PRN PO GAS / BLOATING; Start 04/23/18 at 09:00 Morphine Sulfate (Morphine Sulfate) 2 mg PRN Q2HR PRN IV PAIN; Start 04/23/18 at 09:00 Active Scripts Active Reported Lidocaine-Prilocaine Cream (Lidocaine/Prilocaine) 30 Gm Cream..g. Gabapentin 300 Mg Capsule 300 Mg PO PRN DAILY PRN Prednisone (Prednisone) 10 Mg Tablet 10 Mg PO PRN DAILY PRN Eliquis (Apixaban) 5 Mg Tablet 5 Mg PO DAILY Omeprazole 40 Mg Capsule.dr 1 Cap PO DAILY Albuterol Sulfate Neb Soln (Albuterol Sulfate) 2.5 Mg/3 Ml Vial.neb 0.5 Vial NEB PRN Q4HRS PRN Proventil Hfa Inhaler (Albuterol Sulfate) 6.7 Gm Hfa.aer.ad 1-2 Puff IH PRN Q4HRS PRN Advair 250-50 Diskus (Fluticasone/Salmeterol) 1 Each Disk.w.dev 1 Puff IH BID Vitals/I & O Vital Sign - Last 24 Hours 04/22/18 04/22/18 04/22/18 04/22/18 11:32 11:40 11:58 12:32 Temp 98.2 98.2 Pulse 99 97 96 Resp 18 24 20 B/P (MAP) 143/73 (96) 143/73 (96) 116/55 (75) Pulse Ox 100 96 95 O2 Delivery Room Air Room Air Room Air Room Air 04/22/18 04/22/18 04/22/18 04/22/18 13:32 14:32 16:00 16:30 Temp 98.4 98.4 Pulse 89 97 82 Resp 17 16 18 B/P (MAP) 121/59 (79) 104/54 (71) 113/55 (74) Pulse Ox 95 97 95 O2 Delivery Room Air Room Air Room Air Room Air 04/22/18 04/22/18 04/22/18 04/22/18 18:02 19:00 20:40 23:00 Temp 98.2 98.3 98.2 98.3 Pulse 86 81 Resp 18 18 B/P (MAP) 112/62 (79) 98/61 (73) Pulse Ox 95 98 94 O2 Delivery Room Air Room Air Room Air Room Air 04/23/18 04/23/18 04/23/18 03:00 06:21 07:00 Temp 98.3 98.4 98.3 98.4 Pulse 82 92 Resp 18 18 B/P (MAP) 120/68 (85) 109/71 (84) Pulse Ox 97 93 95 O2 Delivery Room Air Room Air Room Air Intake and Output 04/22/18 04/22/18 04/23/18 15:00 23:00 07:00 Intake Total 300 ml Balance 300 ml LACI KEARNEY MD Apr 23, 2018 10:40
[2018-04-23 11:00] VITALS: BP 102/67
--- NOTE | 2018-04-23 11:47 | PDOC2 ---
CONSULT Date of Consult Date of Consult DATE: 04/23/18 TIME: 11:43 Reason for Consult Reason for Consult: Abdominal pain Referring Physician Referring Physician: Suly Identification/Chief Complaint Chief Complaint Abdominal pain Source Source: Patient History of Present Illness Reason for Visit: 62-year-old female with stage IV metastatic breast cancer to the abdomen with carcinomatosis. She developed abdominal pain last couple days is becoming more severe denies any nausea vomiting fevers or chills. She does state that she is actually hungry and would like to eat. CT scan of the abdomen showed no evidence of bowel obstruction with free fluid or ascites present. Past Medical History Cardiovascular: No pertinent hx Pulmonary: Asthma GI: No pertinent hx Heme/Onc: Cancer Psych: No pertinent hx Musculoskeletal: low back pain Rheumatologic: No pertinent hx ENT: No pertinent hx Renal/: No pertinent hx Endocrine: No pertinent hx Past Surgical History Past Surgical History: Mastectomy, Hysterectomy Family History Family History: Cancer Social History Social History: Parent No ALCOHOL: none Drugs: None Lives: with Family Current Problem List Problem List Problems Medical Problems: (1) Abdominal pain Status: Acute (2) Carcinomatosis Status: Acute Current Medications Current Medications Current Medications Albuterol/ Ipratropium (Duoneb) 3 ml 1X ONCE NEB Last administered on at 11:57; Start 04/22/18 at 12:00; Stop 04/22/18 at 12:01; Status DC Iohexol (Omnipaque 300 Mg/ml) 75 ml 1X ONCE IV Last administered on 04/22/18at 13:19; Start 04/22/18 at 12:45; Stop 04/22/18 at 12:46; Status DC Info (CONTRAST GIVEN -- Rx MONITORING) 1 each PRN DAILY PRN MC SEE COMMENTS; Start 04/22/18 at 12:45; Stop 04/24/18 at 12:44 Ondansetron HCl (Zofran) 4 mg PRN Q8HRS PRN IV NAUSEA/VOMITING; Start 04/22/18 at 15:15; Stop 04/23/18 at 08:59; Status DC Albuterol Sulfate (Ventolin Neb Soln) 2.5 mg PRN Q4HRS PRN NEB SHORTNESS OF BREATH; Start 04/22/18 at 17:30 Apixaban (Eliquis) 5 mg BID PO Last administered on 04/23/18at 09:00; Start at 21:00 Lidocaine/ Prilocaine (Emla) 1 taz PRN Q3HRS PRN TP PAIN; Start 04/22/18 at 17: 30 Prednisone (Prednisone) 10 mg PRN DAILY PRN PO wheezing; Start 04/22/18 at 17: 30 Non-Formulary Medication (Albuterol Sulfate (Proventil Hfa Inhaler)) 2 PUFFS Q 4 HRS PRN SOB PRN Q4HRS PRN IH SHORTNESS OF BREATH; Start 04/22/18 at 17:30; Status UNV Non-Formulary Medication (Fluticasone/ Salmeterol (Advair 250-50 Diskus)) 1 puff BID IH ; Start 04/22/18 at 21:00; Status UNV Gabapentin (Neurontin) 300 mg PRN DAILY PRN PO NEUROPATHY; Start 04/22/18 at 21 :00 Pantoprazole Sodium (Protonix) 40 mg DAILYAC PO ; Start 04/23/18 at 07:30 Budesonide (Pulmicort) 0.5 mg RTBID NEB Last administered on 04/23/18at 06:21; Start 04/22/18 at 20:00 Albuterol Sulfate (Ventolin Neb Soln) 2.5 mg RTQID NEB Last administered on at 11:27; Start 04/22/18 at 20:00 Info (Anti-Coagulation Monitoring By Pharmacy) 1 each PRN DAILY PRN MC SEE COMMENTS; Start 04/22/18 at 17:45 Ondansetron HCl (Zofran) 4 mg PRN Q6HRS PRN IV NAUSEA/VOMITING; Start 04/23/18 at 09:00 Oxycodone/ Acetaminophen (Percocet 5/325) 1 tab PRN Q4HRS PRN PO PAIN; Start at 09:00 Simethicone (Gas-X) 80 mg PRN AFTMEALHC PRN PO GAS / BLOATING; Start 04/23/18 at 09:00 Morphine Sulfate (Morphine Sulfate) 2 mg PRN Q2HR PRN IV PAIN; Start 04/23/18 at 09:00 Active Scripts Active Reported Lidocaine-Prilocaine Cream (Lidocaine/Prilocaine) 30 Gm Cream..g. Gabapentin 300 Mg Capsule 300 Mg PO PRN DAILY PRN Prednisone (Prednisone) 10 Mg Tablet 10 Mg PO PRN DAILY PRN Eliquis (Apixaban) 5 Mg Tablet 5 Mg PO DAILY Omeprazole 40 Mg Capsule. 1 Cap PO DAILY Albuterol Sulfate Neb Soln (Albuterol Sulfate) 2.5 Mg/3 Ml Vial.neb 0.5 Vial NEB PRN Q4HRS PRN Proventil Hfa Inhaler (Albuterol Sulfate) 6.7 Gm Hfa.aer.ad 1-2 Puff IH PRN Q4HRS PRN Advair 250-50 Diskus (Fluticasone/Salmeterol) 1 Each Disk.w.dev 1 Puff IH BID Allergies Allergies: Coded Allergies: meperidine (Verified Adverse Reaction, Intermediate, Nausea and Vomiting, 07/12/17) ROS Gastrointestinal: Yes Abdominal Pain Physical Exam General: Alert, Oriented X3, Cooperative, mild distress HEENT: Atraumatic, PERRLA, EOMI Lungs: Clear to auscultation, Normal air movement Heart: Regular rate, No murmurs Abdomen: Normal bowel sounds, Soft, Other (diffuse abdominal tenderness to palpation no distention) Extremities: No edema Skin: No significant lesion Neuro: Normal speech Psych/Mental Status: Mental status NL Vitals VITALS Vital Signs Date Time Temp Pulse Resp B/P (MAP) Pulse Ox O2 Delivery O2 Flow Rate FiO2 04/23/18 11:28 Room Air 04/23/18 11:00 98.6 90 18 102/67 (79) 91 98.6 Labs Labs Laboratory Tests Test 04/22/18 12:25 04/22/18 13:20 White Blood Count 4.7 x10^3/uL (4.0-11.0) Red Blood Count 4.25 x10^6/uL (3.50-5.40) Hemoglobin 12.7 g/dL (12.0-15.5) Hematocrit 38.0 % (36.0-47.0) Mean Corpuscular Volume 90 fL (79-100) Mean Corpuscular Hemoglobin 30 pg (25-35) Mean Corpuscular Hemoglobin Concent 33 g/dL (31-37) Red Cell Distribution Width 15.0 % (11.5-14.5) Platelet Count 134 x10^3/uL (140-400) Neutrophils (%) (Auto) 67 % (31-73) Lymphocytes (%) (Auto) 25 % (24-48) Monocytes (%) (Auto) 4 % (0-9) Eosinophils (%) (Auto) 4 % (0-3) Basophils (%) (Auto) 0 % (0-3) Neutrophils # (Auto) 3.1 x10^3uL (1.8-7.7) Lymphocytes # (Auto) 1.1 x10^3/uL (1.0-4.8) Monocytes # (Auto) 0.2 x10^3/uL (0.0-1.1) Eosinophils # (Auto) 0.2 x10^3/uL (0.0-0.7) Basophils # (Auto) 0.0 x10^3/uL (0.0-0.2) Prothrombin Time 14.7 SEC (11.7-14.0) Prothromb Time International Ratio 1.2 (0.8-1.1) Activated Partial Thromboplast Time 37 SEC (24-38) Sodium Level 143 mmol/L (136-145) Potassium Level 4.1 mmol/L (3.5-5.1) Chloride Level 108 mmol/L (98-107) Carbon Dioxide Level 28 mmol/L (21-32) Anion Gap 7 (6-14) Blood Urea Nitrogen 24 mg/dL (7-20) Creatinine 0.6 mg/dL (0.6-1.0) Estimated GFR (Cockcroft-Gault) 102.0 BUN/Creatinine Ratio 40 (6-20) Glucose Level 129 mg/dL (70-99) Calcium Level 8.7 mg/dL (8.5-10.1) Magnesium Level 1.9 mg/dL (1.8-2.4) Total Bilirubin 0.7 mg/dL (0.2-1.0) Aspartate Amino Transf (AST/SGOT) 27 U/L (15-37) Alanine Aminotransferase (ALT/SGPT) 40 U/L (14-59) Alkaline Phosphatase 78 U/L (46-116) Troponin I Quantitative < 0.017 ng/mL (0.000-0.055) SH-Pnd-M-Type Natriuretic Peptide 80 pg/mL (0-124) Total Protein 5.8 g/dL (6.4-8.2) Albumin 3.4 g/dL (3.4-5.0) Albumin/Globulin Ratio 1.4 (1.0-1.7) Lipase 171 U/L (73-393) Urine Collection Type Unknown Urine Color Yellow Urine Clarity Cloudy Urine pH 6.0 Urine Specific [place] 1.010 Urine Protein Negative mg/dL (NEG-TRACE) Urine Glucose (UA) Negative mg/dL (NEG) Urine Ketones (Stick) Negative mg/dL (NEG) Urine Blood Negative (NEG) Urine Nitrite Negative (NEG) Urine Bilirubin Negative (NEG) Urine Urobilinogen Dipstick 1.0 mg/dL (0.2 mg/dL) Urine Leukocyte Esterase Small (NEG) Urine RBC 0 /HPF (0-2) Urine WBC Occ /HPF (0-4) Urine Squamous Epithelial Cells Occ /LPF Urine Bacteria 0 /HPF (0-FEW) Laboratory Tests Test 04/22/18 12:25 04/22/18 13:20 White Blood Count 4.7 x10^3/uL (4.0-11.0) Red Blood Count 4.25 x10^6/uL (3.50-5.40) Hemoglobin 12.7 g/dL (12.0-15.5) Hematocrit 38.0 % (36.0-47.0) Mean Corpuscular Volume 90 fL (79-100) Mean Corpuscular Hemoglobin 30 pg (25-35) Mean Corpuscular Hemoglobin Concent 33 g/dL (31-37) Red Cell Distribution Width 15.0 % (11.5-14.5) Platelet Count 134 x10^3/uL (140-400) Neutrophils (%) (Auto) 67 % (31-73) Lymphocytes (%) (Auto) 25 % (24-48) Monocytes (%) (Auto) 4 % (0-9) Eosinophils (%) (Auto) 4 % (0-3) Basophils (%) (Auto) 0 % (0-3) Neutrophils # (Auto) 3.1 x10^3uL (1.8-7.7) Lymphocytes # (Auto) 1.1 x10^3/uL (1.0-4.8) Monocytes # (Auto) 0.2 x10^3/uL (0.0-1.1) Eosinophils # (Auto) 0.2 x10^3/uL (0.0-0.7) Basophils # (Auto) 0.0 x10^3/uL (0.0-0.2) Prothrombin Time 14.7 SEC (11.7-14.0) Prothromb Time International Ratio 1.2 (0.8-1.1) Activated Partial Thromboplast Time 37 SEC (24-38) Sodium Level 143 mmol/L (136-145) Potassium Level 4.1 mmol/L (3.5-5.1) Chloride Level 108 mmol/L (98-107) Carbon Dioxide Level 28 mmol/L (21-32) Anion Gap 7 (6-14) Blood Urea Nitrogen 24 mg/dL (7-20) Creatinine 0.6 mg/dL (0.6-1.0) Estimated GFR (Cockcroft-Gault) 102.0 BUN/Creatinine Ratio 40 (6-20) Glucose Level 129 mg/dL (70-99) Calcium Level 8.7 mg/dL (8.5-10.1) Magnesium Level 1.9 mg/dL (1.8-2.4) Total Bilirubin 0.7 mg/dL (0.2-1.0) Aspartate Amino Transf (AST/SGOT) 27 U/L (15-37) Alanine Aminotransferase (ALT/SGPT) 40 U/L (14-59) Alkaline Phosphatase 78 U/L (46-116) Troponin I Quantitative < 0.017 ng/mL (0.000-0.055) MH-Zka-N-Type Natriuretic Peptide 80 pg/mL (0-124) Total Protein 5.8 g/dL (6.4-8.2) Albumin 3.4 g/dL (3.4-5.0) Albumin/Globulin Ratio 1.4 (1.0-1.7) Lipase 171 U/L (73-393) Urine Collection Type Unknown Urine Color Yellow Urine Clarity Cloudy Urine pH 6.0 Urine Specific [place] 1.010 Urine Protein Negative mg/dL (NEG-TRACE) Urine Glucose (UA) Negative mg/dL (NEG) Urine Ketones (Stick) Negative mg/dL (NEG) Urine Blood Negative (NEG) Urine Nitrite Negative (NEG) Urine Bilirubin Negative (NEG) Urine Urobilinogen Dipstick 1.0 mg/dL (0.2 mg/dL) Urine Leukocyte Esterase Small (NEG) Urine RBC 0 /HPF (0-2) Urine WBC Occ /HPF (0-4) Urine Squamous Epithelial Cells Occ /LPF Urine Bacteria 0 /HPF (0-FEW) Assessment/Plan Assessment/Plan Abdominal pain associated with metastatic breast cancer with carcinomatosis, scheduled for paracentesis in the a.m. No surgical interventions recommended SAPNA EUGENE MD Apr 23, 2018 11:47
[2018-04-23] MEDS: ANTI-COAG MONITOR BY PHARMACY. MC PRN (13:52)
[2018-04-23 15:00] VITALS: BP 105/68
[2018-04-23 19:00] VITALS: BP 96/56
[2018-04-23 23:00] VITALS: BP 99/57
[2018-04-24 03:00] VITALS: BP 104/61
[2018-04-24 07:00] VITALS: BP 108/64
[2018-04-24] MEDS: BUDESONIDE 0.5 MG/2 ML NEBU. NEB SCH ×2 (07:09→19:42)
[2018-04-24] MEDS: ALBUTEROL SULFATE 2.5 MG/3 ML NEBU. NEB SCH ×4 (07:09→19:43)
--- NOTE | 2018-04-24 08:34 | PDOC ---
FAWN ALEJANDRA GRADUATE CIVIL ENGINEER 04/24/18 0834: SURGICAL PROGRESS NOTE Subjective resting ate breakfast this AM Vital Signs Vital Signs Date Time Temp Pulse Resp B/P (MAP) Pulse Ox O2 Delivery O2 Flow Rate FiO2 04/24/18 07:11 93 Room Air 04/24/18 03:00 98.3 76 18 104/61 (75) 98.3 I&O Intake and Output 04/24/18 07:00 Intake Total 600 ml Balance 600 ml Intake Oral 600 ml # Voids 6 General: Alert, Oriented X3, Cooperative, No acute distress Abdomen: Soft, Other (mild tenderness) Labs Laboratory Tests Test 04/22/18 12:25 04/22/18 13:20 White Blood Count 4.7 x10^3/uL (4.0-11.0) Red Blood Count 4.25 x10^6/uL (3.50-5.40) Hemoglobin 12.7 g/dL (12.0-15.5) Hematocrit 38.0 % (36.0-47.0) Mean Corpuscular Volume 90 fL (79-100) Mean Corpuscular Hemoglobin 30 pg (25-35) Mean Corpuscular Hemoglobin Concent 33 g/dL (31-37) Red Cell Distribution Width 15.0 % (11.5-14.5) Platelet Count 134 x10^3/uL (140-400) Neutrophils (%) (Auto) 67 % (31-73) Lymphocytes (%) (Auto) 25 % (24-48) Monocytes (%) (Auto) 4 % (0-9) Eosinophils (%) (Auto) 4 % (0-3) Basophils (%) (Auto) 0 % (0-3) Neutrophils # (Auto) 3.1 x10^3uL (1.8-7.7) Lymphocytes # (Auto) 1.1 x10^3/uL (1.0-4.8) Monocytes # (Auto) 0.2 x10^3/uL (0.0-1.1) Eosinophils # (Auto) 0.2 x10^3/uL (0.0-0.7) Basophils # (Auto) 0.0 x10^3/uL (0.0-0.2) Prothrombin Time 14.7 SEC (11.7-14.0) Prothromb Time International Ratio 1.2 (0.8-1.1) Activated Partial Thromboplast Time 37 SEC (24-38) Sodium Level 143 mmol/L (136-145) Potassium Level 4.1 mmol/L (3.5-5.1) Chloride Level 108 mmol/L (98-107) Carbon Dioxide Level 28 mmol/L (21-32) Anion Gap 7 (6-14) Blood Urea Nitrogen 24 mg/dL (7-20) Creatinine 0.6 mg/dL (0.6-1.0) Estimated GFR (Cockcroft-Gault) 102.0 BUN/Creatinine Ratio 40 (6-20) Glucose Level 129 mg/dL (70-99) Calcium Level 8.7 mg/dL (8.5-10.1) Magnesium Level 1.9 mg/dL (1.8-2.4) Total Bilirubin 0.7 mg/dL (0.2-1.0) Aspartate Amino Transf (AST/SGOT) 27 U/L (15-37) Alanine Aminotransferase (ALT/SGPT) 40 U/L (14-59) Alkaline Phosphatase 78 U/L (46-116) Troponin I Quantitative < 0.017 ng/mL (0.000-0.055) RQ-Jnr-P-Type Natriuretic Peptide 80 pg/mL (0-124) Total Protein 5.8 g/dL (6.4-8.2) Albumin 3.4 g/dL (3.4-5.0) Albumin/Globulin Ratio 1.4 (1.0-1.7) Lipase 171 U/L (73-393) Urine Collection Type Unknown Urine Color Yellow Urine Clarity Cloudy Urine pH 6.0 Urine Specific [place] 1.010 Urine Protein Negative mg/dL (NEG-TRACE) Urine Glucose (UA) Negative mg/dL (NEG) Urine Ketones (Stick) Negative mg/dL (NEG) Urine Blood Negative (NEG) Urine Nitrite Negative (NEG) Urine Bilirubin Negative (NEG) Urine Urobilinogen Dipstick 1.0 mg/dL (0.2 mg/dL) Urine Leukocyte Esterase Small (NEG) Urine RBC 0 /HPF (0-2) Urine WBC Occ /HPF (0-4) Urine Squamous Epithelial Cells Occ /LPF Urine Bacteria 0 /HPF (0-FEW) Problem List Problems Medical Problems: (1) Abdominal pain Status: Acute (2) Carcinomatosis Status: Acute Assessment/Plan Abdominal pain associated with metastatic breast cancer with carcinomatosis no surgical indications supportive measures SAPNA EUGENE MD 04/24/18 0944: SURGICAL PROGRESS NOTE Assessment/Plan Agree with Veronica assessment and plan FAWN ALEJANDRA APRN Apr 24, 2018 08:34 SAPNA EUGENE MD Apr 24, 2018 09:44
--- NOTE | 2018-04-24 08:44 | PDOC ---
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 ROS - abd pain slightly better Objective Objective Vital Signs Date Time Temp Pulse Resp B/P (MAP) Pulse Ox O2 Delivery O2 Flow Rate FiO2 04/24/18 07:11 93 Room Air 04/24/18 03:00 98.3 76 18 104/61 (75) 98.3 Intake and Output 04/24/18 07:00 Intake Total 600 ml Balance 600 ml Intake Oral 600 ml # Voids 6 Physical Exam Heart: Normal S1, Normal S2 General: Alert, Oriented X3, No acute distress Lungs: Clear to auscultation Neuro: Normal speech Psych/Mental Status: Mental status NL Assessment Assessment Problems Medical Problems: (1) Abdominal pain Status: Acute (2) Carcinomatosis Status: Acute IMPRESSION AND PLAN: 1. 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 She was diagnosed with stage IV malignancy on 08/31/2015. ER positive 100%, AK negative, HER2/[place] negative. She was previously treated with Xeloda from 10/06/2015 and subsequently changed to Abraxane on 10/05/2016 in view of disease progression. She is tolerating the Abraxane quite well and she has had a good response to treatment. Her most recent chemotherapy was on 04/17/2018. CT scan of the abdomen and pelvis on 04/22/2018 does not reveal any evidence of disease progression. Hence, I have advised her to return for followup next week for continuation of chemotherapy. I will cancel chemotherapy for this week in view of her current hospitalization and abdominal discomfort. 2. Bone metastasis. She is on Xgeva once a month. 3. Abdominal pain. No clear etiology noted per CT scan of the abdomen and pelvis on 04/22/2018. Appreciate Gastroenterology and surgical opinions. No interventions recommended. I will order MRI abd/pelvis to eval for carcinomatosis. 4. Ascites. She does not have any significant ascites at this time. She has trace ascites around the liver. She has responded well to chemotherapy. Comment Review of Relevant I have reviewed the following items nba (where applicable) has been applied. Labs Laboratory Tests Test 04/22/18 12:25 04/22/18 13:20 White Blood Count 4.7 x10^3/uL (4.0-11.0) Red Blood Count 4.25 x10^6/uL (3.50-5.40) Hemoglobin 12.7 g/dL (12.0-15.5) Hematocrit 38.0 % (36.0-47.0) Mean Corpuscular Volume 90 fL (79-100) Mean Corpuscular Hemoglobin 30 pg (25-35) Mean Corpuscular Hemoglobin Concent 33 g/dL (31-37) Red Cell Distribution Width 15.0 % (11.5-14.5) Platelet Count 134 x10^3/uL (140-400) Neutrophils (%) (Auto) 67 % (31-73) Lymphocytes (%) (Auto) 25 % (24-48) Monocytes (%) (Auto) 4 % (0-9) Eosinophils (%) (Auto) 4 % (0-3) Basophils (%) (Auto) 0 % (0-3) Neutrophils # (Auto) 3.1 x10^3uL (1.8-7.7) Lymphocytes # (Auto) 1.1 x10^3/uL (1.0-4.8) Monocytes # (Auto) 0.2 x10^3/uL (0.0-1.1) Eosinophils # (Auto) 0.2 x10^3/uL (0.0-0.7) Basophils # (Auto) 0.0 x10^3/uL (0.0-0.2) Prothrombin Time 14.7 SEC (11.7-14.0) Prothromb Time International Ratio 1.2 (0.8-1.1) Activated Partial Thromboplast Time 37 SEC (24-38) Sodium Level 143 mmol/L (136-145) Potassium Level 4.1 mmol/L (3.5-5.1) Chloride Level 108 mmol/L (98-107) Carbon Dioxide Level 28 mmol/L (21-32) Anion Gap 7 (6-14) Blood Urea Nitrogen 24 mg/dL (7-20) Creatinine 0.6 mg/dL (0.6-1.0) Estimated GFR (Cockcroft-Gault) 102.0 BUN/Creatinine Ratio 40 (6-20) Glucose Level 129 mg/dL (70-99) Calcium Level 8.7 mg/dL (8.5-10.1) Magnesium Level 1.9 mg/dL (1.8-2.4) Total Bilirubin 0.7 mg/dL (0.2-1.0) Aspartate Amino Transf (AST/SGOT) 27 U/L (15-37) Alanine Aminotransferase (ALT/SGPT) 40 U/L (14-59) Alkaline Phosphatase 78 U/L (46-116) Troponin I Quantitative < 0.017 ng/mL (0.000-0.055) KZ-Mmq-F-Type Natriuretic Peptide 80 pg/mL (0-124) Total Protein 5.8 g/dL (6.4-8.2) Albumin 3.4 g/dL (3.4-5.0) Albumin/Globulin Ratio 1.4 (1.0-1.7) Lipase 171 U/L (73-393) Urine Collection Type Unknown Urine Color Yellow Urine Clarity Cloudy Urine pH 6.0 Urine Specific [place] 1.010 Urine Protein Negative mg/dL (NEG-TRACE) Urine Glucose (UA) Negative mg/dL (NEG) Urine Ketones (Stick) Negative mg/dL (NEG) Urine Blood Negative (NEG) Urine Nitrite Negative (NEG) Urine Bilirubin Negative (NEG) Urine Urobilinogen Dipstick 1.0 mg/dL (0.2 mg/dL) Urine Leukocyte Esterase Small (NEG) Urine RBC 0 /HPF (0-2) Urine WBC Occ /HPF (0-4) Urine Squamous Epithelial Cells Occ /LPF Urine Bacteria 0 /HPF (0-FEW) Microbiology 04/22/18 Urine Culture - Final, Complete 04/22/18 Urine Culture Result 1 (JARVIS) - Final, Complete Medications Current Medications Albuterol/ Ipratropium (Duoneb) 3 ml 1X ONCE NEB Last administered on at 11:57; Start 04/22/18 at 12:00; Stop 04/22/18 at 12:01; Status DC Iohexol (Omnipaque 300 Mg/ml) 75 ml 1X ONCE IV Last administered on 04/22/18at 13:19; Start 04/22/18 at 12:45; Stop 04/22/18 at 12:46; Status DC Info (CONTRAST GIVEN -- Rx MONITORING) 1 each PRN DAILY PRN MC SEE COMMENTS; Start 04/22/18 at 12:45; Stop 04/24/18 at 12:44 Ondansetron HCl (Zofran) 4 mg PRN Q8HRS PRN IV NAUSEA/VOMITING; Start 04/22/18 at 15:15; Stop 04/23/18 at 08:59; Status DC Albuterol Sulfate (Ventolin Neb Soln) 2.5 mg PRN Q4HRS PRN NEB SHORTNESS OF BREATH; Start 04/22/18 at 17:30 Apixaban (Eliquis) 5 mg BID PO Last administered on 04/23/18at 20:55; Start at 21:00 Lidocaine/ Prilocaine (Emla) 1 taz PRN Q3HRS PRN TP PAIN; Start 04/22/18 at 17: 30 Prednisone (Prednisone) 10 mg PRN DAILY PRN PO wheezing; Start 04/22/18 at 17: 30 Non-Formulary Medication (Albuterol Sulfate (Proventil Hfa Inhaler)) 2 PUFFS Q 4 HRS PRN SOB PRN Q4HRS PRN IH SHORTNESS OF BREATH; Start 04/22/18 at 17:30; Status UNV Non-Formulary Medication (Fluticasone/ Salmeterol (Advair 250-50 Diskus)) 1 puff BID IH ; Start 04/22/18 at 21:00; Status UNV Gabapentin (Neurontin) 300 mg PRN DAILY PRN PO NEUROPATHY; Start 04/22/18 at 21 :00 Pantoprazole Sodium (Protonix) 40 mg DAILYAC PO ; Start 04/23/18 at 07:30 Budesonide (Pulmicort) 0.5 mg RTBID NEB Last administered on 04/24/18at 07:09; Start 04/22/18 at 20:00 Albuterol Sulfate (Ventolin Neb Soln) 2.5 mg RTQID NEB Last administered on at 07:09; Start 04/22/18 at 20:00 Info (Anti-Coagulation Monitoring By Pharmacy) 1 each PRN DAILY PRN MC SEE COMMENTS Last administered on 04/23/18at 13:52; Start 04/22/18 at 17:45 Ondansetron HCl (Zofran) 4 mg PRN Q6HRS PRN IV NAUSEA/VOMITING; Start 04/23/18 at 09:00 Oxycodone/ Acetaminophen (Percocet 5/325) 1 tab PRN Q4HRS PRN PO PAIN; Start at 09:00 Simethicone (Gas-X) 80 mg PRN AFTMEALHC PRN PO GAS / BLOATING; Start 04/23/18 at 09:00 Morphine Sulfate (Morphine Sulfate) 2 mg PRN Q2HR PRN IV PAIN; Start 04/23/18 at 09:00 Polyethylene Glycol (miraLAX PACKET) 17 gm DAILY PO ; Start 04/24/18 at 09:00 Active Scripts Active Reported Lidocaine-Prilocaine Cream (Lidocaine/Prilocaine) 30 Gm Cream..g. Gabapentin 300 Mg Capsule 300 Mg PO PRN DAILY PRN Prednisone (Prednisone) 10 Mg Tablet 10 Mg PO PRN DAILY PRN Eliquis (Apixaban) 5 Mg Tablet 5 Mg PO DAILY Omeprazole 40 Mg Capsule.dr 1 Cap PO DAILY Albuterol Sulfate Neb Soln (Albuterol Sulfate) 2.5 Mg/3 Ml Vial.neb 0.5 Vial NEB PRN Q4HRS PRN Proventil Hfa Inhaler (Albuterol Sulfate) 6.7 Gm Hfa.aer.ad 1-2 Puff IH PRN Q4HRS PRN Advair 250-50 Diskus (Fluticasone/Salmeterol) 1 Each Disk.w.dev 1 Puff IH BID Vitals/I & O Vital Sign - Last 24 Hours 04/23/18 04/23/18 04/23/18 04/23/18 11:00 11:28 15:00 15:58 Temp 98.6 98.3 98.6 98.3 Pulse 90 94 Resp 18 18 B/P (MAP) 102/67 (79) 105/68 (80) Pulse Ox 91 95 94 O2 Delivery Room Air Room Air Room Air Room Air 04/23/18 04/23/18 04/23/18 04/23/18 19:00 20:10 20:20 23:00 Temp 98.4 98.2 98.4 98.2 Pulse 86 85 Resp 18 18 B/P (MAP) 96/56 (69) 99/57 (71) Pulse Ox 95 95 96 O2 Delivery Room Air Room Air Room Air Room Air 04/24/18 04/24/18 03:00 07:11 Temp 98.3 98.3 Pulse 76 Resp 18 B/P (MAP) 104/61 (75) Pulse Ox 96 93 O2 Delivery Room Air Room Air Intake and Output 04/23/18 04/23/18 04/24/18 15:00 23:00 07:00 Intake Total 300 ml 300 ml Balance 300 ml 300 ml MINNA THORPE MD Apr 24, 2018 08:44
--- NOTE | 2018-04-24 09:21 | PDOC ---
Subjective: Subjective: Bloating is better, tolerating PO, no stools since Saturday. Objective: Vital Signs: Vital Signs Date Time Temp Pulse Resp B/P (MAP) Pulse Ox O2 Delivery O2 Flow Rate FiO2 04/24/18 07:11 93 Room Air 04/24/18 07:00 98.3 88 18 108/64 (79) 98.3 PE: GEN: NAD LUNGS: CTAB HEART: RRR ABD: a bit distended, less RLQ discomfort NEURO/PSYCH: A & O 3 A/P: Peritoneal carcinomatosis Abd bloating/distention, RLQ discomfort - better -- Tolerating PO, feels better. Note plans for MRI per Dr. Arvizu. Continue Miralax. RAYSA GALVAN Apr 24, 2018 09:21
[2018-04-24 11:00] VITALS: BP 105/64
--- NOTE | 2018-04-24 11:35 | PDOC ---
PROGRESS NOTES Chief Complaint Chief Complaint 1. 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 She was diagnosed with stage IV malignancy on 08/31/2015. ER positive 100%, [place] negative, HER2/lakeisha negative. . CT scan of the abdomen and pelvis on 04/22/2018 does not reveal any evidence of disease progression. 2. Bone metastasis. She is on Xgeva once a month. 3. Abdominal pain. No clear etiology 4. Ascites. She does not have any significant ascites at this time. History of Present Illness History of Present Illness Comfortable, abdomen soft, no emesis, bowels are moving Very thorough and informative note of heme onc reviewed Has consulted GI - supportive care, mentions palliative consideration So far etiology of abdominal pain is unclear currently Palliative now consulted Plan: Heme onc has ordered MRI of the abdomen Follow-up that Continue the rest Palliative consulted Vitals Vitals Vital Signs Date Time Temp Pulse Resp B/P (MAP) Pulse Ox O2 Delivery O2 Flow Rate FiO2 04/24/18 11:08 Room Air 04/24/18 07:11 93 04/24/18 07:00 98.3 88 18 108/64 (79) 98.3 Physical Exam General: Alert, Oriented X3, No acute distress Heart: Normal S1, Normal S2 Lungs: Clear, Other Abdomen: Soft, Other (mild tenderness) Extremities: No edema Skin: No significant lesion Review of Systems Review of Systems A 14 point ROS was completed with the following noted as positive: Other systems reviewed and negative. \CONSTITUTIONAL: No fever or chills EYES: No recent changes SKIN: No rash or itching CARDIOVASCULAR: No chest pain, syncope, palpitations, or edema RESPIRATORY: No SOB or cough GASTROINTESTINAL: No nausea, vomiting or abdominal pain NEUROLOGICAL: No headaches or weakness ENDOCRINE: No cold or heat intolerance GENITOURINARY: No urgency or frequency of urination MUSCULOSKELETAL: No back pain or joint pain LYMPHATICS: No enlarged lymph nodes PSYCHIATRIC: No anxiety or depression Assessment and Plan Assessmemt and Plan Problems Medical Problems: (1) Abdominal pain Status: Acute (2) Carcinomatosis Status: Acute Comment Review of Relevant I have reviewed the following items nba (where applicable) has been applied. Labs Laboratory Tests Test 04/22/18 12:25 04/22/18 13:20 White Blood Count 4.7 x10^3/uL (4.0-11.0) Red Blood Count 4.25 x10^6/uL (3.50-5.40) Hemoglobin 12.7 g/dL (12.0-15.5) Hematocrit 38.0 % (36.0-47.0) Mean Corpuscular Volume 90 fL (79-100) Mean Corpuscular Hemoglobin 30 pg (25-35) Mean Corpuscular Hemoglobin Concent 33 g/dL (31-37) Red Cell Distribution Width 15.0 % (11.5-14.5) Platelet Count 134 x10^3/uL (140-400) Neutrophils (%) (Auto) 67 % (31-73) Lymphocytes (%) (Auto) 25 % (24-48) Monocytes (%) (Auto) 4 % (0-9) Eosinophils (%) (Auto) 4 % (0-3) Basophils (%) (Auto) 0 % (0-3) Neutrophils # (Auto) 3.1 x10^3uL (1.8-7.7) Lymphocytes # (Auto) 1.1 x10^3/uL (1.0-4.8) Monocytes # (Auto) 0.2 x10^3/uL (0.0-1.1) Eosinophils # (Auto) 0.2 x10^3/uL (0.0-0.7) Basophils # (Auto) 0.0 x10^3/uL (0.0-0.2) Prothrombin Time 14.7 SEC (11.7-14.0) Prothromb Time International Ratio 1.2 (0.8-1.1) Activated Partial Thromboplast Time 37 SEC (24-38) Sodium Level 143 mmol/L (136-145) Potassium Level 4.1 mmol/L (3.5-5.1) Chloride Level 108 mmol/L (98-107) Carbon Dioxide Level 28 mmol/L (21-32) Anion Gap 7 (6-14) Blood Urea Nitrogen 24 mg/dL (7-20) Creatinine 0.6 mg/dL (0.6-1.0) Estimated GFR (Cockcroft-Gault) 102.0 BUN/Creatinine Ratio 40 (6-20) Glucose Level 129 mg/dL (70-99) Calcium Level 8.7 mg/dL (8.5-10.1) Magnesium Level 1.9 mg/dL (1.8-2.4) Total Bilirubin 0.7 mg/dL (0.2-1.0) Aspartate Amino Transf (AST/SGOT) 27 U/L (15-37) Alanine Aminotransferase (ALT/SGPT) 40 U/L (14-59) Alkaline Phosphatase 78 U/L (46-116) Troponin I Quantitative < 0.017 ng/mL (0.000-0.055) CN-Bzi-O-Type Natriuretic Peptide 80 pg/mL (0-124) Total Protein 5.8 g/dL (6.4-8.2) Albumin 3.4 g/dL (3.4-5.0) Albumin/Globulin Ratio 1.4 (1.0-1.7) Lipase 171 U/L (73-393) Urine Collection Type Unknown Urine Color Yellow Urine Clarity Cloudy Urine pH 6.0 Urine Specific [place] 1.010 Urine Protein Negative mg/dL (NEG-TRACE) Urine Glucose (UA) Negative mg/dL (NEG) Urine Ketones (Stick) Negative mg/dL (NEG) Urine Blood Negative (NEG) Urine Nitrite Negative (NEG) Urine Bilirubin Negative (NEG) Urine Urobilinogen Dipstick 1.0 mg/dL (0.2 mg/dL) Urine Leukocyte Esterase Small (NEG) Urine RBC 0 /HPF (0-2) Urine WBC Occ /HPF (0-4) Urine Squamous Epithelial Cells Occ /LPF Urine Bacteria 0 /HPF (0-FEW) Microbiology 04/22/18 Urine Culture - Final, Complete 04/22/18 Urine Culture Result 1 (JARVIS) - Final, Complete Medications Current Medications Albuterol/ Ipratropium (Duoneb) 3 ml 1X ONCE NEB Last administered on at 11:57; Start 04/22/18 at 12:00; Stop 04/22/18 at 12:01; Status DC Iohexol (Omnipaque 300 Mg/ml) 75 ml 1X ONCE IV Last administered on 04/22/18at 13:19; Start 04/22/18 at 12:45; Stop 04/22/18 at 12:46; Status DC Info (CONTRAST GIVEN -- Rx MONITORING) 1 each PRN DAILY PRN MC SEE COMMENTS; Start 04/22/18 at 12:45; Stop 04/24/18 at 12:44 Ondansetron HCl (Zofran) 4 mg PRN Q8HRS PRN IV NAUSEA/VOMITING; Start 04/22/18 at 15:15; Stop 04/23/18 at 08:59; Status DC Albuterol Sulfate (Ventolin Neb Soln) 2.5 mg PRN Q4HRS PRN NEB SHORTNESS OF BREATH; Start 04/22/18 at 17:30 Apixaban (Eliquis) 5 mg BID PO Last administered on 04/23/18at 20:55; Start at 21:00 Lidocaine/ Prilocaine (Emla) 1 taz PRN Q3HRS PRN TP PAIN; Start 04/22/18 at 17: 30 Prednisone (Prednisone) 10 mg PRN DAILY PRN PO wheezing; Start 04/22/18 at 17: 30 Non-Formulary Medication (Albuterol Sulfate (Proventil Hfa Inhaler)) 2 PUFFS Q 4 HRS PRN SOB PRN Q4HRS PRN IH SHORTNESS OF BREATH; Start 04/22/18 at 17:30; Status UNV Non-Formulary Medication (Fluticasone/ Salmeterol (Advair 250-50 Diskus)) 1 puff BID IH ; Start 04/22/18 at 21:00; Status UNV Gabapentin (Neurontin) 300 mg PRN DAILY PRN PO NEUROPATHY; Start 04/22/18 at 21 :00 Pantoprazole Sodium (Protonix) 40 mg DAILYAC PO ; Start 04/23/18 at 07:30 Budesonide (Pulmicort) 0.5 mg RTBID NEB Last administered on 04/24/18at 07:09; Start 04/22/18 at 20:00 Albuterol Sulfate (Ventolin Neb Soln) 2.5 mg RTQID NEB Last administered on at 11:08; Start 04/22/18 at 20:00 Info (Anti-Coagulation Monitoring By Pharmacy) 1 each PRN DAILY PRN MC SEE COMMENTS Last administered on 04/23/18at 13:52; Start 04/22/18 at 17:45 Ondansetron HCl (Zofran) 4 mg PRN Q6HRS PRN IV NAUSEA/VOMITING; Start 04/23/18 at 09:00 Oxycodone/ Acetaminophen (Percocet 5/325) 1 tab PRN Q4HRS PRN PO PAIN; Start at 09:00 Simethicone (Gas-X) 80 mg PRN AFTMEALHC PRN PO GAS / BLOATING; Start 04/23/18 at 09:00 Morphine Sulfate (Morphine Sulfate) 2 mg PRN Q2HR PRN IV PAIN; Start 04/23/18 at 09:00 Polyethylene Glycol (miraLAX PACKET) 17 gm DAILY PO ; Start 04/24/18 at 09:00 Active Scripts Active Reported Lidocaine-Prilocaine Cream (Lidocaine/Prilocaine) 30 Gm Cream..g. Gabapentin 300 Mg Capsule 300 Mg PO PRN DAILY PRN Prednisone (Prednisone) 10 Mg Tablet 10 Mg PO PRN DAILY PRN Eliquis (Apixaban) 5 Mg Tablet 5 Mg PO DAILY Omeprazole 40 Mg Capsule.dr 1 Cap PO DAILY Albuterol Sulfate Neb Soln (Albuterol Sulfate) 2.5 Mg/3 Ml Vial.neb 0.5 Vial NEB PRN Q4HRS PRN Proventil Hfa Inhaler (Albuterol Sulfate) 6.7 Gm Hfa.aer.ad 1-2 Puff IH PRN Q4HRS PRN Advair 250-50 Diskus (Fluticasone/Salmeterol) 1 Each Disk.w.dev 1 Puff IH BID Vitals/I & O Vital Sign - Last 24 Hours 04/23/18 04/23/18 04/23/18 04/23/18 15:00 15:58 19:00 20:10 Temp 98.3 98.4 98.3 98.4 Pulse 94 86 Resp 18 B/P (MAP) 105/68 (80) 96/56 (69) Pulse Ox 95 94 95 95 O2 Delivery Room Air Room Air Room Air Room Air 04/23/18 04/23/18 04/24/18 04/24/18 20:20 23:00 03:00 07:00 Temp 98.2 98.3 98.3 98.2 98.3 98.3 Pulse 85 76 88 Resp 18 18 18 B/P (MAP) 99/57 (71) 104/61 (75) 108/64 (79) Pulse Ox 96 96 93 O2 Delivery Room Air Room Air Room Air Room Air 04/24/18 04/24/18 07:11 11:08 Pulse Ox 93 O2 Delivery Room Air Room Air Intake and Output 04/23/18 04/23/18 04/24/18 15:00 23:00 07:00 Intake Total 300 ml 300 ml Balance 300 ml 300 ml LACI KEARNEY MD Apr 24, 2018 11:35
[2018-04-24] MEDS: APIXABAN 5 MG TABLET. PO SCH ×2 (11:48→21:49)
[2018-04-24] MEDS: POLYETHYLENE GLYCOL 3350 17 GM PACKET. PO SCH (11:48)
[2018-04-24] MEDS: PANTOPRAZOLE 40 MG TABLET.DR. PO SCH (11:48)
[2018-04-24] MEDS ORDERED: GADOBUTROL 7.5 MMOL/7.5 ML VIAL IV ONE (13:00)
--- NOTE | 2018-04-24 13:46 | PDOC2 ---
PALLIATIVE CARE Palliative Care Note Palliative Care Consult requested by Dr. Arvizu to address AD and goals of care Medical Assessment per record; Stage IV breast cancer with peritoneal carcinomatosis, Bone metastasis Abdominal pain Ascites--non significant Patient not in room---In Radiology for MRI Code Status: Full Code. Will arrange family meeting as soon as family can meet and results of MRI available. 1605 Met with patient. Alert and oriented. Reviewed medical condition. Will review in more detail at family meeting tomorrow at 1100. Discussed Code Status; patient requests DNR/DNI. Understands without this attempt she likely would . States she does have AD. Daughter will bring in am. Patient lives with daughter and family. Son Juan Diego lives close also. Good support from family. Patient is still working-"2 jobs" Wants to remain active. Plan: Family meeting tomorrow at 1100 am. Patient requests DNR/DNI. EMIR BOWMAN Apr 24, 2018 13:46
[2018-04-24] MEDS: ANTI-COAG MONITOR BY PHARMACY. MC PRN (14:01)
[2018-04-24 15:00] VITALS: BP 109/61
--- NOTE | 2018-04-24 15:06 | RAD ---
MRI of the abdomen without and with intravenous contrast History: Abdominal pain. Abdominal carcinomatosis. History of breast cancer. Comparison: CT abdomen pelvis April 22, 2018. Technique: MRI of the abdomen was performed using multiple sequences and planes both prior to and after intravenous gadolinium, 6 mL Gadavist. Intravenous contrast bolus was the same as that of MRI of the pelvis performed at same time. Sequences included a pre and post contrasted dynamic T1 weighted series. Findings: Motion artifact is seen on multiple planes and sequences, which could obscure subtle abnormalities. Small amount of perihepatic ascites is seen. Liver appears to have mildly nodular contour. No significant fatty liver disease is seen. The left hepatic lobe, segment 2, demonstrates a 6 mm lesion which is increased in T2 signal. This is seen as low signal on all postcontrast T1 images; lesion is favored to represent small cyst. There are probably a few additional smaller liver lesions with increased T2 signal, not adequately characterized on this examination, probably cysts. Liver demonstrates a mildly nodular contour, suggesting cirrhosis. Main portal vein has normal caliber at 9 mm. Spleen does not appear enlarged with maximum dimension of 9.5 cm. Bilateral adrenal glands are unremarkable. Bilateral kidneys enhance symmetrically without evidence of obstruction. Abdominal aorta demonstrates normal caliber. No convincing peritoneal carcinomatosis is identified, although evaluation is limited secondary to motion including bowel motion. Impression: 1. Limited by motion. 2. Small amount of perihepatic ascites. 3. Liver demonstrates mildly nodular contour, suggesting cirrhosis. 4. Subcentimeter lesion in hepatic segment 2 is without evidence of enhancement, favored to represent cyst. There may be a few additional smaller subcentimeter liver lesions, too small characterize, possibly additional smaller cysts. 5. No evidence of peritoneal carcinomatosis. Electronically signed by: Edy Genao MD (04/24/2018 3:02 PM) [facility]
--- NOTE | 2018-04-24 15:22 | RAD ---
History: Abdominal pain. Abdominal carcinomatosis. History of breast cancer. Comparison: CT abdomen pelvis April 22, 2018. Technique: MRI of the pelvis optimized to the organs was performed using multiple planes and sequences both prior to and after intravenous gadolinium, 6 mL Gadavist (same bolus as that of MR abdomen performed at the same time). Findings: Uterus is absent. Urinary bladder is unremarkable. No convincing omental caking or soft tissue peritoneal implants are identified to suggest peritoneal carcinomatosis, although there is significant motion artifact on many sequences. The process involving the appendix appears similar to previous study. There is enlargement of the appendix up to about 8 mm in diameter. There is a mild amount of enhancing soft tissue thickening adjacent adjacent to the appendix. Multiple subcentimeter lesions are seen involving the osseous structures, probably small osteoblastic metastases. Less likely etiology is thought to be osteopoikilosis. Impression: 1. Limited by motion. 2. No convincing peritoneal carcinomatosis identified in the abdomen. 3. Soft tissue thickening and mild enlargement of the appendix, similar to previous study. 4. Numerous subcentimeter osseous lesions probably osteoblastic metastases. Electronically signed by: Edy Genao MD (04/24/2018 3:19 PM) [place] [id number]
[2018-04-24 19:00] VITALS: BP 112/68
[2018-04-24 23:18] VITALS: BP 96/62
[2018-04-25 03:00] VITALS: BP 110/68
[2018-04-25] MEDS: BUDESONIDE 0.5 MG/2 ML NEBU. NEB SCH (06:13)
[2018-04-25] MEDS: ALBUTEROL SULFATE 2.5 MG/3 ML NEBU. NEB SCH ×2 (06:13→11:04)
[2018-04-25] MEDS: PANTOPRAZOLE 40 MG TABLET.DR. PO SCH (06:25)
[2018-04-25 07:00] VITALS: BP 99/72
--- NOTE | 2018-04-25 08:02 | PDOC ---
SURGICAL PROGRESS NOTE Subjective tolerating diet no pain Vital Signs Vital Signs Date Time Temp Pulse Resp B/P (MAP) Pulse Ox O2 Delivery O2 Flow Rate FiO2 04/25/18 06:14 92 Room Air 04/25/18 03:00 98.2 85 18 110/68 (82) 98.2 I&O Intake and Output 04/25/18 07:00 Intake Total 1380 ml Balance 1380 ml Intake Oral 1380 ml # Voids 4 # Bowel Movements 1 General: Alert, Oriented X3, Cooperative, No acute distress Abdomen: Soft, No tenderness Problem List Problems Medical Problems: (1) Abdominal pain Status: Acute (2) Carcinomatosis Status: Acute Assessment/Plan palliative consult no surgical plans available as needed FAWN ALEJANDRA APRN Apr 25, 2018 08:02
[2018-04-25] MEDS: APIXABAN 5 MG TABLET. PO SCH (08:48)
[2018-04-25] MEDS: POLYETHYLENE GLYCOL 3350 17 GM PACKET. PO SCH (08:48)
--- NOTE | 2018-04-25 08:54 | PDOC ---
PROGRESS NOTES Subjective Subjective HPI - f/u of Stage IV breast cancer ROS - abd pain is better Objective Objective Vital Signs Date Time Temp Pulse Resp B/P (MAP) Pulse Ox O2 Delivery O2 Flow Rate FiO2 04/25/18 07:00 98.4 88 16 99/72 (81) 94 Room Air 98.4 Intake and Output 04/25/18 07:00 Intake Total 1380 ml Balance 1380 ml Intake Oral 1380 ml # Voids 4 # Bowel Movements 1 Physical Exam Abdomen: Soft, No hepatosplenomegaly, No masses Heart: Normal S1, Normal S2 General: Alert, Oriented X3, No acute distress Lungs: Clear to auscultation Neuro: Normal speech Psych/Mental Status: Mental status NL Assessment Assessment Problems Medical Problems: (1) Abdominal pain Status: Acute (2) Carcinomatosis Status: Acute IMPRESSION AND PLAN: 1. 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 She was diagnosed with stage IV malignancy on 08/31/2015. ER positive 100%, [place] negative, HER2/lakeisha negative. She was previously treated with Xeloda from 10/06/2015 and subsequently changed to Abraxane on 10/05/2016 in view of disease progression. She is tolerating the Abraxane quite well and she has had a good response to treatment. Her most recent chemotherapy was on 04/17/2018. CT scan of the abdomen and pelvis on 04/22/2018 does not reveal any evidence of disease progression. Hence, I have advised her to return for followup next week for continuation of chemotherapy. I will cancel chemotherapy for this week in view of her current hospitalization and abdominal discomfort. She feels better. OK to d/c home. Plan to resume chemo next week. 2. Bone metastasis. She is on Xgeva once a month. 3. Abdominal pain. No clear etiology noted per CT scan of the abdomen and pelvis on 04/22/2018. Appreciate Gastroenterology and surgical opinions. No interventions recommended. MRI abd/pelvis 04/25/18 is neg for carcinomatosis. Small amount of perihepatic ascites. Liver demonstrates mildly nodular contour, suggesting cirrhosis. Subcentimeter lesion in hepatic segment 2 is without evidence of enhancement, favored to represent cyst. There may be a few additional smaller subcentimeter liver lesions, too small characterize, possibly additional smaller cysts. No evidence of peritoneal carcinomatosis. 4. Ascites. She does not have any significant ascites at this time. She has trace ascites around the liver. She has responded well to chemotherapy. Comment Review of Relevant I have reviewed the following items nba (where applicable) has been applied. Labs Microbiology 04/22/18 Urine Culture - Final, Complete 04/22/18 Urine Culture Result 1 (JARVIS) - Final, Complete Medications Current Medications Albuterol/ Ipratropium (Duoneb) 3 ml 1X ONCE NEB Last administered on at 11:57; Start 04/22/18 at 12:00; Stop 04/22/18 at 12:01; Status DC Iohexol (Omnipaque 300 Mg/ml) 75 ml 1X ONCE IV Last administered on 04/22/18at 13:19; Start 04/22/18 at 12:45; Stop 04/22/18 at 12:46; Status DC Info (CONTRAST GIVEN -- Rx MONITORING) 1 each PRN DAILY PRN MC SEE COMMENTS; Start 04/22/18 at 12:45; Stop 04/24/18 at 12:44; Status DC Ondansetron HCl (Zofran) 4 mg PRN Q8HRS PRN IV NAUSEA/VOMITING; Start 04/22/18 at 15:15; Stop 04/23/18 at 08:59; Status DC Albuterol Sulfate (Ventolin Neb Soln) 2.5 mg PRN Q4HRS PRN NEB SHORTNESS OF BREATH; Start 04/22/18 at 17:30 Apixaban (Eliquis) 5 mg BID PO Last administered on 04/25/18at 08:48; Start at 21:00 Lidocaine/ Prilocaine (Emla) 1 taz PRN Q3HRS PRN TP PAIN; Start 04/22/18 at 17: 30 Prednisone (Prednisone) 10 mg PRN DAILY PRN PO wheezing; Start 04/22/18 at 17: 30 Non-Formulary Medication (Albuterol Sulfate (Proventil Hfa Inhaler)) 2 PUFFS Q 4 HRS PRN SOB PRN Q4HRS PRN IH SHORTNESS OF BREATH; Start 04/22/18 at 17:30; Status UNV Non-Formulary Medication (Fluticasone/ Salmeterol (Advair 250-50 Diskus)) 1 puff BID IH ; Start 04/22/18 at 21:00; Status UNV Gabapentin (Neurontin) 300 mg PRN DAILY PRN PO NEUROPATHY; Start 04/22/18 at 21 :00 Pantoprazole Sodium (Protonix) 40 mg DAILYAC PO Last administered on 04/25/18at 06:25; Start 04/23/18 at 07:30 Budesonide (Pulmicort) 0.5 mg RTBID NEB Last administered on 04/25/18at 06:13; Start 04/22/18 at 20:00 Albuterol Sulfate (Ventolin Neb Soln) 2.5 mg RTQID NEB Last administered on at 06:13; Start 04/22/18 at 20:00 Info (Anti-Coagulation Monitoring By Pharmacy) 1 each PRN DAILY PRN MC SEE COMMENTS Last administered on 04/24/18at 14:01; Start 04/22/18 at 17:45 Ondansetron HCl (Zofran) 4 mg PRN Q6HRS PRN IV NAUSEA/VOMITING; Start 04/23/18 at 09:00 Oxycodone/ Acetaminophen (Percocet 5/325) 1 tab PRN Q4HRS PRN PO PAIN; Start at 09:00 Simethicone (Gas-X) 80 mg PRN AFTMEALHC PRN PO GAS / BLOATING; Start 04/23/18 at 09:00 Morphine Sulfate (Morphine Sulfate) 2 mg PRN Q2HR PRN IV PAIN; Start 04/23/18 at 09:00 Polyethylene Glycol (miraLAX PACKET) 17 gm DAILY PO Last administered on at 08:48; Start 04/24/18 at 09:00 Gadobutrol (Gadavist) 6 mmol 1X ONCE IV Last administered on 04/24/18at 13:23; Start 04/24/18 at 13:00; Stop 04/24/18 at 13:01; Status DC Active Scripts Active Reported Lidocaine-Prilocaine Cream (Lidocaine/Prilocaine) 30 Gm Cream..g. Gabapentin 300 Mg Capsule 300 Mg PO PRN DAILY PRN Prednisone (Prednisone) 10 Mg Tablet 10 Mg PO PRN DAILY PRN Eliquis (Apixaban) 5 Mg Tablet 5 Mg PO DAILY Omeprazole 40 Mg Capsule.dr 1 Cap PO DAILY Albuterol Sulfate Neb Soln (Albuterol Sulfate) 2.5 Mg/3 Ml Vial.neb 0.5 Vial NEB PRN Q4HRS PRN Proventil Hfa Inhaler (Albuterol Sulfate) 6.7 Gm Hfa.aer.ad 1-2 Puff IH PRN Q4HRS PRN Advair 250-50 Diskus (Fluticasone/Salmeterol) 1 Each Disk.w.dev 1 Puff IH BID Vitals/I & O Vital Sign - Last 24 Hours 04/24/18 04/24/18 04/24/18 04/24/18 11:00 11:08 14:48 15:00 Temp 98.7 98.3 98.7 98.3 Pulse 87 85 Resp 18 18 B/P (MAP) 105/64 (78) 109/61 (77) Pulse Ox 93 95 O2 Delivery Room Air Room Air Room Air Room Air 04/24/18 04/24/18 04/24/18 04/24/18 19:00 19:43 20:15 23:18 Temp 98.5 98.2 98.5 98.2 Pulse 89 84 Resp 18 18 B/P (MAP) 112/68 (83) 96/62 (73) Pulse Ox 92 94 93 O2 Delivery Room Air Room Air Room Air Room Air 04/25/18 04/25/18 04/25/18 03:00 06:14 07:00 Temp 98.2 98.4 98.2 98.4 Pulse 85 88 Resp 18 16 B/P (MAP) 110/68 (82) 99/72 (81) Pulse Ox 92 92 94 O2 Delivery Room Air Room Air Room Air Intake and Output 04/24/18 04/24/18 04/25/18 15:00 23:00 07:00 Intake Total 480 ml 900 ml Balance 480 ml 900 ml MINNA THORPE MD Apr 25, 2018 08:54
--- NOTE | 2018-04-25 09:33 | PDOC3 ---
Discharge Summary Visit Information Date of Admission: Apr 22, 2018 Date of Discharge: Apr 25, 2018 Admitting Diagnosis Comment: 1. 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 She was diagnosed with stage IV malignancy on 08/31/2015. ER positive 100%, [place] negative, HER2/lake[place] negative. . CT scan of the abdomen and pelvis on 04/22/2018 does not reveal any evidence of disease progression. 2. Bone metastasis. She is on Xgeva once a month. 3. Abdominal pain. No clear etiology 4. Ascites. She does not have any significant ascites at this time. Final Diagnosis Problems Medical Problems: (1) Abdominal pain Status: Acute (2) Carcinomatosis Status: Acute Brief Hospital Course Allergies Allergies Coded Allergies Type Severity Reaction Last Updated Verified meperidine Adverse Reaction Intermediate Nausea and Vomiting 07/12/17 Yes Vital Signs Vital Signs Date Time Temp Pulse Resp B/P (MAP) Pulse Ox O2 Delivery O2 Flow Rate FiO2 04/25/18 07:00 98.4 88 16 99/72 (81) 94 Room Air 98.4 Brief Hospital Course Ms. Colbert is a 62 old a pleasant female with stage IV breast cancer with history of peritoneal carcinomatosis ascites and bone metastases. Follows very well with Dr. Arvizu. Admitted for abdominal pain, needed to r.o for abdominal carcinomatosis and that's negative with a CAT scan and MRI. Comanagement GI and GS. They have no further conditions. Patient came became better on her own DNR No new meds on discharge Cleared from heme on and myself to discharge today with no PT needs dc < 30 mins Discharge Information Condition at Discharge: Improved, Stable Disposition/Orders: D/C to Home Scheduled Apixaban (Eliquis) 5 Mg Tablet, 5 MG PO DAILY, (Reported) Entered as Reported by: DYANA GUEVARA on 08/09/17 2229 Last Action: Continued on 04/22/181728 by SAPNA MARR MD Fluticasone/Salmeterol (Advair 250-50 Diskus) 1 Each Disk.w.dev, 1 PUFF IH BID, #3 Ref 3 (Reported) Entered as Reported by: GISSEL SALGUERO on 09/20/16 0994 Last Action: Converted on 04/22/181728 by SAPNA MARR MD Omeprazole (Omeprazole) 40 Mg Capsule.dr, 1 CAP PO DAILY, #30 Ref 3 (Reported) Entered as Reported by: JULIAN PEÑA on 07/12/17 1254 Last Action: Converted on 04/22/181728 by SAPNA MARR MD Scheduled PRN Albuterol Sulfate (Proventil Hfa Inhaler) 6.7 Gm Hfa.aer.ad, 1-2 PUFF IH PRN Q4HRS PRN for SHORTNESS OF BREATH, Ref 0 (Reported) Entered as Reported by: GISSEL SALGUERO on 09/20/16954 Last Action: Converted on 04/22/181728 by SAPNA MARR MD Albuterol Sulfate (Albuterol Sulfate Neb Soln) 2.5 Mg/3 Ml Vial.neb, 0.5 VIAL NEB PRN Q4HRS PRN for SHORTNESS OF BREATH, #50 (Reported) Entered as Reported by: GISSEL SALGUERO on 09/20/16954 Last Action: Continued on 04/22/181728 by SAPNA MARR MD Gabapentin (Gabapentin) 300 Mg Capsule, 300 MG PO PRN DAILY PRN for neuropathy, (Reported) Entered as Reported by: ALONZO ANDERSON on 11/14/172150 Last Action: Converted on 04/22/181728 by SAPNA MARR MD Prednisone (Prednisone ) 10 Mg Tablet, 10 MG PO PRN DAILY PRN for wheezing, ( Reported) Entered as Reported by: ALONZO ANDERSON on 11/14/172150 Last Action: Continued on 04/22/181728 by SAPNA MARR MD Miscellaneous Medications Lidocaine/Prilocaine (Lidocaine-Prilocaine Cream) 30 Gm Cream..g., (Reported) Entered as Reported by: ALONZO ANDERSON on 11/14/172150 Last Action: Continued on 04/22/181728 by SAPNA MARR MD Discontinued Medications Tiotropium Celina (Spiriva Respimat) 4 Gm Mist.inhal, (Reported) Entered as Reported by: ALONZO ANDERSON on 11/14/172150 Last Action: Discontinued on 04/22/181638 by SHASHI OAKLEY [Pantoprazole] , (Reported) Entered as Reported by: ALONZO ANDERSON on 11/14/172150 Last Action: Discontinued on 04/22/181638 by LACI KO MD Apr 25, 2018 09:33
--- NOTE | 2018-04-25 10:18 | PDOC ---
Subjective: Subjective: Feels better. Bloating resolved. Stooled yesterday. Glad to be going home. Objective: Vital Signs: Vital Signs Date Time Temp Pulse Resp B/P (MAP) Pulse Ox O2 Delivery O2 Flow Rate FiO2 04/25/18 07:00 98.4 88 16 99/72 (81) 94 Room Air 98.4 Imaging: MRI Pelvis Impression: 1. Limited by motion. 2. No convincing peritoneal carcinomatosis identified in the abdomen. 3. Soft tissue thickening and mild enlargement of the appendix, similar to previous study. 4. Numerous subcentimeter osseous lesions probably osteoblastic metastases. MRI Abd Impression: 1. Limited by motion. 2. Small amount of perihepatic ascites. 3. Liver demonstrates mildly nodular contour, suggesting cirrhosis. 4. Subcentimeter lesion in hepatic segment 2 is without evidence of enhancement , favored to represent cyst. There may be a few additional smaller subcentimeter liver lesions, too small characterize, possibly additional smaller cysts. 5. No evidence of peritoneal carcinomatosis. PE: GEN: NAD, was talking on cell phone LUNGS: CTAB HEART: RRR ABD: much less distended, non-tender NEURO/PSYCH: A & O 3 A/P: Abd bloating/distention, RLQ discomfort - resolved Stage IV breast cancer -peritoneal carcinomatosis not evidenced on MRIs as above -- DC per primary, follow-up w/ Dr. Arvizu. Plans to continue Miralax. RAYSA GALVAN Apr 25, 2018 10:18
[2018-04-25 11:00] VITALS: BP 118/72
[2018-04-25] MEDS ORDERED: HEPARIN PF 500 UNIT/5 ML DISP.SYRIN. IV ONE (11:15)
--- NOTE | 2018-04-25 11:22 | PDOC2 ---
PALLIATIVE CARE Palliative Care Note Palliative Care Met with patient, daughter Laquita. Dr. Arvizu has reviewed results of MRI with patient and plan is to continue chemotherapy. Discussed DNR/DNI. Outside the Hospital DNR/DNI form signed. Copy of Advanced Directive dated and initialled by patient. Copy placed in record. Plan: Discharge today. DNR/DNI. Outside the Hospital form completed and original sent home with patient. Copy of Advanced Directive placed on record. EMIR BOWMAN Apr 25, 2018 11:22
[2018-04-25] MEDS: ANTI-COAG MONITOR BY PHARMACY. MC PRN (14:08)
== END 2018-04-25 12:00 | disposition home or self-care (01) | DRG 392 ==
LOC: ER 11:21 → 4 NORTH 15:15
PROVIDERS: ADMIT Family Medicine; ATTEND Family Medicine
DX: R10.9 Unspecified abdominal pain (principal); C79.51 Secondary malignant neoplasm of bone; J44.9 Chronic obstructive pulmonary disease, unspecified; Z66 Do not resuscitate; Z85.3 Personal history of malignant neoplasm of breast; Z80.3 Family history of malignant neoplasm of breast; Z90.710 Acquired absence of both cervix and uterus; Z90.11 Acquired absence of right breast and nipple; Z88.6 Allergy status to analgesic agent; Z90.721 Acquired absence of ovaries, unilateral; Z80.1 Family history of malignant neoplasm of trachea, bronchus and lung; Z17.0 Estrogen receptor positive status [ER+]; Z79.01 Long term (current) use of anticoagulants; Z92.21 Personal history of antineoplastic chemotherapy; Z86.711 Personal history of pulmonary embolism; Z79.899 Other long term (current) drug therapy
CPT/HCPCS: 36415; 71045; 72197; 74177; 74183; 80053; 81001; 83690; 83735; 83880; 84484; 85025; 85610; 85730; 87086; 93005; 94640; 94760; A9585; J7613; J7620; J7626; Q9967; 99285-25

== ENCOUNTER → 2018-05-08 | Outpatient (CLI) | payer BC ==
[2017-11-16 11:00] VITALS: BP_DIAS 72
[2018-04-25 11:00] VITALS: BP_SYST 118
[~2018-05-08] MED LIST changes: +HEPARIN PF 500 UNIT/5 ML DISP.SYRIN. IV ONE; +IOHEXOL 240 MG/ML 50ML VIAL. PO ONE; +IOHEXOL 300 MG/ML 100ML VIAL. IV ONE
--- NOTE | 2018-05-08 10:33 | RAD ---
Examination: CT chest abdomen pelvis with IV contrast HISTORY: History of breast cancer, follow-up COMPARISON: CT chest abdomen pelvis from 09/30/2017 CT abdomen pelvis from 04/22/2018 TECHNIQUE: Axial CT images of the chest abdomen pelvis were performed with IV contrast. Coronal and sagittal reformats are performed Exposure: One or more of the following individualized dose reduction techniques were utilized for this examination: 1. Automated exposure control 2. Adjustment of the mA and/or kV according to patient size 3. Use of iterative reconstruction technique FINDINGS: The visualized thyroid gland demonstrates small hypodense nodules similar to prior exam. Left-sided Port-A-Cath is identified. Mild cardiomegaly. No radiologically significant mediastinal lymphadenopathy is identified. Right mastectomy changes. Central airways are patent. There is a right upper lobe consolidation with bronchiectatic changes likely posttherapeutic fibrosis similar to prior exam. The patchy groundglass airspace opacities in the right upper lobe similar to prior exam. 9 mm nodular opacity identified in the right upper lobe of the lungs similar to prior exam. Numerous tiny sclerotic densities identified in the thoracic vertebral bodies are similar to prior exam. There is a small 4 mm hypodensity identified in the left lobe of the liver. There is interval mild increase in fluid density anterior to the liver now measuring 9 cm in length compared to prior exam from 7.8 cm from 04/22/2018. The liver appears slightly nodular in appearance. The gallbladder is mildly distended. The visualized spleen demonstrates a few granulomas. The stomach is minimally distended. The visualized pancreas grossly appears unremarkable. The small bowel is nondilated. Moderate amount of feces and gas noted throughout the colon. There is mild thickened appearance of the appendix similar to prior exam. Urinary bladder is moderately distended. The bilateral kidneys enhance symmetrically. Punctate 2 mm intrahepatic system calculus left kidney. Multifocal tiny sclerotic lesions identified throughout the visualized thoracal lumbar spine and bony pelvis. IMPRESSION: 1. 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 2. Subcentimeter hypodensity identified in the left lobe of the liver is similar to prior exam. 3. Interval increase in fluid density anterior to the liver could be perihepatic ascites. Subcapsular fluid collection is not completely excluded. 4. Stable multifocal punctate osseous sclerotic lesions throughout the visualized thoracolumbar spine and bony pelvis similar to prior exam could be diffuse metastatic disease/healing response. Electronically signed by: Kennedy Kim MD (05/08/2018 10:30 AM) [id number]
== END | disposition home or self-care (01) ==
LOC: CT 07:45
PROVIDERS: ATTEND Internal Medicine Hematology & Oncology
DX: J84.10 Pulmonary fibrosis, unspecified (principal); M48.8X5 Other specified spondylopathies, thoracolumbar region; N20.0 Calculus of kidney; K82.8 Other specified diseases of gallbladder; J44.9 Chronic obstructive pulmonary disease, unspecified; K21.9 Gastro-esophageal reflux disease without esophagitis; Z86.711 Personal history of pulmonary embolism; Z86.718 Personal history of other venous thrombosis and embolism; Z87.891 Personal history of nicotine dependence; Z85.43 Personal history of malignant neoplasm of ovary; Z85.3 Personal history of malignant neoplasm of breast; Z92.21 Personal history of antineoplastic chemotherapy; Z90.11 Acquired absence of right breast and nipple; Z90.721 Acquired absence of ovaries, unilateral; Z90.710 Acquired absence of both cervix and uterus; Z88.6 Allergy status to analgesic agent; Z88.8 Allergy status to other drugs, medicaments and biological substances; Z80.3 Family history of malignant neoplasm of breast; Z80.1 Family history of malignant neoplasm of trachea, bronchus and lung
CPT/HCPCS: 71260; 74177; Q9966; Q9967

== ENCOUNTER → 2018-07-07 | Outpatient (CLI) | payer BC ==
[~2018-07-07] MED LIST changes: +CONTRAST GIVEN. MC PRN
--- NOTE | 2018-07-07 14:16 | RAD ---
PQRS Compliance statement: One or more of the following individualized dose reduction techniques were utilized for this examination: 1. Automated exposure control. 2. Adjustment of the mA and/or kV according to patient size. 3. Use of iterative reconstruction technique. Indication:MALIGNANT NEOPLASM OF BREAST. Surveillance scan. TECHNIQUE: CT chest, abdomen and pelviswith IV contrast with multiplanar reformats. COMPARISON: 05/08/2018 FINDINGS: CT chest: Status post right mastectomy. No enlarged axillary, mediastinal or hilar adenopathy. Heart is normal in size. No pericardial or pleural effusion. Left chest wall Chemo-Port is seen with its tip in the SVC. Stable subpleural scarring and patchy opacities in the right upper lobe is seen. Otherwise, lungs are clear. Multifocal small sclerotic foci seen diffusely through the bones. CT abdomen pelvis: Stable perihepatic fluid collection. There is scalloping of the liver contour. Stable low attenuating lesion in segment 2 of the liver measuring 9 mm. The liver demonstrates nodular contour. Scattered calcified granulomas are seen in the spleen. Motion artifact is seen in the mid abdomen limiting optimal evaluation. No radiopaque gallstones. Pancreas and adrenal glands within normal limits. Kidneys within normal limits no enlarged retroperitoneal or pelvic adenopathy. No free pelvic fluid or ascites. No bowel obstruction. Urinary bladder within normal limits. Status post hysterectomy. There is bowel levoscoliosis of the lumbar spine. Redemonstrated are multiple sclerotic foci in the pelvic bones and vertebral bodies. IMPRESSION: 1. Stable most likely postradiation changes in the right upper lobe. Attention on follow-up. 2. Stable discrete nodular opacities in the right upper lobe, nonspecific. Attention on follow-up. 3. Stable segment 2 liver lesion, indeterminate. Attention on follow-up. 4. Stable perihepatic fluid collection with nodular liver contour may represent pseudocirrhosis. 5. Stable Diffuse multiple sclerotic foci in the bones suggests metastasis. Electronically signed by: Franki Garner DO (07/07/2018 2:14 PM) [facility]
== END | disposition home or self-care (01) ==
LOC: CT 13:10
PROVIDERS: ATTEND Internal Medicine Hematology & Oncology
DX: R91.8 Other nonspecific abnormal finding of lung field (principal); Z90.11 Acquired absence of right breast and nipple; Z85.3 Personal history of malignant neoplasm of breast; Z90.710 Acquired absence of both cervix and uterus
CPT/HCPCS: 71260; 74177; Q9966; Q9967

== ENCOUNTER → 2018-08-20 | Outpatient (CLI) | payer BC ==
[~2018-08-20] MED LIST changes: +GABA300C18 PO; -GABA300C8 PO; -HYDR-2758 PO; +HYDR-2761 PO; +HYDR-3164 PO; -HYDR-971 PO; +IOHEXOL 240 MG/ML 100 ML VIAL. IV ONE; +IOHEXOL 300 MG/ML 50 ML VIAL. IV ONE
--- NOTE | 2018-08-20 17:27 | RAD ---
Nuclear medicine whole body bone scan History: staging Breast CA - (prev staging 4) right rib pain Comparison: CT chest abdomen and pelvis with contrast, same day. Whole-body bone scan, August 17, 2015. Technique: Examination performed after intravenous administration of 25.5 mCi Technetium 99m MDP. Images of the whole body were obtained in the anterior and posterior projections. Findings: Tracer uptake is very similar to prior bone scan. There is heterogeneous tracer uptake in the spine. Tracer uptake at the sacroiliac joints and sacrum is unchanged. The innumerable tiny sclerotic foci noted throughout the axial skeleton on CT are probably due to bone metastases but given size no scintigraphic correlate would be expected. Some of these foci were present on CT from 2015. No abnormal tracer uptake in the appendicular skeleton. There is degenerative uptake of the bilateral shoulders that is unchanged. IMPRESSION: Whole body bone scan is stable compared to 2015. Electronically signed by: Philippe Toribio MD (08/20/2018 5:24 PM) [id number]
--- NOTE | 2018-08-21 08:06 | RAD ---
PQRS Compliance statement: One or more of the following individualized dose reduction techniques were utilized for this examination: 1. Automated exposure control. 2. Adjustment of the mA and/or kV according to patient size. 3. Use of iterative reconstruction technique. Indication:MALIGNANT NEOPLASM OF BREAST INJ 75ML OMNI 300 PREV SENT TECHNIQUE: CT chest, abdomen and pelviswith IV contrast with multiplanar reformats. COMPARISON: Previous exam from 07/07/2018. FINDINGS: CT chest: Left chest wall Chemo-Port is seen with its tip in the SVC. Heart is normal in size. No pericardial or pleural effusion. Status post right mastectomy. No enlarged axillary, mediastinal or hilar adenopathy. Central airways are patent. Subpleural patchy opacities are seen in the right lung apex. Stable ill-defined patchy opacities seen in the central right upper lobe measuring 6 mm, previously 8 mm. Otherwise, lungs are clear. Multifocal punctate sclerotic foci seen in the bones with stable mild posterior focal depression in the superior inferior endplates of T5 vertebral body which may be secondary to collapsed Schmorl's node. CT abdomen pelvis: Nodular contour of the liver is seen with small amount of perihepatic fluid also seen on previous exam. Stable 6 cm low attenuating lesion is seen in segment 2 of the liver. Spleen, gallbladder, pancreas, adrenals and kidneys are within normal limits. No enlarged retroperitoneal or pelvic adenopathy. No free pelvic fluid. No bowel obstruction. Moderate diffuse colonic stool burden. Urinary bladder is within normal limits. Status post hysterectomy. No pneumoperitoneum. Again demonstrated are multiple punctate sclerotic foci in the bones. IMPRESSION: 1. Relatively stable patchy opacities in the right upper lobe likely postradiation changes. Attention on follow-up. 2. Stable segment 2 liver lesion, indeterminate may represent cystic biliary hamartoma. Attention on follow-up. 3. Stable perihepatic ascites with nodular liver contour. Differential diagnoses includes cirrhosis or pseudocirrhosis known history of breast cancer. 4. Scattered multiple punctate sclerotic foci in the bones concerning for metastasis. Please see bone scan report from same day. Electronically signed by: Franki Garner DO (08/21/2018 8:02 AM) [facility]
== END | disposition home or self-care (01) ==
LOC: NM 10:01
PROVIDERS: ATTEND Internal Medicine Hematology & Oncology
DX: R91.8 Other nonspecific abnormal finding of lung field (principal); R18.8 Other ascites; Z90.710 Acquired absence of both cervix and uterus; Z90.11 Acquired absence of right breast and nipple; Z85.3 Personal history of malignant neoplasm of breast
CPT/HCPCS: 71260; 74177; 78306; 96374; A9503; Q9966; Q9967

== ENCOUNTER 2018-10-13 08:41 | Outpatient (CLI) | payer BC ==
[~2018-10-13] VITALS: Ht 160 cm; Wt 65.8 kg
[~2018-10-13 08:41] MED LIST changes: +ALBU2.5V8 IH; +ALBU2.5V8 INH; -CONTRAST GIVEN. MC PRN; -HEPARIN PF 500 UNIT/5 ML DISP.SYRIN. IV ONE; -IOHEXOL 240 MG/ML 100 ML VIAL. IV ONE; -IOHEXOL 240 MG/ML 50ML VIAL. PO ONE; -IOHEXOL 300 MG/ML 100ML VIAL. IV ONE; -IOHEXOL 300 MG/ML 50 ML VIAL. IV ONE; -PROAIR HFA8.5 GM INH; -PROVENTIL HFA6.7 GM IH
[2018-10-13 09:04] VITALS: BP 129/65
[2018-10-13 09:30] VITALS: BP 126/66
[2018-10-13 09:35] LABS: BASO % 1 % (0-3); EOS # 0.1 x10^3/uL (0.0-0.7); EOS % 2 % (0-3); HEMATOCRIT 35.5 % (36.0-47.0); HEMOGLOBIN 11.6 g/dL (12.0-15.5); LYMPH # 0.9 x10^3/uL (1.0-4.8); LYMPH % 17 % (24-48); MEAN CORPUSCULAR HEMOGLOBIN 29 pg (25-35); MEAN CORPUSCULAR HGB CONC 33 g/dL (31-37); MEAN CORPUSCULAR VOLUME 89 fL (79-100); MONO # 0.4 x10^3/uL (0.0-1.1); MONO % 7 % (0-9); NEUT # 3.8 x10^3uL (1.8-7.7); NEUT % 73 % (31-73); PLATELET COUNT 163 x10^3/uL (140-400); RED BLOOD COUNT 3.98 x10^6/uL (3.50-5.40); RED CELL DISTRIBUTION WIDTH 16.9 % (11.5-14.5); WHITE BLOOD COUNT 5.2 x10^3/uL (4.0-11.0)
[2018-10-13 10:00] VITALS: BP 131/77
[2018-10-13 10:30] VITALS: BP 144/77
[2018-10-13] MEDS ORDERED: HEPARIN PF 500 UNIT/5 ML DISP.SYRIN. IV ONE ×2 (12:08→12:15)
--- NOTE | 2018-10-13 12:39 | NUR ---
Discharge Note: AHSAN SANCHEZ Discharge instructions and discharge home medications reviewed with and copy given. All questions have been answered and understanding verbalized. Pt states understanding of follow up, site care, and s/s requring further attention. The following instructions and handouts were given: port-a-cath care Port-a-cath de-accessed and flushed with heparin and saline per protocol and dressing applied. Patient discharged to home with daughter.
--- NOTE | 2018-10-16 14:50 | RAD ---
Limited abdominal ultrasound October 13, 2018 Discussion: Limited abdominal ultrasound performed for evaluation of possible paracentesis. Only scant peritoneal fluid is identified, not readily amenable to percutaneous drainage. Paracentesis not to be of little therapeutic benefit, and was therefore not performed. Impression: Scant abdominal ascites, paracentesis not performed
== END 2018-10-13 12:30 | disposition home or self-care (01) ==
LOC: INTRAD 08:41
PROVIDERS: ATTEND Internal Medicine Hematology & Oncology
DX: R18.8 Other ascites (principal); Z88.5 Allergy status to narcotic agent; Z79.01 Long term (current) use of anticoagulants
CPT/HCPCS: 36415; 76705; 85025; 85610

== ENCOUNTER → 2018-10-22 | Outpatient (CLI) | payer BC ==
[2018-10-13 10:30] VITALS: BP 144/77
[~2018-10-22] MED LIST changes: +ASCO500C9 PO; +CYAN-25 PO; +HEPARIN PF 500 UNIT/5 ML DISP.SYRIN. IV ONE; +HYDR-2769 PO; +IOHEXOL 240 MG/ML 50ML VIAL. PO ONE; +IOHEXOL 300 MG/ML 100ML VIAL. IV ONE; +MORP15TA PO; +MULT-129 PO
--- NOTE | 2018-10-22 09:59 | RAD ---
CT of the chest, abdomen and pelvis with contrast, 10/22/2018: HISTORY: Breast cancer follow-up Multidetector CT imaging was performed following oral and IV administration of contrast. Comparison is made to a study from 08/20/2018. There are predominantly streaky opacities in the right upper lobe which are unchanged. These are most prominent anteriorly in the apical region. Scarring is suspected. No new pulmonary opacities are seen. There are calcified granulomata in the right chest. There is no evidence of pleural fluid. A left Port-A-Cath extends into the superior vena cava. No mediastinal or hilar adenopathy is evident. The right breast is surgically absent. No axillary adenopathy is delineated. There is considerable contour irregularity of the liver compatible with cirrhosis. There is a tiny unchanged low-density lesion in the left lobe of the liver which may be a cyst. No new hepatic abnormality is seen. The gallbladder is unremarkable. No pancreatic abnormality is seen. The spleen is unremarkable. No renal or adrenal abnormality is detected. There is mild aortic calcific plaquing. No abdominal or pelvic adenopathy is seen. The uterus is surgically absent. There is a moderate volume of ascites, presumably related to hepatic cirrhosis. Coexisting abdominal carcinomatosis cannot be entirely excluded. The bowel loops are not dilated. No free air is evident in the abdomen or pelvis. Multiple tiny sclerotic foci are again noted throughout the bony skeleton. There has been no definite interval change. There are moderate scattered degenerative changes in the spine. Mild endplate deformities involving a mid to upper thoracic vertebral body are unchanged. IMPRESSION: 1. Stable right upper lobe pulmonary opacities. 2. Hepatic cirrhosis with ongoing ascites. 3. Stable small low-density lesion in the left lobe of the liver. 4. Stable punctate sclerotic foci in the bones compatible with metastatic disease. 5. No new evidence of metastatic disease. PQRS Compliance Statement: One or more of the following individualized dose reduction techniques were utilized for this examination: 1. Automated exposure control 2. Adjustment of the mA and/or kV according to patient size 3. Use of iterative reconstruction technique Electronically signed by: Favio Moore MD (10/22/2018 9:56 AM) [facility]
== END | disposition home or self-care (01) ==
LOC: CT 07:53
PROVIDERS: ATTEND Internal Medicine Hematology & Oncology
DX: M43.8X4 Other specified deforming dorsopathies, thoracic region (principal); K76.89 Other specified diseases of liver; R91.8 Other nonspecific abnormal finding of lung field; K74.69 Other cirrhosis of liver; R18.8 Other ascites; Z85.3 Personal history of malignant neoplasm of breast
CPT/HCPCS: 71260; 74177; Q9966; Q9967

== ENCOUNTER 2018-11-27 11:53 | Inpatient (IN) | payer BC ==
[~2018-11-27] VITALS: Ht 162.6 cm; Wt 64.9 kg
[~2018-11-27 11:53] MED LIST changes: -ASCO500C9 PO; -CYAN-25 PO; -HEPARIN PF 500 UNIT/5 ML DISP.SYRIN. IV ONE; -HYDR-2769 PO; -IOHEXOL 240 MG/ML 50ML VIAL. PO ONE; -IOHEXOL 300 MG/ML 100ML VIAL. IV ONE; -MORP15TA PO; -MULT-129 PO
[2018-11-27 12:35] LABS: BILIRUBIN,URINE NEGATIVE (NEG); CLARITY,URINE CLEAR; COLOR,URINE YELLOW; NITRITE,URINE NEGATIVE (NEG); PH,URINE 6.5; PROTEIN,URINE NEGATIVE (NEG-TRACE); UROBILINOGEN,URINE 0.2 mg/dL (0.2 mg/dL)
[2018-11-27 12:52] LABS: BACTERIA,URINE 0 /HPF (0-FEW); RBC,URINE 0 /HPF (0-2); SQUAMOUS EPITHELIAL CELL,UR FEW /LPF; WBC,URINE 0 /HPF (0-4)
[2018-11-27 13:47] LABS: BASO # 0.1 x10^3/uL (0.0-0.2); BASO % 2 % (0-3); EOS # 0.1 x10^3/uL (0.0-0.7); EOS % 3 % (0-3); HEMATOCRIT 33.7 % (36.0-47.0); HEMOGLOBIN 10.9 g/dL (12.0-15.5); LYMPH # 0.8 x10^3/uL (1.0-4.8); LYMPH % 33 % (24-48); MEAN CORPUSCULAR HEMOGLOBIN 28 pg (25-35); MEAN CORPUSCULAR HGB CONC 32 g/dL (31-37); MEAN CORPUSCULAR VOLUME 88 fL (79-100); MONO # 0.3 x10^3/uL (0.0-1.1); MONO % 10 % (0-9); NEUT # 1.4 x10^3uL (1.8-7.7); NEUT % 53 % (31-73); PLATELET COUNT 123 x10^3/uL (140-400); RED BLOOD COUNT 3.83 x10^6/uL (3.50-5.40); RED CELL DISTRIBUTION WIDTH 17.3 % (11.5-14.5); WHITE BLOOD COUNT 2.6 x10^3/uL (4.0-11.0)
[2018-11-27 14:04] LABS: CALCIUM 8.7 mg/dL (8.5-10.1); CREATININE 0.5 mg/dL (0.6-1.0); GFR 125.4
[2018-11-27 14:12] LABS: ALBUMIN 2.8 g/dL (3.4-5.0); ALBUMIN/GLOBULIN RATIO 0.8 (1.0-1.7); TOTAL BILIRUBIN 0.5 mg/dL (0.2-1.0); TOTAL PROTEIN 6.1 g/dL (6.4-8.2)
[2018-11-27] MEDS ORDERED: IOHEXOL 300 MG/ML 100ML VIAL. IV ONE (14:15)
[2018-11-27] MEDS ORDERED: IV NORMAL SALINE 1000ML BAG 1,000 ML IV SCH ×2 (14:37→15:21)
[2018-11-27] MEDS ORDERED: fentaNYL PF VIAL 100 MCG/2 ML VIAL IV PRN (14:45)
[2018-11-27] MEDS ORDERED: ONDANSETRON PF 4 MG/2 ML VIAL. IV ONE (14:45)
--- NOTE | 2018-11-27 15:04 | RAD ---
EXAM: CT Abdomen and Pelvis with IV contrast CLINICAL HISTORY: Abdominal pain, distension COMPARISON: 10/22/2018, 08/20/2018, CT 10/01/2016. MRI 04/24/2018. TECHNIQUE: Helical CT of the abdomen and pelvis was performed following the administration of intravenous contrast. Axial, coronal and sagittal reformatted images were generated. PQRS compliance statement - One or more of the following individualized dose reduction techniques were utilized for this study: 1. Automated exposure control 2. Adjustment of the mA and/or kV according to patient size 3. Use of iterative reconstruction technique FINDINGS: Lower chest: No lobar consolidation. Linear opacities in the middle lobe likely scarring/atelectasis. Abdomen and Pelvis: Liver is cirrhotic in morphology. Subcentimeter hypodense left hepatic lobe lesion is too small to accurately characterize however unchanged. Gallbladder is normal. No biliary ductal dilatation. Calcified granuloma are seen within the spleen. Adrenal glands are normal. Congenitally short pancreas is incidentally seen. Otherwise the pancreas is unremarkable. Symmetric nephrograms. No focal renal lesion. Punctate nonobstructing left lower pole renal calculus. No hydronephrosis. No hydroureter. Bladder is grossly unremarkable. Moderate colonic stool content is seen. No small or large bowel dilatation to suggest bowel obstruction. The retroflexed appendix is mildly thickened, less well evaluated on today's examination as this is obscured by adjacent peritoneal enhancement and ascites. Small volume abdominal and pelvic ascites. There is fascial thickening with associated enhancement, likely peritonitis most prominent in the right greater than left lower quadrant. No abdominal or pelvic lymphadenopathy by size criteria although mild retroperitoneal infiltration is seen which may obscure small lymph nodes. Aorta is normal in caliber. Bones: S-shaped scoliosis of the thoracolumbar spine. Numerous punctate sclerotic foci are seen within the visualized osseous structures, unchanged to prior examination, likely metastatic foci. IMPRESSION: 1. Hepatic cirrhosis with progressive nodularity of the liver. 2. Small volume abdominal ascites with peritoneal enhancement and thickening, consistent with peritonitis. 3. The thickened appendix with mild infiltrative changes was better delineated on prior CT/MRI, obscured by the peritonitis and ascites. This finding is likely stable 4. Punctate sclerotic focus size, may represent metastatic disease in this patient with known breast cancer. Electronically signed by: Hector Garcia MD (11/27/2018 3:01 PM) [facility]
[2018-11-27] MEDS ORDERED: cefTRIAXone IV Push 1 GM VIAL. IVP ONE (15:30)
[2018-11-27] MEDS ORDERED: MORPHINE SULFATE 2 MG/ML VIAL. IV PRN (15:30)
[2018-11-27] MEDS ORDERED: ONDANSETRON PF 4 MG/2 ML VIAL. IV PRN (15:30)
--- NOTE | 2018-11-27 15:32 | PHYS DOC ---
Past Medical History Past Medical History: Asthma, Cancer, COPD Additional Past Medical Histor: stage 4 breast ca Past Surgical History: Hysterectomy, Other Additional Past Surgical Histo: RT MASTECTOMY, PARACENTESIS, Port L chest Alcohol Use: None Drug Use: None Adult General Chief Complaint Chief Complaint: ABDOMINAL PAIN HPI HPI 63-year-old female presenting to the emergency department today with abdominal pain. She has a history of breast cancer stage IV and a history of ascites. Her pain is a sharp shooting pain. It is nonradiating. She denies any vomiting fevers or chills. The pain is been present for approximately 2 weeks but is worsened over the past 24 hours. Review of systems is negative for chest pain shortness of breath fevers or chills. All other review of systems is negative unless otherwise noted in history of present illness. ED course: 63-year-old female presenting with abdominal pain. She is afebrile with a normal heart rate. Abdomen is soft and nontender to palpation. Negative McBurney's point. Negative Rush sign. No rebound tenderness or guarding. IV fluids nausea and pain medication given here in the emergency room. Blood work shows a white blood cell count of 2.6, hemoglobin 10.9, platelets of 123. Chemistry panel shows mild elevation of AST and alkaline phosphatase. Urinalysis is negative for infection. CT the abdomen pelvis shows ascites with peritoneal enhancement consistent with peritonitis. Unable to exclude perforated appendix however the patient's clinical presentation is not suggestive of it given the lack of fever and nontender abdomen without any rebound tenderness. We will give the patient IV Rocephin and admit the patient hospital for GI consultation. Dr. Sue accepts the patient for admission. Review of Systems Review of Systems SEE ABOVE. Current Medications Current Medications Current Medications Medications (Trade) Dose Ordered Sig/Iggy Start Time Stop Time Status Last Admin Dose Admin Fentanyl Citrate (Fentanyl 2ml Vial) 50 mcg PRN Q30MIN PRN 11/27/18 14:45 11/27/18 14:45 50 MCG Iohexol (Omnipaque 300 Mg/ml) 75 ml 1X ONCE 11/27/18 14:15 11/27/18 14:16 DC 11/27/18 14:27 75 ML Ondansetron HCl (Zofran) 4 mg 1X ONCE 11/27/18 14:45 11/27/18 14:46 DC 11/27/18 14:45 4 MG Sodium Chloride 1,000 ml @ 1,000 mls/hr Q1H 11/27/18 14:37 11/27/18 15:36 11/27/18 14:45 1,000 MLS/HR Allergies Allergies Allergies Coded Allergies Type Severity Reaction Last Updated Verified meperidine Adverse Reaction Intermediate Nausea and Vomiting 07/12/17 Yes Physical Exam Physical Exam SEE ABOVE Constitutional: Well developed, well nourished, no acute distress, non-toxic appearance. HENT: Normocephalic, atraumatic, bilateral external ears normal, oropharynx moist, no oral exudates, nose normal. [] Eyes: PERRLA, EOMI, conjunctiva normal, no discharge. [] Neck: Normal range of motion, no tenderness, supple, no stridor. [] Cardiovascular:Heart rate regular rhythm, no murmur [] Lungs & Thorax: Bilateral breath sounds clear to auscultation [] Abdomen: Bowel sounds normal, soft, no tenderness, no masses, no pulsatile masses. [] Negative McBurney's point. Negative Rush sign. No rebound tenderness. Skin: Warm, dry, no erythema, no rash. Back: No tenderness, no CVA tenderness. [] Extremities: No tenderness, no cyanosis, no clubbing, ROM intact, no edema. [] Neurologic: Alert and oriented X 3, normal motor function, normal sensory function, no focal deficits noted. [] Psychologic: Affect normal, judgement normal, mood normal. [] Current Patient Data Vital Signs Vital Signs Date Time Temp Pulse Resp B/P (MAP) Pulse Ox O2 Delivery O2 Flow Rate FiO2 11/27/18 12:20 98.2 76 18 137/63 (87) 99 Room Air 98.2 Lab Values Laboratory Tests Test 11/27/18 12:18 11/27/18 13:41 Urine Collection Type Unknown Urine Color Yellow Urine Clarity Clear Urine pH 6.5 Urine Specific [place] 1.010 Urine Protein Negative mg/dL (NEG-TRACE) Urine Glucose (UA) Negative mg/dL (NEG) Urine Ketones (Stick) Negative mg/dL (NEG) Urine Blood Negative (NEG) Urine Nitrite Negative (NEG) Urine Bilirubin Negative (NEG) Urine Urobilinogen Dipstick 0.2 mg/dL (0.2 mg/dL) Urine Leukocyte Esterase Negative (NEG) Urine RBC 0 /HPF (0-2) Urine WBC 0 /HPF (0-4) Urine Squamous Epithelial Cells Few /LPF Urine Bacteria 0 /HPF (0-FEW) White Blood Count 2.6 x10^3/uL (4.0-11.0) L Red Blood Count 3.83 x10^6/uL (3.50-5.40) Hemoglobin 10.9 g/dL (12.0-15.5) L Hematocrit 33.7 % (36.0-47.0) L Mean Corpuscular Volume 88 fL (79-100) Mean Corpuscular Hemoglobin 28 pg (25-35) Mean Corpuscular Hemoglobin Concent 32 g/dL (31-37) Red Cell Distribution Width 17.3 % (11.5-14.5) H Platelet Count 123 x10^3/uL (140-400) L Neutrophils (%) (Auto) 53 % (31-73) Lymphocytes (%) (Auto) 33 % (24-48) Monocytes (%) (Auto) 10 % (0-9) H Eosinophils (%) (Auto) 3 % (0-3) Basophils (%) (Auto) 2 % (0-3) Neutrophils # (Auto) 1.4 x10^3uL (1.8-7.7) L Lymphocytes # (Auto) 0.8 x10^3/uL (1.0-4.8) L Monocytes # (Auto) 0.3 x10^3/uL (0.0-1.1) Eosinophils # (Auto) 0.1 x10^3/uL (0.0-0.7) Basophils # (Auto) 0.1 x10^3/uL (0.0-0.2) Sodium Level 145 mmol/L (136-145) Potassium Level 4.0 mmol/L (3.5-5.1) Chloride Level 109 mmol/L (98-107) H Carbon Dioxide Level 30 mmol/L (21-32) Anion Gap 6 (6-14) Blood Urea Nitrogen 15 mg/dL (7-20) Creatinine 0.5 mg/dL (0.6-1.0) L Estimated GFR (Cockcroft-Gault) 125.4 BUN/Creatinine Ratio 30 (6-20) H Glucose Level 92 mg/dL (70-99) Calcium Level 8.7 mg/dL (8.5-10.1) Total Bilirubin 0.5 mg/dL (0.2-1.0) Aspartate Amino Transferase (AST) 39 U/L (15-37) H Alanine Aminotransferase (ALT) 50 U/L (14-59) Alkaline Phosphatase 131 U/L (46-116) H Total Protein 6.1 g/dL (6.4-8.2) L Albumin 2.8 g/dL (3.4-5.0) L Albumin/Globulin Ratio 0.8 (1.0-1.7) L Lipase 113 U/L (73-393) Laboratory Tests 11/27/18 13:41 Laboratory Tests 11/27/18 13:41 EKG EKG [] Radiology/Procedures Radiology/Procedures [] Course & Med Decision Making Course & Med Decision Making Pertinent Labs and Imaging studies reviewed. (See chart for details) [] Dragon Disclaimer Dragon Disclaimer This electronic medical record was generated, in whole or in part, using a voice recognition dictation system. Departure Departure Impression: Primary Impression: Abdominal pain Disposition: ADMITTED INPATIENT Condition: STABLE Referrals: BRIANNA GRIGGS APRN (PCP) JOHN HOOD MD Nov 27, 2018 15:32
--- NOTE | 2018-11-27 15:41 | PDOC1 ---
History and Physical Date of Admission Date of Admission DATE: 11/27/18 TIME: 15:41 Identification/Chief Complaint Chief Complaint SEEN IN ER 63-year-old female presenting with abdominal pain. She is afebrile with a normal heart rate. Abdomen is soft and nontender to palpation . No rebound tenderness or guarding. IV fluids nausea and pain medication given here in the emergency room. Blood work shows a white blood cell count of 2.6, hemoglobin 10.9, platelets of 123. Chemistry panel shows mild elevation of AST and alkaline phosphatase. Urinalysis is negative for infection. CT the abdomen pelvis shows ascites with peritoneal enhancement consistent with peritonitis. Unable to exclude perforated appendix however the patient's clinical presentation is not suggestive of it given the lack of fever and nontender abdomen Past Medical History Past Medical History Past Medical History Past Medical History Past Medical History: Asthma, Cancer, COPD Additional Past Medical Histor: stage 4 breast ca Past Surgical History: Hysterectomy, Other Additional Past Surgical Histo: RT MASTECTOMY, PARACENTESIS, Port L chest Alcohol Use: None Drug Use: None Cardiovascular: No pertinent hx Pulmonary: Asthma GI: No pertinent hx Heme/Onc: Cancer Psych: No pertinent hx Musculoskeletal: low back pain Rheumatologic: No pertinent hx Renal/: No pertinent hx Endocrine: No pertinent hx Past Surgical History Past Surgical History: Mastectomy, Hysterectomy Family History Family History: Cancer Family History: Parent Social History Smoke: No ALCOHOL: none Drugs: None Current Problem List Problem List Problems Medical Problems: (1) Abdominal pain Status: Acute Current Medications Current Medications Current Medications Iohexol (Omnipaque 300 Mg/ml) 75 ml 1X ONCE IV Last administered on 11/27/18at 14:27; Start 11/27/18 at 14:15; Stop 11/27/18 at 14:16; Status DC Fentanyl Citrate (Fentanyl 2ml Vial) 50 mcg PRN Q30MIN PRN IV SEVERE PAIN Last administered on 11/27/18at 14:45; Start 11/27/18 at 14:45 Sodium Chloride 1,000 ml @ 1,000 mls/hr Q1H IV Last administered on 11/27/18at 14:45; Start 11/27/18 at 14:37; Stop 11/27/18 at 15:36; Status DC Ondansetron HCl (Zofran) 4 mg 1X ONCE IV Last administered on 11/27/18at 14:45 ; Start 11/27/18 at 14:45; Stop 11/27/18 at 14:46; Status DC Ondansetron HCl (Zofran) 4 mg PRN Q8HRS PRN IV NAUSEA/VOMITING; Start 11/27/18 at 15:30; Stop 11/28/18 at 15:29 Morphine Sulfate (Morphine Sulfate) 2 mg PRN Q2HR PRN IV PAIN; Start 11/27/18 at 15:30; Stop 11/28/18 at 15:29 Sodium Chloride 1,000 ml @ 100 mls/hr Q10H IV ; Start 11/27/18 at 15:21; Stop 11/27/18 at 19:20 Ceftriaxone Sodium (Rocephin) 1 gm 1X ONCE IVP ; Start 11/27/18 at 15:30; Stop 11/27/18 at 15:31; Status DC Active Scripts Active Reported Lidocaine-Prilocaine Cream (Lidocaine/Prilocaine) 30 Gm Cream..g. Gabapentin 300 Mg Capsule 300 Mg PO PRN DAILY PRN Prednisone (Prednisone) 10 Mg Tablet 10 Mg PO PRN DAILY PRN Eliquis (Apixaban) 5 Mg Tablet 5 Mg PO DAILY Omeprazole 40 Mg Capsule.dr 1 Cap PO DAILY Albuterol Sulfate Neb Soln (Albuterol Sulfate) 2.5 Mg/3 Ml Vial.neb 0.5 Vial NEB PRN Q4HRS PRN Proventil Hfa Inhaler (Albuterol Sulfate) 6.7 Gm Hfa.aer.ad 1-2 Puff IH PRN Q4HRS PRN Advair 250-50 Diskus (Fluticasone/Salmeterol) 1 Each Disk.w.dev 1 Puff IH BID Allergies Allergies: Coded Allergies: meperidine (Verified Adverse Reaction, Intermediate, Nausea and Vomiting, 07/12/17) ROS Review of System 14 PT ROS OTHERWISE NEG General: YES: Fatigue, Malaise PSYCHOLOGICAL ROS: No: Anxiety, Behavioral Disorder, Concentration difficultie , Decreased libido, Depression, Disorientation, Hallucinations, Hostility, Irritablity, Memory difficulties, Mood Swings, Obsessive thoughts, Physical abuse, Sexual abuse, Sleep disturbances, Suicidal ideation, Other Eyes: No Blurry vision, No Decreased vision, No Double vision, No Dry eyes, No Excessive tearing, No Eye Pain, No Itchy Eyes, No Loss of vision, No Photophobia , No Scotomata, No Uses contacts, No Uses glasses, No Other HEENT: No: Heacaches, Visual Changes, Hearing change, Nasal congestion, Nasal discharge, Oral lesions, Sinus pain, Sore Throat, Epistaxis, Sneezing, Snoring, Tinnitus, Vertigo, Vocal changes, Other ALLERGY AND IMMUNOLOGY: No: Hives, Insect Bite Sensitivity, Itchy/Watery Eyes, Nasal Congestion, Post Nasal Drip, Seasonal Allergies, Other Hematological and Lymphatic: No: Bleeding Problems, Blood Clots, Blood Transfusions, Brusing, Night Sweats, Pallor, Swollen Lymph Nodes, Other Respiratory: No: Cough, Hemoptysis, Orthopnea, Pleuritic Pain, Shortness of breath, SOB with excertion, Sputum Changes, Stridor, Tachypnea, Wheezing, Other Cardiovascular: No Chest Pain, No Palpitations, No Orthopnea, No Paroxysmal Noc. Dyspnea, No Edema, No Lt Headedness, No Other Gastrointestinal: Yes Nausea; No Vomiting, No Abdominal Pain, No Diarrhea, No Constipation, No Melena, No Hematochezia, No Other Genitourinary: No Dysuria, No Frequency, No Incontinence, No Hematuria, No Retention, No Discharge, No Urgency, No Pain, No Flank Pain, No Other, No , No , No , No , No , No , No Musculoskeletal: Yes Joint Stiffness; No Gait Disturbance, No Joint Pain, No Joint Swelling, No Muscle Pain, No Muscular Weakness, No Pain In:, No Swelling In:, No Other Neurological: No Behavorial Changes, No Bowel/Bladder ControlChng, No Confusion , No Dizziness, No Gait Disturbance, No Headaches, No Impaired Coord/balance, No Memory Loss, No Numbness/Tingling, No Seizures, No Speech Problems, No Tremors, No Visual Changes, No Weakness, No Other Skin: Yes Dry Skin; No Eczema, No Hair Changes, No Lumps, No Mole Changes, No Mottling, No Nail Changes, No Pruritus, No Rash, No Skin Lesion Changes, No Other, No Acne Physical Exam Physical Exam Constitutional: Well developed, well nourished, MILD acute distress, non-toxic appearance. HENT: Normocephalic, atraumatic, bilateral external ears normal, oropharynx moist, no oral exudates, nose normal. [] Eyes: PERRLA, EOMI, conjunctiva normal, no discharge. [] Neck: Normal range of motion, no tenderness, supple, no stridor. [] Cardiovascular:Heart rate regular rhythm, no murmur [] Lungs & Thorax: Bilateral breath sounds clear to auscultation [] Abdomen: Bowel sounds normal, soft, no tenderness, no masses, no pulsatile masses. [] Negative McBurney's point. Negative Rush sign. No rebound. Skin: Warm, dry, no erythema, no rash. Back: No tenderness, no CVA tenderness. [] Extremities: No tenderness, no cyanosis, no clubbing, ROM intact, no edema. [] Neurologic: Alert and oriented X 3, normal motor function, normal sensory function, no focal deficits noted. [] Psychologic: Affect normal, judgement normal, mood normal. [] General: Alert, Oriented X3, Cooperative, mild distress Lungs: Clear to auscultation Heart: no thrills, no gallops Breasts: Not examined Abdomen: Soft, No tenderness Extremities: No cyanosis Neuro: Cranial nerves 3-12 NL Psych/Mental Status: Mood NL Vitals Vitals Vital Signs Date Time Temp Pulse Resp B/P (MAP) Pulse Ox O2 Delivery O2 Flow Rate FiO2 11/27/18 12:20 98.2 76 18 137/63 (87) 99 Room Air 98.2 Labs Labs Laboratory Tests Test 11/27/18 12:18 11/27/18 13:41 Urine Collection Type Unknown Urine Color Yellow Urine Clarity Clear Urine pH 6.5 Urine Specific [place] 1.010 Urine Protein Negative mg/dL (NEG-TRACE) Urine Glucose (UA) Negative mg/dL (NEG) Urine Ketones (Stick) Negative mg/dL (NEG) Urine Blood Negative (NEG) Urine Nitrite Negative (NEG) Urine Bilirubin Negative (NEG) Urine Urobilinogen Dipstick 0.2 mg/dL (0.2 mg/dL) Urine Leukocyte Esterase Negative (NEG) Urine RBC 0 /HPF (0-2) Urine WBC 0 /HPF (0-4) Urine Squamous Epithelial Cells Few /LPF Urine Bacteria 0 /HPF (0-FEW) White Blood Count 2.6 x10^3/uL (4.0-11.0) Red Blood Count 3.83 x10^6/uL (3.50-5.40) Hemoglobin 10.9 g/dL (12.0-15.5) Hematocrit 33.7 % (36.0-47.0) Mean Corpuscular Volume 88 fL (79-100) Mean Corpuscular Hemoglobin 28 pg (25-35) Mean Corpuscular Hemoglobin Concent 32 g/dL (31-37) Red Cell Distribution Width 17.3 % (11.5-14.5) Platelet Count 123 x10^3/uL (140-400) Neutrophils (%) (Auto) 53 % (31-73) Lymphocytes (%) (Auto) 33 % (24-48) Monocytes (%) (Auto) 10 % (0-9) Eosinophils (%) (Auto) 3 % (0-3) Basophils (%) (Auto) 2 % (0-3) Neutrophils # (Auto) 1.4 x10^3uL (1.8-7.7) Lymphocytes # (Auto) 0.8 x10^3/uL (1.0-4.8) Monocytes # (Auto) 0.3 x10^3/uL (0.0-1.1) Eosinophils # (Auto) 0.1 x10^3/uL (0.0-0.7) Basophils # (Auto) 0.1 x10^3/uL (0.0-0.2) Sodium Level 145 mmol/L (136-145) Potassium Level 4.0 mmol/L (3.5-5.1) Chloride Level 109 mmol/L (98-107) Carbon Dioxide Level 30 mmol/L (21-32) Anion Gap 6 (6-14) Blood Urea Nitrogen 15 mg/dL (7-20) Creatinine 0.5 mg/dL (0.6-1.0) Estimated GFR (Cockcroft-Gault) 125.4 BUN/Creatinine Ratio 30 (6-20) Glucose Level 92 mg/dL (70-99) Calcium Level 8.7 mg/dL (8.5-10.1) Total Bilirubin 0.5 mg/dL (0.2-1.0) Aspartate Amino Transf (AST/SGOT) 39 U/L (15-37) Alanine Aminotransferase (ALT/SGPT) 50 U/L (14-59) Alkaline Phosphatase 131 U/L (46-116) Total Protein 6.1 g/dL (6.4-8.2) Albumin 2.8 g/dL (3.4-5.0) Albumin/Globulin Ratio 0.8 (1.0-1.7) Lipase 113 U/L (73-393) Laboratory Tests Test 11/27/18 12:18 11/27/18 13:41 Urine Collection Type Unknown Urine Color Yellow Urine Clarity Clear Urine pH 6.5 Urine Specific [place] 1.010 Urine Protein Negative mg/dL (NEG-TRACE) Urine Glucose (UA) Negative mg/dL (NEG) Urine Ketones (Stick) Negative mg/dL (NEG) Urine Blood Negative (NEG) Urine Nitrite Negative (NEG) Urine Bilirubin Negative (NEG) Urine Urobilinogen Dipstick 0.2 mg/dL (0.2 mg/dL) Urine Leukocyte Esterase Negative (NEG) Urine RBC 0 /HPF (0-2) Urine WBC 0 /HPF (0-4) Urine Squamous Epithelial Cells Few /LPF Urine Bacteria 0 /HPF (0-FEW) White Blood Count 2.6 x10^3/uL (4.0-11.0) Red Blood Count 3.83 x10^6/uL (3.50-5.40) Hemoglobin 10.9 g/dL (12.0-15.5) Hematocrit 33.7 % (36.0-47.0) Mean Corpuscular Volume 88 fL (79-100) Mean Corpuscular Hemoglobin 28 pg (25-35) Mean Corpuscular Hemoglobin Concent 32 g/dL (31-37) Red Cell Distribution Width 17.3 % (11.5-14.5) Platelet Count 123 x10^3/uL (140-400) Neutrophils (%) (Auto) 53 % (31-73) Lymphocytes (%) (Auto) 33 % (24-48) Monocytes (%) (Auto) 10 % (0-9) Eosinophils (%) (Auto) 3 % (0-3) Basophils (%) (Auto) 2 % (0-3) Neutrophils # (Auto) 1.4 x10^3uL (1.8-7.7) Lymphocytes # (Auto) 0.8 x10^3/uL (1.0-4.8) Monocytes # (Auto) 0.3 x10^3/uL (0.0-1.1) Eosinophils # (Auto) 0.1 x10^3/uL (0.0-0.7) Basophils # (Auto) 0.1 x10^3/uL (0.0-0.2) Sodium Level 145 mmol/L (136-145) Potassium Level 4.0 mmol/L (3.5-5.1) Chloride Level 109 mmol/L (98-107) Carbon Dioxide Level 30 mmol/L (21-32) Anion Gap 6 (6-14) Blood Urea Nitrogen 15 mg/dL (7-20) Creatinine 0.5 mg/dL (0.6-1.0) Estimated GFR (Cockcroft-Gault) 125.4 BUN/Creatinine Ratio 30 (6-20) Glucose Level 92 mg/dL (70-99) Calcium Level 8.7 mg/dL (8.5-10.1) Total Bilirubin 0.5 mg/dL (0.2-1.0) Aspartate Amino Transf (AST/SGOT) 39 U/L (15-37) Alanine Aminotransferase (ALT/SGPT) 50 U/L (14-59) Alkaline Phosphatase 131 U/L (46-116) Total Protein 6.1 g/dL (6.4-8.2) Albumin 2.8 g/dL (3.4-5.0) Albumin/Globulin Ratio 0.8 (1.0-1.7) Lipase 113 U/L (73-393) Images Images DICTATED AND SIGNED BY: HECTOR SHERIFF MD DATE: 11/27/18 1521 CC: JOHN HOOD MD; BRIANNA GRIGGS APRN ~ EXAM: CT Abdomen and Pelvis with IV contrast CLINICAL HISTORY: Abdominal pain, distension COMPARISON: 10/22/2018, 08/20/2018, CT 10/01/2016. MRI 04/24/2018. TECHNIQUE: Helical CT of the abdomen and pelvis was performed following the administration of intravenous contrast. Axial, coronal and sagittal reformatted images were generated. PQRS compliance statement - One or more of the following individualized dose reduction techniques were utilized for this study: 1. Automated exposure control 2. Adjustment of the mA and/or kV according to patient size 3. Use of iterative reconstruction technique FINDINGS: Lower chest: No lobar consolidation. Linear opacities in the middle lobe likely scarring/atelectasis. Abdomen and Pelvis: Liver is cirrhotic in morphology. Subcentimeter hypodense left hepatic lobe lesion is too small to accurately characterize however unchanged. Gallbladder is normal. No biliary ductal dilatation. Calcified granuloma are seen within the spleen. Adrenal glands are normal. Congenitally short pancreas is incidentally seen. Otherwise the pancreas is unremarkable. Symmetric nephrograms. No focal renal lesion. Punctate nonobstructing left lower pole renal calculus. No hydronephrosis. No hydroureter. Bladder is grossly unremarkable. Moderate colonic stool content is seen. No small or large bowel dilatation to suggest bowel obstruction. The retroflexed appendix is mildly thickened, less well evaluated on today's examination as this is obscured by adjacent peritoneal enhancement and ascites. Small volume abdominal and pelvic ascites. There is fascial thickening with associated enhancement, likely peritonitis most prominent in the right greater than left lower quadrant. No abdominal or pelvic lymphadenopathy by size criteria although mild retroperitoneal infiltration is seen which may obscure small lymph nodes. Aorta is normal in caliber. Bones: S-shaped scoliosis of the thoracolumbar spine. Numerous punctate sclerotic foci are seen within the visualized osseous structures, unchanged to prior examination, likely metastatic foci. IMPRESSION: 1. Hepatic cirrhosis with progressive nodularity of the liver. 2. Small volume abdominal ascites with peritoneal enhancement and thickening, consistent with peritonitis. 3. The thickened appendix with mild infiltrative changes was better delineated on prior CT/MRI, obscured by the peritonitis and ascites. This finding is likely stable 4. Punctate sclerotic focus size, may represent metastatic disease in this patient with known breast cancer. Electronically signed by: Hector Sheriff MD (11/27/2018 3:01 PM) [facility] VTE Prophylaxis Ordered VTE Prophylaxis Devices: Yes VTE Pharmacological Prophylaxi: Yes Assessment/Plan Assessment/Plan impression 1. 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 She was diagnosed with stage IV malignancy on 08/31/2015. ER positive 100%, OH negative, HER2/lake[place] negative. . 2. Bone metastasis. 3. Abdominal pain. 4. Ascites. 5. thickened appendix with mild infiltrative changes was better delineated on prior CT/MRI, obscured by the peritonitis and ascites. 6. Punctate sclerotic focus size, may represent metastatic disease in this patient with known breast cancer. 7. pancytopenia plan iv fluid support iv pain control oncology consult CONSIDER PARACENTESIS GI CONSULT DVT PROPHYLAXIS, SCD'S ID CONSULT SEVERE ADVANCED DISEASE, Prognosis penitentiary // short term very guarded per my chart review, focus on palliation of symptoms, pain control 76 min chart review, pt exam,> 50% of time on pt exam, chart review, pt care coordination SAPNA MARR MD Nov 27, 2018 15:41
--- NOTE | 2018-11-27 16:37 | PDOC2 ---
GI CONSULT Reason For Consult: Abd pain HPI: HPI: 63 y/o female admitted through ER. H/o stage IV breast cancer w/ peritoneal carcinomatosis (though not evidenced on MRI last year), ascites, and bone mets on chemo (latest treatment today). H/o LQ/pelvic pain. We saw her for RLQ pain and bloating in 04/2018. Similar symptoms this time - gradually worse x 2 weeks. Says she has a good appetite, denies n/v, but feels full quickly. No diarrhea or constipation. No bleeding. Weight fluctuates. H/o GERD controlled w/ omeprazole QD. Last BM was normal yesterday morning. On Eliquis and prednisone. Takes Tylenol and occasional hydrocodone for pain. No GB or pancreas history. No previous EGD. Normal colonoscopy ~11 years ago. Cirrhosis on imaging. Paracentesis in the past. PMH: PMH: per HPI PE , hysterectomy, BSO, right mastectomy, laparoscopy, paracentesis, bronchoscopy, port-a-cath FH: Family History: Cancer (breast, ovarian) Social History: Smoke: No ALCOHOL: none Drugs: None ROS: GEN: Denies fevers, chills, sweats HEENT: Denies blurred vision, sore throat CV: Denies chest pain RESP: Denies shortness of air, cough GI: Per HPI : Denies hematuria, dysuria ENDO: +fluctuating weight NEURO: Denies confusion, dizziness MSK: Denies weakness, joint pain/swelling SKIN: Denies jaundice, pruritus Vitals: Vitals: Vital Signs Date Time Temp Pulse Resp B/P (MAP) Pulse Ox O2 Delivery O2 Flow Rate FiO2 11/27/18 12:20 98.2 76 18 137/63 (87) 99 Room Air 98.2 Labs: Labs: Laboratory Tests Test 11/27/18 12:18 11/27/18 13:41 Urine Collection Type Unknown Urine Color Yellow Urine Clarity Clear Urine pH 6.5 Urine Specific [place] 1.010 Urine Protein Negative mg/dL (NEG-TRACE) Urine Glucose (UA) Negative mg/dL (NEG) Urine Ketones (Stick) Negative mg/dL (NEG) Urine Blood Negative (NEG) Urine Nitrite Negative (NEG) Urine Bilirubin Negative (NEG) Urine Urobilinogen Dipstick 0.2 mg/dL (0.2 mg/dL) Urine Leukocyte Esterase Negative (NEG) Urine RBC 0 /HPF (0-2) Urine WBC 0 /HPF (0-4) Urine Squamous Epithelial Cells Few /LPF Urine Bacteria 0 /HPF (0-FEW) White Blood Count 2.6 x10^3/uL (4.0-11.0) Red Blood Count 3.83 x10^6/uL (3.50-5.40) Hemoglobin 10.9 g/dL (12.0-15.5) Hematocrit 33.7 % (36.0-47.0) Mean Corpuscular Volume 88 fL (79-100) Mean Corpuscular Hemoglobin 28 pg (25-35) Mean Corpuscular Hemoglobin Concent 32 g/dL (31-37) Red Cell Distribution Width 17.3 % (11.5-14.5) Platelet Count 123 x10^3/uL (140-400) Neutrophils (%) (Auto) 53 % (31-73) Lymphocytes (%) (Auto) 33 % (24-48) Monocytes (%) (Auto) 10 % (0-9) Eosinophils (%) (Auto) 3 % (0-3) Basophils (%) (Auto) 2 % (0-3) Neutrophils # (Auto) 1.4 x10^3uL (1.8-7.7) Lymphocytes # (Auto) 0.8 x10^3/uL (1.0-4.8) Monocytes # (Auto) 0.3 x10^3/uL (0.0-1.1) Eosinophils # (Auto) 0.1 x10^3/uL (0.0-0.7) Basophils # (Auto) 0.1 x10^3/uL (0.0-0.2) Sodium Level 145 mmol/L (136-145) Potassium Level 4.0 mmol/L (3.5-5.1) Chloride Level 109 mmol/L (98-107) Carbon Dioxide Level 30 mmol/L (21-32) Anion Gap 6 (6-14) Blood Urea Nitrogen 15 mg/dL (7-20) Creatinine 0.5 mg/dL (0.6-1.0) Estimated GFR (Cockcroft-Gault) 125.4 BUN/Creatinine Ratio 30 (6-20) Glucose Level 92 mg/dL (70-99) Calcium Level 8.7 mg/dL (8.5-10.1) Total Bilirubin 0.5 mg/dL (0.2-1.0) Aspartate Amino Transf (AST/SGOT) 39 U/L (15-37) Alanine Aminotransferase (ALT/SGPT) 50 U/L (14-59) Alkaline Phosphatase 131 U/L (46-116) Total Protein 6.1 g/dL (6.4-8.2) Albumin 2.8 g/dL (3.4-5.0) Albumin/Globulin Ratio 0.8 (1.0-1.7) Lipase 113 U/L (73-393) Allergies: Coded Allergies: meperidine (Verified Adverse Reaction, Intermediate, Nausea and Vomiting, 07/12/17) Medications: Current Medications Medications (Trade) Dose Ordered Sig/Iggy Route PRN Reason Start Time Stop Time Status Last Admin Dose Admin Iohexol (Omnipaque 300 Mg/ml) 75 ml 1X ONCE IV 11/27/18 14:15 11/27/18 14:16 DC 11/27/18 14:27 Fentanyl Citrate (Fentanyl 2ml Vial) 50 mcg PRN Q30MIN PRN IV SEVERE PAIN 11/27/18 14:45 11/27/18 14:45 Sodium Chloride 1,000 ml @ 1,000 mls/hr Q1H IV 11/27/18 14:37 11/27/18 15:36 DC 11/27/18 14:45 Ondansetron HCl (Zofran) 4 mg 1X ONCE IV 11/27/18 14:45 11/27/18 14:46 DC 11/27/18 14:45 Sodium Chloride 1,000 ml @ 100 mls/hr Q10H IV 11/27/18 15:21 11/27/18 19:20 11/27/18 16:20 Imaging: Imaging: CT A/P FINDINGS: Lower chest: No lobar consolidation. Linear opacities in the middle lobe likely scarring/ atelectasis. Abdomen and Pelvis: Liver is cirrhotic in morphology. Subcentimeter hypodense left hepatic lobe lesion is too small to accurately characterize however unchanged. Gallbladder is normal. No biliary ductal dilatation. Calcified granuloma are seen within the spleen. Adrenal glands are normal. Congenitally short pancreas is incidentally seen. Otherwise the pancreas is unremarkable. Symmetric nephrograms. No focal renal lesion. Punctate nonobstructing left lower pole renal calculus. No hydronephrosis. No hydroureter. Bladder is grossly unremarkable. Moderate colonic stool content is seen. No small or large bowel dilatation to suggest bowel obstruction. The retroflexed appendix is mildly thickened, less well evaluated on today's examination as this is obscured by adjacent peritoneal enhancement and ascites. Small volume abdominal and pelvic ascites. There is fascial thickening with associated enhancement, likely peritonitis most prominent in the right greater than left lower quadrant. No abdominal or pelvic lymphadenopathy by size criteria although mild retroperitoneal infiltration is seen which may obscure small lymph nodes. Aorta is normal in caliber. Bones: S-shaped scoliosis of the thoracolumbar spine. Numerous punctate sclerotic foci are seen within the visualized osseous structures, unchanged to prior examination, likely metastatic foci. IMPRESSION: 1. Hepatic cirrhosis with progressive nodularity of the liver. 2. Small volume abdominal ascites with peritoneal enhancement and thickening, consistent with peritonitis. 3. The thickened appendix with mild infiltrative changes was better delineated on prior CT/MRI, obscured by the peritonitis and ascites. This finding is likely stable 4. Punctate sclerotic focus size, may represent metastatic disease in this patient with known breast cancer. C/A/P CT 10/2018 IMPRESSION: 1. Stable right upper lobe pulmonary opacities. 2. Hepatic cirrhosis with ongoing ascites. 3. Stable small low-density lesion in the left lobe of the liver. 4. Stable punctate sclerotic foci in the bones compatible with metastatic disease. 5. No new evidence of metastatic disease. Abd MRI 04/2018 Impression: 1. Limited by motion. 2. Small amount of perihepatic ascites. 3. Liver demonstrates mildly nodular contour, suggesting cirrhosis. 4. Subcentimeter lesion in hepatic segment 2 is without evidence of enhancement , favored to represent cyst. There may be a few additional smaller subcentimeter liver lesions, too small characterize, possibly additional smaller cysts. 5. No evidence of peritoneal carcinomatosis. PE: GEN: NAD HEENT: Atraumatic, PERRL LUNGS: CTAB HEART: RRR ABD: NABS, soft, some distention, vague RLQ discomfort EXTREMITY: No edema SKIN: No rashes, no jaundice NEURO/PSYCH: A & O 3 A/P: A/P: Stage IV breast cancer on chemo Abd distention, RLQ discomfort Abnormal CT - progressive cirrhosis, small ascites w/ peritoneal enhancement and thickening c/w peritonitis, likely stable thickened appendix -- Reviewed w/ Dr. Beltran. She is hopeful that paracentesis would relieve some abd discomfort. We discussed small amount of ascites on CT, but will ask IR to comment re: any therapeutic benefit. ADAT. Continue PPI. Moderate stool noted on exam - when we last saw, some thought re: constipation contributing to discomfort - will add Miralax. RAYSA GALVAN Nov 27, 2018 16:37
[2018-11-27] MEDS ORDERED: BISACODYL 5 MG TABLET.DR. PO ONE (17:00)
[2018-11-27] MEDS: PANTOPRAZOLE 40 MG TABLET.DR. PO SCH (17:23)
[2018-11-27 19:20] VITALS: BP 114/62
[2018-11-27] MEDS: POLYETHYLENE GLYCOL 3350 17 GM PACKET. PO SCH (21:00)
[2018-11-27] MEDS ORDERED: cefTRIAXone IV Push 1 GM VIAL. IVP SCH (23:00)
[2018-11-27 23:09] VITALS: BP 111/72
[2018-11-28 03:32] VITALS: BP 112/74
[2018-11-28 06:50] LABS: BASO % 2 % (0-3); EOS # 0.1 x10^3/uL (0.0-0.7); EOS % 4 % (0-3); HEMATOCRIT 33.9 % (36.0-47.0); HEMOGLOBIN 11.2 g/dL (12.0-15.5); LYMPH # 0.6 x10^3/uL (1.0-4.8); LYMPH % 26 % (24-48); MEAN CORPUSCULAR HEMOGLOBIN 29 pg (25-35); MEAN CORPUSCULAR HGB CONC 33 g/dL (31-37); MEAN CORPUSCULAR VOLUME 88 fL (79-100); MONO # 0.2 x10^3/uL (0.0-1.1); MONO % 9 % (0-9); NEUT # 1.4 x10^3uL (1.8-7.7); NEUT % 60 % (31-73); PLATELET COUNT 103 x10^3/uL (140-400); RED BLOOD COUNT 3.85 x10^6/uL (3.50-5.40); RED CELL DISTRIBUTION WIDTH 17.4 % (11.5-14.5); WHITE BLOOD COUNT 2.4 x10^3/uL (4.0-11.0)
[2018-11-28 07:00] VITALS: BP 126/71
[2018-11-28 07:46] LABS: CALCIUM 8.4 mg/dL (8.5-10.1); CREATININE 0.7 mg/dL (0.6-1.0); GFR 85.1
--- NOTE | 2018-11-28 08:02 | PDOC ---
Provider Note Provider Note IR NOTE CT and US reviewed. Scant ascites. Paracentesis likely of little therapeutic benefit with such a small amount of fluid. Could likely obtain sample for lab evaluation if clinically needed. JAMES MILLER MD Nov 28, 2018 08:02
[2018-11-28 08:07] LABS: PROTHROMBIN TIME PATIENT 13.7 SEC (11.7-14.0)
[2018-11-28] MEDS: POLYETHYLENE GLYCOL 3350 17 GM PACKET. PO SCH (08:45)
[2018-11-28] MEDS: PANTOPRAZOLE 40 MG TABLET.DR. PO SCH (08:46)
--- NOTE | 2018-11-28 08:55 | RAD ---
Indication:abd pain, distention
cirrhosis, ascites
stage 4 breast ca TECHNIQUE: Grayscale, color Doppler and spectral waveform is of the abdomen obtained. COMPARISON: CT abdomen pelvis from 11/27/2018 FINDINGS: Visualized pancreas is within normal limits. CBD measures 3 mm in diameter and is within normal limits. No aortic aneurysm. IVC within normal limits. Small amount of perihepatic ascites is seen. Lobulated contour of the liver is seen. Main portal vein is patent with hepatopedal flow. Hepatic arteries patent. Hepatic veins are patent. No gallstones, pericholecystic fluid or gallbladder wall thickening. Liver measures 16 cm in longest dimension and is normal in size with coarse echotexture. Right kidney measures 10.4 cm in length without hydronephrosis. IMPRESSION: 1. Findings of cirrhosis. 2. Small ascites. 3. No cholelithiasis or sonographic evidence of acute cholecystitis. Electronically signed by: Franki Garner DO (11/28/2018 8:52 AM) [facility]
--- NOTE | 2018-11-28 09:10 | PDOC ---
Provider Note Provider Note Med Onc consult: 1. Stage IV breast cancer on chemo - f/u with me in 1-[address] does not reveal any progression. 2. Abd distention, RLQ discomfort. Minimal ascites. Appreciate GI eval See dictation [id number] MINNA THORPE MD Nov 28, 2018 09:10
--- NOTE | 2018-11-28 09:58 | PDOC ---
Subjective: Subjective: Feels better, denies pain, ate all of breakfast, going to take a shower, would like to go home. Asks if cirrhosis is making her abd distended. Objective: Objective: Reviewed IR notes - paracentesis unlikely to be therapeutic. Reviewed oncology note - plans to follow-up for chemo. Vital Signs: Vital Signs Date Time Temp Pulse Resp B/P (MAP) Pulse Ox O2 Delivery O2 Flow Rate FiO2 11/28/18 08:00 Room Air 11/28/18 07:00 98.5 86 18 126/71 (89) 95 98.5 Labs: Laboratory Tests Test 11/27/18 12:18 11/27/18 13:41 11/28/18 05:45 Urine Collection Type Unknown Urine Color Yellow Urine Clarity Clear Urine pH 6.5 Urine Specific [place] 1.010 Urine Protein Negative mg/dL Urine Glucose (UA) Negative mg/dL Urine Ketones (Stick) Negative mg/dL Urine Blood Negative Urine Nitrite Negative Urine Bilirubin Negative Urine Urobilinogen Dipstick 0.2 mg/dL Urine Leukocyte Esterase Negative Urine RBC 0 /HPF Urine WBC 0 /HPF Urine Squamous Epithelial Cells Few /LPF Urine Bacteria 0 /HPF White Blood Count 2.6 x10^3/uL 2.4 x10^3/uL Red Blood Count 3.83 x10^6/uL 3.85 x10^6/uL Hemoglobin 10.9 g/dL 11.2 g/dL Hematocrit 33.7 % 33.9 % Mean Corpuscular Volume 88 fL 88 fL Mean Corpuscular Hemoglobin 28 pg 29 pg Mean Corpuscular Hemoglobin Concent 32 g/dL 33 g/dL Red Cell Distribution Width 17.3 % 17.4 % Platelet Count 123 x10^3/uL 103 x10^3/uL Neutrophils (%) (Auto) 53 % 60 % Lymphocytes (%) (Auto) 33 % 26 % Monocytes (%) (Auto) 10 % 9 % Eosinophils (%) (Auto) 3 % 4 % Basophils (%) (Auto) 2 % 2 % Neutrophils # (Auto) 1.4 x10^3uL 1.4 x10^3uL Lymphocytes # (Auto) 0.8 x10^3/uL 0.6 x10^3/uL Monocytes # (Auto) 0.3 x10^3/uL 0.2 x10^3/uL Eosinophils # (Auto) 0.1 x10^3/uL 0.1 x10^3/uL Basophils # (Auto) 0.1 x10^3/uL 0.0 x10^3/uL Sodium Level 145 mmol/L 144 mmol/L Potassium Level 4.0 mmol/L 4.0 mmol/L Chloride Level 109 mmol/L 109 mmol/L Carbon Dioxide Level 30 mmol/L 27 mmol/L Anion Gap 6 8 Blood Urea Nitrogen 15 mg/dL 15 mg/dL Creatinine 0.5 mg/dL 0.7 mg/dL Estimated GFR (Cockcroft-Gault) 125.4 85.1 BUN/Creatinine Ratio 30 Glucose Level 92 mg/dL 88 mg/dL Calcium Level 8.7 mg/dL 8.4 mg/dL Total Bilirubin 0.5 mg/dL Aspartate Amino Transf (AST/SGOT) 39 U/L Alanine Aminotransferase (ALT/SGPT) 50 U/L Alkaline Phosphatase 131 U/L Total Protein 6.1 g/dL Albumin 2.8 g/dL Albumin/Globulin Ratio 0.8 Lipase 113 U/L Prothrombin Time 13.7 SEC Prothromb Time International Ratio 1.1 Imaging: Abd US 11/28 IMPRESSION: 1. Findings of cirrhosis. 2. Small ascites. 3. No cholelithiasis or sonographic evidence of acute cholecystitis. PE: GEN: NAD - sitting up in bed, staff wrapping IV site in plastic in preparation for shower, breakfast tray empty LUNGS: room air HEART: RRR ABD: distended NEURO/PSYCH: A & O 3 A/P: Stage IV breast cancer - imaging stable Abd distention, RLQ discomfort (resolved) Cirrhosis, small ascites -- DC per primary. Would continue PPI and Miralax. RAYSA GALVAN Nov 28, 2018 09:58
--- NOTE | 2018-11-28 11:05 | SNU/HH DC ---
DISCHARGE WITH HOME HEALTH DISCHARGE INFORMATION: Final Diagnosis: Problems Medical Problems: (1) Abdominal pain Status: Acute Condition on Discharge: Stable CODE STATUS: Code Status: Full HOME HEALTH: Face to Face: I certify this patient is under my care and that I, or a nurse practitioner or physician's supply chain assistant working with me, had a face to face encounter that meets the physician face to face encounter requirements with this patient on []. Medical Complications: Other (breast cancer) POST DISCHARGE ORDERS: Activity Instructions for Disc: No restrictions Weight Bearing Status after Di: As tolerated Bathing Instructions: Shower-keep dressing dry Wound/Incision Care: No wound care needed CHECKS AFTER DISCHARGE: Checks after discharge: Check your Temp as needed, Weigh Yourself Daily TREATMENT/EQUIPMENT ORDERS: Adaptive Equipment Issued: None CERTIFICATION STATEMENT: Certification Statement: Certification Statement: Based on the above finding, I certify that this patient is confined to the home and needs intermittent usp care, physical therapy and/or speech therapy, or continues to need occupational therapy.~ This patient is under my care, and I have initiated the establishment of the plan of care.~ This patient will be followed by myself or a community physician who will periodically review the plan of care. Home Meds Reported Medications Lidocaine/Prilocaine (LIDOCAINE-PRILOCAINE CREAM) 30 Gm Cream..g. 11/14/17 Gabapentin (GABAPENTIN) 300 Mg Capsule, 300 MG PO PRN DAILY PRN for neuropathy 11/14/17 Prednisone (PREDNISONE ) 10 Mg Tablet, 10 MG PO PRN DAILY PRN for wheezing 11/14/17 Apixaban (ELIQUIS) 5 Mg Tablet, 5 MG PO DAILY, TAB 08/09/17 Omeprazole (OMEPRAZOLE) 40 Mg Capsule.dr, 1 CAP PO DAILY, #30 CAP 3 Refills 07/12/17 Albuterol Sulfate (ALBUTEROL SULFATE NEB SOLN) 2.5 Mg/3 Ml Vial.neb, 0.5 VIAL NEB PRN Q4HRS PRN for SHORTNESS OF BREATH, #50 VIAL 09/20/16 Albuterol Sulfate (PROVENTIL HFA INHALER) 6.7 Gm Hfa.aer.ad, 1-2 PUFF IH PRN Q4HRS PRN for SHORTNESS OF BREATH, INHALER 0 Refills 09/20/16 Fluticasone/Salmeterol (ADVAIR 250-50 DISKUS) 1 Each Disk.wPavandev, 1 PUFF IH BID, #3 INHALER 3 Refills 09/20/16 FADY HERMAN III DO Nov 28, 2018 11:05
[2018-11-28] MEDS ORDERED: HEPARIN PF 500 UNIT/5 ML DISP.SYRIN. IV ONE (11:15)
[2018-11-28 11:37] VITALS: BP 117/60
--- NOTE | 2018-11-28 11:40 | NUR ---
Discharge Note: ANGIE SANCHEZ DELTA Discharge instructions and discharge home medications reviewed with Patient and a copy given. All questions have been answered and understanding verbalized. The following instructions and handouts were given:information about abdominal pain and cirhosis. Discontinued lines and drains: left chest port-a-cath injected with 5mL Heparin lock and needle removed, gauze applied to site. Patient discharged to home with self care, patient ambulated to her own car she drove here.
--- NOTE | 2018-11-28 11:47 | PDOC ---
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 She was diagnosed with stage IV malignancy on 08/31/2015. ER positive 100%, TN negative, HER2/lakeisha negative. Pancytopenia Chemotherapy Bone metastasis. Abdominal pain. Ascites. Peritonitis thickened appendix with mild infiltrative changes was better delineated on prior CT/MRI, obscured by the peritonitis and ascites. Punctate sclerotic focus size, may represent metastatic disease in this patient with known breast cancer. History of Present Illness History of Present Illness Patient was seen and examined at bedside today. GI following, patient is ready for discharge today. IR does not think paracentesis is of therapeutic benefit. Patient has no new complaints Vitals Vitals Vital Signs Date Time Temp Pulse Resp B/P (MAP) Pulse Ox O2 Delivery O2 Flow Rate FiO2 11/28/18 11:37 98.6 81 18 117/60 (79) 97 Room Air 98.6 Physical Exam General: Alert, Oriented X3, Cooperative, mild distress Heart: Regular rate, No murmurs Lungs: Clear, Other Abdomen: Soft, No tenderness, Other (mild distention/ascites) Extremities: No clubbing, No cyanosis, No edema Skin: No rashes, No significant lesion Labs LABS Laboratory Tests Test 11/27/18 12:18 11/27/18 13:41 11/28/18 05:45 Urine Collection Type Unknown Urine Color Yellow Urine Clarity Clear Urine pH 6.5 Urine Specific [place] 1.010 Urine Protein Negative mg/dL (NEG-TRACE) Urine Glucose (UA) Negative mg/dL (NEG) Urine Ketones (Stick) Negative mg/dL (NEG) Urine Blood Negative (NEG) Urine Nitrite Negative (NEG) Urine Bilirubin Negative (NEG) Urine Urobilinogen Dipstick 0.2 mg/dL (0.2 mg/dL) Urine Leukocyte Esterase Negative (NEG) Urine RBC 0 /HPF (0-2) Urine WBC 0 /HPF (0-4) Urine Squamous Epithelial Cells Few /LPF Urine Bacteria 0 /HPF (0-FEW) White Blood Count 2.6 x10^3/uL (4.0-11.0) 2.4 x10^3/uL (4.0-11.0) Red Blood Count 3.83 x10^6/uL (3.50-5.40) 3.85 x10^6/uL (3.50-5.40) Hemoglobin 10.9 g/dL (12.0-15.5) 11.2 g/dL (12.0-15.5) Hematocrit 33.7 % (36.0-47.0) 33.9 % (36.0-47.0) Mean Corpuscular Volume 88 fL (79-100) 88 fL (79-100) Mean Corpuscular Hemoglobin 28 pg (25-35) 29 pg (25-35) Mean Corpuscular Hemoglobin Concent 32 g/dL (31-37) 33 g/dL (31-37) Red Cell Distribution Width 17.3 % (11.5-14.5) 17.4 % (11.5-14.5) Platelet Count 123 x10^3/uL (140-400) 103 x10^3/uL (140-400) Neutrophils (%) (Auto) 53 % (31-73) 60 % (31-73) Lymphocytes (%) (Auto) 33 % (24-48) 26 % (24-48) Monocytes (%) (Auto) 10 % (0-9) 9 % (0-9) Eosinophils (%) (Auto) 3 % (0-3) 4 % (0-3) Basophils (%) (Auto) 2 % (0-3) 2 % (0-3) Neutrophils # (Auto) 1.4 x10^3uL (1.8-7.7) 1.4 x10^3uL (1.8-7.7) Lymphocytes # (Auto) 0.8 x10^3/uL (1.0-4.8) 0.6 x10^3/uL (1.0-4.8) Monocytes # (Auto) 0.3 x10^3/uL (0.0-1.1) 0.2 x10^3/uL (0.0-1.1) Eosinophils # (Auto) 0.1 x10^3/uL (0.0-0.7) 0.1 x10^3/uL (0.0-0.7) Basophils # (Auto) 0.1 x10^3/uL (0.0-0.2) 0.0 x10^3/uL (0.0-0.2) Sodium Level 145 mmol/L (136-145) 144 mmol/L (136-145) Potassium Level 4.0 mmol/L (3.5-5.1) 4.0 mmol/L (3.5-5.1) Chloride Level 109 mmol/L (98-107) 109 mmol/L (98-107) Carbon Dioxide Level 30 mmol/L (21-32) 27 mmol/L (21-32) Anion Gap 6 (6-14) 8 (6-14) Blood Urea Nitrogen 15 mg/dL (7-20) 15 mg/dL (7-20) Creatinine 0.5 mg/dL (0.6-1.0) 0.7 mg/dL (0.6-1.0) Estimated GFR (Cockcroft-Gault) 125.4 85.1 BUN/Creatinine Ratio 30 (6-20) Glucose Level 92 mg/dL (70-99) 88 mg/dL (70-99) Calcium Level 8.7 mg/dL (8.5-10.1) 8.4 mg/dL (8.5-10.1) Total Bilirubin 0.5 mg/dL (0.2-1.0) Aspartate Amino Transf (AST/SGOT) 39 U/L (15-37) Alanine Aminotransferase (ALT/SGPT) 50 U/L (14-59) Alkaline Phosphatase 131 U/L (46-116) Total Protein 6.1 g/dL (6.4-8.2) Albumin 2.8 g/dL (3.4-5.0) Albumin/Globulin Ratio 0.8 (1.0-1.7) Lipase 113 U/L (73-393) Prothrombin Time 13.7 SEC (11.7-14.0) Prothromb Time International Ratio 1.1 (0.8-1.1) Review of Systems Review of Systems Denies abdominal Pain Reports mild distension Denies nausea, vomiting Denies fever/chills Assessment and Plan Assessmemt and Plan Problems Medical Problems: (1) Abdominal pain Status: Acute Assessment: 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 She was diagnosed with stage IV malignancy on 08/31/2015. ER positive 100%, TN negative, HER2/lakeisha negative. Pancytopenia Chemotherapy Bone metastasis. Abdominal pain. Ascites. Peritonitis thickened appendix with mild infiltrative changes was better delineated on prior CT/MRI, obscured by the peritonitis and ascites. Punctate sclerotic focus size, may represent metastatic disease in this patient with known breast cancer. Plan: Okay to discharge today, appreciate GI/IR input Follow up with PCP outpatient Follow up with oncology outpatient Continue chemotherapy Return to ED with worsening symptoms Comment Review of Relevant I have reviewed the following items nba (where applicable) has been applied. Labs Laboratory Tests Test 11/27/18 12:18 11/27/18 13:41 11/28/18 05:45 Urine Collection Type Unknown Urine Color Yellow Urine Clarity Clear Urine pH 6.5 Urine Specific [place] 1.010 Urine Protein Negative mg/dL (NEG-TRACE) Urine Glucose (UA) Negative mg/dL (NEG) Urine Ketones (Stick) Negative mg/dL (NEG) Urine Blood Negative (NEG) Urine Nitrite Negative (NEG) Urine Bilirubin Negative (NEG) Urine Urobilinogen Dipstick 0.2 mg/dL (0.2 mg/dL) Urine Leukocyte Esterase Negative (NEG) Urine RBC 0 /HPF (0-2) Urine WBC 0 /HPF (0-4) Urine Squamous Epithelial Cells Few /LPF Urine Bacteria 0 /HPF (0-FEW) White Blood Count 2.6 x10^3/uL (4.0-11.0) 2.4 x10^3/uL (4.0-11.0) Red Blood Count 3.83 x10^6/uL (3.50-5.40) 3.85 x10^6/uL (3.50-5.40) Hemoglobin 10.9 g/dL (12.0-15.5) 11.2 g/dL (12.0-15.5) Hematocrit 33.7 % (36.0-47.0) 33.9 % (36.0-47.0) Mean Corpuscular Volume 88 fL (79-100) 88 fL (79-100) Mean Corpuscular Hemoglobin 28 pg (25-35) 29 pg (25-35) Mean Corpuscular Hemoglobin Concent 32 g/dL (31-37) 33 g/dL (31-37) Red Cell Distribution Width 17.3 % (11.5-14.5) 17.4 % (11.5-14.5) Platelet Count 123 x10^3/uL (140-400) 103 x10^3/uL (140-400) Neutrophils (%) (Auto) 53 % (31-73) 60 % (31-73) Lymphocytes (%) (Auto) 33 % (24-48) 26 % (24-48) Monocytes (%) (Auto) 10 % (0-9) 9 % (0-9) Eosinophils (%) (Auto) 3 % (0-3) 4 % (0-3) Basophils (%) (Auto) 2 % (0-3) 2 % (0-3) Neutrophils # (Auto) 1.4 x10^3uL (1.8-7.7) 1.4 x10^3uL (1.8-7.7) Lymphocytes # (Auto) 0.8 x10^3/uL (1.0-4.8) 0.6 x10^3/uL (1.0-4.8) Monocytes # (Auto) 0.3 x10^3/uL (0.0-1.1) 0.2 x10^3/uL (0.0-1.1) Eosinophils # (Auto) 0.1 x10^3/uL (0.0-0.7) 0.1 x10^3/uL (0.0-0.7) Basophils # (Auto) 0.1 x10^3/uL (0.0-0.2) 0.0 x10^3/uL (0.0-0.2) Sodium Level 145 mmol/L (136-145) 144 mmol/L (136-145) Potassium Level 4.0 mmol/L (3.5-5.1) 4.0 mmol/L (3.5-5.1) Chloride Level 109 mmol/L (98-107) 109 mmol/L (98-107) Carbon Dioxide Level 30 mmol/L (21-32) 27 mmol/L (21-32) Anion Gap 6 (6-14) 8 (6-14) Blood Urea Nitrogen 15 mg/dL (7-20) 15 mg/dL (7-20) Creatinine 0.5 mg/dL (0.6-1.0) 0.7 mg/dL (0.6-1.0) Estimated GFR (Cockcroft-Gault) 125.4 85.1 BUN/Creatinine Ratio 30 (6-20) Glucose Level 92 mg/dL (70-99) 88 mg/dL (70-99) Calcium Level 8.7 mg/dL (8.5-10.1) 8.4 mg/dL (8.5-10.1) Total Bilirubin 0.5 mg/dL (0.2-1.0) Aspartate Amino Transf (AST/SGOT) 39 U/L (15-37) Alanine Aminotransferase (ALT/SGPT) 50 U/L (14-59) Alkaline Phosphatase 131 U/L (46-116) Total Protein 6.1 g/dL (6.4-8.2) Albumin 2.8 g/dL (3.4-5.0) Albumin/Globulin Ratio 0.8 (1.0-1.7) Lipase 113 U/L (73-393) Prothrombin Time 13.7 SEC (11.7-14.0) Prothromb Time International Ratio 1.1 (0.8-1.1) Laboratory Tests Test 11/27/18 12:18 11/27/18 13:41 11/28/18 05:45 Urine Collection Type Unknown Urine Color Yellow Urine Clarity Clear Urine pH 6.5 Urine Specific [place] 1.010 Urine Protein Negative mg/dL (NEG-TRACE) Urine Glucose (UA) Negative mg/dL (NEG) Urine Ketones (Stick) Negative mg/dL (NEG) Urine Blood Negative (NEG) Urine Nitrite Negative (NEG) Urine Bilirubin Negative (NEG) Urine Urobilinogen Dipstick 0.2 mg/dL (0.2 mg/dL) Urine Leukocyte Esterase Negative (NEG) Urine RBC 0 /HPF (0-2) Urine WBC 0 /HPF (0-4) Urine Squamous Epithelial Cells Few /LPF Urine Bacteria 0 /HPF (0-FEW) White Blood Count 2.6 x10^3/uL (4.0-11.0) 2.4 x10^3/uL (4.0-11.0) Red Blood Count 3.83 x10^6/uL (3.50-5.40) 3.85 x10^6/uL (3.50-5.40) Hemoglobin 10.9 g/dL (12.0-15.5) 11.2 g/dL (12.0-15.5) Hematocrit 33.7 % (36.0-47.0) 33.9 % (36.0-47.0) Mean Corpuscular Volume 88 fL (79-100) 88 fL (79-100) Mean Corpuscular Hemoglobin 28 pg (25-35) 29 pg (25-35) Mean Corpuscular Hemoglobin Concent 32 g/dL (31-37) 33 g/dL (31-37) Red Cell Distribution Width 17.3 % (11.5-14.5) 17.4 % (11.5-14.5) Platelet Count 123 x10^3/uL (140-400) 103 x10^3/uL (140-400) Neutrophils (%) (Auto) 53 % (31-73) 60 % (31-73) Lymphocytes (%) (Auto) 33 % (24-48) 26 % (24-48) Monocytes (%) (Auto) 10 % (0-9) 9 % (0-9) Eosinophils (%) (Auto) 3 % (0-3) 4 % (0-3) Basophils (%) (Auto) 2 % (0-3) 2 % (0-3) Neutrophils # (Auto) 1.4 x10^3uL (1.8-7.7) 1.4 x10^3uL (1.8-7.7) Lymphocytes # (Auto) 0.8 x10^3/uL (1.0-4.8) 0.6 x10^3/uL (1.0-4.8) Monocytes # (Auto) 0.3 x10^3/uL (0.0-1.1) 0.2 x10^3/uL (0.0-1.1) Eosinophils # (Auto) 0.1 x10^3/uL (0.0-0.7) 0.1 x10^3/uL (0.0-0.7) Basophils # (Auto) 0.1 x10^3/uL (0.0-0.2) 0.0 x10^3/uL (0.0-0.2) Sodium Level 145 mmol/L (136-145) 144 mmol/L (136-145) Potassium Level 4.0 mmol/L (3.5-5.1) 4.0 mmol/L (3.5-5.1) Chloride Level 109 mmol/L (98-107) 109 mmol/L (98-107) Carbon Dioxide Level 30 mmol/L (21-32) 27 mmol/L (21-32) Anion Gap 6 (6-14) 8 (6-14) Blood Urea Nitrogen 15 mg/dL (7-20) 15 mg/dL (7-20) Creatinine 0.5 mg/dL (0.6-1.0) 0.7 mg/dL (0.6-1.0) Estimated GFR (Cockcroft-Gault) 125.4 85.1 BUN/Creatinine Ratio 30 (6-20) Glucose Level 92 mg/dL (70-99) 88 mg/dL (70-99) Calcium Level 8.7 mg/dL (8.5-10.1) 8.4 mg/dL (8.5-10.1) Total Bilirubin 0.5 mg/dL (0.2-1.0) Aspartate Amino Transf (AST/SGOT) 39 U/L (15-37) Alanine Aminotransferase (ALT/SGPT) 50 U/L (14-59) Alkaline Phosphatase 131 U/L (46-116) Total Protein 6.1 g/dL (6.4-8.2) Albumin 2.8 g/dL (3.4-5.0) Albumin/Globulin Ratio 0.8 (1.0-1.7) Lipase 113 U/L (73-393) Prothrombin Time 13.7 SEC (11.7-14.0) Prothromb Time International Ratio 1.1 (0.8-1.1) Medications Current Medications Iohexol (Omnipaque 300 Mg/ml) 75 ml 1X ONCE IV Last administered on 11/27/18at 14:27; Start 11/27/18 at 14:15; Stop 11/27/18 at 14:16; Status DC Fentanyl Citrate (Fentanyl 2ml Vial) 50 mcg PRN Q30MIN PRN IV SEVERE PAIN Last administered on 11/27/18at 14:45; Start 11/27/18 at 14:45; Stop 11/28/18 at 11:42 ; Status DC Sodium Chloride 1,000 ml @ 1,000 mls/hr Q1H IV Last administered on 11/27/18at 14:45; Start 11/27/18 at 14:37; Stop 11/27/18 at 15:36; Status DC Ondansetron HCl (Zofran) 4 mg 1X ONCE IV Last administered on 11/27/18at 14:45 ; Start 11/27/18 at 14:45; Stop 11/27/18 at 14:46; Status DC Ondansetron HCl (Zofran) 4 mg PRN Q8HRS PRN IV NAUSEA/VOMITING; Start 11/27/18 at 15:30; Stop 11/28/18 at 11:42; Status DC Morphine Sulfate (Morphine Sulfate) 2 mg PRN Q2HR PRN IV PAIN; Start 11/27/18 at 15:30; Stop 11/28/18 at 11:42; Status DC Sodium Chloride 1,000 ml @ 100 mls/hr Q10H IV Last administered on 11/27/18at 16:20; Start 11/27/18 at 15:21; Stop 11/27/18 at 19:20; Status DC Ceftriaxone Sodium (Rocephin) 1 gm 1X ONCE IVP Last administered on 11/27/18at 17:24; Start 11/27/18 at 15:30; Stop 11/27/18 at 15:31; Status DC Pantoprazole Sodium (Protonix) 40 mg DAILYAC PO Last administered on 11/28/18at 08:46; Start 11/27/18 at 17:30; Stop 11/28/18 at 11:42; Status DC Polyethylene Glycol (miraLAX PACKET) 17 gm BID PO ; Start 11/27/18 at 21:00; Stop 11/28/18 at 11:42; Status DC Bisacodyl (Dulcolax Tab) 5 mg 1X ONCE PO Last administered on 11/27/18at 17:23 ; Start 11/27/18 at 17:00; Stop 11/27/18 at 17:02; Status DC Ceftriaxone Sodium (Rocephin) 1 gm Q24H IVP Last administered on 11/27/18at 23: 03; Start 11/27/18 at 23:00; Stop 11/28/18 at 11:42; Status DC Heparin Sodium (Porcine) (Hep Lock Adult) 500 unit 1X ONCE IV Last administered on 11/28/18at 11:22; Start 11/28/18 at 11:15; Stop 11/28/18 at 11:16 ; Status DC Active Scripts Active Reported Lidocaine-Prilocaine Cream (Lidocaine/Prilocaine) 30 Gm Cream..g. Gabapentin 300 Mg Capsule 300 Mg PO PRN DAILY PRN Prednisone (Prednisone) 10 Mg Tablet 10 Mg PO PRN DAILY PRN Eliquis (Apixaban) 5 Mg Tablet 5 Mg PO DAILY Omeprazole 40 Mg Capsule.dr 1 Cap PO DAILY Albuterol Sulfate Neb Soln (Albuterol Sulfate) 2.5 Mg/3 Ml Vial.neb 0.5 Vial NEB PRN Q4HRS PRN Proventil Hfa Inhaler (Albuterol Sulfate) 6.7 Gm Hfa.aer.ad 1-2 Puff IH PRN Q4HRS PRN Advair 250-50 Diskus (Fluticasone/Salmeterol) 1 Each Disk.w.dev 1 Puff IH BID Vitals/I & O Vital Sign - Last 24 Hours 11/27/18 11/27/18 11/27/18 11/27/18 12:20 17:06 19:20 20:00 Temp 98.2 98.3 98.2 98.3 Pulse 76 80 Resp 18 18 B/P (MAP) 137/63 (87) 114/62 (79) Pulse Ox 99 96 O2 Delivery Room Air Room Air Room Air Room Air 11/27/18 11/28/18 11/28/18 11/28/18 23:09 03:32 07:00 08:00 Temp 97.9 98.1 98.5 97.9 98.1 98.5 Pulse 83 82 86 Resp 20 20 18 B/P (MAP) 111/72 (85) 112/74 (87) 126/71 (89) Pulse Ox 95 95 95 O2 Delivery Room Air Room Air Room Air Room Air 11/28/18 11:37 Temp 98.6 98.6 Pulse 81 Resp 18 B/P (MAP) 117/60 (79) Pulse Ox 97 O2 Delivery Room Air Intake and Output 11/27/18 11/27/18 11/28/18 15:00 23:00 07:00 Intake Total 1480 ml Balance 1480 ml FADY HERMAN III DO Nov 28, 2018 11:47
--- NOTE | 2018-11-28 12:23 | DS ---
DATE OF DISCHARGE: 11/28/2018 ADMISSION DIAGNOSES: Breast cancer with metastasis, on chemotherapy; leukopenia; abdominal distention with possible ascites. DISCHARGE DIAGNOSES: Resolving abdominal pain; history of breast cancer with metastasis, on chemotherapy; resolving leukopenia; resolving abdominal distention; resolving ascites. CONSULTS: GI and Oncology. PROCEDURES: None. HOSPITAL COURSE: The patient is a pleasant middle-aged female who basically has metastatic breast cancer. She is on chemo. She presented with abdominal distention with some ascites. She was admitted. The above consults were obtained. She wanted to have the fluid drained, but it was really not severe enough to have a paracentesis. Her white count is reasonable at 2.4 this morning. I saw her and examined her. Her lungs were Clear. Her abdomen was a little distended, but nontender. Overall, she is doing better. We plan to discharge if okay with consultants. DISPOSITION: Home. ACTIVITY: As tolerated. DIET: Low sodium. MEDICATIONS: Please see the MRAD. TOTAL TIME: 32 minutes. FADY HERMAN DO DR: FROILAN/jong JOB#: [id number] / [id number]
--- NOTE | 2018-11-28 22:35 | CONS ---
DATE OF CONSULTATION: 11/28/2018 REQUESTING PHYSICIAN: Dr. Ilia Sue. REASON FOR CONSULTATION: Breast cancer, on chemotherapy, now admitted with abdominal pain. HISTORY OF PRESENT ILLNESS: The patient is a 63-year-old female who has history of breast cancer diagnosed in 2004 when she underwent a right mastectomy, stage 2B ER positive, HER2/lakeisha negative and she received adjuvant chemotherapy with Adriamycin and Cytoxan followed by Taxol and then Arimidex for 5 years. She noticed abdominal discomfort and distention on 08/07/2015 and paracentesis on 08/10/2015 revealed 5 liters of yellow fluid. CT scan on 08/10/2015 revealed large volume ascites with small peritoneal soft tissue density in the pelvis measuring 2.4 cm. She underwent diagnostic laparoscopy, left-sided salpingo-oophorectomy and cystoscopy on 08/31/2015 and biopsies revealed metastatic mammary carcinoma involving the fallopian tube and ovary and the histology revealed invasive lobular carcinoma. She was started on chemotherapy with Xeloda. She developed worsening ascites and hence it was changed to Abraxane on 10/05/2016. She continues to get chemotherapy and she has been responding well and tolerating it well. She was admitted to [facility] on 11/27/2018 with abdominal discomfort and abdominal distention. The patient felt that she needed paracentesis. She underwent a CT abdomen and pelvis on 11/27/2018 that revealed hepatic cirrhosis and progressive nodularity of the liver. Small volume abdominal ascites with peritoneal enhancement and thickening consistent with peritonitis. Thickened appendix is better when compared to the prior study. Punctate sclerotic focus in the visualized osseous structures is unchanged and likely thought to be due to metastasis. She denies fevers or chills. No nausea or vomiting. PAST MEDICAL HISTORY: Back pain, breast cancer, bone metastasis. Mild cerebral palsy, spina bifida, hysterectomy, right salpingo-oophorectomy. SOCIAL HISTORY: Never smoker. FAMILY HISTORY: Both parents had lung cancer. REVIEW OF SYSTEMS: A 12-point review of system was performed. Pertinent positives are mentioned in the history of present illness. Rest of the system review is negative. PHYSICAL EXAMINATION: GENERAL APPEARANCE: The patient is a 63-year-old female who is in no acute cardiorespiratory distress. VITAL SIGNS: Blood pressure 126/71, temperature 98.5. HEENT: Head atraumatic, normocephalic. Eyes: No icterus. NECK: Supple. CHEST: Bilaterally symmetrical. HEART: S1, S2 normal. ABDOMEN: Soft, nontender. CENTRAL NERVOUS SYSTEM: No focal deficits. LYMPHATICS: No lymphadenopathy. SKIN: No rashes. PSYCHOLOGIC: Mood and affect are appropriate. MUSCULOSKELETAL: No joint effusions. Examination of the abdomen also reveals evidence of mild distention, but no significant tenderness. LABORATORY DATA: WBC 2.4, hemoglobin 11.2, platelet count 103, absolute neutrophil count is 1.4, creatinine 0.7, total bilirubin 0.5, AST 39, ALT 15, alkaline phosphatase 131, total protein 6.1, albumin 2.8. IMPRESSION AND PLAN: 1. Stage 4 breast cancer with peritoneal carcinomatosis, ascites and bone metastasis diagnosed on 08/31/2015. ER positive, ND negative, HER-2/lakeisha negative. She was treated with Xeloda on 10/06/2015 and then switched to Abraxane on 10/05/2016. She is tolerating the Abraxane very well and she has had a good response to chemotherapy. She will return for followup with me in about 2 weeks for continuation of chemotherapy. 2. Abdominal pain. CT scan of the abdomen and pelvis on 11/27/2018 does not reveal any evidence of disease progression. There is nodularity in the liver consistent with cirrhosis and very mild ascites, not enough for paracentesis. I again mentioned to her that the paracentesis will not relieve the abdominal discomfort as she has only very minimal ascites. There is question of peritonitis noted on the CAT scan and hence Infectious Diseases has been consulted. 3. Neutropenia due to chemotherapy. Continue to monitor. 4. Thrombocytopenia due to chemotherapy. Platelets are 103. 5. Anemia due to malignancy and chemotherapy. Monitor CBC. No evidence of bleeding. MINNA THORPE MD DR: ROXIE/jong JOB#: [id number] / [id number] DIANE
== END 2018-11-28 11:40 | disposition home or self-care (01) | DRG 432 ==
LOC: ER 11:53 → 4 NORTH 15:14
PROVIDERS: ADMIT Family Medicine; ATTEND Family Medicine
DX: K74.60 Unspecified cirrhosis of liver (principal); K65.9 Peritonitis, unspecified; C79.51 Secondary malignant neoplasm of bone; C78.6 Secondary malignant neoplasm of retroperitoneum and peritoneum; R18.8 Other ascites; K59.00 Constipation, unspecified; C50.919 Malignant neoplasm of unspecified site of unspecified female breast; C57.00 Malignant neoplasm of unspecified fallopian tube; D63.0 Anemia in neoplastic disease; D69.59 Other secondary thrombocytopenia; D70.1 Agranulocytosis secondary to cancer chemotherapy; J44.9 Chronic obstructive pulmonary disease, unspecified; T45.1X5A Adverse effect of antineoplastic and immunosuppressive drugs, initial encounter; K21.9 Gastro-esophageal reflux disease without esophagitis; Q05.9 Spina bifida, unspecified; Z80.1 Family history of malignant neoplasm of trachea, bronchus and lung; Z80.3 Family history of malignant neoplasm of breast; Z85.3 Personal history of malignant neoplasm of breast; Z90.11 Acquired absence of right breast and nipple; Z90.710 Acquired absence of both cervix and uterus; Z88.8 Allergy status to other drugs, medicaments and biological substances; Y92.89 Other specified places as the place of occurrence of the external cause
CPT/HCPCS: 36415; 74177; 76705; 80048; 80053; 81001; 83690; 85025; 85610; 96361; 96374; 96375; J0696; J2405; J3010; J7030; Q9967; 99285-25

== ENCOUNTER 2018-12-12 06:38 | Outpatient (CLI) | payer BC ==
[~2018-12-12] VITALS: Ht 160 cm; Wt 67.1 kg
[2018-12-12] MEDS ORDERED: ASCO500C9 PO (07:10)
[2018-12-12] MEDS ORDERED: MULT-129 PO (07:10)
[2018-12-12] MEDS ORDERED: LIDOCAINE WITH 8.4% SOD BICARB 3 ML DISP.SYRIN. ONE (08:04)
[2018-12-12 08:12] VITALS: BP 102/54
[2018-12-12 08:15] VITALS: BP 126/67
[2018-12-12 08:31] VITALS: BP 119/66
[2018-12-12 08:45] VITALS: BP 118/67
[2018-12-12 09:00] VITALS: BP 126/71
[2018-12-12 09:15] VITALS: BP 131/67
--- NOTE | 2018-12-12 09:21 | NUR ---
rt abd site bandaid is clean and dry. pt tolerating po well, ambulated to bathroom w/o problem. VSS. denies pain at site. d/c instructions reviewed and questions answered. no sedation given. pt left unit accompanied by her sister- ambulated out to vehicle.
--- NOTE | 2018-12-12 13:01 | RAD ---
Ultrasound-guided paracentesis 12/12/2018 12:57 PM Procedure: The risks and benefits of the procedure were discussed the patient. Informed consent was obtained. A timeout procedure was performed. Sonographic evaluation of the abdomen was performed demonstrating ascites . The right lower quadrant was prepped and draped using maximum sterile barrier technique. 1% lidocaine without epinephrine was administered for local anesthesia. Real-time ultrasonographic guidance was used in passing a 5 Khmer Yueh catheter into the fluid collection. 1.5 L of serous ascites was removed. The catheter was removed and pressure held to achieve hemostasis. A sterile dressing was applied. Impression: Successful ultrasound-guided paracentesis
== END 2018-12-12 09:24 | disposition home or self-care (01) ==
LOC: INTRAD 06:38
PROVIDERS: ATTEND Internal Medicine Hematology & Oncology
DX: R18.8 Other ascites (principal); Z88.5 Allergy status to narcotic agent
CPT/HCPCS: 49083

== ENCOUNTER 2019-01-07 09:44 | Outpatient (CLI) | payer BC ==
[~2019-01-07] VITALS: Ht 162.6 cm; Wt 70.3 kg
[~2019-01-07 09:44] MED LIST changes: +ASCO500C9 PO; +MULT-129 PO
[2019-01-07 10:44] VITALS: BP 135/72
[2019-01-07 10:51] LABS: BASO # 0.1 x10^3/uL (0.0-0.2); BASO % 1 % (0-3); EOS # 0.1 x10^3/uL (0.0-0.7); EOS % 1 % (0-3); HEMATOCRIT 34.6 % (36.0-47.0); HEMOGLOBIN 11.2 g/dL (12.0-15.5); LYMPH # 0.8 x10^3/uL (1.0-4.8); LYMPH % 19 % (24-48); MEAN CORPUSCULAR HEMOGLOBIN 28 pg (25-35); MEAN CORPUSCULAR HGB CONC 32 g/dL (31-37); MEAN CORPUSCULAR VOLUME 87 fL (79-100); MONO # 0.6 x10^3/uL (0.0-1.1); MONO % 14 % (0-9); NEUT # 2.8 x10^3uL (1.8-7.7); NEUT % 64 % (31-73); PLATELET COUNT 167 x10^3/uL (140-400); RED BLOOD COUNT 3.96 x10^6/uL (3.50-5.40); RED CELL DISTRIBUTION WIDTH 18.2 % (11.5-14.5); WHITE BLOOD COUNT 4.3 x10^3/uL (4.0-11.0)
[2019-01-07 11:12] LABS: PROTHROMBIN TIME PATIENT 13.4 SEC (11.7-14.0)
[2019-01-07 11:36] VITALS: BP 140/70
[2019-01-07 11:51] VITALS: BP 133/66
[2019-01-07 12:14] VITALS: BP 138/70
[2019-01-07 12:29] VITALS: BP 125/74
[2019-01-07 12:44] VITALS: BP 122/68
--- NOTE | 2019-01-07 12:58 | NUR ---
Discharge Note: AHSAN SANCHEZ Discharge instructions and discharge home medications reviewed with Patient and a copy given. All questions have been answered and understanding verbalized. The following instructions and handouts were given: paracentesis Discontinued lines and drains: no lines to dc. Patient discharged to Home or Self Care withFamily Membervia Wheelchair
--- NOTE | 2019-01-07 15:22 | RAD ---
Ultrasound-guided paracentesis 01/07/2019 3:18 PM Procedure: The risks and benefits of the procedure were discussed the patient. Informed consent was obtained. A timeout procedure was performed. Sonographic evaluation of the abdomen was performed demonstrating ascites . The right lower quadrant was prepped and draped using maximum sterile barrier technique. 1% lidocaine without epinephrine was administered for local anesthesia. Real-time ultrasonographic guidance was used in passing a 5 Bulgarian Yueh catheter into the fluid collection. 3.2 L of serous ascites was removed. The catheter was removed and pressure held to achieve hemostasis. A sterile dressing was applied. Impression: Successful ultrasound-guided paracentesis
== END 2019-01-07 12:50 | disposition home or self-care (01) ==
LOC: INTRAD 09:44
PROVIDERS: ATTEND Internal Medicine Hematology & Oncology
DX: R18.8 Other ascites (principal)
CPT/HCPCS: 36415; 49083; 85025; 85610

== ENCOUNTER 2019-01-12 15:42 | Inpatient (IN) | payer BC ==
[~2019-01-12] VITALS: Ht 162.6 cm; Wt 71.8 kg
[2019-01-12] MEDS ORDERED: 0.9 % SOD CHL for STERILE FIELD 10 ML DISP.SYRIN. ONE (16:18)
[2019-01-12] MEDS ORDERED: IOHEXOL 300 MG/ML 100ML VIAL. IV ONE (17:00)
--- NOTE | 2019-01-12 17:00 | PHYS DOC ---
Past Medical History Past Medical History: Asthma, Cancer, COPD Additional Past Medical Histor: stage 4 breast ca, cirrhosis (GIORGIO SOLANO APRN) Past Surgical History: Hysterectomy, Other Additional Past Surgical Histo: RT MASTECTOMY, PARACENTESIS, [place] L chest (GIORGIO SOLANO APRN) Additional Information: non smoker Alcohol Use: None Drug Use: None (GIORGIO SOLANO APRN) Adult General Chief Complaint Chief Complaint: ABDOMINAL PAIN HPI HPI Patient is a 63-year-old female that presents with abdominal pain. She is a breast cancer patient and is on chemotherapy one time a week for 3 weeks and then takes a week off has been doing this since 2014. She has known cirrhosis from the chemotherapy. Her abdomen was drained last Saturday. States that it is immediately become distended again and that it is painful. Symptoms started on Saturday. Associated symptoms's include while at the cancer center she was told she had a fever of 100.7. Denies any other associated symptoms. Her pain is currently 0 out of 10. However the pain is intermittent and shoots up to 7 out of 10. The quality of the pain is described as sharp. (GIORGIO SOLANO APRN) Review of Systems Review of Systems Constitutional: Reports fever but denies chills [] Eyes: Denies change in visual acuity, redness, or eye pain [] HENT: Denies nasal congestion or sore throat [] Respiratory: Denies cough but reports shortness of breath [] Cardiovascular: No additional information not addressed in HPI [] GI: Reports abdominal pain, denies nausea, vomiting, bloody stools or diarrhea [] : Denies dysuria or hematuria [] Musculoskeletal: Denies back pain or joint pain [] Integument: Denies rash or skin lesions [] Neurologic: Denies headache, focal weakness or sensory changes [] Endocrine: Denies polyuria or polydipsia [] Complete systems were reviewed and found to be within normal limits, except as documented in this note. (GIORGIO SOLANO APRN) Current Medications Current Medications Current Medications Medications (Trade) Dose Ordered Sig/Iggy Start Time Stop Time Status Last Admin Dose Admin Ceftriaxone Sodium (Rocephin) 1 gm 1X ONCE 01/12/19 18:30 01/12/19 18:31 DC 01/12/19 18:42 1 GM Iohexol (Omnipaque 300 Mg/ml) 75 ml 1X ONCE 01/12/19 17:00 01/12/19 17:01 DC 01/12/19 17:40 75 ML Sodium Chloride (NORMAL SALINE FLUSH for STERILE FIELD) 10 ml STK-MED ONCE 01/12/19 16:18 01/12/19 16:19 DC (IVANNA GONZALEZ MD) Allergies Allergies Allergies Coded Allergies Type Severity Reaction Last Updated Verified meperidine Adverse Reaction Intermediate Nausea and Vomiting 07/12/17 Yes (IVANNA GONZALEZ MD) Physical Exam Physical Exam Constitutional: Well developed, well nourished, no acute distress, non-toxic appearance. [] HENT: Normocephalic, atraumatic, bilateral external ears normal, oropharynx moist, no oral exudates, nose normal. [] Eyes: PERRLA, EOMI, conjunctiva normal, no discharge. [] Neck: Normal range of motion, no tenderness, supple, no stridor. [] Cardiovascular:Heart rate regular rhythm, no murmur [] Lungs & Thorax: Bilateral breath sounds clear to auscultation [] Abdomen: Bowel sounds hypoactive, distended, tenderness, erythema and warmth. no masses, no pulsatile masses. [] Skin: Warm, dry, no rash. [] Back: No tenderness, no CVA tenderness. [] Extremities: No tenderness, no cyanosis, no clubbing, ROM intact, edema to bilateral lower extremities and redness. [] Neurologic: Alert and oriented X 3, normal motor function, normal sensory function, no focal deficits noted. [] Psychologic: Affect normal, judgement normal, mood normal. [] (GIORGIO SOLANO APRN) Current Patient Data Vital Signs Vital Signs Date Time Temp Pulse Resp B/P (MAP) Pulse Ox O2 Delivery O2 Flow Rate FiO2 01/12/19 18:40 90 20 135/63 (87) 98 Room Air 01/12/19 16:04 99.0 99.0 (IVANNA GONZALEZ MD) Lab Values Laboratory Tests Test 01/12/19 16:30 01/12/19 17:03 01/12/19 17:22 White Blood Count 7.3 x10^3/uL (4.0-11.0) Red Blood Count 3.63 x10^6/uL (3.50-5.40) Hemoglobin 10.3 g/dL (12.0-15.5) L Hematocrit 31.6 % (36.0-47.0) L Mean Corpuscular Volume 87 fL (79-100) Mean Corpuscular Hemoglobin 28 pg (25-35) Mean Corpuscular Hemoglobin Concent 33 g/dL (31-37) Red Cell Distribution Width 18.0 % (11.5-14.5) H Platelet Count 121 x10^3/uL (140-400) L Neutrophils (%) (Auto) 89 % (31-73) H Lymphocytes (%) (Auto) 8 % (24-48) L Monocytes (%) (Auto) 2 % (0-9) Eosinophils (%) (Auto) 0 % (0-3) Basophils (%) (Auto) 0 % (0-3) Neutrophils # (Auto) 6.6 x10^3uL (1.8-7.7) Lymphocytes # (Auto) 0.6 x10^3/uL (1.0-4.8) L Monocytes # (Auto) 0.1 x10^3/uL (0.0-1.1) Eosinophils # (Auto) 0.0 x10^3/uL (0.0-0.7) Basophils # (Auto) 0.0 x10^3/uL (0.0-0.2) Segmented Neutrophils % 94 % (35-66) H Lymphocytes % 3 % (24-48) L Monocytes % 1 % (0-10) Eosinophils % 1 % (0-5) Basophils % 1 % (0-3) Platelet Estimate Decreased (ADEQUATE) Hypochromasia Slight Anisocytosis Slight Sodium Level 138 mmol/L (136-145) Potassium Level 3.7 mmol/L (3.5-5.1) Chloride Level 104 mmol/L (98-107) Carbon Dioxide Level 26 mmol/L (21-32) Anion Gap 8 (6-14) Blood Urea Nitrogen 20 mg/dL (7-20) Creatinine 0.6 mg/dL (0.6-1.0) Estimated GFR (Cockcroft-Gault) 101.6 BUN/Creatinine Ratio 33 (6-20) H Glucose Level 133 mg/dL (70-99) H Calcium Level 8.9 mg/dL (8.5-10.1) Total Bilirubin 1.1 mg/dL (0.2-1.0) H Aspartate Amino Transferase (AST) 78 U/L (15-37) H Alanine Aminotransferase (ALT) 70 U/L (14-59) H Alkaline Phosphatase 147 U/L (46-116) H Troponin I Quantitative < 0.017 ng/mL (0.000-0.055) NX-Xyq-C-Type Natriuretic Peptide 175 pg/mL (0-124) H Total Protein 5.9 g/dL (6.4-8.2) L Albumin 2.8 g/dL (3.4-5.0) L Albumin/Globulin Ratio 0.9 (1.0-1.7) L Lipase 109 U/L (73-393) Urine Collection Type Unknown Urine Color Crystal Urine Clarity Cloudy Urine pH 5.5 Urine Specific [place] >=1.030 Urine Protein Negative mg/dL (NEG-TRACE) Urine Glucose (UA) Negative mg/dL (NEG) Urine Ketones (Stick) Negative mg/dL (NEG) Urine Blood Negative (NEG) Urine Nitrite Negative (NEG) Urine Bilirubin Small (NEG) Urine Urobilinogen Dipstick 1.0 mg/dL (0.2 mg/dL) Urine Leukocyte Esterase Small (NEG) Urine RBC 0 /HPF (0-2) Urine WBC 5-10 /HPF (0-4) Urine Squamous Epithelial Cells Few /LPF Urine Calcium Phosphate Crystals /HPF Urine Amorphous Sediment Present /HPF Urine Bacteria 0 /HPF (0-FEW) Urine Mucus Marked /LPF Lactic Acid Level 1.1 mmol/L (0.4-2.0) Laboratory Tests 01/12/19 16:30 Laboratory Tests 01/12/19 16:30 Microbiology 01/12/19 Blood Culture - Preliminary, Resulted NO GROWTH AFTER 1 DAY (IVANNA GONZALEZ MD) Lab Values Laboratory Tests Test 01/12/19 16:30 01/12/19 17:03 01/12/19 17:22 White Blood Count 7.3 x10^3/uL (4.0-11.0) Red Blood Count 3.63 x10^6/uL (3.50-5.40) Hemoglobin 10.3 g/dL (12.0-15.5) L Hematocrit 31.6 % (36.0-47.0) L Mean Corpuscular Volume 87 fL (79-100) Mean Corpuscular Hemoglobin 28 pg (25-35) Mean Corpuscular Hemoglobin Concent 33 g/dL (31-37) Red Cell Distribution Width 18.0 % (11.5-14.5) H Platelet Count 121 x10^3/uL (140-400) L Neutrophils (%) (Auto) 89 % (31-73) H Lymphocytes (%) (Auto) 8 % (24-48) L Monocytes (%) (Auto) 2 % (0-9) Eosinophils (%) (Auto) 0 % (0-3) Basophils (%) (Auto) 0 % (0-3) Neutrophils # (Auto) 6.6 x10^3uL (1.8-7.7) Lymphocytes # (Auto) 0.6 x10^3/uL (1.0-4.8) L Monocytes # (Auto) 0.1 x10^3/uL (0.0-1.1) Eosinophils # (Auto) 0.0 x10^3/uL (0.0-0.7) Basophils # (Auto) 0.0 x10^3/uL (0.0-0.2) Segmented Neutrophils % 94 % (35-66) H Lymphocytes % 3 % (24-48) L Monocytes % 1 % (0-10) Eosinophils % 1 % (0-5) Basophils % 1 % (0-3) Platelet Estimate Decreased (ADEQUATE) Hypochromasia Slight Anisocytosis Slight Sodium Level 138 mmol/L (136-145) Potassium Level 3.7 mmol/L (3.5-5.1) Chloride Level 104 mmol/L (98-107) Carbon Dioxide Level 26 mmol/L (21-32) Anion Gap 8 (6-14) Blood Urea Nitrogen 20 mg/dL (7-20) Creatinine 0.6 mg/dL (0.6-1.0) Estimated GFR (Cockcroft-Gault) 101.6 BUN/Creatinine Ratio 33 (6-20) H Glucose Level 133 mg/dL (70-99) H Calcium Level 8.9 mg/dL (8.5-10.1) Total Bilirubin 1.1 mg/dL (0.2-1.0) H Aspartate Amino Transferase (AST) 78 U/L (15-37) H Alanine Aminotransferase (ALT) 70 U/L (14-59) H Alkaline Phosphatase 147 U/L (46-116) H Troponin I Quantitative < 0.017 ng/mL (0.000-0.055) LF-Qtu-O-Type Natriuretic Peptide 175 pg/mL (0-124) H Total Protein 5.9 g/dL (6.4-8.2) L Albumin 2.8 g/dL (3.4-5.0) L Albumin/Globulin Ratio 0.9 (1.0-1.7) L Lipase 109 U/L (73-393) Urine Collection Type Unknown Urine Color Crystal Urine Clarity Cloudy Urine pH 5.5 Urine Specific [place] >=1.030 Urine Protein Negative mg/dL (NEG-TRACE) Urine Glucose (UA) Negative mg/dL (NEG) Urine Ketones (Stick) Negative mg/dL (NEG) Urine Blood Negative (NEG) Urine Nitrite Negative (NEG) Urine Bilirubin Small (NEG) Urine Urobilinogen Dipstick 1.0 mg/dL (0.2 mg/dL) Urine Leukocyte Esterase Small (NEG) Urine RBC 0 /HPF (0-2) Urine WBC 5-10 /HPF (0-4) Urine Squamous Epithelial Cells Few /LPF Urine Calcium Phosphate Crystals /HPF Urine Amorphous Sediment Present /HPF Urine Bacteria 0 /HPF (0-FEW) Urine Mucus Marked /LPF Lactic Acid Level 1.1 mmol/L (0.4-2.0) Laboratory Tests 01/12/19 16:30 Laboratory Tests 01/12/19 16:30 (GIORGIO SOLANO APRN) EKG EKG [] (GIORGIO SOLANO APRN) Radiology/Procedures Radiology/Procedures []PATIENT: MEI SANCHEZCCOUNT: [id number]#: [id number] : 1955 LOCATION: ER AGE: 63 SEX: F EXAM STATUS: REG ER ORD. PHYSICIAN: GIORGIO SOLANO APRN REASON: sob PROCEDURE: CHEST PA & LATERAL EXAM: Chest, 2 views. HISTORY: Shortness of breath. COMPARISON: 04/22/2018 FINDINGS: 2 views of chest are obtained. There is suspected bilateral lower lobe atelectasis. There is no consolidation, pleural effusion or pneumothorax. The heart is normal in size. There is a calcified granuloma within the right upper lobe. There is a port catheter with the tip in the superior vena cava. IMPRESSION: No acute pulmonary finding. Electronically signed by: Bernice Mercado MD (01/12/2019 5:07 PM) [facility] PATIENT: MANDY SANCHEZ ACCOUNT: [id number] : 1955 LOCATION: ER AGE: 63 SEX: F EXAM STATUS: REG ER ORD. PHYSICIAN: GIORGIO SOLANO APRN REASON: abd pain PROCEDURE: CT ABD PELV W/ IV CONTRST ONLY EXAM: Abdomen and pelvis CT with intravenous contrast. HISTORY: Pain. TECHNIQUE: Computed tomographic images of the abdomen and pelvis were obtained following the administration of 75 cc Omnipaque 300 intravenous contrast. Multiplanar reformatting was performed. *One or more of the following individualized dose reduction techniques were utilized for this examination: 1. Automated exposure control. 2. Adjustment of the mA and/or kV according to patient size. 3. Use of iterative reconstruction technique. COMPARISON: 11/27/2018. FINDINGS: Evaluation of the lower thorax demonstrates chronic interstitial changes superimposed on atelectasis. There is mild cardia mentally. There is a small hiatal hernia. There are right mastectomy changes. There is partial visualization of a central venous catheter within the superior vena cava. There is hepatic cirrhosis. There is a small cyst within the left hepatic lobe. The gallbladder, pancreas, and adrenal glands are unremarkable. The spleen is upper normal in size. There is a suspected tiny nonobstructing stone within the lower pole of the left kidney, possibly artifact due to early excretion of contrast. There is a prominent appendix, likely due to the presence of a large amount of abdominal ascites. There is no convincing appendicitis. There is moderate colonic stool. There is gastric wall thickening likely due to relative under distention. There is no convincing lymphadenopathy. The urinary bladder is unremarkable. There are innumerable sclerotic lesions throughout the vertebral column and bony pelvis. No pathologic fracture is seen. IMPRESSION: 1. Large abdominal ascites. Increased compared to the prior study. 2. Hepatic cirrhosis. There is a small cyst within the left hepatic lobe. Liver protocol MRI is more sensitive for small lesions in the setting of cirrhosis. 3. Moderate colonic stool. Correlate for constipation. 5. Small hiatal hernia. 6. Cardiomegaly. 7. Stable prominent appendiceal caliber and likely due to the presence of abdominal ascites. 8. Diffuse sclerotic lesions throughout the bony pelvis and vertebral column. The imaging appearance favors osseous metastatic disease. No pathologic fracture is seen. Electronically signed by: Bernice Mercado MD (01/12/2019 5:59 PM) [facility] (GIORGIO SOLANO APRN) Course & Med Decision Making Course & Med Decision Making Pertinent Labs and Imaging studies reviewed. (See chart for details) Discussed signs and symptoms with patient. Discussed the possibility of admission. Also discussed getting labs, urine, CT scan for evaluation. The patient was agreeable. Urine showed UTI and the CT showed Ascites. Talked to Dr. Hernandez who agreed to admit the patient. Will consult GI and Oncology. Patient is agreeable to plan. (GIORGIO SOLANO APRN) Course & Med Decision Making I was not involved in the care of this patient after 1800 on 01/12/2019. (IVANNA GONZALEZ MD) Dragon Disclaimer Dragon Disclaimer This electronic medical record was generated, in whole or in part, using a voice recognition dictation system. (GIORGIO SOLANO APRN) Departure Departure Impression: Primary Impression: Abdominal pain Additional Impression: Ascites Disposition: ADMITTED INPATIENT Condition: STABLE Referrals: BRIANNA GRIGGS APRN (PCP) Problem Qualifiers GIORGIO SOLANO APRN January 12, 2019 17:00 IVANNA GONZALEZ MD January 13, 2019 17:37
[2019-01-12 17:06] LABS: BASO % 0 % (0-3); EOS % 0 % (0-3); HEMATOCRIT 31.6 % (36.0-47.0); HEMOGLOBIN 10.3 g/dL (12.0-15.5); LYMPH # 0.6 x10^3/uL (1.0-4.8); LYMPH % 8 % (24-48); MEAN CORPUSCULAR HEMOGLOBIN 28 pg (25-35); MEAN CORPUSCULAR HGB CONC 33 g/dL (31-37); MEAN CORPUSCULAR VOLUME 87 fL (79-100); MONO # 0.1 x10^3/uL (0.0-1.1); MONO % 2 % (0-9); NEUT # 6.6 x10^3uL (1.8-7.7); NEUT % 89 % (31-73); PLATELET COUNT 121 x10^3/uL (140-400); RED BLOOD COUNT 3.63 x10^6/uL (3.50-5.40); WHITE BLOOD COUNT 7.3 x10^3/uL (4.0-11.0)
--- NOTE | 2019-01-12 17:10 | RAD ---
EXAM: Chest, 2 views. HISTORY: Shortness of breath. COMPARISON: 04/22/2018 FINDINGS: 2 views of chest are obtained. There is suspected bilateral lower lobe atelectasis. There is no consolidation, pleural effusion or pneumothorax. The heart is normal in size. There is a calcified granuloma within the right upper lobe. There is a port catheter with the tip in the superior vena cava. IMPRESSION: No acute pulmonary finding. Electronically signed by: Bernice Mercado MD (01/12/2019 5:07 PM) [facility]
[2019-01-12 17:16] LABS: BILIRUBIN,URINE SMALL (NEG); CLARITY,URINE CLOUDY; COLOR,URINE AMBER; NITRITE,URINE NEGATIVE (NEG); PH,URINE 5.5; PROTEIN,URINE NEGATIVE (NEG-TRACE)
[2019-01-12 17:19] LABS: CALCIUM 8.9 mg/dL (8.5-10.1); CREATININE 0.6 mg/dL (0.6-1.0); GFR 101.6; POTASSIUM 3.7 mmol/L (3.5-5.1)
[2019-01-12 17:22] LABS: BACTERIA,URINE 0 /HPF (0-FEW); RBC,URINE 0 /HPF (0-2); SQUAMOUS EPITHELIAL CELL,UR FEW /LPF
[2019-01-12 17:22] LABS: ALBUMIN 2.8 g/dL (3.4-5.0); ALBUMIN/GLOBULIN RATIO 0.9 (1.0-1.7); TOTAL BILIRUBIN 1.1 mg/dL (0.2-1.0); TOTAL PROTEIN 5.9 g/dL (6.4-8.2)
[2019-01-12 17:23] LABS: AMORPHOUS SEDIMENT,UR PRESENT /HPF
[2019-01-12 17:48] LABS: % BASOS 1 % (0-3); % EOS 1 % (0-5); % LYMPHS 3 % (24-48); % MONOS 1 % (0-10); % SEGS 94 % (35-66)
[2019-01-12 17:49] LABS: ANISOCYTOSIS SLIGHT; HYPOCHROMIA SLIGHT; PLT ESTIMATE DECREASED (ADEQUATE)
--- NOTE | 2019-01-12 18:02 | RAD ---
EXAM: Abdomen and pelvis CT with intravenous contrast. HISTORY: Pain. TECHNIQUE: Computed tomographic images of the abdomen and pelvis were obtained following the administration of 75 cc Omnipaque 300 intravenous contrast. Multiplanar reformatting was performed. *One or more of the following individualized dose reduction techniques were utilized for this examination: 1. Automated exposure control. 2. Adjustment of the mA and/or kV according to patient size. 3. Use of iterative reconstruction technique. COMPARISON: 11/27/2018. FINDINGS: Evaluation of the lower thorax demonstrates chronic interstitial changes superimposed on atelectasis. There is mild cardia mentally. There is a small hiatal hernia. There are right mastectomy changes. There is partial visualization of a central venous catheter within the superior vena cava. There is hepatic cirrhosis. There is a small cyst within the left hepatic lobe. The gallbladder, pancreas, and adrenal glands are unremarkable. The spleen is upper normal in size. There is a suspected tiny nonobstructing stone within the lower pole of the left kidney, possibly artifact due to early excretion of contrast. There is a prominent appendix, likely due to the presence of a large amount of abdominal ascites. There is no convincing appendicitis. There is moderate colonic stool. There is gastric wall thickening likely due to relative under distention. There is no convincing lymphadenopathy. The urinary bladder is unremarkable. There are innumerable sclerotic lesions throughout the vertebral column and bony pelvis. No pathologic fracture is seen. IMPRESSION: 1. Large abdominal ascites. Increased compared to the prior study. 2. Hepatic cirrhosis. There is a small cyst within the left hepatic lobe. Liver protocol MRI is more sensitive for small lesions in the setting of cirrhosis. 3. Moderate colonic stool. Correlate for constipation. 5. Small hiatal hernia. 6. Cardiomegaly. 7. Stable prominent appendiceal caliber and likely due to the presence of abdominal ascites. 8. Diffuse sclerotic lesions throughout the bony pelvis and vertebral column. The imaging appearance favors osseous metastatic disease. No pathologic fracture is seen. Electronically signed by: Bernice Mercado MD (01/12/2019 5:59 PM) [facility]
[2019-01-12] MEDS ORDERED: cefTRIAXone IV Push 1 GM VIAL. IVP ONE (18:30)
[2019-01-12] MEDS ORDERED: ONDANSETRON PF 4 MG/2 ML VIAL. IV PRN (19:00)
--- NOTE | 2019-01-12 19:08 | PDOC1 ---
History and Physical Date of Admission: Date of Admission DATE: 01/12/19 TIME: 19:02 Chief Complaint: Problems: (1) Cancer of peritoneum (2) Patient left without being seen (3) Ascites (4) Wheezing (5) Chest pain (6) Hypoxia (7) Pulmonary emboli (8) COPD exacerbation (9) Appendicitis (10) Immunosuppressive-induced fever (11) Abdominal pain Chief Complain: Abdominal distention and breast cancer with metastases History of Present Illness: HPI: Ms. De La Torre is a middle-aged white female who is suffering from rest cancer since 2004 She's had a right mastectomy and chemotherapy on multiple occasions Most recently she's been on chemotherapy every other week for the past few months She keeps having recurrent ascites I suspect she might benefit from a Pleurx d rain She rates her symptoms at 10 out of 10 and she has associated shortness of breath She was just in the hospital last week and we did a paracentesis at that time but no Pleurx drain was placed Her symptoms are worse with moving Home medications are not helping Describes as agonizing Indeed she does have severe ascites she looks like she needs to have several liters drained I discussed the case with ER physician for management patient consult intervention radiology and hematology oncology and should be noted that she also has a low-grade fever Prem Place her on some Rocephin Past Medical/Surgical History: PMH/PSH: Past Medical History: Asthma, Cancer, COPD Additional Past Medical Histor: stage 4 breast ca, cirrhosis Past Surgical History: Hysterectomy, Other Additional Past Surgical Histo: RT MASTECTOMY, PARACENTESIS, Port L chest Additional Information: Allergies: Allergies: Coded Allergies: meperidine (Verified Adverse Reaction, Intermediate, Nausea and Vomiting, 07/12/17) Family History: Family History: Breast cancer Social History: Social Hisoty: She does not drink smoke or take drugs she is retired (she quit smoking) Current Medications: Current Medications Current Medications Sodium Chloride (NORMAL SALINE FLUSH for STERILE FIELD) 10 ml STK-MED ONCE .ROUTE ; Start 01/12/19 at 16:18; Stop 01/12/19 at 16:19; Status DC Iohexol (Omnipaque 300 Mg/ml) 75 ml 1X ONCE IV Last administered on 01/12/19at 17:40; Start 01/12/19 at 17:00; Stop 5/6/19 at 17:01; Status DC Ceftriaxone Sodium (Rocephin) 1 gm 1X ONCE IVP Last administered on 01/12/19at 18:42; Start 01/12/19 at 18:30; Stop 01/12/19 at 18:31; Status DC Ondansetron HCl (Zofran) 4 mg PRN Q8HRS PRN IV NAUSEA/VOMITING; Start 01/12/19 at 19:00; Stop 01/13/19 at 18:59 Morphine Sulfate (Morphine Sulfate) 2 mg PRN Q2HR PRN IV PAIN; Start 01/12/19 at 19:00; Stop 01/13/19 at 18:59 Active Scripts Active Reported Vitamin C (Ascorbic Acid) 500 Mg Capsule 500 Mg PO DAILY One Daily For Women 50+ Adv Tb (Multivitamins-Min/Fa/Ginkgo) 1 Each Tablet 1 Tab PO DAILY Lidocaine-Prilocaine Cream (Lidocaine/Prilocaine) 30 Gm Cream..g. Gabapentin 300 Mg Capsule 300 Mg PO PRN DAILY PRN Prednisone (Prednisone) 10 Mg Tablet 10 Mg PO PRN DAILY PRN Eliquis (Apixaban) 5 Mg Tablet 5 Mg PO DAILY Omeprazole 40 Mg Capsule.dr 1 Cap PO DAILY Albuterol Sulfate Neb Soln (Albuterol Sulfate) 2.5 Mg/3 Ml Vial.neb 0.5 Vial NEB PRN Q4HRS PRN Proventil Hfa Inhaler (Albuterol Sulfate) 6.7 Gm Hfa.aer.ad 1-2 Puff IH PRN Q4HRS PRN Advair 250-50 Diskus (Fluticasone/Salmeterol) 1 Each Disk.w.dev 1 Puff IH BID ROS: Review of Systems Review of System REVIEW OF SYSTEMS: GENERAL: She complains of weakness and low-grade fevers SKIN: No bruising, hair changes or rashes. EYES: No blurred, double or loss of vision. NOSE AND THROAT: No history of nosebleeds, hoarseness or sore throat. HEART: No history of palpitations, chest pain or shortness of breath on exertion. LUNGS: Denies shortness of breath GASTROINTESTINAL: She complains of severe abdominal distention and ascites GENITOURINARY: No history of frequency, urgency, hesitancy or nocturia. NEUROLOGIC: Denies history of numbness, tingling, tremor or weakness. PSYCHIATRIC: No history of panic, anxiety or depression. ENDOCRINE: No history of heat or cold intolerance, polyuria or polydipsia. EXTREMITIES: Denies muscle weakness, joint pain, pain on walking or stiffness. Physical Exam: Vital Signs: Vital Signs Date Time Temp Pulse Resp B/P (MAP) Pulse Ox O2 Delivery O2 Flow Rate FiO2 01/12/19 18:40 90 20 135/63 (87) 98 Room Air 01/12/19 16:04 99.0 99.0 Physcial Exam: GEN.: Very frail middle-aged female who appears pale and weak but very pleasant and cooperative HEENT: Head is normocephalic, atraumatic NECK: Supple, no JVD LUNGS: Poor inspiratory effort with diminished breath sounds HEART: RRR, S1, S2 present. Peripheral pulses intact ABDOMEN: Distended with moderate ascites EXTREMITIES: Without any cyanosis, clubbing, or edema. Pedal pulses intact NEUROLOGIC: Normal speech, normal tone. A&O x 3 PSYCHIATRIC: Normal mood but I suspect she is a little depressed from all she's been through SKIN: No ulcerations or rashes VASCULAR: Good capillary refill Labs: Labs: Laboratory Tests Test 01/12/19 16:30 01/12/19 17:03 01/12/19 17:22 White Blood Count 7.3 x10^3/uL (4.0-11.0) Red Blood Count 3.63 x10^6/uL (3.50-5.40) Hemoglobin 10.3 g/dL (12.0-15.5) Hematocrit 31.6 % (36.0-47.0) Mean Corpuscular Volume 87 fL (79-100) Mean Corpuscular Hemoglobin 28 pg (25-35) Mean Corpuscular Hemoglobin Concent 33 g/dL (31-37) Red Cell Distribution Width 18.0 % (11.5-14.5) Platelet Count 121 x10^3/uL (140-400) Neutrophils (%) (Auto) 89 % (31-73) Lymphocytes (%) (Auto) 8 % (24-48) Monocytes (%) (Auto) 2 % (0-9) Eosinophils (%) (Auto) 0 % (0-3) Basophils (%) (Auto) 0 % (0-3) Neutrophils # (Auto) 6.6 x10^3uL (1.8-7.7) Lymphocytes # (Auto) 0.6 x10^3/uL (1.0-4.8) Monocytes # (Auto) 0.1 x10^3/uL (0.0-1.1) Eosinophils # (Auto) 0.0 x10^3/uL (0.0-0.7) Basophils # (Auto) 0.0 x10^3/uL (0.0-0.2) Segmented Neutrophils % 94 % (35-66) Lymphocytes % 3 % (24-48) Monocytes % 1 % (0-10) Eosinophils % 1 % (0-5) Basophils % 1 % (0-3) Platelet Estimate Decreased (ADEQUATE) Hypochromasia Slight Anisocytosis Slight Sodium Level 138 mmol/L (136-145) Potassium Level 3.7 mmol/L (3.5-5.1) Chloride Level 104 mmol/L (98-107) Carbon Dioxide Level 26 mmol/L (21-32) Anion Gap 8 (6-14) Blood Urea Nitrogen 20 mg/dL (7-20) Creatinine 0.6 mg/dL (0.6-1.0) Estimated GFR (Cockcroft-Gault) 101.6 BUN/Creatinine Ratio 33 (6-20) Glucose Level 133 mg/dL (70-99) Calcium Level 8.9 mg/dL (8.5-10.1) Total Bilirubin 1.1 mg/dL (0.2-1.0) Aspartate Amino Transf (AST/SGOT) 78 U/L (15-37) Alanine Aminotransferase (ALT/SGPT) 70 U/L (14-59) Alkaline Phosphatase 147 U/L (46-116) Troponin I Quantitative < 0.017 ng/mL (0.000-0.055) BK-Srl-D-Type Natriuretic Peptide 175 pg/mL (0-124) Total Protein 5.9 g/dL (6.4-8.2) Albumin 2.8 g/dL (3.4-5.0) Albumin/Globulin Ratio 0.9 (1.0-1.7) Lipase 109 U/L (73-393) Urine Collection Type Unknown Urine Color Crystal Urine Clarity Cloudy Urine pH 5.5 Urine Specific [place] >=1.030 Urine Protein Negative mg/dL (NEG-TRACE) Urine Glucose (UA) Negative mg/dL (NEG) Urine Ketones (Stick) Negative mg/dL (NEG) Urine Blood Negative (NEG) Urine Nitrite Negative (NEG) Urine Bilirubin Small (NEG) Urine Urobilinogen Dipstick 1.0 mg/dL (0.2 mg/dL) Urine Leukocyte Esterase Small (NEG) Urine RBC 0 /HPF (0-2) Urine WBC 5-10 /HPF (0-4) Urine Squamous Epithelial Cells Few /LPF Urine Calcium Phosphate Crystals /HPF Urine Amorphous Sediment Present /HPF Urine Bacteria 0 /HPF (0-FEW) Urine Mucus Marked /LPF Lactic Acid Level 1.1 mmol/L (0.4-2.0) Laboratory Tests Test 01/12/19 16:30 01/12/19 17:03 01/12/19 17:22 White Blood Count 7.3 x10^3/uL (4.0-11.0) Red Blood Count 3.63 x10^6/uL (3.50-5.40) Hemoglobin 10.3 g/dL (12.0-15.5) Hematocrit 31.6 % (36.0-47.0) Mean Corpuscular Volume 87 fL (79-100) Mean Corpuscular Hemoglobin 28 pg (25-35) Mean Corpuscular Hemoglobin Concent 33 g/dL (31-37) Red Cell Distribution Width 18.0 % (11.5-14.5) Platelet Count 121 x10^3/uL (140-400) Neutrophils (%) (Auto) 89 % (31-73) Lymphocytes (%) (Auto) 8 % (24-48) Monocytes (%) (Auto) 2 % (0-9) Eosinophils (%) (Auto) 0 % (0-3) Basophils (%) (Auto) 0 % (0-3) Neutrophils # (Auto) 6.6 x10^3uL (1.8-7.7) Lymphocytes # (Auto) 0.6 x10^3/uL (1.0-4.8) Monocytes # (Auto) 0.1 x10^3/uL (0.0-1.1) Eosinophils # (Auto) 0.0 x10^3/uL (0.0-0.7) Basophils # (Auto) 0.0 x10^3/uL (0.0-0.2) Segmented Neutrophils % 94 % (35-66) Lymphocytes % 3 % (24-48) Monocytes % 1 % (0-10) Eosinophils % 1 % (0-5) Basophils % 1 % (0-3) Platelet Estimate Decreased (ADEQUATE) Hypochromasia Slight Anisocytosis Slight Sodium Level 138 mmol/L (136-145) Potassium Level 3.7 mmol/L (3.5-5.1) Chloride Level 104 mmol/L (98-107) Carbon Dioxide Level 26 mmol/L (21-32) Anion Gap 8 (6-14) Blood Urea Nitrogen 20 mg/dL (7-20) Creatinine 0.6 mg/dL (0.6-1.0) Estimated GFR (Cockcroft-Gault) 101.6 BUN/Creatinine Ratio 33 (6-20) Glucose Level 133 mg/dL (70-99) Calcium Level 8.9 mg/dL (8.5-10.1) Total Bilirubin 1.1 mg/dL (0.2-1.0) Aspartate Amino Transf (AST/SGOT) 78 U/L (15-37) Alanine Aminotransferase (ALT/SGPT) 70 U/L (14-59) Alkaline Phosphatase 147 U/L (46-116) Troponin I Quantitative < 0.017 ng/mL (0.000-0.055) YH-Gko-E-Type Natriuretic Peptide 175 pg/mL (0-124) Total Protein 5.9 g/dL (6.4-8.2) Albumin 2.8 g/dL (3.4-5.0) Albumin/Globulin Ratio 0.9 (1.0-1.7) Lipase 109 U/L (73-393) Urine Collection Type Unknown Urine Color Crystal Urine Clarity Cloudy Urine pH 5.5 Urine Specific [place] >=1.030 Urine Protein Negative mg/dL (NEG-TRACE) Urine Glucose (UA) Negative mg/dL (NEG) Urine Ketones (Stick) Negative mg/dL (NEG) Urine Blood Negative (NEG) Urine Nitrite Negative (NEG) Urine Bilirubin Small (NEG) Urine Urobilinogen Dipstick 1.0 mg/dL (0.2 mg/dL) Urine Leukocyte Esterase Small (NEG) Urine RBC 0 /HPF (0-2) Urine WBC 5-10 /HPF (0-4) Urine Squamous Epithelial Cells Few /LPF Urine Calcium Phosphate Crystals /HPF Urine Amorphous Sediment Present /HPF Urine Bacteria 0 /HPF (0-FEW) Urine Mucus Marked /LPF Lactic Acid Level 1.1 mmol/L (0.4-2.0) Images: Images IMPRESSION: 1. Large abdominal ascites. Increased compared to the prior study. 2. Hepatic cirrhosis. There is a small cyst within the left hepatic lobe. Liver protocol MRI is more sensitive for small lesions in the setting of cirrhosis. 3. Moderate colonic stool. Correlate for constipation. 5. Small hiatal hernia. 6. Cardiomegaly. 7. Stable prominent appendiceal caliber and likely due to the presence of abdominal ascites. 8. Diffuse sclerotic lesions throughout the bony pelvis and vertebral column. The imaging appearance favors osseous metastatic disease. No pathologic fracture is seen. Assessment/Plan Assessment/Plan Severe metastatic breast cancer with massive ascites and liver failure fever post-chemotherapy weakness Plan Admit the patient IV Rocephin Consult intervention radiology and oncology Home meds Full code DVT prophylaxis Frequent labs PT OT if possible This patient is extremely ill and has a poor long-term prognosis May need to consider Palgic care consultation but will await oncology input Chemotherapy per oncology Total time 31 minutes FADY HERMAN III DO January 12, 2019 19:08
[2019-01-12] MEDS ORDERED: AMINO AC 3%/ELECTROLYTE/GLYCER 1,000 ML IV SCH (19:15)
[2019-01-12] MEDS: MORPHINE SULFATE 2 MG/ML VIAL. IV PRN (19:58)
[2019-01-12] MEDS ORDERED: CYAN10005 PO (21:39)
[2019-01-12] MEDS ORDERED: GABA300C18 PO (21:39)
[2019-01-12] MEDS ORDERED: ALBUTEROL SULFATE 2.5 MG/3 ML NEBU. INH PRN (22:30)
[2019-01-12 23:17] VITALS: BP 109/58
[2019-01-13] MEDS ORDERED: diphenhydrAMINE HCL 25 MG CAPSULE PO PRN (01:45)
[2019-01-13 03:19] VITALS: BP 113/62
[2019-01-13] MEDS: MORPHINE SULFATE 2 MG/ML VIAL. IV PRN (06:12)
[2019-01-13 07:00] VITALS: BP 114/51
[2019-01-13] MEDS ORDERED: PANTOPRAZOLE 40 MG TABLET.DR. PO SCH (07:30)
[2019-01-13] MEDS ORDERED: ALBUTEROL SULFATE 2.5 MG/3 ML NEBU. NEB PRN (08:30)
[2019-01-13] MEDS ORDERED: ONDANSETRON PF 4 MG/2 ML VIAL. IV PRN (08:30)
[2019-01-13] MEDS ORDERED: HYDROcodone/APAP 5/325MG 1 TAB TABLET PO PRN (08:30)
[2019-01-13] MEDS ORDERED: MULTIVITAMIN with MINERAL TABLET. PO SCH (09:00)
[2019-01-13] MEDS ORDERED: LIDOCAINE/PRILOCAINE TOPICAL CREAM 5GM TUBE. TP SCH (09:00)
[2019-01-13] MEDS ORDERED: NON FORMULARY ITEM (Fluticasone/Salmeterol (Advair 250-50 Diskus) 1 PUFF) IH SCH (09:00)
[2019-01-13] MEDS ORDERED: CYANOCOBALAMIN (VITAMIN B-12) 1,000 MCG TABLET. PO SCH (09:00)
[2019-01-13] MEDS ORDERED: ASCORBIC ACID 500 MG TABLET PO SCH (09:00)
[2019-01-13] MEDS ORDERED: APIXABAN 5 MG TABLET. PO SCH (09:00)
[2019-01-13] MEDS ORDERED: BUDESONIDE 0.5 MG/2 ML NEBU. NEB SCH (09:00)
--- NOTE | 2019-01-13 09:40 | PDOC2 ---
GI CONSULT Reason For Consult: Ascites HPI: HPI: 63 y/o female sent to ER from cancer center yesterday for abdominal distention. 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 We have seen in the past for LQ/pelvic pain and bloating. Known cirrhosis on imaging, this time w/ large ascites. Denies n/v, abd pain, diarrhea, constipation, and bleeding. H/o GERD on omeprazole. No previous EGD, normal colonoscopy ~11 years ago. No GB or pancreas history. On Eliquis (held today) ?and prednisone, also Tylenol and hydrocodone. PMH: PMH: per HPI PE , hysterectomy, BSO, right mastectomy, laparoscopy, paracentesis, bronchoscopy, port-a-cath FH: Family History: Cancer Social History: ALCOHOL: none Drugs: None ROS: GEN: Denies fevers, chills, sweats HEENT: Denies blurred vision, sore throat CV: Denies chest pain RESP: Denies shortness of air, cough GI: Per HPI : Denies hematuria, dysuria ENDO: Denies weight changes NEURO: Denies confusion, dizziness MSK: Denies weakness, joint pain/swelling SKIN: leg redness Vitals: Vitals: Vital Signs Date Time Temp Pulse Resp B/P (MAP) Pulse Ox O2 Delivery O2 Flow Rate FiO2 01/13/19 07:00 98.3 81 16 114/51 (72) 96 Room Air 98.3 Labs: Labs: Laboratory Tests Test 01/12/19 16:30 01/12/19 17:03 01/12/19 17:22 White Blood Count 7.3 x10^3/uL (4.0-11.0) Red Blood Count 3.63 x10^6/uL (3.50-5.40) Hemoglobin 10.3 g/dL (12.0-15.5) Hematocrit 31.6 % (36.0-47.0) Mean Corpuscular Volume 87 fL (79-100) Mean Corpuscular Hemoglobin 28 pg (25-35) Mean Corpuscular Hemoglobin Concent 33 g/dL (31-37) Red Cell Distribution Width 18.0 % (11.5-14.5) Platelet Count 121 x10^3/uL (140-400) Neutrophils (%) (Auto) 89 % (31-73) Lymphocytes (%) (Auto) 8 % (24-48) Monocytes (%) (Auto) 2 % (0-9) Eosinophils (%) (Auto) 0 % (0-3) Basophils (%) (Auto) 0 % (0-3) Neutrophils # (Auto) 6.6 x10^3uL (1.8-7.7) Lymphocytes # (Auto) 0.6 x10^3/uL (1.0-4.8) Monocytes # (Auto) 0.1 x10^3/uL (0.0-1.1) Eosinophils # (Auto) 0.0 x10^3/uL (0.0-0.7) Basophils # (Auto) 0.0 x10^3/uL (0.0-0.2) Segmented Neutrophils % 94 % (35-66) Lymphocytes % 3 % (24-48) Monocytes % 1 % (0-10) Eosinophils % 1 % (0-5) Basophils % 1 % (0-3) Platelet Estimate Decreased (ADEQUATE) Hypochromasia Slight Anisocytosis Slight Sodium Level 138 mmol/L (136-145) Potassium Level 3.7 mmol/L (3.5-5.1) Chloride Level 104 mmol/L (98-107) Carbon Dioxide Level 26 mmol/L (21-32) Anion Gap 8 (6-14) Blood Urea Nitrogen 20 mg/dL (7-20) Creatinine 0.6 mg/dL (0.6-1.0) Estimated GFR (Cockcroft-Gault) 101.6 BUN/Creatinine Ratio 33 (6-20) Glucose Level 133 mg/dL (70-99) Calcium Level 8.9 mg/dL (8.5-10.1) Total Bilirubin 1.1 mg/dL (0.2-1.0) Aspartate Amino Transf (AST/SGOT) 78 U/L (15-37) Alanine Aminotransferase (ALT/SGPT) 70 U/L (14-59) Alkaline Phosphatase 147 U/L (46-116) Troponin I Quantitative < 0.017 ng/mL (0.000-0.055) RB-Psq-Z-Type Natriuretic Peptide 175 pg/mL (0-124) Total Protein 5.9 g/dL (6.4-8.2) Albumin 2.8 g/dL (3.4-5.0) Albumin/Globulin Ratio 0.9 (1.0-1.7) Lipase 109 U/L (73-393) Urine Collection Type Unknown Urine Color Crystal Urine Clarity Cloudy Urine pH 5.5 Urine Specific [place] >=1.030 Urine Protein Negative mg/dL (NEG-TRACE) Urine Glucose (UA) Negative mg/dL (NEG) Urine Ketones (Stick) Negative mg/dL (NEG) Urine Blood Negative (NEG) Urine Nitrite Negative (NEG) Urine Bilirubin Small (NEG) Urine Urobilinogen Dipstick 1.0 mg/dL (0.2 mg/dL) Urine Leukocyte Esterase Small (NEG) Urine RBC 0 /HPF (0-2) Urine WBC 5-10 /HPF (0-4) Urine Squamous Epithelial Cells Few /LPF Urine Calcium Phosphate Crystals /HPF Urine Amorphous Sediment Present /HPF Urine Bacteria 0 /HPF (0-FEW) Urine Mucus Marked /LPF Lactic Acid Level 1.1 mmol/L (0.4-2.0) Allergies: Coded Allergies: meperidine (Verified Adverse Reaction, Intermediate, Nausea and Vomiting, 07/12/17) Medications: Current Medications Medications (Trade) Dose Ordered Sig/Iggy Route PRN Reason Start Time Stop Time Status Last Admin Dose Admin Iohexol (Omnipaque 300 Mg/ml) 75 ml 1X ONCE IV 01/12/19 17:00 01/12/19 17:01 DC 01/12/19 17:40 Ceftriaxone Sodium (Rocephin) 1 gm 1X ONCE IVP 01/12/19 18:30 01/12/19 18:31 DC 01/12/19 18:42 Morphine Sulfate (Morphine Sulfate) 2 mg PRN Q2HR PRN IV PAIN 01/12/19 19:00 01/13/19 18:59 01/13/19 06:12 Amino Acids/ Glycerin/ Electrolytes 1,000 ml @ 75 mls/hr [id number] IV 01/12/19 19:15 01/13/19 08:25 DC 01/12/19 21:43 Imaging: Imaging: CT A/P 01/12 IMPRESSION: 1. Large abdominal ascites. Increased compared to the prior study. 2. Hepatic cirrhosis. There is a small cyst within the left hepatic lobe. Liver protocol MRI is more sensitive for small lesions in the setting of cirrhosis. 3. Moderate colonic stool. Correlate for constipation. 5. Small hiatal hernia. 6. Cardiomegaly. 7. Stable prominent appendiceal caliber and likely due to the presence of abdominal ascites. 8. Diffuse sclerotic lesions throughout the bony pelvis and vertebral column. The imaging appearance favors osseous metastatic disease. No pathologic fracture is seen. CXR IMPRESSION: No acute pulmonary finding. PE: GEN: NAD HEENT: Atraumatic, PERRL LUNGS: CTAB HEART: RRR ABD: distended, ascites, some tightness NEURO/PSYCH: A & O 3 A/P: A/P: Stage IV breast cancer Cirrhosis, ascites GERD, ?constipation -- Plans for paracentesis, await this. Continue PPI. Moderate stool on exam - add Miralax, etc. Check INR. RAYSA GALVAN January 13, 2019 09:40
--- NOTE | 2019-01-13 10:10 | PDOC ---
PROGRESS NOTES Chief Complaint Chief Complaint Stage 4 breast cancer on chemotherapy with metastases to bone liver Recurrent malignant ascites-greater than 5 times abdominal paracentesis in the past Anemia of malignancy Advanced age cirrhosis DNR Thrombocytopenia-chronic stable History of Present Illness History of Present Illness SHe feels well but her abdomen is bloated Positive fluid wave I did provide her CAT scan of abdomen and pelvis shows huge volume ascites Otherwise she is eating fine no nausea vomiting, ambulating well Known to heme all Plan: paracentesis today, nothing by mouth for now Home after paracentesis Hold apixaban prior to paracentesis Vitals Vitals Vital Signs Date Time Temp Pulse Resp B/P (MAP) Pulse Ox O2 Delivery O2 Flow Rate FiO2 01/13/19 07:00 98.3 81 16 114/51 (72) 96 Room Air 98.3 Physical Exam General: Alert, Oriented X3, Cooperative, No acute distress Heart: Regular rate, Normal S1, Normal S2, No murmurs Lungs: Clear, Other Abdomen: Other (pos fluid wave, dullness to percussion, no tenderness) Extremities: No clubbing, No cyanosis Skin: No rashes, No breakdown Labs LABS Laboratory Tests Test 01/12/19 16:30 01/12/19 17:03 01/12/19 17:22 White Blood Count 7.3 x10^3/uL (4.0-11.0) Red Blood Count 3.63 x10^6/uL (3.50-5.40) Hemoglobin 10.3 g/dL (12.0-15.5) Hematocrit 31.6 % (36.0-47.0) Mean Corpuscular Volume 87 fL (79-100) Mean Corpuscular Hemoglobin 28 pg (25-35) Mean Corpuscular Hemoglobin Concent 33 g/dL (31-37) Red Cell Distribution Width 18.0 % (11.5-14.5) Platelet Count 121 x10^3/uL (140-400) Neutrophils (%) (Auto) 89 % (31-73) Lymphocytes (%) (Auto) 8 % (24-48) Monocytes (%) (Auto) 2 % (0-9) Eosinophils (%) (Auto) 0 % (0-3) Basophils (%) (Auto) 0 % (0-3) Neutrophils # (Auto) 6.6 x10^3uL (1.8-7.7) Lymphocytes # (Auto) 0.6 x10^3/uL (1.0-4.8) Monocytes # (Auto) 0.1 x10^3/uL (0.0-1.1) Eosinophils # (Auto) 0.0 x10^3/uL (0.0-0.7) Basophils # (Auto) 0.0 x10^3/uL (0.0-0.2) Segmented Neutrophils % 94 % (35-66) Lymphocytes % 3 % (24-48) Monocytes % 1 % (0-10) Eosinophils % 1 % (0-5) Basophils % 1 % (0-3) Platelet Estimate Decreased (ADEQUATE) Hypochromasia Slight Anisocytosis Slight Sodium Level 138 mmol/L (136-145) Potassium Level 3.7 mmol/L (3.5-5.1) Chloride Level 104 mmol/L (98-107) Carbon Dioxide Level 26 mmol/L (21-32) Anion Gap 8 (6-14) Blood Urea Nitrogen 20 mg/dL (7-20) Creatinine 0.6 mg/dL (0.6-1.0) Estimated GFR (Cockcroft-Gault) 101.6 BUN/Creatinine Ratio 33 (6-20) Glucose Level 133 mg/dL (70-99) Calcium Level 8.9 mg/dL (8.5-10.1) Total Bilirubin 1.1 mg/dL (0.2-1.0) Aspartate Amino Transf (AST/SGOT) 78 U/L (15-37) Alanine Aminotransferase (ALT/SGPT) 70 U/L (14-59) Alkaline Phosphatase 147 U/L (46-116) Troponin I Quantitative < 0.017 ng/mL (0.000-0.055) FU-Yps-G-Type Natriuretic Peptide 175 pg/mL (0-124) Total Protein 5.9 g/dL (6.4-8.2) Albumin 2.8 g/dL (3.4-5.0) Albumin/Globulin Ratio 0.9 (1.0-1.7) Lipase 109 U/L (73-393) Urine Collection Type Unknown Urine Color Crystal Urine Clarity Cloudy Urine pH 5.5 Urine Specific [place] >=1.030 Urine Protein Negative mg/dL (NEG-TRACE) Urine Glucose (UA) Negative mg/dL (NEG) Urine Ketones (Stick) Negative mg/dL (NEG) Urine Blood Negative (NEG) Urine Nitrite Negative (NEG) Urine Bilirubin Small (NEG) Urine Urobilinogen Dipstick 1.0 mg/dL (0.2 mg/dL) Urine Leukocyte Esterase Small (NEG) Urine RBC 0 /HPF (0-2) Urine WBC 5-10 /HPF (0-4) Urine Squamous Epithelial Cells Few /LPF Urine Calcium Phosphate Crystals /HPF Urine Amorphous Sediment Present /HPF Urine Bacteria 0 /HPF (0-FEW) Urine Mucus Marked /LPF Lactic Acid Level 1.1 mmol/L (0.4-2.0) Assessment and Plan Assessmemt and Plan Problems Medical Problems: (1) Abdominal pain Status: Acute (2) Ascites Status: Acute Comment Review of Relevant I have reviewed the following items nba (where applicable) has been applied. Labs Laboratory Tests Test 01/12/19 16:30 01/12/19 17:03 01/12/19 17:22 White Blood Count 7.3 x10^3/uL (4.0-11.0) Red Blood Count 3.63 x10^6/uL (3.50-5.40) Hemoglobin 10.3 g/dL (12.0-15.5) Hematocrit 31.6 % (36.0-47.0) Mean Corpuscular Volume 87 fL (79-100) Mean Corpuscular Hemoglobin 28 pg (25-35) Mean Corpuscular Hemoglobin Concent 33 g/dL (31-37) Red Cell Distribution Width 18.0 % (11.5-14.5) Platelet Count 121 x10^3/uL (140-400) Neutrophils (%) (Auto) 89 % (31-73) Lymphocytes (%) (Auto) 8 % (24-48) Monocytes (%) (Auto) 2 % (0-9) Eosinophils (%) (Auto) 0 % (0-3) Basophils (%) (Auto) 0 % (0-3) Neutrophils # (Auto) 6.6 x10^3uL (1.8-7.7) Lymphocytes # (Auto) 0.6 x10^3/uL (1.0-4.8) Monocytes # (Auto) 0.1 x10^3/uL (0.0-1.1) Eosinophils # (Auto) 0.0 x10^3/uL (0.0-0.7) Basophils # (Auto) 0.0 x10^3/uL (0.0-0.2) Segmented Neutrophils % 94 % (35-66) Lymphocytes % 3 % (24-48) Monocytes % 1 % (0-10) Eosinophils % 1 % (0-5) Basophils % 1 % (0-3) Platelet Estimate Decreased (ADEQUATE) Hypochromasia Slight Anisocytosis Slight Sodium Level 138 mmol/L (136-145) Potassium Level 3.7 mmol/L (3.5-5.1) Chloride Level 104 mmol/L (98-107) Carbon Dioxide Level 26 mmol/L (21-32) Anion Gap 8 (6-14) Blood Urea Nitrogen 20 mg/dL (7-20) Creatinine 0.6 mg/dL (0.6-1.0) Estimated GFR (Cockcroft-Gault) 101.6 BUN/Creatinine Ratio 33 (6-20) Glucose Level 133 mg/dL (70-99) Calcium Level 8.9 mg/dL (8.5-10.1) Total Bilirubin 1.1 mg/dL (0.2-1.0) Aspartate Amino Transf (AST/SGOT) 78 U/L (15-37) Alanine Aminotransferase (ALT/SGPT) 70 U/L (14-59) Alkaline Phosphatase 147 U/L (46-116) Troponin I Quantitative < 0.017 ng/mL (0.000-0.055) YN-Mec-H-Type Natriuretic Peptide 175 pg/mL (0-124) Total Protein 5.9 g/dL (6.4-8.2) Albumin 2.8 g/dL (3.4-5.0) Albumin/Globulin Ratio 0.9 (1.0-1.7) Lipase 109 U/L (73-393) Urine Collection Type Unknown Urine Color Crystal Urine Clarity Cloudy Urine pH 5.5 Urine Specific [place] >=1.030 Urine Protein Negative mg/dL (NEG-TRACE) Urine Glucose (UA) Negative mg/dL (NEG) Urine Ketones (Stick) Negative mg/dL (NEG) Urine Blood Negative (NEG) Urine Nitrite Negative (NEG) Urine Bilirubin Small (NEG) Urine Urobilinogen Dipstick 1.0 mg/dL (0.2 mg/dL) Urine Leukocyte Esterase Small (NEG) Urine RBC 0 /HPF (0-2) Urine WBC 5-10 /HPF (0-4) Urine Squamous Epithelial Cells Few /LPF Urine Calcium Phosphate Crystals /HPF Urine Amorphous Sediment Present /HPF Urine Bacteria 0 /HPF (0-FEW) Urine Mucus Marked /LPF Lactic Acid Level 1.1 mmol/L (0.4-2.0) Laboratory Tests Test 01/12/19 16:30 01/12/19 17:03 01/12/19 17:22 White Blood Count 7.3 x10^3/uL (4.0-11.0) Red Blood Count 3.63 x10^6/uL (3.50-5.40) Hemoglobin 10.3 g/dL (12.0-15.5) Hematocrit 31.6 % (36.0-47.0) Mean Corpuscular Volume 87 fL (79-100) Mean Corpuscular Hemoglobin 28 pg (25-35) Mean Corpuscular Hemoglobin Concent 33 g/dL (31-37) Red Cell Distribution Width 18.0 % (11.5-14.5) Platelet Count 121 x10^3/uL (140-400) Neutrophils (%) (Auto) 89 % (31-73) Lymphocytes (%) (Auto) 8 % (24-48) Monocytes (%) (Auto) 2 % (0-9) Eosinophils (%) (Auto) 0 % (0-3) Basophils (%) (Auto) 0 % (0-3) Neutrophils # (Auto) 6.6 x10^3uL (1.8-7.7) Lymphocytes # (Auto) 0.6 x10^3/uL (1.0-4.8) Monocytes # (Auto) 0.1 x10^3/uL (0.0-1.1) Eosinophils # (Auto) 0.0 x10^3/uL (0.0-0.7) Basophils # (Auto) 0.0 x10^3/uL (0.0-0.2) Segmented Neutrophils % 94 % (35-66) Lymphocytes % 3 % (24-48) Monocytes % 1 % (0-10) Eosinophils % 1 % (0-5) Basophils % 1 % (0-3) Platelet Estimate Decreased (ADEQUATE) Hypochromasia Slight Anisocytosis Slight Sodium Level 138 mmol/L (136-145) Potassium Level 3.7 mmol/L (3.5-5.1) Chloride Level 104 mmol/L (98-107) Carbon Dioxide Level 26 mmol/L (21-32) Anion Gap 8 (6-14) Blood Urea Nitrogen 20 mg/dL (7-20) Creatinine 0.6 mg/dL (0.6-1.0) Estimated GFR (Cockcroft-Gault) 101.6 BUN/Creatinine Ratio 33 (6-20) Glucose Level 133 mg/dL (70-99) Calcium Level 8.9 mg/dL (8.5-10.1) Total Bilirubin 1.1 mg/dL (0.2-1.0) Aspartate Amino Transf (AST/SGOT) 78 U/L (15-37) Alanine Aminotransferase (ALT/SGPT) 70 U/L (14-59) Alkaline Phosphatase 147 U/L (46-116) Troponin I Quantitative < 0.017 ng/mL (0.000-0.055) OW-Ljo-F-Type Natriuretic Peptide 175 pg/mL (0-124) Total Protein 5.9 g/dL (6.4-8.2) Albumin 2.8 g/dL (3.4-5.0) Albumin/Globulin Ratio 0.9 (1.0-1.7) Lipase 109 U/L (73-393) Urine Collection Type Unknown Urine Color Crystal Urine Clarity Cloudy Urine pH 5.5 Urine Specific [place] >=1.030 Urine Protein Negative mg/dL (NEG-TRACE) Urine Glucose (UA) Negative mg/dL (NEG) Urine Ketones (Stick) Negative mg/dL (NEG) Urine Blood Negative (NEG) Urine Nitrite Negative (NEG) Urine Bilirubin Small (NEG) Urine Urobilinogen Dipstick 1.0 mg/dL (0.2 mg/dL) Urine Leukocyte Esterase Small (NEG) Urine RBC 0 /HPF (0-2) Urine WBC 5-10 /HPF (0-4) Urine Squamous Epithelial Cells Few /LPF Urine Calcium Phosphate Crystals /HPF Urine Amorphous Sediment Present /HPF Urine Bacteria 0 /HPF (0-FEW) Urine Mucus Marked /LPF Lactic Acid Level 1.1 mmol/L (0.4-2.0) Medications Current Medications Sodium Chloride (NORMAL SALINE FLUSH for STERILE FIELD) 10 ml STK-MED ONCE .ROUTE ; Start 01/12/19 at 16:18; Stop 01/12/19 at 16:19; Status DC Iohexol (Omnipaque 300 Mg/ml) 75 ml 1X ONCE IV Last administered on 01/12/19at 17:40; Start 01/12/19 at 17:00; Stop 01/12/19 at 17:01; Status DC Ceftriaxone Sodium (Rocephin) 1 gm 1X ONCE IVP Last administered on 01/12/19at 18:42; Start 01/12/19 at 18:30; Stop 01/12/19 at 18:31; Status DC Ondansetron HCl (Zofran) 4 mg PRN Q8HRS PRN IV NAUSEA/VOMITING; Start 01/12/19 at 19:00; Stop 01/13/19 at 08:23; Status DC Morphine Sulfate (Morphine Sulfate) 2 mg PRN Q2HR PRN IV PAIN Last administered on 01/13/19at 06:12; Start 01/12/19 at 19:00; Stop 01/13/19 at 18:59 Amino Acids/ Glycerin/ Electrolytes 1,000 ml @ 75 mls/hr [id number] IV Last administered on 01/12/19at 21:43; Start 01/12/19 at 19:15; Stop 01/13/19 at 08:25; Status DC Albuterol Sulfate (Ventolin Neb Soln) 1 mg PRN Q4HRS PRN INH SHORTNESS OF BREATH; Start 01/12/19 at 22:30; Stop 01/13/19 at 08:26; Status DC Apixaban (Eliquis) 5 mg DAILY PO ; Start 01/13/19 at 09:00; Stop 01/13/19 at 09:00; Status DC Cyanocobalamin (Vitamin B-12) 1,000 mcg DAILY PO ; Start 01/13/19 at 09:00 Gabapentin (Neurontin) 300 mg QHS PO ; Start 01/13/19 at 21:00 Ascorbic Acid (Vitamin C) 500 mg DAILY PO ; Start 01/13/19 at 09:00 Multivitamins (Thera M Plus) 1 tab DAILY PO ; Start 01/13/19 at 09:00 Pantoprazole Sodium (Protonix) 40 mg DAILYAC PO ; Start 01/13/19 at 07:30 Diphenhydramine HCl (Benadryl) 25 mg PRN QHS PRN PO INSOMNIA; Start 01/13/19 at 01:45 Ondansetron HCl (Zofran) 4 mg PRN Q6HRS PRN IV NAUSEA/VOMITING; Start 01/13/19 at 08:30 Acetaminophen/ Hydrocodone Bitart (Lortab 5/325) 1 tab PRN Q4HRS PRN PO PAIN; Start 01/13/19 at 08:30 Albuterol Sulfate (Ventolin Neb Soln) 2.5 mg PRN Q4HRS PRN NEB SHORTNESS OF BREATH; Start 01/13/19 at 08:30 Lidocaine/ Prilocaine (Emla) 1 taz DAILY TP ; Start 01/13/19 at 09:00 Non-Formulary Medication (Fluticasone/ Salmeterol (Advair 250-50 Diskus)) 1 puff BID IH ; Start 01/13/19 at 09:00; Status UNV Albuterol Sulfate (Ventolin Neb Soln) 2.5 mg RTQID NEB ; Start 01/13/19 at 12:00 Budesonide (Pulmicort) 0.5 mg RTBID NEB ; Start 01/13/19 at 09:00 Active Scripts Active Reported Gabapentin (Gabapentin) 300 Mg Capsule 300 Mg PO QHS Vitamin B-12 (Cyanocobalamin (Vitamin B-12)) 1,000 Mcg Tablet 1 Tab PO DAILY Vitamin C (Ascorbic Acid) 500 Mg Capsule 500 Mg PO DAILY One Daily For Women 50+ Adv Tb (Multivitamins-Min/Fa/Ginkgo) 1 Each Tablet 1 Tab PO DAILY Lidocaine-Prilocaine Cream (Lidocaine/Prilocaine) 30 Gm Cream..g. Prednisone (Prednisone) 10 Mg Tablet 10 Mg PO PRN DAILY PRN Eliquis (Apixaban) 5 Mg Tablet 5 Mg PO DAILY Omeprazole 40 Mg Capsule.dr 1 Cap PO DAILY Albuterol Sulfate Neb Soln (Albuterol Sulfate) 2.5 Mg/3 Ml Vial.neb 0.5 Vial NEB PRN Q4HRS PRN Proventil Hfa Inhaler (Albuterol Sulfate) 6.7 Gm Hfa.aer.ad 1-2 Puff IH PRN Q4HRS PRN Advair 250-50 Diskus (Fluticasone/Salmeterol) 1 Each Disk.w.dev 1 Puff IH BID Vitals/I & O Vital Sign - Last 24 Hours 01/12/19 01/12/19 01/12/19 01/12/19 16:04 17:06 18:40 19:00 Temp 99.0 99.0 Pulse 107 97 90 92 Resp 20 20 20 20 B/P (MAP) 137/81 (99) 133/61 (85) 135/63 (87) 125/59 (81) Pulse Ox 97 97 98 97 O2 Delivery Room Air Room Air Room Air Room Air 01/12/19 01/12/19 01/12/19 01/12/19 19:30 19:58 20:00 20:30 Pulse 94 90 Resp 20 20 20 B/P (MAP) 120/59 (79) 122/59 (80) Pulse Ox 98 97 97 O2 Delivery Room Air Room Air Room Air Room Air 01/12/19 01/13/19 01/13/19 01/13/19 23:17 03:19 06:00 07:00 Temp 99.7 99.1 98.3 99.7 99.1 98.3 Pulse 98 94 81 Resp 20 16 16 B/P (MAP) 109/58 (75) 113/62 (79) 114/51 (72) Pulse Ox 95 93 93 96 O2 Delivery Room Air Room Air Room Air Room Air Intake and Output 01/12/19 01/12/19 01/13/19 15:00 23:00 07:00 Intake Total 110 ml Output Total 350 ml Balance -240 ml LACI KEARNEY MD January 13, 2019 10:10
[2019-01-13] MEDS ORDERED: POLYETHYLENE GLYCOL 3350 17 GM PACKET. PO SCH (11:00)
[2019-01-13] MEDS ORDERED: POLYETHYLENE GLYCOL 3350 17 GM PACKET. PO PRN (11:00)
[2019-01-13 11:18] VITALS: BP 114/58
[2019-01-13 11:28] VITALS: BP 105/57
[2019-01-13 11:35] VITALS: BP 105/58
--- NOTE | 2019-01-13 11:37 | NUR ---
Patient to IR for paracentesis. Patient tolerated well with no issues, vitals stable. Bandaid to right lower abdomen. Report called to RN on .
--- NOTE | 2019-01-13 11:40 | RAD ---
Ultrasound-guided paracentesis 01/13/2019 11:37 AM Procedure: The risks and benefits of the procedure were discussed the patient. Informed consent was obtained. A timeout procedure was performed. Sonographic evaluation of the abdomen was performed demonstrating ascites . The right lower quadrant was prepped and draped using maximum sterile barrier technique. 1% lidocaine without epinephrine was administered for local anesthesia. Real-time ultrasonographic guidance was used in passing a 5 Arabic Yueh catheter into the fluid collection. 3.6 L of serous ascites was removed. The catheter was removed and pressure held to achieve hemostasis. A sterile dressing was applied. Impression: Successful ultrasound-guided paracentesis
[2019-01-13] MEDS ORDERED: ALBUTEROL SULFATE 2.5 MG/3 ML NEBU. NEB SCH (12:00)
[2019-01-13] MEDS ORDERED: HEPARIN PF 500 UNIT/5 ML DISP.SYRIN. IV ONE (14:15)
--- NOTE | 2019-01-13 15:00 | NUR ---
Patient's L chest port was deaccessed at 1450. Heparin was administered, direct pressured applied, and was dressed with some gauze and tegaderm. Discharge instructions given to patient and family member. Patient verbalized understanding of teachings and is going home with daughter.
[2019-01-13] MEDS ORDERED: GABAPENTIN 300 MG CAPSULE. PO SCH (21:00)
--- NOTE | 2019-01-13 21:23 | CONS ---
DATE OF CONSULTATION: 01/13/2019 REQUESTING PHYSICIAN: Dr. Ana M Hernandez. REASON FOR CONSULTATION: Metastatic breast cancer with worsening ascites. HISTORY OF PRESENT ILLNESS: The patient is a 63-year-old female who has a history of breast cancer diagnosed in 2004 and she underwent a right mastectomy for a stage 2b ER positive, HER2/lakeisha negative breast cancer. She received adjuvant chemotherapy with Adriamycin and Cytoxan followed by Taxol followed by Arimidex for 5 years. She noted worsening abdominal distention in 07/2015. She underwent paracentesis on 08/10/2015 that revealed 5 liters of yellow fluid with cytology revealing suspicious cells concerning for malignancy. CT scan of the abdomen and pelvis on 08/10/2015 revealed large volume ascites and small peritoneal soft tissue density in the pelvis on the left measuring 2.4 cm concerning for a peritoneal tumor implant. Diagnostic laparoscopy and left salpingo-oophorectomy and cystoscopy was performed on 08/31/2015, which revealed metastatic mammary carcinoma involving the fallopian tube and ovary with findings consistent with invasive lobular carcinoma. She received chemotherapy with Xeloda from 10/06/2015. She had disease progression and it was switched to Abraxane on 10/05/2016. She had further disease progression with worsening ascites in 12/2018. She was started on Gemzar and 01/09/2019 and she has had only one dose of Gemzar. She was [facility] on 01/12/2019 with worsening ascites. She underwent a CT scan of the abdomen and pelvis on 01/12/2019 that revealed large abdominal ascites, hepatic cirrhosis. Diffuse sclerotic lesions throughout the bony pelvis and vertebral column concerning for metastatic disease. She also had a low-grade fever and she was started on antibiotics and the fever has resolved. I was asked to see the patient for further management of metastatic breast cancer. PAST MEDICAL HISTORY: History of spina bifida, history of mild cerebral palsy and bronchial asthma. SOCIAL HISTORY: Never smoker. FAMILY HISTORY: Both parents had lung cancer. REVIEW OF SYSTEMS: A 12-point review of system was performed. Pertinent positives are mentioned in the history of present illness. Rest of the system review is negative. PHYSICAL EXAMINATION: GENERAL APPEARANCE: The patient is a 63-year-old female who is in no acute cardiorespiratory distress. VITAL SIGNS: Blood pressure 114/51, temperature 98.3. HEENT: Head atraumatic, normocephalic. Eyes, no icterus. NECK: Supple. CHEST: Bilaterally symmetrical. HEART: S1, S2 normal. ABDOMEN: Soft, distended due to ascites. CENTRAL NERVOUS SYSTEM: No focal deficits. LYMPHATICS: No lymphadenopathy. SKIN: No rashes. PSYCHOLOGIC: Mood and affect are appropriate. MUSCULOSKELETAL: No joint effusions. LABORATORY DATA: WBC 7.3, hemoglobin 10.3, platelet count 121. IMPRESSION AND PLAN: 1. Stage IV breast cancer with peritoneal metastatic disease leading to worsening ascites. She was started on chemotherapy with Gemzar on 01/09/2019 and she has had only one dose so far and I would expect the ascites to improve in the next few weeks with ongoing chemotherapy. I agreed that she would need therapeutic paracentesis till she has a good response to chemotherapy. I would not place a catheter for ascites because of high risk of infections. 2. Ascites, worse due to breast cancer. We will proceed with therapeutic paracentesis. 3. Cirrhosis of the liver. Continue supportive care. 4. Thrombocytopenia due to chemotherapy, platelets of 121 on 01/12/2019. I will continue to monitor. 5. Low-grade fever, which has now resolved. She received antibiotics. MINNA THORPE MD DR: ROXIE/jong JOB#: [id number] / [id number]
--- NOTE | 2019-01-20 10:07 | PATHOLOGY ---
Note [facility] Accession Number: [id number] TESTS RESULT FLAG UNITS REF RANGE LAB Clinician Provided Cytology Information No. of containers..01 Other (Miscellaneous) Source: [A] 01 RT ABD FLUID DIAGNOSIS: [A] 02 RT ABD FLUID POSITIVE FOR MALIGNANT CELLS. THIS INTERPRETATION INCLUDES EVALUATION OF A CELL BLOCK. COMMENT: The cell block reveals malignant-appearing glandular cells. The immunoperoxidase stains reveal: BEREP4: Positive CK7: Positive ER: Positive SC: Rare scattered positive Calretinin: Negative CK20: Negative P40: Negative TTF-1: Negative Based on the clinical history of previous mammary carcinoma, these findings are most likely secondary to primary breast carcinoma. An attempt was made to call Dr. Thorpe at his office on 01/20/2019 at 9:45 am and left message to call back. Suggest clinical correlation. This case was also reviewed by Dr. Allen Dunn. (SHA:mml; 01/19/2019) Signed out by: 02 Kar Day MD, Pathologist NPI- [id number] Performed by: Philippe Springer, [employer] Reports Developer ([facility]) Gross description: 01 35ML, YELLOW, CLEAR /LCS FLAG LEGEND: L-Low Normal,H-High Normal,LL-Alert Low,HH-Alert High <-Panic Low,>-Panic High,A-Abnormal,AA-Critical Abnormal Performed at: [employer] [facility] [address] [place] [address] Ede Rachel MD, [address] [place] [address] [facility] [address] [id number] Alexandre Kaiser MD, Specimen Comment: A courtesy copy of this report has been sent to Specimen Comment: [phone], , . Specimen Comment: Report sent to ,DR THORPE / DR HERMAN Specimen Comment: A duplicate report has been generated due to demographic updates. Performed at: 01 [facility] [address] [facility] [address], [place], [place] [id number] MD Ede Rachel MD Phone: [phone]
== END 2019-01-13 15:00 | disposition home or self-care (01) | DRG 375 ==
LOC: ER 15:42 → 6 SOUTH 18:44
PROVIDERS: ADMIT Internal Medicine; ATTEND Internal Medicine
PROC: 0W9G3ZZ Drainage of Peritoneal Cavity, Percutaneous Approach (ICD-10-PCS; principal; 2019-01-12)
DX: C78.6 Secondary malignant neoplasm of retroperitoneum and peritoneum (principal); C78.7 Secondary malignant neoplasm of liver and intrahepatic bile duct; C79.51 Secondary malignant neoplasm of bone; R18.0 Malignant ascites; C50.911 Malignant neoplasm of unspecified site of right female breast; K74.60 Unspecified cirrhosis of liver; K72.90 Hepatic failure, unspecified without coma; K44.9 Diaphragmatic hernia without obstruction or gangrene; I51.7 Cardiomegaly; K21.9 Gastro-esophageal reflux disease without esophagitis; D69.59 Other secondary thrombocytopenia; T45.1X5A Adverse effect of antineoplastic and immunosuppressive drugs, initial encounter; C50.919 Malignant neoplasm of unspecified site of unspecified female breast; Z66 Do not resuscitate; D69.6 Thrombocytopenia, unspecified; G80.9 Cerebral palsy, unspecified; Q05.9 Spina bifida, unspecified; Z90.79 Acquired absence of other genital organ(s); Z90.722 Acquired absence of ovaries, bilateral; Z90.710 Acquired absence of both cervix and uterus; Z90.11 Acquired absence of right breast and nipple; Z88.8 Allergy status to other drugs, medicaments and biological substances; Y92.89 Other specified places as the place of occurrence of the external cause; Z51.11 Encounter for antineoplastic chemotherapy; Z80.3 Family history of malignant neoplasm of breast; Z80.1 Family history of malignant neoplasm of trachea, bronchus and lung
CPT/HCPCS: 36415; 49083; 71046; 74177; 80053; 81001; 83605; 83690; 83880; 84484; 85007; 85025; 87040; 88112; 88305; 88341; 88342; 96374; J0696; J2270; J2405; Q9967; 99285-25

== ENCOUNTER 2019-01-19 09:51 | Outpatient (CLI) | payer BC ==
[~2019-01-19] VITALS: Ht 162.6 cm; Wt 70.3 kg
[~2019-01-19 09:51] MED LIST changes: +CYAN10005 PO
[2019-01-19 10:12] VITALS: BP 121/65
[2019-01-19] MEDS ORDERED: HYDR-2769 PO (10:27)
[2019-01-19 10:40] VITALS: BP 138/64
[2019-01-19 10:55] VITALS: BP 122/60
[2019-01-19 10:59] VITALS: BP 105/61
[2019-01-19 11:14] VITALS: BP 105/51
[2019-01-19 11:29] VITALS: BP 116/52
--- NOTE | 2019-01-19 11:51 | NUR ---
Discharge Note: AHSAN SANCHEZ Discharge instructions and discharge home medications reviewed with Patient and a copy given. All questions have been answered and understanding verbalized. The following instructions and handouts were given: paracentesis Discontinued lines and drains: no lines to discontinue. Patient discharged to Home or Self Care withFamily Membervia Wheelchair
--- NOTE | 2019-01-19 14:35 | RAD ---
Ultrasound-guided paracentesis 01/07/2019 3:18 PM Procedure: The risks and benefits of the procedure were discussed the patient. Informed consent was obtained. A timeout procedure was performed. Sonographic evaluation of the abdomen was performed demonstrating ascites . The right lower quadrant was prepped and draped using maximum sterile barrier technique. 1% lidocaine without epinephrine was administered for local anesthesia. Real-time ultrasonographic guidance was used in passing a 5 Wol[place] Yueh catheter into the fluid collection. 3.6 L of serous ascites was removed. The catheter was removed and pressure held to achieve hemostasis. A sterile dressing was applied. Impression: Successful ultrasound-guided paracentesis
== END 2019-01-19 11:54 | disposition home or self-care (01) ==
LOC: INTRAD 09:51
PROVIDERS: ATTEND Internal Medicine Hematology & Oncology
DX: R18.8 Other ascites (principal); Z88.5 Allergy status to narcotic agent; C50.419 Malignant neoplasm of upper-outer quadrant of unspecified female breast
CPT/HCPCS: 49083

== ENCOUNTER 2019-01-22 12:22 | Emergency (ER) | payer BC ==
[~2019-01-22] VITALS: Ht 162.6 cm; Wt 68.6 kg
[~2019-01-22 12:22] MED LIST changes: +HYDR-2769 PO
[2019-01-22 14:36] LABS: BILIRUBIN,URINE MODERATE (NEG); CLARITY,URINE CLEAR; NITRITE,URINE NEGATIVE (NEG); PH,URINE 5.5; PROTEIN,URINE NEGATIVE (NEG-TRACE)
[2019-01-22 14:48] LABS: WBC,URINE OCC /HPF (0-4)
[2019-01-22 14:49] LABS: COLOR,URINE AMBER
[2019-01-22 14:50] LABS: BACTERIA,URINE 0 /HPF (0-FEW); RBC,URINE 0 /HPF (0-2)
--- NOTE | 2019-01-22 15:50 | PHYS DOC ---
Past Medical History Past Medical History: Asthma, Cancer, COPD Additional Past Medical Histor: stage 4 breast ca, cirrhosis Past Surgical History: Hysterectomy, Other Additional Past Surgical Histo: RT MASTECTOMY, PARACENTESIS, Port L chest Alcohol Use: None Drug Use: None Adult General Chief Complaint Chief Complaint: URINARY RETENTION HPI HPI Patient is a 63 year old [f__sex] who presents with [] Review of Systems Review of Systems Constitutional: Denies fever or chills [] Eyes: Denies change in visual acuity, redness, or eye pain [] HENT: Denies nasal congestion or sore throat [] Respiratory: Denies cough or shortness of breath [] Cardiovascular: No additional information not addressed in HPI [] GI: Denies abdominal pain, nausea, vomiting, bloody stools or diarrhea [] : Denies dysuria or hematuria [] Musculoskeletal: Denies back pain or joint pain [] Integument: Denies rash or skin lesions [] Neurologic: Denies headache, focal weakness or sensory changes [] Endocrine: Denies polyuria or polydipsia [] All other systems were reviewed and found to be within normal limits, except as documented in this note. Allergies Allergies Allergies Coded Allergies Type Severity Reaction Last Updated Verified meperidine Adverse Reaction Intermediate Nausea and Vomiting 07/12/17 Yes Physical Exam Physical Exam Constitutional: Well developed, well nourished, no acute distress, non-toxic appearance. [] HENT: Normocephalic, atraumatic, bilateral external ears normal, oropharynx moist, no oral exudates, nose normal. [] Eyes: PERRLA, EOMI, conjunctiva normal, no discharge. [] Neck: Normal range of motion, no tenderness, supple, no stridor. [] Cardiovascular:Heart rate regular rhythm, no murmur [] Lungs & Thorax: Bilateral breath sounds clear to auscultation [] Abdomen: Bowel sounds normal, soft, no tenderness, no masses, no pulsatile masses. [] Skin: Warm, dry, no erythema, no rash. [] Back: No tenderness, no CVA tenderness. [] Extremities: No tenderness, no cyanosis, no clubbing, ROM intact, no edema. [] Neurologic: Alert and oriented X 3, normal motor function, normal sensory function, no focal deficits noted. [] Psychologic: Affect normal, judgement normal, mood normal. [] Current Patient Data Vital Signs Vital Signs Date Time Temp Pulse Resp B/P (MAP) Pulse Ox O2 Delivery O2 Flow Rate FiO2 01/22/19 12:50 97.9 91 18 116/52 (73) 100 Room Air 97.9 Lab Values Laboratory Tests Test 01/22/19 14:15 Urine Collection Type U cath Urine Color Crystal Urine Clarity Clear Urine pH 5.5 Urine Specific Bailey >=1.030 Urine Protein Negative mg/dL (NEG-TRACE) Urine Glucose (UA) Negative mg/dL (NEG) Urine Ketones (Stick) Trace mg/dL (NEG) Urine Blood Negative (NEG) Urine Nitrite Negative (NEG) Urine Bilirubin Moderate (NEG) Urine Urobilinogen Dipstick 2.0 mg/dL (0.2 mg/dL) Urine Leukocyte Esterase Small (NEG) Urine RBC 0 /HPF (0-2) Urine WBC Occ /HPF (0-4) Urine Bacteria 0 /HPF (0-FEW) Urine Mucus Marked /LPF EKG EKG [] Radiology/Procedures Radiology/Procedures [] Course & Med Decision Making Course & Med Decision Making Pertinent Labs and Imaging studies reviewed. (See chart for details) [] Dragon Disclaimer Dragon Disclaimer This electronic medical record was generated, in whole or in part, using a voice recognition dictation system. Departure Departure Impression: Primary Impression: Urinary retention Disposition: 01 HOME, SELF-CARE Condition: STABLE Referrals: BRIANNA GRIGGS APRN (PCP) TOSIN OTERO MD Patient Instructions: Schilling Catheter Care, Adult, Urinary Retention, Acute, Female, [id number] GIORGIO MCKEON DO January 22, 2019 15:50
[2019-01-22 16:00] VITALS: BP 132/56
== END 2019-01-22 15:55 | disposition home or self-care (01) ==
LOC: ER 12:22
DX: R33.9 Retention of urine, unspecified (principal); J44.9 Chronic obstructive pulmonary disease, unspecified; Z90.710 Acquired absence of both cervix and uterus; Z90.11 Acquired absence of right breast and nipple; Z88.8 Allergy status to other drugs, medicaments and biological substances
CPT/HCPCS: 51702; 81001; 87086; 99284

== ENCOUNTER 2019-01-23 09:42 | Outpatient (CLI) | payer BC ==
[~2019-01-23] VITALS: Ht 162.6 cm; Wt 68.5 kg
[2019-01-23 10:10] VITALS: BP_SYST 112; BP_SYST 123; BP_DIAS 61; BP_DIAS 65
[2019-01-23] MEDS ORDERED: ALBUMIN HUMAN 25% 100 ML IV ONE ×2 (11:09→11:15)
[2019-01-23 11:20] VITALS: BP 119/66
[2019-01-23 11:27] VITALS: BP 119/58
[2019-01-23 11:30] VITALS: BP 115/61
[2019-01-23 12:13] VITALS: BP 117/63
--- NOTE | 2019-01-23 12:29 | NUR ---
Discharge Note: MANDY SANCHEZ Discharge instructions and discharge home medications reviewed with Patient and a copy given. All questions have been answered and understanding verbalized. Patient tolerated lunch with no difficulties. The following instructions and handouts were given: Paracentesis and Albumin. Discontinued lines and drains: Left AC, dressing clean dry intact. Patient discharged to home with family via in family vehicle, patient ambulated with no difficulty.
--- NOTE | 2019-01-23 15:05 | RAD ---
Ultrasound-guided paracentesis 01/23/2019 3:01 PM Procedure: The risks and benefits of the procedure were discussed the patient. Informed consent was obtained. A timeout procedure was performed. Sonographic evaluation of the abdomen was performed demonstrating ascites . The right lower quadrant was prepped and draped using maximum sterile barrier technique. 1% lidocaine without epinephrine was administered for local anesthesia. Real-time ultrasonographic guidance was used in passing a 5 English Yueh catheter into the fluid collection. 5 L of serous ascites was removed. The catheter was removed and pressure held to achieve hemostasis. A sterile dressing was applied. Impression: Successful ultrasound-guided paracentesis
== END 2019-01-23 12:15 | disposition home or self-care (01) ==
LOC: INTRAD 09:42
PROVIDERS: ATTEND Internal Medicine Hematology & Oncology
DX: R18.8 Other ascites (principal); Z88.5 Allergy status to narcotic agent
CPT/HCPCS: 49083; P9046

== ENCOUNTER → 2019-01-28 | Outpatient (CLI) | payer BC ==
[2019-01-23 12:13] VITALS: BP 117/63
[~2019-01-28] MED LIST changes: +GADOTERATE 7.5 MMOL/15ML VIAL. IVP ONE; +MORP15TA PO
--- NOTE | 2019-01-28 12:23 | RAD ---
MRI Lumbar Spine without and with contrast History: Low back pain for one week, history of metastatic breast cancer Technique: Multiplanar, multi sequential pre and postcontrast MR imaging was performed of the lumbar spine. Comparison: None Findings: There is motion degradation. Somewhat difficult to accurately characterize given small size and motion, there are multiple scattered foci of marrow edema of the lumbar spine, largest about 0.3 cm such as of the left L2 vertebral body. There are also foci of the visualized sacrum and iliac bones. These are variably hyperintense on the STIR sequence with associated T1 hypointense, likely degree of associated enhancement although poorly characterized due to motion and small size. Lumbar vertebral body stature is overall preserved. There is negligible posterior subluxation L5 relative S1. Conus terminates near L1. There is no convincing nodular enhancement of the conus or cauda equina. There is nonspecific edema of the posterior subcutaneous fat of the lower back. There is moderate degenerative disc disease at L5-S1, minimally at L4-5 and L3-4. There is nerve root sleeve cyst in the right T10-11 neural foramen. There is mild levoscoliosis centered near the mid lumbar spine. Incidental is made of prominent ascites especially in the pelvis. There is possible dependent signal abnormality in the gallbladder lumen. L1-L2: Spinal canal and the neural foramina are adequate. L2-L3: Spinal canal and neural foramina are adequate. L3-L4: There is mild buckling of the ligamentum flavum and facet hypertrophic change. There is minimal posterior bulge. There is posterior annular tear. Spinal canal and neural foramina are adequate. L4-L5: There is mild facet hypertrophic change. There is minimal disc osteophyte complex. There is posterior annular tear. There is mild narrowing of the far lateral recess. There is mild narrowing of the left neural foramen, right neural foramen adequate. L5-S1: Spinal canal is adequate. There is minimal disc osteophyte complex greater in the inferior neural foramina and left greater than right. There is [id number] narrowing of left neural foramen with contact undersurface exiting left L5 nerve root by disc osteophyte complex, right neural foramen adequate. Impression: 1. There are multiple scattered small foci of marrow signal abnormality concerning for small osseous metastases. Lumbar vertebral body stature is maintained. 2. There is moderate degenerative disc disease at L5-S1, minimal spondylosis. 3. There is no significant lumbar spinal stenosis. There is neural foramina compromise as stated greatest on the left at L5-S1 and to lesser degree on the left at L4-5. 4. There is ascites. 5. There may be some dependent signal abnormality in the gallbladder lumen, poorly characterized. Electronically signed by: Dio Bruno MD (01/28/2019 12:20 PM) [id number]
== END | disposition home or self-care (01) ==
LOC: MRI 10:42
PROVIDERS: ATTEND Internal Medicine Hematology & Oncology
DX: M51.37 Other intervertebral disc degeneration, lumbosacral region (principal); M48.07 Spinal stenosis, lumbosacral region; M47.817 Spondylosis without myelopathy or radiculopathy, lumbosacral region; M25.78 Osteophyte, vertebrae; M43.5X7 Other recurrent vertebral dislocation, lumbosacral region; R18.8 Other ascites; Z85.3 Personal history of malignant neoplasm of breast
CPT/HCPCS: 72158; A9575

== ENCOUNTER 2019-02-03 13:58 | Inpatient (IN) | payer BC ==
[~2019-02-03] VITALS: Ht 162.6 cm; Wt 62.2 kg
[~2019-02-03 13:58] MED LIST changes: -GADOTERATE 7.5 MMOL/15ML VIAL. IVP ONE; -MORP15TA PO
[2019-02-03] MEDS ORDERED: MORPHINE SULFATE 10 MG/ML VIAL. IV ONE (14:30)
[2019-02-03] MEDS ORDERED: ONDANSETRON PF 4 MG/2 ML VIAL. IV ONE (14:30)
[2019-02-03] MEDS ORDERED: MORPHINE SULFATE 4 MG/ML VIAL. IV PRN (15:00)
[2019-02-03] MEDS ORDERED: ONDANSETRON PF 4 MG/2 ML VIAL. IV PRN (15:00)
--- NOTE | 2019-02-03 15:02 | PHYS DOC ---
Past Medical History Past Medical History: Asthma, Cancer, COPD Additional Past Medical Histor: stage 4 breast ca, cirrhosis Past Surgical History: Hysterectomy, Other Additional Past Surgical Histo: RT MASTECTOMY, PARACENTESIS, Port L chest Alcohol Use: None Drug Use: None Adult General Chief Complaint Chief Complaint: ABDOMINAL PAIN HPI HPI Patient is a 63 year old female with history of COPD, right breast cancer on chemotherapy every 3 weeks, with 1 week off, last treatment on last week, ascites from chemotherapy who presents to the ED today stating he was sent to be admitted by Dr. Arvizu for paracentesis due to ascites. She states she last had paracentesis on Saturday and throughout this weekend she's noted increased swelling to her abdomen with increased pain due to the swelling. Patient denies any fever. Denies any nausea vomiting. Review of Systems Review of Systems Constitutional: Denies fever or chills [] Eyes: Denies change in visual acuity, redness, or eye pain [] HENT: Denies nasal congestion or sore throat [] Respiratory: Denies cough or shortness of breath [] Cardiovascular: No additional information not addressed in HPI [] GI: Reports abdominal distention due to ascites, denies nausea, vomiting, bloody stools or diarrhea [] : Denies dysuria or hematuria [] Musculoskeletal: Denies back pain or joint pain [] Integument: Denies rash or skin lesions [] Neurologic: Denies headache, focal weakness or sensory changes [] All other systems were reviewed and found to be within normal limits, except as documented in this note. Current Medications Current Medications Allergies Allergies Allergies Coded Allergies Type Severity Reaction Last Updated Verified meperidine Adverse Reaction Intermediate Nausea and Vomiting 07/12/17 Yes Physical Exam Physical Exam Constitutional: Well developed, well nourished, no acute distress, non-toxic appearance. [] HENT: Normocephalic, atraumatic, bilateral external ears normal, oropharynx moist, no oral exudates, nose normal. [] Eyes: PERRLA, EOMI, conjunctiva normal, no discharge. [] Neck: Normal range of motion, no tenderness, supple, no stridor. [] Cardiovascular:Heart rate regular rhythm, no murmur [] Lungs & Thorax: Bilateral breath sounds clear to auscultation [] Abdomen: Distended rounded abdomen consistent with ascites. Bowel sounds normal, soft, no tenderness, no masses, no pulsatile masses. [] Skin: Warm, dry, no erythema, no rash. Right breast is missing. Back: No tenderness, no CVA tenderness. [] Extremities: No tenderness, no cyanosis, no clubbing, ROM intact, no edema. [] Neurologic: Alert and oriented X 3, normal motor function, normal sensory function, no focal deficits noted. [] Psychologic: Affect normal, judgement normal, mood normal. [] EKG EKG [] Radiology/Procedures Radiology/Procedures [] Course & Med Decision Making Course & Med Decision Making Pertinent Labs and Imaging studies reviewed. (See chart for details) This is a 63-year-old female patient presenting to the ED today for admission for paracentesis due ascites. Patient states she last had paracentesis on Saturday last week and her abdomen has refilled. Spoke with Dr. Fuentes who accepted patient for admission. labs still pending at admission. GI consult placed for paracentesis. Dragon Disclaimer Dragon Disclaimer This electronic medical record was generated, in whole or in part, using a voice recognition dictation system. Departure Departure Impression: Primary Impression: Ascites Disposition: ADMITTED INPATIENT Condition: STABLE Referrals: BRIANNA GRIGGS APRN (PCP) Problem Qualifiers Primary Impression: Ascites Ascites type: other type Qualified Codes: R18.8 - Other ascites RE SHIELDS APRN February 03, 2019 15:02
[2019-02-03 15:05] LABS: BASO # 0.1 x10^3/uL (0.0-0.2); BASO % 1 % (0-3); EOS % 0 % (0-3); HEMATOCRIT 37.9 % (36.0-47.0); HEMOGLOBIN 12.2 g/dL (12.0-15.5); LYMPH # 0.8 x10^3/uL (1.0-4.8); LYMPH % 9 % (24-48); MEAN CORPUSCULAR HEMOGLOBIN 29 pg (25-35); MEAN CORPUSCULAR HGB CONC 32 g/dL (31-37); MEAN CORPUSCULAR VOLUME 89 fL (79-100); MONO # 1.2 x10^3/uL (0.0-1.1); MONO % 13 % (0-9); NEUT # 7.2 x10^3uL (1.8-7.7); NEUT % 77 % (31-73); PLATELET COUNT 371 x10^3/uL (140-400); RED BLOOD COUNT 4.27 x10^6/uL (3.50-5.40); RED CELL DISTRIBUTION WIDTH 20.6 % (11.5-14.5); WHITE BLOOD COUNT 9.4 x10^3/uL (4.0-11.0)
[2019-02-03 15:15] LABS: CALCIUM 9.1 mg/dL (8.5-10.1); GFR 56.4; POTASSIUM 5.3 mmol/L (3.5-5.1)
[2019-02-03 15:21] LABS: ALBUMIN 2.5 g/dL (3.4-5.0); ALBUMIN/GLOBULIN RATIO 0.6 (1.0-1.7); TOTAL BILIRUBIN 1.6 mg/dL (0.2-1.0); TOTAL PROTEIN 6.4 g/dL (6.4-8.2)
[2019-02-03] MEDS ORDERED: POLYETHYLENE GLYCOL 3350 17 GM PACKET. PO PRN (15:30)
--- NOTE | 2019-02-03 15:30 | PDOC ---
Subjective: Subjective: Please see GI consult from 01/13/19. H/o stage IV breast cancer (chemo every 3 weeks - last ~1 week ago) and ascites requiring paracentesis more frequently recently (January 07, , , , and ). Had outpt paracentesis scheduled for tomorrow; however, advised to come to ER (she says by Dr. Arvizu) for ascites and right lower abd pain. She says she couldn't sleep last night due to pain - "feels like I need paracentesis." We have also seen in the past for BLQ/pelvic pain and bloating. Denies n/v, diarrhea, constipation, and bleeding. H/o GERD on omeprazole. No previous EGD, normal colonoscopy ~11 years ago. No GB or pancreas history. On Eliquis, prednisone, and hydrocodone. Objective: Vital Signs: Please see EMR - I saw when she was still in the ER. Labs: Laboratory Tests Test 02/03/19 14:40 White Blood Count 9.4 x10^3/uL Red Blood Count 4.27 x10^6/uL Hemoglobin 12.2 g/dL Hematocrit 37.9 % Mean Corpuscular Volume 89 fL Mean Corpuscular Hemoglobin 29 pg Mean Corpuscular Hemoglobin Concent 32 g/dL Red Cell Distribution Width 20.6 % Platelet Count 371 x10^3/uL Neutrophils (%) (Auto) 77 % Lymphocytes (%) (Auto) 9 % Monocytes (%) (Auto) 13 % Eosinophils (%) (Auto) 0 % Basophils (%) (Auto) 1 % Neutrophils # (Auto) 7.2 x10^3uL Lymphocytes # (Auto) 0.8 x10^3/uL Monocytes # (Auto) 1.2 x10^3/uL Eosinophils # (Auto) 0.0 x10^3/uL Basophils # (Auto) 0.1 x10^3/uL Sodium Level 133 mmol/L Potassium Level 5.3 mmol/L Chloride Level 100 mmol/L Carbon Dioxide Level 24 mmol/L Anion Gap 9 Blood Urea Nitrogen 44 mg/dL Creatinine 1.0 mg/dL Estimated GFR (Cockcroft-Gault) 56.4 BUN/Creatinine Ratio 44 Glucose Level 153 mg/dL Calcium Level 9.1 mg/dL Total Bilirubin 1.6 mg/dL Aspartate Amino Transf (AST/SGOT) 131 U/L Alanine Aminotransferase (ALT/SGPT) 83 U/L Alkaline Phosphatase 419 U/L Total Protein 6.4 g/dL Albumin 2.5 g/dL Albumin/Globulin Ratio 0.6 Lipase 155 U/L PE: GEN: uncomfortable, looks ill HEENT: Atraumatic, PERRL LUNGS: CTAB HEART: RRR ABD: distended/tight, vague right-sided discomfort EXTREMITY: No edema SKIN: No rashes, no jaundice NEURO/PSYCH: A & O 3 A/P: Stage IV breast cancer Recurrent ascites requiring frequent paracentesis, cirrhosis on past imaging Right-sided abd pain GERD H/o constipation CRC screen - had colonoscopy ~11 years ago -- Pain control per primary. Will ask for paracentesis - she says she could wait until tomorrow. PPI, Miralax. Last CT was done 01/12/19 - will review any need to repeat this or other w/ Dr. Beltran. RAYSA GALVAN February 03, 2019 15:30
[2019-02-03] MEDS ORDERED: HYDROmorphone 2 MG/ML VIAL IV ONE (15:45)
[2019-02-03 15:49] LABS: PLT ESTIMATE ADEQUATE (ADEQUATE)
[2019-02-03 15:50] LABS: ANISOCYTOSIS MOD
[2019-02-03 15:53] LABS: PROTHROMBIN TIME PATIENT 14.3 SEC (11.7-14.0)
--- NOTE | 2019-02-03 18:12 | PDOC1 ---
History and Physical Date of Admission Date of Admission DATE: 02/03/19 TIME: 18:10 Identification/Chief Complaint Chief Complaint abd distention Source Source: Chart review, Patient History of Present Illness History of Present Illness Ms. Colbert, is a 63 year old female with history of COPD, right breast cancer on chemotherapy every 3 weeks, with 1 week off, last treatment on last week, ascites from chemotherapy who presents to the ED today stating he was sent to be admitted by Dr. Arvizu for paracentesis due to ascites. She states she last had paracentesis on Saturday and throughout this weekend she's noted increased swelling to her abdomen with increased pain due to the swelling. Patient denies any fever. Denies any nausea vomiting. Past Medical History Cardiovascular: No pertinent hx Pulmonary: Asthma GI: No pertinent hx Heme/Onc: Cancer Psych: No pertinent hx Musculoskeletal: low back pain Rheumatologic: No pertinent hx Renal/: No pertinent hx Endocrine: No pertinent hx Past Surgical History Past Surgical History: Mastectomy, Hysterectomy Family History Family History: Cancer Family History: Parent Social History Smoke: No ALCOHOL: none Drugs: None Current Problem List Problem List Problems Medical Problems: (1) Ascites Status: Acute Current Medications Current Medications Current Medications Morphine Sulfate (Morphine Sulfate) 5 mg 1X ONCE IV Last administered on 02/03/19at 14:49; Start 02/03/19 at 14:30; Stop 02/03/19 at 14:31; Status DC Ondansetron HCl (Zofran) 4 mg 1X ONCE IV Last administered on 02/03/19at 14:48; Start 02/03/19 at 14:30; Stop 02/03/19 at 14:31; Status DC Ondansetron HCl (Zofran) 4 mg PRN Q8HRS PRN IV NAUSEA/VOMITING; Start 02/03/19 at 15:00; Stop 02/04/19 at 14:59 Morphine Sulfate (Morphine Sulfate) 4 mg PRN Q2HR PRN IV PAIN; Start 02/03/19 at 15:00; Stop 02/04/19 at 14:59 Acetaminophen (Tylenol) 650 mg PRN Q4HRS PRN PO FEVER; Start 02/03/19 at 15:00; Stop 02/04/19 at 14:59 Polyethylene Glycol (miraLAX PACKET) 17 gm DAILY PO ; Start 02/03/19 at 16:00 Polyethylene Glycol (miraLAX PACKET) 17 gm PRN DAILY PRN PO CONSTIPATION; Start 02/03/19 at 15:30 Pantoprazole Sodium (Protonix) 40 mg DAILYAC PO ; Start 02/03/19 at 16:30 Hydromorphone HCl (Dilaudid) 1 mg 1X ONCE IV Last administered on 02/03/19at 15:48; Start 02/03/19 at 15:45; Stop 02/03/19 at 15:46; Status DC Active Scripts Active Reported Hydrocodone-Apap 10-325 (Hydrocodone Bit/Acetaminophen) 1 Tab Tablet 1 Tab PO PRN Q6HRS PRN Gabapentin (Gabapentin) 300 Mg Capsule 300 Mg PO QHS Vitamin B-12 (Cyanocobalamin (Vitamin B-12)) 1,000 Mcg Tablet 1 Tab PO DAILY Vitamin C (Ascorbic Acid) 500 Mg Capsule 500 Mg PO DAILY One Daily For Women 50+ Adv Tb (Multivitamins-Min/Fa/Ginkgo) 1 Each Tablet 1 Tab PO DAILY Lidocaine-Prilocaine Cream (Lidocaine/Prilocaine) 30 Gm Cream..g. Prednisone (Prednisone) 10 Mg Tablet 10 Mg PO PRN DAILY PRN Eliquis (Apixaban) 5 Mg Tablet 5 Mg PO DAILY Omeprazole 40 Mg Capsule.dr 1 Cap PO DAILY Albuterol Sulfate Neb Soln (Albuterol Sulfate) 2.5 Mg/3 Ml Vial.neb 0.5 Vial NEB PRN Q4HRS PRN Proventil Hfa Inhaler (Albuterol Sulfate) 6.7 Gm Hfa.aer.ad 1-2 Puff IH PRN Q4HRS PRN Advair 250-50 Diskus (Fluticasone/Salmeterol) 1 Each Disk.w.dev 1 Puff IH BID Allergies Allergies: Coded Allergies: meperidine (Verified Adverse Reaction, Intermediate, Nausea and Vomiting, 07/12/17) ROS General: YES: Fatigue, Malaise; No: Chills, Night Sweats, Appetite, Other PSYCHOLOGICAL ROS: YES: Sleep disturbances; No: Anxiety, Behavioral Disorder, Concentration difficultie, Decreased libido, Depression, Disorientation, Hallucinations, Hostility, Mood Swings, Obsessive thoughts, Other Eyes: No Blurry vision, No Decreased vision, No Double vision, No Dry eyes, No Excessive tearing, No Eye Pain, No Itchy Eyes, No Loss of vision, No Photophobia, No Scotomata, No Uses contacts, No Uses glasses, No Other HEENT: No: Heacaches, Visual Changes, Hearing change, Nasal congestion, Nasal discharge, Oral lesions, Sinus pain, Sore Throat, Epistaxis, Sneezing, Snoring, Tinnitus, Vertigo, Vocal changes, Other Respiratory: No: Cough, Hemoptysis, Orthopnea, Pleuritic Pain, Shortness of breath, SOB with excertion, Sputum Changes, Stridor, Tachypnea, Wheezing, Other Cardiovascular: No Chest Pain, No Palpitations, No Orthopnea, No Paroxysmal Noc. Dyspnea, No Edema, No Lt Headedness, No Other Gastrointestinal: Yes Nausea, Yes Abdominal Pain Genitourinary: No Dysuria, No Frequency, No Incontinence, No Hematuria, No Retention, No Discharge, No Urgency, No Pain, No Flank Pain, No Other, No , No , No , No , No , No , No Musculoskeletal: No Gait Disturbance, No Joint Pain, No Joint Stiffness, No Joint Swelling, No Muscle Pain, No Muscular Weakness, No Pain In:, No Swelling In:, No Other Neurological: No Behavorial Changes, No Bowel/Bladder ControlChng, No Confusion, No Dizziness, No Gait Disturbance, No Headaches, No Impaired Coord/balance, No Memory Loss, No Numbness/Tingling, No Seizures, No Speech Problems, No Tremors, No Visual Changes, No Weakness, No Other Skin: No Dry Skin, No Eczema, No Hair Changes, No Lumps, No Mole Changes, No Mottling, No Nail Changes, No Pruritus, No Rash, No Skin Lesion Changes, No Other, No Acne Physical Exam General: Alert, Oriented X3, Cooperative, No acute distress, mild distress HEENT: Atraumatic, PERRLA Lungs: Clear to auscultation Heart: S1S2, RRR Abdomen: Soft (disteneded, hypoactive sounds) Extremities: Normal pulses, Other (tr edema) Skin: No significant lesion Neuro: Normal gait, Sensation intact Psych/Mental Status: Mood NL Vitals Vitals Vital Signs Date Time Temp Pulse Resp B/P (MAP) Pulse Ox O2 Delivery O2 Flow Rate FiO2 02/03/19 15:38 92 18 119/66 (83) 97 Room Air 02/03/19 14:15 97.9 97.9 Labs Labs Laboratory Tests Test 02/03/19 14:40 White Blood Count 9.4 x10^3/uL (4.0-11.0) Red Blood Count 4.27 x10^6/uL (3.50-5.40) Hemoglobin 12.2 g/dL (12.0-15.5) Hematocrit 37.9 % (36.0-47.0) Mean Corpuscular Volume 89 fL (79-100) Mean Corpuscular Hemoglobin 29 pg (25-35) Mean Corpuscular Hemoglobin Concent 32 g/dL (31-37) Red Cell Distribution Width 20.6 % (11.5-14.5) Platelet Count 371 x10^3/uL (140-400) Neutrophils (%) (Auto) 77 % (31-73) Lymphocytes (%) (Auto) 9 % (24-48) Monocytes (%) (Auto) 13 % (0-9) Eosinophils (%) (Auto) 0 % (0-3) Basophils (%) (Auto) 1 % (0-3) Neutrophils # (Auto) 7.2 x10^3uL (1.8-7.7) Lymphocytes # (Auto) 0.8 x10^3/uL (1.0-4.8) Monocytes # (Auto) 1.2 x10^3/uL (0.0-1.1) Eosinophils # (Auto) 0.0 x10^3/uL (0.0-0.7) Basophils # (Auto) 0.1 x10^3/uL (0.0-0.2) Platelet Estimate Adequate (ADEQUATE) Anisocytosis Mod Prothrombin Time 14.3 SEC (11.7-14.0) Prothromb Time International Ratio 1.1 (0.8-1.1) Sodium Level 133 mmol/L (136-145) Potassium Level 5.3 mmol/L (3.5-5.1) Chloride Level 100 mmol/L (98-107) Carbon Dioxide Level 24 mmol/L (21-32) Anion Gap 9 (6-14) Blood Urea Nitrogen 44 mg/dL (7-20) Creatinine 1.0 mg/dL (0.6-1.0) Estimated GFR (Cockcroft-Gault) 56.4 BUN/Creatinine Ratio 44 (6-20) Glucose Level 153 mg/dL (70-99) Calcium Level 9.1 mg/dL (8.5-10.1) Total Bilirubin 1.6 mg/dL (0.2-1.0) Aspartate Amino Transf (AST/SGOT) 131 U/L (15-37) Alanine Aminotransferase (ALT/SGPT) 83 U/L (14-59) Alkaline Phosphatase 419 U/L (46-116) Total Protein 6.4 g/dL (6.4-8.2) Albumin 2.5 g/dL (3.4-5.0) Albumin/Globulin Ratio 0.6 (1.0-1.7) Lipase 155 U/L (73-393) Laboratory Tests Test 02/03/19 14:40 White Blood Count 9.4 x10^3/uL (4.0-11.0) Red Blood Count 4.27 x10^6/uL (3.50-5.40) Hemoglobin 12.2 g/dL (12.0-15.5) Hematocrit 37.9 % (36.0-47.0) Mean Corpuscular Volume 89 fL (79-100) Mean Corpuscular Hemoglobin 29 pg (25-35) Mean Corpuscular Hemoglobin Concent 32 g/dL (31-37) Red Cell Distribution Width 20.6 % (11.5-14.5) Platelet Count 371 x10^3/uL (140-400) Neutrophils (%) (Auto) 77 % (31-73) Lymphocytes (%) (Auto) 9 % (24-48) Monocytes (%) (Auto) 13 % (0-9) Eosinophils (%) (Auto) 0 % (0-3) Basophils (%) (Auto) 1 % (0-3) Neutrophils # (Auto) 7.2 x10^3uL (1.8-7.7) Lymphocytes # (Auto) 0.8 x10^3/uL (1.0-4.8) Monocytes # (Auto) 1.2 x10^3/uL (0.0-1.1) Eosinophils # (Auto) 0.0 x10^3/uL (0.0-0.7) Basophils # (Auto) 0.1 x10^3/uL (0.0-0.2) Platelet Estimate Adequate (ADEQUATE) Anisocytosis Mod Prothrombin Time 14.3 SEC (11.7-14.0) Prothromb Time International Ratio 1.1 (0.8-1.1) Sodium Level 133 mmol/L (136-145) Potassium Level 5.3 mmol/L (3.5-5.1) Chloride Level 100 mmol/L (98-107) Carbon Dioxide Level 24 mmol/L (21-32) Anion Gap 9 (6-14) Blood Urea Nitrogen 44 mg/dL (7-20) Creatinine 1.0 mg/dL (0.6-1.0) Estimated GFR (Cockcroft-Gault) 56.4 BUN/Creatinine Ratio 44 (6-20) Glucose Level 153 mg/dL (70-99) Calcium Level 9.1 mg/dL (8.5-10.1) Total Bilirubin 1.6 mg/dL (0.2-1.0) Aspartate Amino Transf (AST/SGOT) 131 U/L (15-37) Alanine Aminotransferase (ALT/SGPT) 83 U/L (14-59) Alkaline Phosphatase 419 U/L (46-116) Total Protein 6.4 g/dL (6.4-8.2) Albumin 2.5 g/dL (3.4-5.0) Albumin/Globulin Ratio 0.6 (1.0-1.7) Lipase 155 U/L (73-393) VTE Prophylaxis Ordered VTE Prophylaxis Devices: No VTE Pharmacological Prophylaxi: Yes Assessment/Plan Assessment/Plan breast cancer, ascites, malignant admit, order paracentesis GI and Onc consulted mild hyperkalemia severe malnutrition KARINE MENDOZA MD February 03, 2019 18:12
[2019-02-03] MEDS: PANTOPRAZOLE 40 MG TABLET.DR. PO SCH (18:25)
[2019-02-03] MEDS: POLYETHYLENE GLYCOL 3350 17 GM PACKET. PO SCH (18:25)
[2019-02-03 19:00] VITALS: BP 134/74
[2019-02-03] MEDS: ACETAMINOPHEN 325 MG TABLET. PO PRN (21:28)
[2019-02-03 23:00] VITALS: BP 117/63
[2019-02-04] VITALS (10 sets, daily range): BP systolic 101–135; BP diastolic 61–78
[2019-02-04] MEDS: ACETAMINOPHEN 325 MG TABLET. PO PRN ×2 (02:04→07:51)
[2019-02-04 05:29] LABS: BASO # 0.1 x10^3/uL (0.0-0.2); BASO % 1 % (0-3); EOS # 0.1 x10^3/uL (0.0-0.7); EOS % 1 % (0-3); HEMATOCRIT 35.6 % (36.0-47.0); HEMOGLOBIN 11.7 g/dL (12.0-15.5); LYMPH % 11 % (24-48); MEAN CORPUSCULAR HEMOGLOBIN 30 pg (25-35); MEAN CORPUSCULAR HGB CONC 33 g/dL (31-37); MEAN CORPUSCULAR VOLUME 90 fL (79-100); MONO # 1.4 x10^3/uL (0.0-1.1); MONO % 16 % (0-9); NEUT # 6.3 x10^3uL (1.8-7.7); NEUT % 71 % (31-73); PLATELET COUNT 340 x10^3/uL (140-400); RED BLOOD COUNT 3.96 x10^6/uL (3.50-5.40); RED CELL DISTRIBUTION WIDTH 20.8 % (11.5-14.5); WHITE BLOOD COUNT 8.9 x10^3/uL (4.0-11.0)
[2019-02-04 05:41] LABS: CALCIUM 9.4 mg/dL (8.5-10.1); GFR 56.4
[2019-02-04] MEDS: PANTOPRAZOLE 40 MG TABLET.DR. PO SCH (07:50)
[2019-02-04] MEDS: POLYETHYLENE GLYCOL 3350 17 GM PACKET. PO SCH ×2 (07:51→21:21)
--- NOTE | 2019-02-04 09:04 | PDOC ---
Subjective: Subjective: Abd pain overnight. Awaiting paracentesis. Hasn't stooled. Objective: Vital Signs: Vital Signs Date Time Temp Pulse Resp B/P (MAP) Pulse Ox O2 Delivery O2 Flow Rate FiO2 02/04/19 07:00 98.1 98 18 127/78 (94) 94 Room Air 98.1 Labs: Laboratory Tests Test 02/03/19 14:40 02/04/19 04:30 White Blood Count 9.4 x10^3/uL 8.9 x10^3/uL Red Blood Count 4.27 x10^6/uL 3.96 x10^6/uL Hemoglobin 12.2 g/dL 11.7 g/dL Hematocrit 37.9 % 35.6 % Mean Corpuscular Volume 89 fL 90 fL Mean Corpuscular Hemoglobin 29 pg 30 pg Mean Corpuscular Hemoglobin Concent 32 g/dL 33 g/dL Red Cell Distribution Width 20.6 % 20.8 % Platelet Count 371 x10^3/uL 340 x10^3/uL Neutrophils (%) (Auto) 77 % 71 % Lymphocytes (%) (Auto) 9 % 11 % Monocytes (%) (Auto) 13 % 16 % Eosinophils (%) (Auto) 0 % 1 % Basophils (%) (Auto) 1 % 1 % Neutrophils # (Auto) 7.2 x10^3uL 6.3 x10^3uL Lymphocytes # (Auto) 0.8 x10^3/uL 1.0 x10^3/uL Monocytes # (Auto) 1.2 x10^3/uL 1.4 x10^3/uL Eosinophils # (Auto) 0.0 x10^3/uL 0.1 x10^3/uL Basophils # (Auto) 0.1 x10^3/uL 0.1 x10^3/uL Platelet Estimate Adequate Anisocytosis Mod Prothrombin Time 14.3 SEC Prothromb Time International Ratio 1.1 Sodium Level 133 mmol/L 134 mmol/L Potassium Level 5.3 mmol/L 5.0 mmol/L Chloride Level 100 mmol/L 100 mmol/L Carbon Dioxide Level 24 mmol/L 26 mmol/L Anion Gap 9 8 Blood Urea Nitrogen 44 mg/dL 47 mg/dL Creatinine 1.0 mg/dL 1.0 mg/dL Estimated GFR (Cockcroft-Gault) 56.4 56.4 BUN/Creatinine Ratio 44 Glucose Level 153 mg/dL 111 mg/dL Calcium Level 9.1 mg/dL 9.4 mg/dL Total Bilirubin 1.6 mg/dL Aspartate Amino Transf (AST/SGOT) 131 U/L Alanine Aminotransferase (ALT/SGPT) 83 U/L Alkaline Phosphatase 419 U/L Total Protein 6.4 g/dL Albumin 2.5 g/dL Albumin/Globulin Ratio 0.6 Lipase 155 U/L PE: GEN: NAD LUNGS: CTAB HEART: RRR ABD: BS+, distended/tight NEURO/PSYCH: A & O 3 A/P: Stage IV breast cancer w/ recurrent ascites, abd pain -- Plans for paracentesis today. Pain control per primary. Continue Miralax. RAYSA GALVAN February 04, 2019 09:04
--- NOTE | 2019-02-04 11:27 | NUR ---
SW following for discharge planning. Discussed with RN, pt is from home, having a paracentesis today. RN advised no SW needs at this time. SW will continue to follow.
[2019-02-04] MEDS ORDERED: ALBUMIN HUMAN 25% 100 ML IV ONE (11:30)
[2019-02-04] MEDS ORDERED: ALBUMIN HUMAN 25% 50 ML IV ONE (11:45)
--- NOTE | 2019-02-04 12:44 | CONS ---
DATE OF CONSULTATION: 02/03/2019 TYPE OF REPORT: Medical oncology consultation. CONSULTATION REQUESTING PHYSICIAN: Jackie Fuentes M.D. REASON FOR CONSULTATION: Metastatic breast cancer, on chemotherapy, admitted with worsening abdominal pain due to ascites. HISTORY OF PRESENT ILLNESS: The patient is a 63-year-old female who has a history of breast cancer in 2004. She received right mastectomy and chemotherapy followed by Arimidex. She was noted to have ascites in 2014 with cytology showing malignancy on 08/10/2015. Diagnostic laparoscopy on 08/31/2015 revealed peritoneal carcinomatosis consistent with metastatic mammary carcinoma. She received chemotherapy with Xeloda followed by Abraxane and then, Gemzar was initiated on 01/09/2019 because of worsening ascites. She was admitted to [facility] due to progressively worsening abdominal pain due to ascites. PAST MEDICAL HISTORY: Spina bifida, mild cerebral palsy and bronchial asthma. SOCIAL HISTORY: Never smoker. FAMILY HISTORY: Positive for lung cancer. REVIEW OF SYSTEMS: A 12-point review of system was performed. Pertinent positives are mentioned in the history of present illness. Rest of the system review is negative. PHYSICAL EXAMINATION: GENERAL APPEARANCE: The patient is a 63-year-old female who is in no acute cardiorespiratory distress. VITAL SIGNS: Blood pressure 119/66 and temperature 97.6. HEENT: Head: Atraumatic and normocephalic. Eyes: No icterus. NECK: Supple. CHEST: Bilaterally symmetrical. HEART: S1 and S2 normal. ABDOMEN: Soft and distended due to ascites. CENTRAL NERVOUS SYSTEM: No focal deficits. LYMPHATICS: No lymphadenopathy. SKIN: No rashes. PSYCHOLOGIC: Mood and affect are appropriate. MUSCULOSKELETAL: No joint effusions. LYMPHATICS: No lymphadenopathy. LABORATORY DATA: WBC 9.4, hemoglobin 12.2 and platelet count 371. Creatinine 1.0. IMPRESSION AND PLAN: 1. 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 Continue therapeutic paracentesis as needed. She was started on Gemzar on 01/09/2019 and it is too early to evaluate for response. If she responds to chemotherapy, I would expect the ascites to improve and hopefully, she will not need frequent paracentesis. 2. Cirrhosis of the liver. Continue supportive care. 3. Ascites. Continue paracentesis. I discussed with Dr. Fuentes. MINNA THORPE MD DR: Marvin JOB#: [id number] / [id number]
--- NOTE | 2019-02-04 13:33 | PDOC ---
PROGRESS NOTES Chief Complaint Chief Complaint Stage IV breast cancer Abdominal discomfort Malignant ascites Plan: will observe overnight hopefully discharge in the am feeling better after paracentesis, we will monitor her vital signs History of Present Illness History of Present Illness no complaints, tolerated her paracentesis well, she had an excess of 6 liters taken from her abdominal cavity. Vitals Vitals Vital Signs Date Time Temp Pulse Resp B/P (MAP) Pulse Ox O2 Delivery O2 Flow Rate FiO2 02/04/19 11:30 89 16 118/71 (87) 97 Room Air 02/04/19 07:00 98.1 98.1 Physical Exam General: Alert, Oriented X3, Cooperative, No acute distress, mild distress Lungs: Clear, Other Abdomen: Soft (disteneded, hypoactive sounds) Extremities: Normal pulses, Other (tr edema) Skin: No significant lesion Labs LABS Laboratory Tests Test 02/03/19 14:40 02/04/19 04:30 White Blood Count 9.4 x10^3/uL (4.0-11.0) 8.9 x10^3/uL (4.0-11.0) Red Blood Count 4.27 x10^6/uL (3.50-5.40) 3.96 x10^6/uL (3.50-5.40) Hemoglobin 12.2 g/dL (12.0-15.5) 11.7 g/dL (12.0-15.5) Hematocrit 37.9 % (36.0-47.0) 35.6 % (36.0-47.0) Mean Corpuscular Volume 89 fL (79-100) 90 fL (79-100) Mean Corpuscular Hemoglobin 29 pg (25-35) 30 pg (25-35) Mean Corpuscular Hemoglobin Concent 32 g/dL (31-37) 33 g/dL (31-37) Red Cell Distribution Width 20.6 % (11.5-14.5) 20.8 % (11.5-14.5) Platelet Count 371 x10^3/uL (140-400) 340 x10^3/uL (140-400) Neutrophils (%) (Auto) 77 % (31-73) 71 % (31-73) Lymphocytes (%) (Auto) 9 % (24-48) 11 % (24-48) Monocytes (%) (Auto) 13 % (0-9) 16 % (0-9) Eosinophils (%) (Auto) 0 % (0-3) 1 % (0-3) Basophils (%) (Auto) 1 % (0-3) 1 % (0-3) Neutrophils # (Auto) 7.2 x10^3uL (1.8-7.7) 6.3 x10^3uL (1.8-7.7) Lymphocytes # (Auto) 0.8 x10^3/uL (1.0-4.8) 1.0 x10^3/uL (1.0-4.8) Monocytes # (Auto) 1.2 x10^3/uL (0.0-1.1) 1.4 x10^3/uL (0.0-1.1) Eosinophils # (Auto) 0.0 x10^3/uL (0.0-0.7) 0.1 x10^3/uL (0.0-0.7) Basophils # (Auto) 0.1 x10^3/uL (0.0-0.2) 0.1 x10^3/uL (0.0-0.2) Platelet Estimate Adequate (ADEQUATE) Anisocytosis Mod Prothrombin Time 14.3 SEC (11.7-14.0) Prothromb Time International Ratio 1.1 (0.8-1.1) Sodium Level 133 mmol/L (136-145) 134 mmol/L (136-145) Potassium Level 5.3 mmol/L (3.5-5.1) 5.0 mmol/L (3.5-5.1) Chloride Level 100 mmol/L (98-107) 100 mmol/L (98-107) Carbon Dioxide Level 24 mmol/L (21-32) 26 mmol/L (21-32) Anion Gap 9 (6-14) 8 (6-14) Blood Urea Nitrogen 44 mg/dL (7-20) 47 mg/dL (7-20) Creatinine 1.0 mg/dL (0.6-1.0) 1.0 mg/dL (0.6-1.0) Estimated GFR (Cockcroft-Gault) 56.4 56.4 BUN/Creatinine Ratio 44 (6-20) Glucose Level 153 mg/dL (70-99) 111 mg/dL (70-99) Calcium Level 9.1 mg/dL (8.5-10.1) 9.4 mg/dL (8.5-10.1) Total Bilirubin 1.6 mg/dL (0.2-1.0) Aspartate Amino Transf (AST/SGOT) 131 U/L (15-37) Alanine Aminotransferase (ALT/SGPT) 83 U/L (14-59) Alkaline Phosphatase 419 U/L (46-116) Total Protein 6.4 g/dL (6.4-8.2) Albumin 2.5 g/dL (3.4-5.0) Albumin/Globulin Ratio 0.6 (1.0-1.7) Lipase 155 U/L (73-393) Review of Systems Review of Systems 14 point review of system negative only pertinent as per hpi Assessment and Plan Assessmemt and Plan Problems Medical Problems: (1) Ascites Status: Acute Comment Review of Relevant I have reviewed the following items nba (where applicable) has been applied. Labs Laboratory Tests Test 02/03/19 14:40 02/04/19 04:30 White Blood Count 9.4 x10^3/uL (4.0-11.0) 8.9 x10^3/uL (4.0-11.0) Red Blood Count 4.27 x10^6/uL (3.50-5.40) 3.96 x10^6/uL (3.50-5.40) Hemoglobin 12.2 g/dL (12.0-15.5) 11.7 g/dL (12.0-15.5) Hematocrit 37.9 % (36.0-47.0) 35.6 % (36.0-47.0) Mean Corpuscular Volume 89 fL (79-100) 90 fL (79-100) Mean Corpuscular Hemoglobin 29 pg (25-35) 30 pg (25-35) Mean Corpuscular Hemoglobin Concent 32 g/dL (31-37) 33 g/dL (31-37) Red Cell Distribution Width 20.6 % (11.5-14.5) 20.8 % (11.5-14.5) Platelet Count 371 x10^3/uL (140-400) 340 x10^3/uL (140-400) Neutrophils (%) (Auto) 77 % (31-73) 71 % (31-73) Lymphocytes (%) (Auto) 9 % (24-48) 11 % (24-48) Monocytes (%) (Auto) 13 % (0-9) 16 % (0-9) Eosinophils (%) (Auto) 0 % (0-3) 1 % (0-3) Basophils (%) (Auto) 1 % (0-3) 1 % (0-3) Neutrophils # (Auto) 7.2 x10^3uL (1.8-7.7) 6.3 x10^3uL (1.8-7.7) Lymphocytes # (Auto) 0.8 x10^3/uL (1.0-4.8) 1.0 x10^3/uL (1.0-4.8) Monocytes # (Auto) 1.2 x10^3/uL (0.0-1.1) 1.4 x10^3/uL (0.0-1.1) Eosinophils # (Auto) 0.0 x10^3/uL (0.0-0.7) 0.1 x10^3/uL (0.0-0.7) Basophils # (Auto) 0.1 x10^3/uL (0.0-0.2) 0.1 x10^3/uL (0.0-0.2) Platelet Estimate Adequate (ADEQUATE) Anisocytosis Mod Prothrombin Time 14.3 SEC (11.7-14.0) Prothromb Time International Ratio 1.1 (0.8-1.1) Sodium Level 133 mmol/L (136-145) 134 mmol/L (136-145) Potassium Level 5.3 mmol/L (3.5-5.1) 5.0 mmol/L (3.5-5.1) Chloride Level 100 mmol/L (98-107) 100 mmol/L (98-107) Carbon Dioxide Level 24 mmol/L (21-32) 26 mmol/L (21-32) Anion Gap 9 (6-14) 8 (6-14) Blood Urea Nitrogen 44 mg/dL (7-20) 47 mg/dL (7-20) Creatinine 1.0 mg/dL (0.6-1.0) 1.0 mg/dL (0.6-1.0) Estimated GFR (Cockcroft-Gault) 56.4 56.4 BUN/Creatinine Ratio 44 (6-20) Glucose Level 153 mg/dL (70-99) 111 mg/dL (70-99) Calcium Level 9.1 mg/dL (8.5-10.1) 9.4 mg/dL (8.5-10.1) Total Bilirubin 1.6 mg/dL (0.2-1.0) Aspartate Amino Transf (AST/SGOT) 131 U/L (15-37) Alanine Aminotransferase (ALT/SGPT) 83 U/L (14-59) Alkaline Phosphatase 419 U/L (46-116) Total Protein 6.4 g/dL (6.4-8.2) Albumin 2.5 g/dL (3.4-5.0) Albumin/Globulin Ratio 0.6 (1.0-1.7) Lipase 155 U/L (73-393) Laboratory Tests Test 02/03/19 14:40 02/04/19 04:30 White Blood Count 9.4 x10^3/uL (4.0-11.0) 8.9 x10^3/uL (4.0-11.0) Red Blood Count 4.27 x10^6/uL (3.50-5.40) 3.96 x10^6/uL (3.50-5.40) Hemoglobin 12.2 g/dL (12.0-15.5) 11.7 g/dL (12.0-15.5) Hematocrit 37.9 % (36.0-47.0) 35.6 % (36.0-47.0) Mean Corpuscular Volume 89 fL (79-100) 90 fL (79-100) Mean Corpuscular Hemoglobin 29 pg (25-35) 30 pg (25-35) Mean Corpuscular Hemoglobin Concent 32 g/dL (31-37) 33 g/dL (31-37) Red Cell Distribution Width 20.6 % (11.5-14.5) 20.8 % (11.5-14.5) Platelet Count 371 x10^3/uL (140-400) 340 x10^3/uL (140-400) Neutrophils (%) (Auto) 77 % (31-73) 71 % (31-73) Lymphocytes (%) (Auto) 9 % (24-48) 11 % (24-48) Monocytes (%) (Auto) 13 % (0-9) 16 % (0-9) Eosinophils (%) (Auto) 0 % (0-3) 1 % (0-3) Basophils (%) (Auto) 1 % (0-3) 1 % (0-3) Neutrophils # (Auto) 7.2 x10^3uL (1.8-7.7) 6.3 x10^3uL (1.8-7.7) Lymphocytes # (Auto) 0.8 x10^3/uL (1.0-4.8) 1.0 x10^3/uL (1.0-4.8) Monocytes # (Auto) 1.2 x10^3/uL (0.0-1.1) 1.4 x10^3/uL (0.0-1.1) Eosinophils # (Auto) 0.0 x10^3/uL (0.0-0.7) 0.1 x10^3/uL (0.0-0.7) Basophils # (Auto) 0.1 x10^3/uL (0.0-0.2) 0.1 x10^3/uL (0.0-0.2) Platelet Estimate Adequate (ADEQUATE) Anisocytosis Mod Prothrombin Time 14.3 SEC (11.7-14.0) Prothromb Time International Ratio 1.1 (0.8-1.1) Sodium Level 133 mmol/L (136-145) 134 mmol/L (136-145) Potassium Level 5.3 mmol/L (3.5-5.1) 5.0 mmol/L (3.5-5.1) Chloride Level 100 mmol/L (98-107) 100 mmol/L (98-107) Carbon Dioxide Level 24 mmol/L (21-32) 26 mmol/L (21-32) Anion Gap 9 (6-14) 8 (6-14) Blood Urea Nitrogen 44 mg/dL (7-20) 47 mg/dL (7-20) Creatinine 1.0 mg/dL (0.6-1.0) 1.0 mg/dL (0.6-1.0) Estimated GFR (Cockcroft-Gault) 56.4 56.4 BUN/Creatinine Ratio 44 (6-20) Glucose Level 153 mg/dL (70-99) 111 mg/dL (70-99) Calcium Level 9.1 mg/dL (8.5-10.1) 9.4 mg/dL (8.5-10.1) Total Bilirubin 1.6 mg/dL (0.2-1.0) Aspartate Amino Transf (AST/SGOT) 131 U/L (15-37) Alanine Aminotransferase (ALT/SGPT) 83 U/L (14-59) Alkaline Phosphatase 419 U/L (46-116) Total Protein 6.4 g/dL (6.4-8.2) Albumin 2.5 g/dL (3.4-5.0) Albumin/Globulin Ratio 0.6 (1.0-1.7) Lipase 155 U/L (73-393) Medications Current Medications Morphine Sulfate (Morphine Sulfate) 5 mg 1X ONCE IV Last administered on 02/03/19at 14:49; Start 02/03/19 at 14:30; Stop 02/03/19 at 14:31; Status DC Ondansetron HCl (Zofran) 4 mg 1X ONCE IV Last administered on 02/03/19at 14:48; Start 02/03/19 at 14:30; Stop 02/03/19 at 14:31; Status DC Ondansetron HCl (Zofran) 4 mg PRN Q8HRS PRN IV NAUSEA/VOMITING Last administered on 02/03/19at 19:08; Start 02/03/19 at 15:00; Stop 02/04/19 at 14:59 Morphine Sulfate (Morphine Sulfate) 4 mg PRN Q2HR PRN IV PAIN; Start 02/03/19 at 15:00; Stop 02/04/19 at 14:59 Acetaminophen (Tylenol) 650 mg PRN Q4HRS PRN PO FEVER Last administered on 02/04/19at 07:51; Start 02/03/19 at 15:00; Stop 02/04/19 at 14:59 Polyethylene Glycol (miraLAX PACKET) 17 gm DAILY PO Last administered on 02/04/19at 07:51; Start 02/03/19 at 16:00; Stop 02/04/19 at 09:05; Status DC Polyethylene Glycol (miraLAX PACKET) 17 gm PRN DAILY PRN PO CONSTIPATION; Start 02/03/19 at 15:30; Stop 02/04/19 at 09:05; Status DC Pantoprazole Sodium (Protonix) 40 mg DAILYAC PO Last administered on 02/04/19at 07:50; Start 02/03/19 at 16:30 Hydromorphone HCl (Dilaudid) 1 mg 1X ONCE IV Last administered on 02/03/19at 15:48; Start 02/03/19 at 15:45; Stop 02/03/19 at 15:46; Status DC Polyethylene Glycol (miraLAX PACKET) 17 gm BID PO ; Start 02/04/19 at 21:00 Albumin Human 100 ml @ 100 mls/hr 1X ONCE IV Last administered on 02/04/19at 11:38; Start 02/04/19 at 11:30; Stop 02/04/19 at 12:29; Status DC Albumin Human 50 ml @ 50 mls/hr 1X ONCE IV ; Start 02/04/19 at 11:45; Stop 02/04/19 at 12:44; Status DC Active Scripts Active Reported Hydrocodone-Apap 10-325 (Hydrocodone Bit/Acetaminophen) 1 Tab Tablet 1 Tab PO PRN Q6HRS PRN Gabapentin (Gabapentin) 300 Mg Capsule 300 Mg PO QHS Vitamin B-12 (Cyanocobalamin (Vitamin B-12)) 1,000 Mcg Tablet 1 Tab PO DAILY Vitamin C (Ascorbic Acid) 500 Mg Capsule 500 Mg PO DAILY One Daily For Women 50+ Adv Tb (Multivitamins-Min/Fa/Ginkgo) 1 Each Tablet 1 Tab PO DAILY Lidocaine-Prilocaine Cream (Lidocaine/Prilocaine) 30 Gm Cream..g. Prednisone (Prednisone) 10 Mg Tablet 10 Mg PO PRN DAILY PRN Eliquis (Apixaban) 5 Mg Tablet 5 Mg PO DAILY Omeprazole 40 Mg Capsule. 1 Cap PO DAILY Albuterol Sulfate Neb Soln (Albuterol Sulfate) 2.5 Mg/3 Ml Vial.neb 0.5 Vial NEB PRN Q4HRS PRN Proventil Hfa Inhaler (Albuterol Sulfate) 6.7 Gm Hfa.aer.ad 1-2 Puff IH PRN Q4HRS PRN Advair 250-50 Diskus (Fluticasone/Salmeterol) 1 Each Disk.w.dev 1 Puff IH BID Vitals/I & O Vital Sign - Last 24 Hours 02/03/19 02/03/19 02/03/19 02/03/19 14:15 15:38 19:00 22:15 Temp 97.9 97.8 97.9 97.8 Pulse 98 92 89 Resp 20 18 18 B/P (MAP) 144/76 (98) 119/66 (83) 134/74 (94) Pulse Ox 98 97 97 O2 Delivery Room Air Room Air Room Air Room Air 02/03/19 02/04/19 02/04/19 02/04/19 23:00 03:00 07:00 08:00 Temp 97.7 98.0 98.1 97.7 98.0 98.1 Pulse 85 87 98 Resp 18 18 18 B/P (MAP) 117/63 (81) 118/77 (91) 127/78 (94) Pulse Ox 95 93 94 O2 Delivery Room Air Room Air Room Air Room Air 02/04/19 02/04/19 02/04/19 02/04/19 10:40 10:45 11:00 11:15 Pulse 96 95 96 89 Resp 18 18 16 14 B/P (MAP) 135/77 (96) 133/68 (89) 120/74 (89) 118/71 (87) Pulse Ox 98 95 94 97 O2 Delivery Room Air Room Air Room Air Room Air 02/04/19 11:30 Pulse 89 Resp 16 B/P (MAP) 118/71 (87) Pulse Ox 97 O2 Delivery Room Air OLIVE SMITH MD February 04, 2019 13:33
[2019-02-04] MEDS ORDERED: ACETAMINOPHEN 325 MG TABLET. PO PRN (15:45)
--- NOTE | 2019-02-04 15:46 | RAD ---
Procedure: Ultrasound guided paracentesis Clinical Indication: 63-year-old with abdominal ascites Sedation: Local anesthesia only Antibiotics: None Fluoro Time: None Contrast: Not applicable Sterility: The procedure was performed in its entirety using appropriate elements of sterile technique. Consent: The procedure was explained in its entirety to the patient or the patients designated shared services representative by a member of the treatment team, including a discussion of the risks, benefits and commonly accepted alternatives to the procedure, as well as the expected consequences of no therapy whatsoever. Discussion of the risks included, but was not limited to, those that are most frequent and those that are rare but possibly severe or life-threatening, as well as the possibility of unforeseen complications. Technique and Findings: Following informed consent, the patient was prepped and draped in the usual sterile fashion. Ultrasound interrogation of the abdomen revealed abdominal ascites. A hard copy ultrasound image was recorded. 1% Lidocaine was used to achieve local anesthesia over the area of interest, and a 6 [place] Peyk-K-Nepucyae catheter was advanced into the peritoneal cavity under ultrasound guidance. 6660 cc of thin yellow ascites was then withdrawn. The catheter was removed and hemostasis was achieved with manual compression. Complications: No immediate Impression: 1. Ultrasound-guided paracentesis as described
[2019-02-05 03:00] VITALS: BP 93/55
[2019-02-05 07:00] VITALS: BP 107/75
[2019-02-05] MEDS: PANTOPRAZOLE 40 MG TABLET.DR. PO SCH (08:08)
[2019-02-05] MEDS: POLYETHYLENE GLYCOL 3350 17 GM PACKET. PO SCH (08:08)
[2019-02-05] MEDS ORDERED: MORP15TA PO (08:56)
--- NOTE | 2019-02-05 09:04 | PDOC ---
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 ROS - and pain better Objective Objective Vital Signs Date Time Temp Pulse Resp B/P (MAP) Pulse Ox O2 Delivery O2 Flow Rate FiO2 02/05/19 07:00 98.2 103 18 107/75 (86) 96 Room Air 98.2 Intake and Output 02/05/19 07:00 Intake Total 260 ml Output Total 6660 ml Balance -6400 ml Intake Oral 260 ml Output Other 6660 ml # Voids 1 Physical Exam Heart: Normal S1, Normal S2 General: Alert, Oriented X3, No acute distress Lungs: Clear to auscultation Neuro: Normal speech Psych/Mental Status: Mental status NL Assessment Assessment Problems Medical Problems: (1) Ascites Status: Acute IMPRESSION AND PLAN: 1. 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 Continue therapeutic paracentesis as needed. She was started on Gemzar on 01/09/2019 and it is too early to evaluate for response. If she responds to chemotherapy, I would expect the ascites to improve and hopefully, she will not need frequent paracentesis. Proceed with cycle 2 on 02/05/19 as outpt. Agree with discharge plans for today. 2. Cirrhosis of the liver. Continue supportive care. 3. Malignant Ascites. Cytology 01/12/19 again positive for malignancy. s/p paracentesis again 02/03/19: 6660 cc of thin yellow ascites was withdrawn. . I discussed with Dr. Orellana. Comment Review of Relevant I have reviewed the following items nba (where applicable) has been applied. Labs Laboratory Tests Test 02/03/19 14:40 02/04/19 04:30 White Blood Count 9.4 x10^3/uL (4.0-11.0) 8.9 x10^3/uL (4.0-11.0) Red Blood Count 4.27 x10^6/uL (3.50-5.40) 3.96 x10^6/uL (3.50-5.40) Hemoglobin 12.2 g/dL (12.0-15.5) 11.7 g/dL (12.0-15.5) Hematocrit 37.9 % (36.0-47.0) 35.6 % (36.0-47.0) Mean Corpuscular Volume 89 fL (79-100) 90 fL (79-100) Mean Corpuscular Hemoglobin 29 pg (25-35) 30 pg (25-35) Mean Corpuscular Hemoglobin Concent 32 g/dL (31-37) 33 g/dL (31-37) Red Cell Distribution Width 20.6 % (11.5-14.5) 20.8 % (11.5-14.5) Platelet Count 371 x10^3/uL (140-400) 340 x10^3/uL (140-400) Neutrophils (%) (Auto) 77 % (31-73) 71 % (31-73) Lymphocytes (%) (Auto) 9 % (24-48) 11 % (24-48) Monocytes (%) (Auto) 13 % (0-9) 16 % (0-9) Eosinophils (%) (Auto) 0 % (0-3) 1 % (0-3) Basophils (%) (Auto) 1 % (0-3) 1 % (0-3) Neutrophils # (Auto) 7.2 x10^3uL (1.8-7.7) 6.3 x10^3uL (1.8-7.7) Lymphocytes # (Auto) 0.8 x10^3/uL (1.0-4.8) 1.0 x10^3/uL (1.0-4.8) Monocytes # (Auto) 1.2 x10^3/uL (0.0-1.1) 1.4 x10^3/uL (0.0-1.1) Eosinophils # (Auto) 0.0 x10^3/uL (0.0-0.7) 0.1 x10^3/uL (0.0-0.7) Basophils # (Auto) 0.1 x10^3/uL (0.0-0.2) 0.1 x10^3/uL (0.0-0.2) Platelet Estimate Adequate (ADEQUATE) Anisocytosis Mod Prothrombin Time 14.3 SEC (11.7-14.0) Prothromb Time International Ratio 1.1 (0.8-1.1) Sodium Level 133 mmol/L (136-145) 134 mmol/L (136-145) Potassium Level 5.3 mmol/L (3.5-5.1) 5.0 mmol/L (3.5-5.1) Chloride Level 100 mmol/L (98-107) 100 mmol/L (98-107) Carbon Dioxide Level 24 mmol/L (21-32) 26 mmol/L (21-32) Anion Gap 9 (6-14) 8 (6-14) Blood Urea Nitrogen 44 mg/dL (7-20) 47 mg/dL (7-20) Creatinine 1.0 mg/dL (0.6-1.0) 1.0 mg/dL (0.6-1.0) Estimated GFR (Cockcroft-Gault) 56.4 56.4 BUN/Creatinine Ratio 44 (6-20) Glucose Level 153 mg/dL (70-99) 111 mg/dL (70-99) Calcium Level 9.1 mg/dL (8.5-10.1) 9.4 mg/dL (8.5-10.1) Total Bilirubin 1.6 mg/dL (0.2-1.0) Aspartate Amino Transf (AST/SGOT) 131 U/L (15-37) Alanine Aminotransferase (ALT/SGPT) 83 U/L (14-59) Alkaline Phosphatase 419 U/L (46-116) Total Protein 6.4 g/dL (6.4-8.2) Albumin 2.5 g/dL (3.4-5.0) Albumin/Globulin Ratio 0.6 (1.0-1.7) Lipase 155 U/L (73-393) Medications Current Medications Morphine Sulfate (Morphine Sulfate) 5 mg 1X ONCE IV Last administered on 02/03/19at 14:49; Start 02/03/19 at 14:30; Stop 02/03/19 at 14:31; Status DC Ondansetron HCl (Zofran) 4 mg 1X ONCE IV Last administered on 02/03/19at 14:48; Start 02/03/19 at 14:30; Stop 02/03/19 at 14:31; Status DC Ondansetron HCl (Zofran) 4 mg PRN Q8HRS PRN IV NAUSEA/VOMITING Last administered on 02/03/19at 19:08; Start 02/03/19 at 15:00; Stop 02/04/19 at 14:59; Status DC Morphine Sulfate (Morphine Sulfate) 4 mg PRN Q2HR PRN IV PAIN; Start 02/03/19 at 15:00; Stop 02/04/19 at 14:59; Status DC Acetaminophen (Tylenol) 650 mg PRN Q4HRS PRN PO FEVER Last administered on 02/04/19 07:51; Start 02/03/19 at 15:00; Stop 02/04/19 at 14:59; Status DC Polyethylene Glycol (miraLAX PACKET) 17 gm DAILY PO Last administered on 02/04/19 07:51; Start 02/03/19 at 16:00; Stop 02/04/19 at 09:05; Status DC Polyethylene Glycol (miraLAX PACKET) 17 gm PRN DAILY PRN PO CONSTIPATION; Start 02/03/19 at 15:30; Stop 02/04/19 at 09:05; Status DC Pantoprazole Sodium (Protonix) 40 mg DAILYAC PO Last administered on 02/05/19 08:08; Start 02/03/19 at 16:30 Hydromorphone HCl (Dilaudid) 1 mg 1X ONCE IV Last administered on 02/03/19at 15:48; Start 02/03/19 at 15:45; Stop 02/03/19 at 15:46; Status DC Polyethylene Glycol (miraLAX PACKET) 17 gm BID PO Last administered on 02/04/19 t 21:21; Start 02/04/19 at 21:00 Albumin Human 100 ml @ 100 mls/hr 1X ONCE IV Last administered on 02/04/19 11:38; Start 02/04/19 at 11:30; Stop 02/04/19 at 12:29; Status DC Albumin Human 50 ml @ 50 mls/hr 1X ONCE IV Last administered on 02/04/19at 1 1:45; Start 02/04/19 at 11:45; Stop 02/04/19 at 12:44; Status DC Acetaminophen (Tylenol) 650 mg PRN Q6HRS PRN PO pain Last administered on 02/04/19at 15:57; Start 02/04/19 at 15:45 Active Scripts Active Morphine Sulfate 15 Mg Tablet 1 Tab PO QID Reported Hydrocodone-Apap 10-325 (Hydrocodone Bit/Acetaminophen) 1 Tab Tablet 1 Tab PO PRN Q6HRS PRN Gabapentin (Gabapentin) 300 Mg Capsule 300 Mg PO QHS Vitamin B-12 (Cyanocobalamin (Vitamin B-12)) 1,000 Mcg Tablet 1 Tab PO DAILY Vitamin C (Ascorbic Acid) 500 Mg Capsule 500 Mg PO DAILY One Daily For Women 50+ Adv Tb (Multivitamins-Min/Fa/Ginkgo) 1 Each Tablet 1 Tab PO DAILY Lidocaine-Prilocaine Cream (Lidocaine/Prilocaine) 30 Gm Cream..g. Prednisone (Prednisone) 10 Mg Tablet 10 Mg PO PRN DAILY PRN Eliquis (Apixaban) 5 Mg Tablet 5 Mg PO DAILY Omeprazole 40 Mg Capsule.dr 1 Cap PO DAILY Albuterol Sulfate Neb Soln (Albuterol Sulfate) 2.5 Mg/3 Ml Vial.neb 0.5 Vial NEB PRN Q4HRS PRN Proventil Hfa Inhaler (Albuterol Sulfate) 6.7 Gm Hfa.aer.ad 1-2 Puff IH PRN Q4HRS PRN Advair 250-50 Diskus (Fluticasone/Salmeterol) 1 Each Disk.w.dev 1 Puff IH BID Vitals/I & O Vital Sign - Last 24 Hours 02/04/19 02/04/19 02/04/19 02/04/19 10:40 10:45 11:00 11:15 Pulse 96 95 96 89 Resp 18 18 16 14 B/P (MAP) 135/77 (96) 133/68 (89) 120/74 (89) 118/71 (87) Pulse Ox 98 95 94 97 O2 Delivery Room Air Room Air Room Air Room Air 02/04/19 02/04/19 02/04/19 02/04/19 11:30 15:00 19:00 20:00 Temp 97.9 97.8 97.9 97.8 Pulse 89 96 98 Resp 16 18 16 B/P (MAP) 118/71 (87) 123/61 (81) 114/69 (84) Pulse Ox 97 90 96 O2 Delivery Room Air Room Air Room Air Room Air 02/04/19 02/05/19 02/05/19 23:00 03:00 07:00 Temp 98.1 97.9 98.2 98.1 97.9 98.2 Pulse 92 92 103 Resp 14 16 18 B/P (MAP) 101/67 (78) 93/55 (68) 107/75 (86) Pulse Ox 97 97 96 O2 Delivery Room Air Room Air Room Air Intake and Output 02/04/19 02/04/19 02/05/19 15:00 23:00 07:00 Intake Total 260 ml 0 ml Output Total 6660 ml Balance -6660 ml 260 ml 0 ml MINNA THORPE MD February 05, 2019 09:04
--- NOTE | 2019-02-05 09:10 | PDOC3 ---
Discharge Summary Visit Information Date of Admission: February 03, 2019 Date of Discharge: February 05, 2019 Admitting Diagnosis: Ascites Final Diagnosis Problems Medical Problems: (1) Malignant Ascites (2) Stage 4 breast cancer Status: Acute Brief Hospital Course Allergies Allergies Coded Allergies Type Severity Reaction Last Updated Verified meperidine Adverse Reaction Intermediate Nausea and Vomiting 07/12/17 Yes Vital Signs Vital Signs Date Time Temp Pulse Resp B/P (MAP) Pulse Ox O2 Delivery O2 Flow Rate FiO2 02/05/19 07:00 98.2 103 18 107/75 (86) 96 Room Air 98.2 Lab Results Laboratory Tests Test 02/03/19 14:40 02/04/19 04:30 White Blood Count 9.4 x10^3/uL (4.0-11.0) 8.9 x10^3/uL (4.0-11.0) Red Blood Count 4.27 x10^6/uL (3.50-5.40) 3.96 x10^6/uL (3.50-5.40) Hemoglobin 12.2 g/dL (12.0-15.5) 11.7 g/dL (12.0-15.5) Hematocrit 37.9 % (36.0-47.0) 35.6 % (36.0-47.0) Mean Corpuscular Volume 89 fL (79-100) 90 fL (79-100) Mean Corpuscular Hemoglobin 29 pg (25-35) 30 pg (25-35) Mean Corpuscular Hemoglobin Concent 32 g/dL (31-37) 33 g/dL (31-37) Red Cell Distribution Width 20.6 % (11.5-14.5) 20.8 % (11.5-14.5) Platelet Count 371 x10^3/uL (140-400) 340 x10^3/uL (140-400) Neutrophils (%) (Auto) 77 % (31-73) 71 % (31-73) Lymphocytes (%) (Auto) 9 % (24-48) 11 % (24-48) Monocytes (%) (Auto) 13 % (0-9) 16 % (0-9) Eosinophils (%) (Auto) 0 % (0-3) 1 % (0-3) Basophils (%) (Auto) 1 % (0-3) 1 % (0-3) Neutrophils # (Auto) 7.2 x10^3uL (1.8-7.7) 6.3 x10^3uL (1.8-7.7) Lymphocytes # (Auto) 0.8 x10^3/uL (1.0-4.8) 1.0 x10^3/uL (1.0-4.8) Monocytes # (Auto) 1.2 x10^3/uL (0.0-1.1) 1.4 x10^3/uL (0.0-1.1) Eosinophils # (Auto) 0.0 x10^3/uL (0.0-0.7) 0.1 x10^3/uL (0.0-0.7) Basophils # (Auto) 0.1 x10^3/uL (0.0-0.2) 0.1 x10^3/uL (0.0-0.2) Platelet Estimate Adequate (ADEQUATE) Anisocytosis Mod Prothrombin Time 14.3 SEC (11.7-14.0) Prothromb Time International Ratio 1.1 (0.8-1.1) Sodium Level 133 mmol/L (136-145) 134 mmol/L (136-145) Potassium Level 5.3 mmol/L (3.5-5.1) 5.0 mmol/L (3.5-5.1) Chloride Level 100 mmol/L (98-107) 100 mmol/L (98-107) Carbon Dioxide Level 24 mmol/L (21-32) 26 mmol/L (21-32) Anion Gap 9 (6-14) 8 (6-14) Blood Urea Nitrogen 44 mg/dL (7-20) 47 mg/dL (7-20) Creatinine 1.0 mg/dL (0.6-1.0) 1.0 mg/dL (0.6-1.0) Estimated GFR (Cockcroft-Gault) 56.4 56.4 BUN/Creatinine Ratio 44 (6-20) Glucose Level 153 mg/dL (70-99) 111 mg/dL (70-99) Calcium Level 9.1 mg/dL (8.5-10.1) 9.4 mg/dL (8.5-10.1) Total Bilirubin 1.6 mg/dL (0.2-1.0) Aspartate Amino Transf (AST/SGOT) 131 U/L (15-37) Alanine Aminotransferase (ALT/SGPT) 83 U/L (14-59) Alkaline Phosphatase 419 U/L (46-116) Total Protein 6.4 g/dL (6.4-8.2) Albumin 2.5 g/dL (3.4-5.0) Albumin/Globulin Ratio 0.6 (1.0-1.7) Lipase 155 U/L (73-393) Brief Hospital Course Ms. Colbert, is a 63 year old female with history of COPD, right breast cancer on chemotherapy every 3 weeks, with 1 week off, last treatment on last week, ascites from chemotherapy who presents to the ED today stating he was sent to be admitted by Dr. Arvizu for paracentesis due to ascites. She states she last had paracentesis on Saturday and throughout this weekend she's noted increased swelling to her abdomen with increased pain due to the swelling. Patient denies any fever. Denies any nausea vomiting. Patient had 6.6 liters of ascitic fluid taken out and she felt much relieved, her discomfort and respiratory status greatly improved, she has expressed her wishes to be a DNR at this point. Patient will be provided with a script of morphine immediate release as needed for her discomfort. She will be goind to Dr Melchor curtis in the afternoon for chemotherapy. discussed with senior management consultant at bedside prior to discharge all concerns addressed to the best of my abilities. Lungs clear to auscultation CVS s1s2 rr no murmurs gallops Discharge Information Condition at Discharge: Improved Follow Up: Weeks Disposition/Orders: D/C to Home Scheduled Apixaban (Eliquis) 5 Mg Tablet, 5 MG PO DAILY, (Reported) Entered as Reported by: DYANA GUEVARA on 08/09/17 2653 Ascorbic Acid (Vitamin C) 500 Mg Capsule, 500 MG PO DAILY for Supplement, (Reported) Entered as Reported by: CHRISTIANO VELEZ on 12/12/18 0710 Cyanocobalamin (Vitamin B-12) (Vitamin B-12) 1,000 Mcg Tablet, 1 TAB PO DAILY for Supplement, (Reported) Entered as Reported by: MATHEW RUDD RN on 01/12/19 2953 Fluticasone/Salmeterol (Advair 250-50 Diskus) 1 Each Disk.w.dev, 1 PUFF IH BID, #3 Ref 3 (Reported) Entered as Reported by: GISSEL SALGUERO on 09/20/16 0952 Gabapentin (Gabapentin ) 300 Mg Capsule, 300 MG PO QHS for NEUROGENIC PAIN, (Reported) Entered as Reported by: MATHEW RUDD RN on 01/12/19 2139 Morphine Sulfate (Morphine Sulfate) 15 Mg Tablet, 1 TAB PO QID for moderate pain, #28 Prescribed by: OLIVE SMITH MD on 02/05/19 0856 Multivitamins-Min/Fa/Ginkgo (One Daily For Women 50+ Adv Tb) 1 Each Tablet, 1 TAB PO DAILY for Supplement, (Reported) Entered as Reported by: CHRISTIANO VELEZ on 12/12/18 0710 Omeprazole (Omeprazole) 40 Mg Capsule.dr, 1 CAP PO DAILY, #30 Ref 3 (Reported) Entered as Reported by: JULIAN PEÑA on 07/12/17 1254 Scheduled PRN Albuterol Sulfate (Proventil Hfa Inhaler) 6.7 Gm Hfa.aer.ad, 1-2 PUFF IH PRN Q4HRS PRN for SHORTNESS OF BREATH, Ref 0 (Reported) Entered as Reported by: GISSEL SALGUERO on 09/20/16 0955 Albuterol Sulfate (Albuterol Sulfate Neb Soln) 2.5 Mg/3 Ml Vial.neb, 0.5 VIAL NEB PRN Q4HRS PRN for SHORTNESS OF BREATH, #50 (Reported) Entered as Reported by: GISSEL SALGUERO on 09/20/16 0955 Hydrocodone Bit/Acetaminophen (Hydrocodone-Apap 10-325 ) 1 Tab Tablet, 1 TAB PO PRN Q6HRS PRN for PAIN, Ref 0 (Reported) Entered as Reported by: ROCAEL REES on 01/19/19 1027 Prednisone (Prednisone ) 10 Mg Tablet, 10 MG PO PRN DAILY PRN for wheezing, (Reported) Entered as Reported by: ALONZO ANDERSON on 11/14/172150 Miscellaneous Medications Lidocaine/Prilocaine (Lidocaine-Prilocaine Cream) 30 Gm Cream..g., (Reported) Entered as Reported by: ALONZO ANDERSON on 11/14/172150 OLIVE SMITH MD February 05, 2019 09:10
[2019-02-05] MEDS ORDERED: HEPARIN PF 500 UNIT/5 ML DISP.SYRIN. IV ONE (09:15)
--- NOTE | 2019-02-05 10:59 | NUR ---
pt is discharged home with self care at 1027 via wheelchair via SIRISHA Oliveira. pt is in stable condition. pt has all belongings with her. pt received discharge instructions and prescriptions and stated she had no further questions for me.
--- NOTE | 2019-02-05 17:06 | PATHOLOGY ---
Note [facility] Accession Number: [id number] TESTS RESULT FLAG UNITS REF RANGE LAB Clinician Provided Cytology Information No. of containers..01 Other (Miscellaneous) Source: ASCITIES DIAGNOSIS: 02 ASCITIES POSITIVE FOR MALIGNANT CELLS. FAVOR ADENOCARCINOMA. PATIENT WITH KNOWN HISTORY OF MAMMARY CARCINOMA. THIS INTERPRETATION INCLUDES EVALUATION OF A CELL BLOCK. Signed out by: 02 Allen Dunn MD, Pathologist NPI- [id number] Performed by: Bess Prieto, .Net Developer ([facility]) Gross description: 01 25ML, YELLOW, CLOUDY /LCS FLAG LEGEND: L-Low Normal,H-High Normal,LL-Alert Low,HH-Alert High <-Panic Low,>-Panic High,A-Abnormal,AA-Critical Abnormal Performed at: [facility] [address] [place] [address] Ede Rachel MD, 02 [facility] [address] [place] [address] Allen Dunn MD, Specimen Comment: A courtesy copy of this report has been sent to Specimen Comment: [phone], , , . Specimen Comment: Report sent to DR SANTIAGO,DR MENDOZA,DR THORPE / DR MCDANIEL Specimen Comment: A duplicate report has been generated due to demographic updates. Performed at: [address], [place], [place] [id number] MD Ede Rachel MD Phone: [phone]
== END 2019-02-05 10:27 | disposition home or self-care (01) | DRG 374 ==
LOC: ER 13:58 → 4 NORTH 14:11
PROVIDERS: ADMIT Internal Medicine; ATTEND Internal Medicine
PROC: 0W9G3ZX Drainage of Peritoneal Cavity, Percutaneous Approach, Diagnostic (ICD-10-PCS; principal; 2019-02-03)
DX: C78.6 Secondary malignant neoplasm of retroperitoneum and peritoneum (principal); E43 Unspecified severe protein-calorie malnutrition; R18.0 Malignant ascites; C50.919 Malignant neoplasm of unspecified site of unspecified female breast; G80.9 Cerebral palsy, unspecified; J44.9 Chronic obstructive pulmonary disease, unspecified; E87.5 Hyperkalemia; K21.9 Gastro-esophageal reflux disease without esophagitis; K74.60 Unspecified cirrhosis of liver; Q05.9 Spina bifida, unspecified; Z66 Do not resuscitate; Z80.1 Family history of malignant neoplasm of trachea, bronchus and lung; Z90.11 Acquired absence of right breast and nipple; Z90.710 Acquired absence of both cervix and uterus; Z85.3 Personal history of malignant neoplasm of breast; Z68.23 Body mass index [BMI] 23.0-23.9, adult
CPT/HCPCS: 36415; 49083; 80048; 80053; 83690; 85025; 85610; 88112; 88305; 96374; 96375; J1170; J2270; J2405; P9046; 99285-25

== ENCOUNTER 2019-02-06 07:57 | Outpatient (CLI) | payer BC ==
[~2019-02-06] VITALS: Ht 162.6 cm; Wt 62.1 kg
[~2019-02-06 07:57] MED LIST changes: +MORP15TA PO
[2019-02-06] MEDS ORDERED: ONDANSETRON ODT 4 MG TAB.RAPDIS. PO ONE (08:30)
[2019-02-06] MEDS ORDERED: ONDANSETRON PF 4 MG/2 ML VIAL. ONE (08:48)
[2019-02-06 09:00] VITALS: BP 134/70
[2019-02-06] MEDS ORDERED: ONDANSETRON PF 4 MG/2 ML VIAL. IV ONE (09:00)
[2019-02-06 09:03] VITALS: BP 115/63
[2019-02-06 09:15] VITALS: BP 134/70
[2019-02-06 09:30] VITALS: BP 105/56
[2019-02-06 09:57] VITALS: BP 102/65
[2019-02-06 10:04] VITALS: BP 109/55
--- NOTE | 2019-02-06 10:30 | NUR ---
Discharge Note: TONY SANCHEZ Discharge instructions and discharge home medications reviewed with Patient and a copy given. All questions have been answered and understanding verbalized. The following instructions and handouts were given: Paracentesis and incision site care Discontinued lines and drains: Left chest port a cath needle tip intact. Patient discharged to home with daughter and sister via car.
--- NOTE | 2019-02-06 11:05 | RAD ---
Limited abdominal ultrasound, 02/06/2019: HISTORY: Breast cancer, possible ascites There is a moderate volume of ascites present in all 4 quadrants. Electronically signed by: Favio Moore MD (02/06/2019 11:02 AM) [facility]
--- NOTE | 2019-02-06 17:23 | RAD ---
Procedure: Ultrasound guided paracentesis Clinical Indication: 63-year-old with abdominal ascites Sedation: Local anesthesia only Antibiotics: None Fluoro Time: None Contrast: Not applicable Sterility: The procedure was performed in its entirety using appropriate elements of sterile technique. Consent: The procedure was explained in its entirety to the patient or the patients designated claims service representative by a member of the treatment team, including a discussion of the risks, benefits and commonly accepted alternatives to the procedure, as well as the expected consequences of no therapy whatsoever. Discussion of the risks included, but was not limited to, those that are most frequent and those that are rare but possibly severe or life-threatening, as well as the possibility of unforeseen complications. Technique and Findings: Following informed consent, the patient was prepped and draped in the usual sterile fashion. Ultrasound interrogation of the abdomen revealed abdominal ascites. A hard copy ultrasound image was recorded. 1% Lidocaine was used to achieve local anesthesia over the area of interest, and a 6 [place] [id number]-[id number] catheter was advanced into the peritoneal cavity under ultrasound guidance. 4000 cc of thin yellow ascites was then withdrawn. The catheter was removed and hemostasis was achieved with manual compression. Complications: No immediate Impression: 1. Ultrasound-guided paracentesis as described
== END 2019-02-06 10:30 | disposition home or self-care (01) ==
LOC: US 07:57
PROVIDERS: ATTEND Internal Medicine Hematology & Oncology
DX: R18.8 Other ascites (principal)
CPT/HCPCS: 49083; 76705; J2405; Q0162

== ENCOUNTER 2019-02-11 08:24 | Outpatient (CLI) | payer BC ==
[~2019-02-11] VITALS: Ht 162.6 cm; Wt 63.0 kg
[2019-02-11] VITALS (9 sets, daily range): BP systolic 95–109; BP diastolic 50–64
[2019-02-11] MEDS ORDERED: ceFAZolin SODIUM 1 GM in IV DEXTROSE 5% 50 ML IV ONE (09:30)
[2019-02-11] MEDS ORDERED: LIDOCAINE 1%/EPI 1:100,000 20 ML VIAL. ONE (09:47)
[2019-02-11] MEDS ORDERED: MIDAZOLAM HCL/PF 2 MG/2 ML VIAL. ONE (09:59)
[2019-02-11] MEDS ORDERED: fentaNYL PF VIAL 100 MCG/2 ML VIAL ONE (10:00)
--- NOTE | 2019-02-11 10:47 | PDOC ---
MODERATE SEDATION ASSESSMENT RISKS/ALTERNATIVES Risks/Alternatives Risks and alternatives of this type of sedation and procedure discussed with: RISK/ALTERNATIVES: Patient H & P ON CHART H & P H & P on chart and reviewed for co-morbid conditions and appropriate labs. H&P ON CHART: Yes STATUS PREG STATUS ASSESSED: Yes MEDS/ALLERGIES REVIEWED Meds/Allergies Reviewed Medications and Allergies including time and route of recently administered narcotics and sedatives. MEDS/ALLERGIES REVIEWED: Yes ASA RATING ASA RATING: III AIRWAY ASSESSMENT Airway Assessment Airway patency, oral function limitations, presence of caps, crowns, dentures, partials, and ability to extend neck assessed. AIRWAY ASSESSMENT: Yes MALLAMPATI SCORE MALLAMPATI SCORE: II PRE-SEDATION ASSESSMENT PRE-SEDATION ASSESSMENT: Yes VANNA SANTIAGO MD Feb 11, 2019 10:47
--- NOTE | 2019-02-11 10:48 | PDOC ---
BRIEF OPERATIVE NOTE Pre-Op Diagnosis Malignant ascites and breast cancer Post-Op Diagnosis same Procedure Performed Abdominal PleurX Surgeon Karin Anesthesia Type: Conscious Sedation Findings Abdominal PleurX Complications No immediate VANNA SANTIAGO MD Feb 11, 2019 10:48
--- NOTE | 2019-02-11 10:49 | PDOC1 ---
History and Physical Date of Procedure Date of Admission History of Present Illness Reason for Visit Adult female with breast cancer and malignant ascites Past Medical History Past Medical History See nursing pre-op assessment Current Medications Current Medications Current Medications Cefazolin Sodium 1 gm/Dextrose 50 ml @ 100 mls/hr 1X ONCE IV ; Start 02/11/19 at 09:30; Stop 02/11/19 at 09:59; Status UNV Cefazolin Sodium 50 ml @ 100 mls/hr 1X PREOP PRN IV PRIOR TO PROCEDURE Last administered on 02/11/19at 10:16; Start 02/11/19 at 09:30; Stop 02/11/19 at 12:00 Lidocaine/ Epinephrine (LIDOCAINE 1%-EPI 1:100,000 Multi-Dose) 20 ml STK-MED ONCE .ROUTE ; Start 02/11/19 at 09:47; Stop 02/11/19 at 09:48; Status DC Cefazolin Sodium 50 ml @ As Directed STK-MED ONCE IV ; Start 02/11/19 at 09:58; Stop 02/11/19 at 09:59; Status DC Midazolam HCl (Versed) 2 mg STK-MED ONCE .ROUTE ; Start 02/11/19 at 09:59; Stop 02/11/19 at 10:00; Status DC Fentanyl Citrate (Fentanyl 2ml Vial) 100 mcg STK-MED ONCE .ROUTE ; Start 02/11/19 at 10:00; Stop 02/11/19 at 10:01; Status DC Midazolam HCl (Versed) 2 mg 1X ONCE IV ; Start 02/11/19 at 11:00; Stop 02/11/19 at 11:01 Fentanyl Citrate (Fentanyl 2ml Vial) 100 mcg 1X ONCE IV ; Start 02/11/19 at 11:00; Stop 02/11/19 at 11:01 Lidocaine/ Epinephrine (LIDOCAINE 1%-EPI 1:100,000 Multi-Dose) 20 ml 1X ONCE IJ ; Start 02/11/19 at 11:00; Stop 02/11/19 at 11:01 Active Scripts Active Morphine Sulfate 15 Mg Tablet 1 Tab PO QID Reported Hydrocodone-Apap 10-325 (Hydrocodone Bit/Acetaminophen) 1 Tab Tablet 1 Tab PO PRN Q6HRS PRN Gabapentin (Gabapentin) 300 Mg Capsule 300 Mg PO QHS Vitamin B-12 (Cyanocobalamin (Vitamin B-12)) 1,000 Mcg Tablet 1 Tab PO DAILY Vitamin C (Ascorbic Acid) 500 Mg Capsule 500 Mg PO DAILY One Daily For Women 50+ Adv Tb (Multivitamins-Min/Fa/Ginkgo) 1 Each Tablet 1 Tab PO DAILY Lidocaine-Prilocaine Cream (Lidocaine/Prilocaine) 30 Gm Cream..g. Prednisone (Prednisone) 10 Mg Tablet 10 Mg PO PRN DAILY PRN Eliquis (Apixaban) 5 Mg Tablet 5 Mg PO DAILY Omeprazole 40 Mg Capsule.dr 1 Cap PO DAILY Albuterol Sulfate Neb Soln (Albuterol Sulfate) 2.5 Mg/3 Ml Vial.neb 0.5 Vial NEB PRN Q4HRS PRN Proventil Hfa Inhaler (Albuterol Sulfate) 6.7 Gm Hfa.aer.ad 1-2 Puff IH PRN Q4HRS PRN Advair 250-50 Diskus (Fluticasone/Salmeterol) 1 Each Disk.w.dev 1 Puff IH BID Allergies Allergies: Coded Allergies: meperidine (Verified Adverse Reaction, Intermediate, Nausea and Vomiting, 07/12/17) Physical Exam Vital Signs Vital Signs Date Time Temp Pulse Resp B/P (MAP) Pulse Ox O2 Delivery O2 Flow Rate FiO2 02/11/19 09:30 Room Air 02/11/19 09:29 97.6 93 12 97/59 (72) 92 97.6 Other see nursing pre-op assessment Assessment Assessment Malignant Ascites Plan Plan Abdominal PleurX VANNA SANTIAGO MD Feb 11, 2019 10:49
[2019-02-11] MEDS ORDERED: MIDAZOLAM HCL/PF 2 MG/2 ML VIAL. IV ONE (11:00)
[2019-02-11] MEDS ORDERED: LIDOCAINE 1%/EPI 1:100,000 20 ML VIAL. IJ ONE (11:00)
[2019-02-11] MEDS ORDERED: fentaNYL PF VIAL 100 MCG/2 ML VIAL IV ONE (11:00)
--- NOTE | 2019-02-11 12:42 | RAD ---
Procedure: Ultrasound and fluoroscopic guided abdominal Pleurx catheter placement Clinical Indication: 63-year-old with malignant ascites, recurrent Sedation: Conscious sedation was administered with a total intraprocedural [id number] time of 47 minutes. The patient was monitored by a qualified independent observer throughout the time of sedation. Please refer to the medical record for exact doses of medications utilized to achieve moderate sedation. Antibiotics: Antibiotic was administered intravenously within 1 hour of the procedure start time. Exposure: Kerma-Area Product: 2 Gycm2 Sterility: All elements of maximal sterile barrier technique including the use of a cap, mask, sterile gown, sterile gloves, large sterile sheet, appropriate hand hygiene, and 2% chlorhexidine for cutaneous antisepsis (or acceptable alternative antiseptic per current guidelines) were followed for this procedure. If ultrasound guidance was utilized, sterile ultrasound techniques were followed including use of a sterile probe cover. Consent: The procedure was explained in its entirety to the patient or the patients designated sales representative facility services by a member of the treatment team, including a discussion of the risks, benefits and commonly accepted alternatives to the procedure, as well as the expected consequences of no therapy whatsoever. Discussion of the risks included, but was not limited to, those that are most frequent and those that are rare but possibly severe or life-threatening, as well as the possibility of unforeseen complications. Technique and Findings: Following informed consent, the patient was prepped and draped in usual sterile fashion. Ultrasound of the abdomen revealed abdominal ascites. Area of the abdomen was anesthetized with 1% lidocaine. A hardcopy ultrasound image was recorded as an 18-gauge sheath needle was advanced into the peritoneum. The skin over the anterior abdominal wall was then anesthetized with 1% lidocaine plus epinephrine. A second small dermatotomy was made. A Pleurx catheter was then tunneled subcutaneously towards the peritoneal puncture site. The needle was then exchanged over wire for serial dilators followed by a large caliber peel-away sheath which was used to deploy the Pleurx catheter into the abdominal cavity. The catheter was then sutured to the skin. The skin over the pleural puncture site was closed with a single deep 4-0 Vicryl purse string suture. Fluoroscopy revealed good distribution of the catheter throughout the abdomen. The Pleurx catheter was then used to perform a paracentesis yielding 2400 cc of thin yellow fluid. Complications: No immediate Impression: 1. Ultrasound and fluoroscopic guided abdominal Pleurx placement as described. Paracentesis yielding 2400 cc of thin yellow fluid was performed.
[2019-02-11] MEDS ORDERED: HEPARIN PF 500 UNIT/5 ML DISP.SYRIN. IV ONE ×2 (13:15→13:30)
--- NOTE | 2019-02-11 13:39 | NUR ---
pt A&O x3. denies pain at this time. VSS. Graciela the IR tech showed present family how to attach drainage canisters to abd. drain and how to care for site. we did contact pt's hospice company and verified that they will be out to see pt this afternoon at home. d/c instruction reviewed w/pt and her family. questions answered. out to vehicle per w/c- her sister to drive her home. de-accessed pt's port per protocol- no bleeding from site.
== END 2019-02-11 13:30 | disposition home or self-care (01) ==
LOC: INTRAD 08:24
PROVIDERS: ATTEND Internal Medicine Hematology & Oncology
DX: R18.0 Malignant ascites (principal); J45.909 Unspecified asthma, uncomplicated; K21.9 Gastro-esophageal reflux disease without esophagitis; Z87.01 Personal history of pneumonia (recurrent); Z85.3 Personal history of malignant neoplasm of breast; Z86.711 Personal history of pulmonary embolism; Z92.21 Personal history of antineoplastic chemotherapy; Z92.3 Personal history of irradiation; Z90.710 Acquired absence of both cervix and uterus; Z90.721 Acquired absence of ovaries, unilateral; Z90.11 Acquired absence of right breast and nipple; Z98.890 Other specified postprocedural states
CPT/HCPCS: 32550; 75989; 99152; 99153; C1729; C1892; J0690; J2250; J3010; J3490